=== PATIENT | male | born 1960 | race Caucasian/White ===

== ENCOUNTER 2018-08-05 11:11 | Inpatient (IN) ==
[2018-08-05] MEDS ORDERED: PATIENT'S HEIGHT AND/OR WEIGHT NEEDED SCH (12:30)
[2018-08-05] MEDS ORDERED: PATIENT'S ALLERGY INFO NEEDS ENTERED SCH (12:30)
[2018-08-05 12:46] LABS: INR 1.2 (0.9-1.1); Partial Thromboplastin Time 26.7 Seconds (21.0-31.0); Prothrombin Time 11.9 Seconds (9.0-12.0)
[2018-08-05 12:48] LABS: Basophils # (auto) 0.03 K/uL (0-0.2); Basophils % (auto) 0.6 %; Eosinophils # (auto) 0.31 K/uL (0-0.5); Eosinophils % (auto) 6.1 %; Hematocrit (blood only) 29.3 % (42-52); Hemoglobin 9.6 g/dL (14.0-18.0); Lymphocytes # (auto) 0.28 K/uL (1.2-3.4); Lymphocytes % (auto) 5.5 %; Mean Corpuscular Hgb Conc 32.8 g/dL (32-36); Mean Platelet Volume 10.5 fL (7.4-10.4); Monocytes # (auto) 0.56 K/uL (0.11-0.59); Monocytes % (auto) 10.9 %; Neutrophils # (auto) 3.94 K/uL (1.4-6.5); Neutrophils % (auto) 76.9 %; Platelet Count 205 K/uL (130-400); RDW Coefficient of Variation 16.8 % (11.5-14.5); RDW Standard Deviation 59.5 fL (36.4-46.3); Red Blood Count 2.96 M/uL (4.7-6.1); White Blood Count 5.12 K/uL (4.8-10.8)
[2018-08-05] MEDS ORDERED: ALBUTEROL HFA 8 GM INHALER INH PRN (13:03)
[2018-08-05 13:06] LABS: Alanine Aminotransferase 21 U/L (12-78); Albumin Level 3.3 gm/dl (3.4-5.0); Aspartate Aminotransferase 24 U/L (15-37); Blood Urea Nitrogen 24 mg/dl (7-18); Calcium 8.7 mg/dl (8.5-10.1); Carbon Dioxide 28 mmol/L (21-32); Chloride 95 mmol/L (98-107); Glucose 101 mg/dl (70-99); Magnesium 1.8 mg/dl (1.8-2.4); Potassium 3.6 mmol/L (3.5-5.1); Sodium 132 mmol/L (136-145)
[2018-08-05 13:07] LABS: BUN Creatinine Ratio 15.8 (10-20); Creatinine Clr Calc Pharmacy 67.2 ml/min; Est GFR (Non-African American) 50.9
--- NOTE | 2018-08-05 13:07 | History & Physical Report ---
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 Negative troponin. CXR: Cardiomegaly and radiographic evidence of congestive failure/fluid overload. 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 Hx INNA during hospital admission at [facility] in 06/2018 with Cr as high as 3.4 trended down to 2.3 on 07/01/18 INNA during admission in 07/2018 with Cr: 2.7 on 07/23/18 down to 1.5 on 07/27/18 -monitor renal functions -consider nephrology consult if worsening renal functions (6) Abdominal pain: Pt with reported abdominal pain since 05/2018, seems worse when has fluid overload. Reported nausea and some vomiting at night. Had CT ABD/PELVIS on 06/17/18 IMPRESSION 1. Marked distention of the IVC may be secondary to volume status 2. No evidence of bowel obstruction. 3. Cirrhosis. Perihepatic ascites and splenomegaly may be secondary to portal hypertension. No large volume ascites. 4. Bilateral pleural effusions with associated atelectasis. Infiltrate cannot be excluded. 5. Additional findings described above. -AST: 24, ALT: 21, Alk Phos: 281, total bili 1.2. -US abdomen r/o ascites -if worsening may need to consider further workup (7) Diabetes mellitus, type II: A1c: 5.9 on 06/12/18 Current diet controlled Glucose: 101 -monitor BSGs -novolog sliding scale per protocol (8) HTN (hypertension): Admission BP: 98/67 -continue metoprolol (9) Anemia: Hgb: 9.6. Hgb ranging in 8-9 since 07/2018, prior was 14 -monitor H&H (10) Anxiety: -continue ativan prn DVT Prophylaxis -Heparin SQ Full Code as per discussion with pt Follows with Dr Oakes in [place] for routine care Pt was seen with Dr Xiong. See addendum History of Present Illness Chief Complaint: Weight gain, fluid overload Primary Care Provider: Charles Oakes, DO Pt is 57 y/o M with PMH DM II, anxiety, HTN, CKD III-IV, CAD (AR 2004 s/p stent LAD), ischemic cardiomyopathy (EF 20-24%) s/p ICD in 2008 then removed in 2013 after tricuspid valve MSSA endocarditis, VT arrest s/p ICD 06/2018, and others below Sent today to [facility] from Dr Dumont cardiology office for weight gain. 05/2018: In hospital [place] cardiac arrest in setting of decompensated CHF at [facility]. [place] [facility], started on IV Lasix and milrinone and was weaned prior to discharge. Had ICD placed on 06/23/18. Pt with history hospitalization at [facility] on 07/21/18-07/23/18 for abdominal pain and 7 pound weight gain, attempted diuresis with Lasix 5mg/hr drip and then transferred to [facility] at family�s request on 08/02-07/27/18 for CHF and worsening renal functions. He was on Lasix drip and milrinone. He diuresed 24 pounds. Discharged on milrinone and torsemide and potassium doses were increased. Reported pt gained 26 pounds and increased abdominal distention and BLE edema since discharge on 07/27/18 with reported compliance with medications. Also c/o increased SOB with minimal exertion and orthopnea. Reports eating a lot a home and states prepares low sodium foods. (Pt has previous documentation of non -compliance with meds, diet and follow up). Denies CP or ICD firing. At cardiology office today pt had device interrogation revealed no ICD firings. Pt reports has had anterior CP since May since his cardiac arrest. He denies any increased CP. Reports having generalized abdominal pain since 05/2018. Feels increased pain increases when he has increased fluid retention and abdominal distension. Reports at night will have some nausea and intermittent vomiting. Denies diarrhea. States has known ventral abdominal hernia, doesn't think it has increased in size. Reports feels "wiped out" all the time. Chronic BLE discoloration, denies other rashes. Denies fever/chills, diaphoresis, GOMEZ, dizziness, syncope, vision changes, neck pain, palpitations, cough, sore throat , choking, otalgia, rhinorrhea, paresthesias, urinary symptoms. According to last admission notes from [facility] if pt compliant with milrinone drip he may be considered for possible LVAD 05/2018 Echo: Severely reduced LV systolic function, EF 20-24%. Severe, diffuse left ventricular hypokinesis with some regional variability, septal wall motion is abnormal consistent with right ventricular pressure/volume overload. Right ventricular cavity is moderately dilated with reduced systolic function. Mild to moderate mitral regurgitation, moderate tricuspid regurgitation. Right heart catheterization performed June 2018 shows pulmonary hypertension is present 42/23 with a mean of 31 mmHg, consistent with mild pulmonary hypertension attributable to elevated LVEDP. Wedge saturation is 52%, which is low. Cardiac output is 5.8 liters/minute and cardiac index is 2.8 liters/minute/ meter squared. Wedge pressures is 26-27 mmHg, moderately elevated. Right atrial pressure 12 mmHg. Pulmonary vascular resistance is 0.86 Wood units. Normal cutaneous oxygen saturation 92%. This was performed while on milrinone drip. Allergies Allergy/AdvReac Type Severity Reaction Status Date / Time No Known Allergies Allergy NONE Unverified 02/05/09 18:13 Home Medications Home Medications Medication Instructions Recorded Confirmed Type acetaminophen 500 mg PO QID PRN 08/05/18 08/05/18 History albuterol sulfate 2 puff INHALATION Q6H PRN 08/05/18 08/05/18 History amiodarone 200 mg PO DAILY 08/05/18 08/05/18 History aspirin 81 mg PO DAILY 08/05/18 08/05/18 History atorvastatin 80 mg PO PM 08/05/18 08/05/18 History lorazepam 1 mg PO DAILY PRN 08/05/18 08/05/18 History metoprolol succinate 25 mg PO DAILY 08/05/18 08/05/18 History milrinone in 5 % dextrose 0.375 mcg/kg/min IV 08/05/18 History omeprazole 40 mg PO DAILY 08/05/18 08/05/18 History potassium chloride 40 meq PO BID 08/05/18 08/05/18 History torsemide 4 tab PO TID 08/05/18 08/05/18 History tramadol 50 mg PO Q6H PRN 08/05/18 08/05/18 History Past Med/Surg History Medical History 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) 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 at [facility] ICD placed 06/23/18 at [facility] Thrombocytopenia (Chronic) Elevated liver function tests (Chronic) Cardiac arrest (Resolved) 05/2018 Ischemic cardiomyopathy (Chronic) 05/2018 EF: 20-24% Anemia (Chronic) History of tobacco use (Chronic) Anxiety (Chronic) Diabetes mellitus, type II (Chronic) CKD (chronic kidney disease), stage III (Chronic) GERD (gastroesophageal reflux disease) (Chronic) HTN (hypertension) (Chronic) Dyslipidemia (Chronic) CAD (coronary artery disease) (Chronic) s/p stent LAD in 2004 Family History Other CAD (coronary artery disease) Social History Current Living Situation: Spouse Current Living Situation Comment: home Other Information That Helps Us Care for You: No Feels Safe at Home: Yes Safety Concerns: Feels Safe At This Time Smoking Status: Former smoker Smoking End Date: 06/12/18 Hx Alcohol Use: Yes Alcohol type: beer Alcohol Intake Frequency: holidays/ special occasions only Hx Substance Use: No Beliefs That Will Affect Care: None Preferred Language: Bangladeshi Communication Ability: Effective Electrotyper Required: No Review of Systems All systems reviewed & are unremarkable except as noted in HPI & below Physical Exam 2 Vital Signs (Past 24 Hours): Last Vital Signs Temp 36.7 C 08/05/18 12:15 Pulse 88 08/05/18 12:15 Resp 18 08/05/18 12:15 BP 98/67 L 08/05/18 12:15 Pulse Ox 100 08/05/18 12:15 Physical Exam: General: no distress, WDWN Head: normocephalic, atraumatic Eyes: PERRL, EOM's intact, conjunctiva non-injected, anicteric ENT: normal inspection external ears, nose, mucous membranes moist Neck: supple, trachea midline, non-tender Lungs: clear, no respiratory distress, no wheezing/rhonchi/rales CV: RRR, no murmur, 2+ pretibial edema Abd: normal BS, distended, +hernia, non-tender Ext: +discoloration BLE, no calf tenderness Neuro: A&O x 3, no focal deficits noted, normal affect Skin: warm, dry Results & Data Laboratory Results Short CBC 08/05/18 08/05/18 08/05/18 Range/Units 12:28 12:28 12:28 WBC 5.12 (4.8-10.8) K/uL Hgb 9.6 L (14.0-18.0) g/dL Hct 29.3 L (42-52) % Plt Count 205 (130-400) K/uL NT-Pro-B Natriuret Pep 3851 H Cancelled (0-900) pg/ml BMP 08/05/18 12:28 Sodium 132 L Potassium 3.6 Chloride 95 L Carbon Dioxide 28 BUN 24 H Creatinine 1.51 H Glucose 101 H Calcium 8.7 Cardiac Enzymes 08/05/18 Range/Units 12:28 Troponin I < 0.015 (0-0.045) ng/ml Liver Function 08/05/18 Range/Units 12:28 Total Bilirubin 1.2 H (0.2-1) mg/dl AST 24 (15-37) U/L ALT 21 (12-78) U/L Alkaline Phosphatase 281 H (45-117) U/L Albumin 3.3 L (3.4-5.0) gm/dl Supervising Physician Co-Signing Physician Notes Patient is a 57-year-old male with history of ischemic cardiomyopathy with EF of 20-25%, CKD and other problems presents with history of worsening shortness of breath, weight gain, abdominal distention, orthopnea and some chronic generalized abdominal discomfort. 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 Chest x-ray suggestive of cardiomegaly with evidence of CHF, right pleural effusion associated with right lower lobe possible atelectasis/consolidation. Abdominal ultrasound suggestive of trace perihepatic ascites and splenomegaly. On exam patient is chronically ill appearing, no apparent distress, lungs-normal breath sounds, basal Rales, S1 -S2, + systolic murmur, abdomen is distended, firm,+ abdominal wall hernia, bilateral lower extremities-chronic venous stasis changes, bilateral lower extremity pedal edema. Patient is diagnosed to have acute on chronic systolic heart failure. Patient will be started on IV Lasix ggt, milirinone ggt as per cardiology recommendations. Monitor I's and O's, daily weight, renal function and electrolytes. Appreciate cardiology recommendations. Check pro-calcitonin and consider antibiotics if elevated. I personally reviewed the record. Patient is interviewed and examined at bedside. Patient's care is coordinated with Nida Cortez PA-C. Please refer to the documentation above for details of patient's presentation and for discussion of other issues.
[2018-08-05 13:17] LABS: Albumin Globulin Ratio 0.7 (0.9-2); Alkaline Phosphatase 281 U/L (45-117); Bilirubin,Total 1.2 mg/dl (0.2-1); Globulin 4.9 gm/dl (2.5-4.0); NT Pro B Type Natriuretic Pept 3851 pg/ml (0-900); Phosphorus 3.6 mg/dl (2.5-4.9); Total Protein 8.2 gm/dl (6.4-8.2); Troponin I < 0.015 ng/ml (0-0.045)
--- NOTE | 2018-08-05 13:30 | XRay Report ---
XR chest 1V portable CLINICAL HISTORY: Shortness of breath COMPARISON STUDY: January 2009 FINDINGS: The heart is enlarged. There is a left subclavian central venous catheter tip which project s over the superior vena cava. There is a right subclavian pacer/defibrillator. There is radiographic evidence of congestive failure/fluid overload. There is a moderate right pleural effusion with assoc iated right lower lobe atelectasis/consolidation.[ IMPRESSION: 1. Cardiomegaly and radiographic evidence of congestive failure/fluid overload 2. Right pleural effusion with associated right lower lobe atelectasis/consolidation Electronically signed by: Philip Quiros M.D. 08/05/2018 1:28 PM
[2018-08-05] MEDS ORDERED: FUROSEMIDE 100 MG in DEXTROSE 5% 90 ML IV SCH (14:00)
--- NOTE | 2018-08-05 14:13 | Cardiology Consultation ---
Date of Consultation August 05, 2018 Assessment & Plan (1) Acute on chronic systolic (congestive) heart failure: We will continue him on his milrinone infusion and start him on a Lasix drip. We will see how he does in the next 24 hours. (2) Ischemic cardiomyopathy: (3) ICD (implantable cardioverter-defibrillator) in place: (4) CKD (chronic kidney disease), stage III: (5) Diabetes mellitus, type II: (6) History of tobacco use: History of Present Illness Attending Physician: Neptali Xiong MD History of Present Illness This is a 57-year-old male patient with an extensive previous cardiac history as outlined below. He was recently discharged from [facility]. During that admission he was considered for an LVAD but due to a history of noncompliance with medical care and lifestyle it was decided that he would be started on a continuous milrinone infusion and after several months if he proves his compliance, then they will reconsider him for an LVAD. He was discharged approximately 10 days ago and was seen in the clinic by Dr. Dumont after gaining over 20 pounds of fluid weight. He did not want to return to [facility] and was referred for admission here. I spoke to Dr. Ifeanyi Flores at [facility] his heart failure specialist. Goals of treatment were reviewed. Our plan will be to start him on a Lasix infusion. He currently has a milrinone pump with limited supplies. I spoke with the pharmacist and will start him on a milrinone drip here and disconnect his pump until he is discharged. PAST SURGICAL HISTORY: 1. PCI to the LAD in 2004 in the setting of an acute myocardial infarction. 2. ICD implantation in 2008, with subsequent explantation in 2013 after MSSA endocarditis. 3. Recent PICC line placement. 4. Cardiac cath, June 2018. 5. Dental extractions. � MEDICAL ILLNESSES: 1. Severe ischemic cardiomyopathy, EF less than 20%, status post ICD placement. 2. History of VT, cardiac arrest in the setting of decompensated CHF, May 2018. 3. Severe and significant pulmonary hypertension. 4. Tobacco abuse, in remission. 5. Medical noncompliance. 6. Hypertension. 7. Stage 3-4 chronic kidney disease. 8. Coronary artery disease. 9. Cirrhotic range LFTs. 10. Thrombocytopenia. 11. Anxiety. 12. Congestive coagulopathy. 13. Chronic anemia. Allergies Allergy/AdvReac Type Severity Reaction Status Date / Time No Known Allergies Allergy NONE Unverified 02/05/09 18:13 Home Medications Home Medications Medication Instructions Recorded Confirmed Type acetaminophen 500 mg PO QID PRN 08/05/18 08/05/18 History albuterol sulfate 2 puff INHALATION Q6H PRN 08/05/18 08/05/18 History amiodarone 200 mg PO DAILY 08/05/18 08/05/18 History aspirin 81 mg PO DAILY 08/05/18 08/05/18 History atorvastatin 80 mg PO PM 08/05/18 08/05/18 History lorazepam 1 mg PO DAILY PRN 08/05/18 08/05/18 History metoprolol succinate 25 mg PO DAILY 08/05/18 08/05/18 History milrinone in 5 % dextrose 0.375 mcg/kg/min IV 08/05/18 History omeprazole 40 mg PO DAILY 08/05/18 08/05/18 History potassium chloride 40 meq PO BID 08/05/18 08/05/18 History torsemide 4 tab PO TID 08/05/18 08/05/18 History tramadol 50 mg PO Q6H PRN 08/05/18 08/05/18 History Patient History Medical History 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) 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 at [facility] ICD placed 06/23/18 at [facility] Thrombocytopenia (Chronic) Elevated liver function tests (Chronic) Cardiac arrest (Resolved) 05/2018 Ischemic cardiomyopathy (Chronic) 05/2018 EF: 20-24% Anemia (Chronic) History of tobacco use (Chronic) Anxiety (Chronic) Diabetes mellitus, type II (Chronic) CKD (chronic kidney disease), stage III (Chronic) GERD (gastroesophageal reflux disease) (Chronic) HTN (hypertension) (Chronic) Dyslipidemia (Chronic) CAD (coronary artery disease) (Chronic) s/p stent LAD in 2004 Family History Other CAD (coronary artery disease) Social History Current Living Situation: Spouse Current Living Situation Comment: home Other Information That Helps Us Care for You: No Feels Safe at Home: Yes Safety Concerns: Feels Safe At This Time Smoking Status: Former smoker Smoking End Date: 06/12/18 Hx Alcohol Use: Yes Alcohol type: beer Alcohol Intake Frequency: holidays/ special occasions only Hx Substance Use: No Beliefs That Will Affect Care: None Preferred Language: British Communication Ability: Effective Body Piercer Required: No Review of Systems Review of Systems: See HPI for pertinent positives. All other 10 point review of systems are negative. Physical Exam 2 Vital Signs (Past 24 Hours): Last Vital Signs Temp 36.7 C 08/05/18 12:15 Pulse 88 08/05/18 12:15 Resp 18 08/05/18 12:15 BP 98/67 L 08/05/18 12:15 Pulse Ox 100 08/05/18 12:15 Physical Exam: General: no acute distress and stated age Head: normocephalic, no masses, lesions, tenderness or abnormalities Eyes: conjunctiva are pink and non-injected, sclera clear Neck: Neck veins are distended Chest: normal shape and normal respiratory effort Lungs: clear to auscultation and percussion Cardiac Exam: - regular rate & rhythm, normal S1-S2. There is an S3-S4 summation gallop Pulses: 2(+) throughout Abdomen: Distended with ascites Musculoskeletal: no gait disturbance, no joint inflammation, no deforming arthritis Extremities: Discoloration of the lower extremities due to venous stasis and poor perfusion. Edema which is hard up to the thighs bilaterally. Neuro: grossly normal exam Results & Data Laboratory Results Laboratory Results - last 24 hr 08/05/18 08/05/18 08/05/18 12:28 12:28 12:28 WBC 5.12 RBC 2.96 L Hgb 9.6 L Hct 29.3 L MCV 99.0 MCH 32.4 MCHC 32.8 RDW Std Deviation 59.5 H RDW Coeff of Yung 16.8 H Plt Count 205 MPV 10.5 H Immature Gran % (Auto) 0.0 Neut % (Auto) 76.9 Lymph % (Auto) 5.5 [place] % (Auto) 10.9 Eos % (Auto) 6.1 Baso % (Auto) 0.6 Immature Gran # (Auto) 0.00 Neut # (Auto) 3.94 Lymph # (Auto) 0.28 L [place] # (Auto) 0.56 Eos # (Auto) 0.31 Baso # (Auto) 0.03 PT 11.9 INR 1.2 H APTT 26.7 PTT Ratio 1.0 Sodium 132 L Potassium 3.6 Chloride 95 L Carbon Dioxide 28 Anion Gap 9.0 BUN 24 H Creatinine 1.51 H Est Cr Clr Drug Dosing 67.2 Est GFR ( Amer) 59.0 Est GFR (Non-Af Amer) 50.9 BUN/Creatinine Ratio 15.8 Glucose 101 H Calcium 8.7 Phosphorus 3.6 Magnesium 1.8 Total Bilirubin 1.2 H AST 24 ALT 21 Alkaline Phosphatase 281 H Troponin I < 0.015 NT-Pro-B Natriuret Pep 3851 H Total Protein 8.2 Albumin 3.3 L Globulin 4.9 H Albumin/Globulin Ratio 0.7 L 08/05/18 12:28 WBC RBC Hgb Hct MCV MCH MCHC RDW Std Deviation RDW Coeff of Yung Plt Count MPV Immature Gran % (Auto) Neut % (Auto) Lymph % (Auto) [place] % (Auto) Eos % (Auto) Baso % (Auto) Immature Gran # (Auto) Neut # (Auto) Lymph # (Auto) [place] # (Auto) Eos # (Auto) Baso # (Auto) PT INR APTT PTT Ratio Sodium Potassium Chloride Carbon Dioxide Anion Gap BUN Creatinine Est Cr Clr Drug Dosing Est GFR ( Amer) Est GFR (Non-Af Amer) BUN/Creatinine Ratio Glucose Calcium Phosphorus Magnesium Total Bilirubin AST ALT Alkaline Phosphatase Troponin I NT-Pro-B Natriuret Pep Cancelled Total Protein Albumin Globulin Albumin/Globulin Ratio Medications Administered Current Inpatient Medications Acetaminophen (Tylenol) 650 mg PO Q4H PRN PRN Reason: Pain or Fever Stop: 09/04/18 12:12 Albuterol (Ventolin Hfa) 2 puffs INH Q6H PRN PRN Reason: Shortness Of Breath Or Wheezing Stop: 09/04/18 13:02 Amiodarone HCl (Cordarone) 200 mg PO DAILY ROLANDO Stop: 09/04/18 13:14 Aspirin (Ecotrin Ectab) 81 mg PO DAILY ROLANDO Stop: 09/05/18 08:59 Atorvastatin Calcium (Lipitor) 80 mg PO PM ROLANDO Stop: 09/04/18 20:59 Heparin Sodium (Porcine) (Heparin Sodium (Porcine)) 5,000 units SQ Q8 ROLANDO Stop: 09/04/18 13:59 Milrinone Lactate/Dextrose (Primacor/D5w) 20,000 mcg in 100 mls @ 9.9 mls/hr IV .Q10H7M ROLANDO Stop: 09/04/18 14:59 Furosemide 100 mg/ Syringe 10 mls @ 4 mls/min IV TODAY@1415 ONE Stop: 08/05/18 14:17 Furosemide 100 mg/ Dextrose 100 mls @ 20 mls/hr IV .Q5H ROLANDO Stop: 09/04/18 14:14 Lorazepam (Ativan) 1 mg PO DAILY PRN PRN Reason: Anxiety Stop: 09/04/18 13:02 Metoprolol Succinate (Toprol Xl) 25 mg PO DAILY ROLANDO Stop: 09/04/18 13:14 Pantoprazole Sodium (Protonix) 40 mg PO DAILY ROLANDO Stop: 09/05/18 08:59 Potassium Chloride (Klor-Con M20) 40 meq PO BID ROLANDO Stop: 09/04/18 20:59 Tramadol HCl (Ultram) 50 mg PO Q6H PRN PRN Reason: Pain Stop: 09/04/18 13:02
[2018-08-05] MEDS ORDERED: FUROSEMIDE 100 MG in SYRINGE 0 ML IV ONE (14:15)
--- NOTE | 2018-08-05 14:36 | Ultrasound Report ---
US abdomen limited CLINICAL HISTORY: R/O ascites. Abdominal distention. COMPARISON STUDY: None. FINDINGS: Trace fluid surrounding the liver. The spleen is enlarged measuring 15.6 cm in length. IMPRESSION: 1. Trace perihepatic ascites. 2. Splenomegaly. Electronically signed by: Bro Dunbar M.D. 08/05/2018 2:35 PM
[2018-08-05] MEDS: METOPROLOL SUCC 25MG EXT REL TAB PO SCH (15:07)
[2018-08-05] MEDS: AMIODARONE 200 MG TAB PO SCH (15:07)
[2018-08-05] MEDS: HEPARIN SOD 5,000 UNIT/0.5 ML VIAL SQ SCH ×2 (15:08→21:32)
[2018-08-05] MEDS: LORazepam 1 MG TAB PO PRN (15:08)
[2018-08-05] MEDS: MILRINONE LACTATE/D5W 20,000 MCG/100 ML BAG IV SCH ×2 (15:34→23:43)
[2018-08-05] MEDS: FUROSEMIDE 100 MG in DEXTROSE 5% 90 ML IV SCH ×3 (15:45→23:41)
[2018-08-05 18:26] LABS: BUN Creatinine Ratio 15.4 (10-20); Calcium 8.6 mg/dl (8.5-10.1); Creatinine Clr Calc Pharmacy 66.8 ml/min; Est GFR (African American) 58.5; Est GFR (Non-African American) 50.5; Magnesium 1.8 mg/dl (1.8-2.4); Potassium 3.5 mmol/L (3.5-5.1)
[2018-08-05] MEDS: POTASSIUM CHLORIDE 20 MEQ TABCR PO SCH (20:15)
[2018-08-05] MEDS: ATORVASTATIN 40 MG TAB PO SCH (20:15)
[2018-08-05] MEDS: ACETAMINOPHEN 325 MG TAB PO PRN (20:47)
[2018-08-06] MEDS: TRAMADOL HCL 50 MG TABLET PO PRN ×2 (02:28→21:42)
[2018-08-06] MEDS: FUROSEMIDE 100 MG in DEXTROSE 5% 90 ML IV SCH ×4 (04:14→19:31)
[2018-08-06] MEDS: HEPARIN SOD 5,000 UNIT/0.5 ML VIAL SQ SCH ×3 (05:26→21:43)
[2018-08-06 06:45] LABS: Hematocrit (blood only) 28.3 % (42-52); Hemoglobin 9.5 g/dL (14.0-18.0); Mean Corpuscular Hgb Conc 33.6 g/dL (32-36); Mean Corpuscular Volume 98.3 fL (80-100); Mean Platelet Volume 10.3 fL (7.4-10.4); Platelet Count 181 K/uL (130-400); RDW Coefficient of Variation 16.6 % (11.5-14.5); RDW Standard Deviation 59.5 fL (36.4-46.3); Red Blood Count 2.88 M/uL (4.7-6.1); White Blood Count 4.86 K/uL (4.8-10.8)
[2018-08-06 07:15] LABS: BUN Creatinine Ratio 14.3 (10-20); Calcium 8.4 mg/dl (8.5-10.1); Creatinine Clr Calc Pharmacy 71.9 ml/min; Est GFR (African American) 64.6; Est GFR (Non-African American) 55.8; Magnesium 1.7 mg/dl (1.8-2.4); Potassium 3.2 mmol/L (3.5-5.1)
[2018-08-06] MEDS: ASPIRIN 81 MG ECTAB PO SCH (09:04)
[2018-08-06] MEDS: PANTOprazole 40 MG TAB PO SCH (09:04)
[2018-08-06] MEDS: POTASSIUM CHLORIDE 20 MEQ TABCR PO SCH ×2 (09:04→20:25)
[2018-08-06] MEDS: AMIODARONE 200 MG TAB PO SCH (09:04)
[2018-08-06] MEDS: METOPROLOL SUCC 25MG EXT REL TAB PO SCH (09:04)
[2018-08-06] MEDS: MILRINONE LACTATE/D5W 20,000 MCG/100 ML BAG IV SCH ×2 (09:11→19:30)
--- NOTE | 2018-08-06 09:16 | Cardiology Progress Note ---
Date of Service August 06, 2018 Assessment & Plan (1) Acute on chronic HFrEF (heart failure with reduced ejection fraction): (2) Ischemic cardiomyopathy: (3) Hypokalemia: Patient clinically stable in terms of symptoms and vital signs. Has furosemide infusion at 20 mg /hr via peripheral IV. Milrinone infusing at dose of 0.375 mcg/kg/min via left subclavian port. Has AICD in right infraclavicular position. Fluid balance negative 2.3 L since admission, 08/05. Has oral potassium replacement scheduled. Will add magnesium oxide and aldactone. Continue metoprolol succinate. Not on ACEI, ARB, or Entresto, perhaps due to h/o relative low BP, will reassess candidacy as hospital stay develops. Pt notes he was "mixed up with his pills" at home. Continue SQ heparin for DVT prophylaxis. Continue close observation of electrolytes. Pt describes long standing h/o heart disease with first MT in 2008, and cardiac arrest event in 05/2018. Subjective Chief Complaint: follow up weight gain, volume overload Subjective: Patient comfortable in bedside recliner. Denies chest pain or orthopnea. Physical Exam 2 Vital Signs (Past 24 Hours): Last Vital Signs Temp 36.4 C L 08/06/18 06:39 Pulse 83 08/06/18 07:23 Resp 18 08/06/18 06:39 BP 102/67 08/06/18 06:39 Pulse Ox 94 08/06/18 06:39 Constitutional: + ill appearing and + thin Respiratory: no cough Auscultation: + diminished lung sounds (decreased breath sounds at the bases); no crackles and no rales Cardiovascular: Rate/Rhythm: regular rate Heart Sounds: no murmur Vessels: + JVD Extremities: + edema 2+ LE edema bilataterally, chronic venous stasis changes . + abdominal fluid retention Neurologic: moves all extremities; no focal motor deficits conversant. Results & Data Laboratory Results Cardiac Enzymes 08/05/18 Range/Units 12:28 AST 24 (15-37) U/L Troponin I < 0.015 (0-0.045) ng/ml Coagulation 08/05/18 Range/Units 12:28 PT 11.9 (9.0-12.0) Seconds APTT 26.7 (21.0-31.0) Seconds CBC 08/05/18 08/06/18 Range/Units 12:28 06:29 WBC 5.12 4.86 (4.8-10.8) K/uL RBC 2.96 L 2.88 L (4.7-6.1) M/uL Hgb 9.6 L 9.5 L (14.0-18.0) g/dL Hct 29.3 L 28.3 L (42-52) % Plt Count 205 181 (130-400) K/uL Neut # (Auto) 3.94 (1.4-6.5) K/uL Lymph # (Auto) 0.28 L (1.2-3.4) K/uL Mckinley # (Auto) 0.56 (0.11-0.59) K/uL Eos # (Auto) 0.31 (0-0.5) K/uL Baso # (Auto) 0.03 (0-0.2) K/uL Comprehensive Metabolic Panel 08/05/18 08/05/18 08/06/18 Range/Units 12:28 17:36 06:29 Sodium 132 L 132 L 133 L (136-145) mmol/L Potassium 3.6 3.5 3.2 L (3.5-5.1) mmol/L Chloride 95 L 96 L 96 L (98-107) mmol/L Carbon Dioxide 28 30 29 (21-32) mmol/L BUN 24 H 23 H 20 H (7-18) mg/dl Creatinine 1.51 H 1.52 H 1.40 (0.6-1.4) mg/dl Glucose 101 H 150 H 101 H (70-99) mg/dl Calcium 8.7 8.6 8.4 L (8.5-10.1) mg/dl AST 24 (15-37) U/L ALT 21 (12-78) U/L Alkaline Phosphatase 281 H (45-117) U/L Total Protein 8.2 (6.4-8.2) gm/dl Albumin 3.3 L (3.4-5.0) gm/dl Intake and Output 08/05/18 08/06/18 08/06/18 22:59 06:59 14:59 Intake Total 1150.333 / 1150.333 250.018 / 250.018 200 / 200 Output Total 2300 / 2300 875 / 875 675 / 675 Balance -1149.667 / -1149.667 -624.982 / -624.982 -475 / -475 Intake: IV 80.333 / 80.333 250.018 / 250.018 200 / 200 Lasix 100 mg In D5 90 ml @ 20 80.333 / 80.333 169.333 / 169.333 100 / 100 MG/HR 20 mls/hr IV .Q5H ROLANDO Rx# :[id number] PRIMACOR/D5W 20,000 mcg In 100 80.685 / 80.685 100 / 100 ml @ 0.375 MCG/KG/MIN 9.9 mls/ hr IV .Q10H7M ROLANDO Rx#:[id number] Oral 1070 / 1070 Output: Urine 2300 / 2300 875 / 875 675 / 675 Other: Other Intake Source ice chips Weight 99.2 kg Diagnostic Findings EKG this am reveals stable SR without significant repolarization changes.
[2018-08-06] MEDS: SPIRONOLACTONE 25 MG TAB PO SCH (10:19)
[2018-08-06] MEDS: MAGNESIUM OXIDE 400 MG TAB PO SCH ×2 (10:19→20:25)
[2018-08-06] MEDS: ACETAMINOPHEN 325 MG TAB PO PRN ×2 (14:02→20:23)
--- NOTE | 2018-08-06 14:25 | Hospitalist Progress Note ---
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 During that admission he was considered for an LVAD but due to a history of noncompliance with medical care and lifestyle it was decided that he would be started on a continuous milrinone infusion and after several months if he proves his compliance, then they will reconsider him for an LVAD. -was seen in the clinic by Dr. Dumont after gaining over 24 pounds of fluid weight. patient did not want to return to [facility] and was sent to [facility] for admission -admission BNP: 3851 with CXR: Cardiomegaly and radiographic evidence of congestive failure/fluid overload. Right pleural effusion with associated right lower lobe atelectasis/consolidation -Has furosemide infusion at 20 mg /hr via peripheral IV. Milrinone infusing at dose of 0.375 mcg/kg/min via left subclavian port. 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 Had CT ABD/PELVIS on 06/17/18 IMPRESSION 1. Marked distention of the IVC may be secondary to volume status 2. No evidence of bowel obstruction. 3. Cirrhosis. Perihepatic ascites and splenomegaly may be secondary to portal hypertension. No large volume ascites. 4. Bilateral pleural effusions with associated atelectasis. Infiltrate cannot be excluded. 5. Additional findings described above. Ultrasound abdomen 08/05/18 Trace fluid surrounding the liver. The spleen is enlarged measuring 15.6 cm in length. currently no abdominal pain presence of abdominal hernia and splenomegaly (7) Diabetes mellitus, type II: A1c: 5.9 on 06/12/18 Current diet controlled Glucose: 101 -monitor BSGs -novolog sliding scale per protocol (8) HTN (hypertension): no hypertension during this admission to date continue metoprolol (9) Anemia: Hgb ranging in 8-9 since 07/2018, prior was 14 currently Hgb is stable as 9.5 (10) Anxiety: -continue ativan prn DVT Prophylaxis -Heparin SQ Full Code Follows with Dr Oakes in [place] for routine care Patient's [phone] Subjective Patient on room air denies chest pain. denies abdominal pain. denies shortness of breath denies vomiting. patient understands that he is being treated for fluid overload from CHF Physical Exam 2 Vital Signs (Past 24 Hours): Last Vital Signs Temp 36.4 C L 08/06/18 11:38 Pulse 84 08/06/18 11:38 Resp 19 08/06/18 11:38 BP 102/70 08/06/18 11:38 Pulse Ox 98 08/06/18 11:38 Physical Exam: General: no distress, WDWN Head: normocephalic, atraumatic Eyes: PERRL, EOM's intact, conjunctiva non-injected, anicteric ENT: normal inspection external ears, nose, mucous membranes moist Neck: supple, trachea midline, non-tender Lungs: no wheezing/rhonchi/rales; on room air, diminished lung sounds at the bases CV: Rate/Rhythm: regular rate Heart Sounds: no murmur Vessels: + JVD Extremities: + edema 2+ LE edema bilataterally, chronic venous stasis changes . + abdominal fluid retention Abd: normal BS, distended, +hernia, non-tender Ext: no calf tenderness Neuro: A&O x 3, no focal deficits noted, normal affect
[2018-08-06 15:11] LABS: Calcium 8.3 mg/dl (8.5-10.1); Creatinine Clr Calc Pharmacy 73.4 ml/min; Est GFR (African American) 66.4; Est GFR (Non-African American) 57.2; Magnesium 1.6 mg/dl (1.8-2.4); Potassium 3.4 mmol/L (3.5-5.1)
[2018-08-06] MEDS ORDERED: MAGNESIUM SULFATE / D5W 1 GM/100 ML BAG IV ONE (16:51)
[2018-08-06] MEDS: ATORVASTATIN 40 MG TAB PO SCH (20:24)
[2018-08-06] MEDS ORDERED: MoRPHine SULFATE 2 MG/ML CARP IV PRN (21:45)
[2018-08-06] MEDS: LORazepam 1 MG TAB PO PRN (22:37)
[2018-08-06] MEDS ORDERED: PROCHLORPERAZINE 5 MG in SYRINGE 4 ML IV ONE (23:00)
[2018-08-07] MEDS: FUROSEMIDE 100 MG in DEXTROSE 5% 90 ML IV SCH ×5 (00:17→20:30)
[2018-08-07] MEDS: MILRINONE LACTATE/D5W 20,000 MCG/100 ML BAG IV SCH ×2 (05:06→14:23)
[2018-08-07] MEDS: HEPARIN SOD 5,000 UNIT/0.5 ML VIAL SQ SCH ×2 (05:08→13:17)
[2018-08-07 06:22] LABS: Basophils # (auto) 0.03 K/uL (0-0.2); Basophils % (auto) 0.7 %; Eosinophils # (auto) 0.32 K/uL (0-0.5); Eosinophils % (auto) 7.3 %; Hematocrit (blood only) 27.4 % (42-52); Hemoglobin 8.9 g/dL (14.0-18.0); Immature Granulocytes # (auto) 0.01 K/uL (0.00-0.02); Immature Granulocytes % (auto) 0.2 %; Lymphocytes # (auto) 0.52 K/uL (1.2-3.4); Lymphocytes % (auto) 11.8 %; Mean Corpuscular Hgb Conc 32.5 g/dL (32-36); Mean Corpuscular Volume 98.2 fL (80-100); Mean Platelet Volume 10.4 fL (7.4-10.4); Monocytes # (auto) 0.33 K/uL (0.11-0.59); Monocytes % (auto) 7.5 %; Neutrophils # (auto) 3.19 K/uL (1.4-6.5); Neutrophils % (auto) 72.5 %; Platelet Count 181 K/uL (130-400); RDW Coefficient of Variation 16.7 % (11.5-14.5); RDW Standard Deviation 59.2 fL (36.4-46.3); Red Blood Count 2.79 M/uL (4.7-6.1)
[2018-08-07 07:02] LABS: BUN Creatinine Ratio 16.7 (10-20); Calcium 8.4 mg/dl (8.5-10.1); Creatinine Clr Calc Pharmacy 72.8 ml/min; Est GFR (African American) 65.8; Est GFR (Non-African American) 56.7; Potassium 3.6 mmol/L (3.5-5.1)
[2018-08-07 07:05] LABS: Albumin Globulin Ratio 0.7 (0.9-2); Bilirubin,Total 1.2 mg/dl (0.2-1); Globulin 4.4 gm/dl (2.5-4.0); Total Protein 7.4 gm/dl (6.4-8.2)
[2018-08-07 07:06] LABS: RBC Morphology Unremarkable
[2018-08-07] MEDS: AMIODARONE 200 MG TAB PO SCH (08:24)
[2018-08-07] MEDS: METOPROLOL SUCC 25MG EXT REL TAB PO SCH (08:24)
[2018-08-07] MEDS: SPIRONOLACTONE 25 MG TAB PO SCH (08:24)
[2018-08-07] MEDS: PANTOprazole 40 MG TAB PO SCH (08:25)
[2018-08-07] MEDS: MAGNESIUM OXIDE 400 MG TAB PO SCH ×2 (08:25→20:32)
[2018-08-07] MEDS: ASPIRIN 81 MG ECTAB PO SCH (08:25)
[2018-08-07] MEDS: POTASSIUM CHLORIDE 20 MEQ TABCR PO SCH ×2 (08:25→20:32)
--- NOTE | 2018-08-07 12:25 | Cardiology Progress Note ---
Date of Service August 07, 2018 Assessment & Plan (1) Acute on chronic HFrEF (heart failure with reduced ejection fraction): History of profound ischemic cardiomyopathy, low cardiac output syndrome, and prior cardiac arrest in May,. The patient has been on outpatient supportive therapy with milrinone and remains on his previous outpatient dose of 0.375 mcg/kg/min. He is tolerating furosemide infusion at 20 mg/h. Electrolytes are stable as are his renal function. I ordered a repeat basic metabolic panel and magnesium level to be performed tomorrow morning 08/08/18. Patient had a sizable right pleural effusion on chest x-ray on admission. We will reassess with chest ultrasound tomorrow. Tolerating the initiation of spironolactone. Blood pressure borderline low, will consider the addition of ANGUS inhibitor, versus angiotensin receptor derick, or even Entresto tomorrow. Continue subcutaneous heparin for DVT prophylaxis. Subjective Chief complaint: Follow-up fluid retention, exertional shortness of breath, lower extremity edema Subjective: Patient comfortable. He is sitting in the bedside recliner and he states that he spent the day and most of the night there. He apparently had an upset stomach last evening after having a peanut butter and jelly sandwich. His blood pressures remained stable. He remains on furosemide infusion and milrinone infusion. Telemetry reveals sinus rhythm in the 80 bpm range. Physical Exam 2 Vital Signs (Past 24 Hours): Last Vital Signs Temp 36.3 C L 08/07/18 10:51 Pulse 85 08/07/18 10:51 Resp 19 08/07/18 10:51 BP 102/69 08/07/18 10:51 Pulse Ox 95 08/07/18 10:51 Constitutional: + ill appearing (Chronically ill in appearance no acute distress ) Respiratory: no cough and not tachypneic Auscultation: + diminished lung sounds; no crackles and no rales Positive decreased breath sounds bilaterally at the bases Cardiovascular: Rate/Rhythm: regular rate Heart Sounds: + murmur (2/6 systolic murmur heard best at the apex) Extremities: + edema Gastrointestinal (Abdomen): Percussion/Palpation: abdomen nontender and no guarding Abdomen distended consistent with fluid retention Skin: Lower legs with chronic venous stasis changes, 2+ lower extremity edema no focal skin breakdown Neurologic: Conversant, moves all 4 extremities on command, no focal neurologic deficits Genitourinary: Voiding spontaneously, utilizing bedside urinal
--- NOTE | 2018-08-07 13:39 | Hospitalist Progress Note ---
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 During that admission he was considered for an LVAD but due to a history of noncompliance with medical care and lifestyle it was decided that he would be started on a continuous milrinone infusion and after several months if he proves his compliance, then they will reconsider him for an LVAD. -was seen in the clinic by Dr. Dumont after gaining over 24 pounds of fluid weight. patient did not want to return to [facility] and was sent to [facility] for admission -admission BNP: 3851 with CXR: Cardiomegaly and radiographic evidence of congestive failure/fluid overload. Right pleural effusion with associated right lower lobe atelectasis/consolidation -Has furosemide infusion at 20 mg /hr via peripheral IV. Milrinone infusing at dose of 0.375 mcg/kg/min via left subclavian port. 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 Had CT ABD/PELVIS on 06/17/18 IMPRESSION 1. Marked distention of the IVC may be secondary to volume status 2. No evidence of bowel obstruction. 3. Cirrhosis. Perihepatic ascites and splenomegaly may be secondary to portal hypertension. No large volume ascites. 4. Bilateral pleural effusions with associated atelectasis. Infiltrate cannot be excluded. 5. Additional findings described above. Ultrasound abdomen 08/05/18 Trace fluid surrounding the liver. The spleen is enlarged measuring 15.6 cm in length. currently no abdominal pain presence of abdominal hernia and splenomegaly (7) Diabetes mellitus, type II: A1c: 5.9 on 06/12/18 Current diet controlled Glucose: 101 -monitor BSGs -novolog sliding scale per protocol (8) HTN (hypertension): no hypertension during this admission to date continue metoprolol (9) Anemia: Hgb ranging in 8-9 since 07/2018, prior was 14 currently Hgb 8.9 (10) Anxiety: -continue ativan prn DVT Prophylaxis hold heparin for possible thoracentesis on 08/08/18, will have SCDs ordered instead for now Full Code Follows with Dr Oakes in [place] for routine care Patient's [phone] Subjective Patient on room air denies chest pain. denies abdominal pain. denies shortness of breath reported episode of nausea yesterday but not today Physical Exam 2 Vital Signs (Past 24 Hours): Last Vital Signs Temp 36.3 C L 08/07/18 10:51 Pulse 85 08/07/18 10:51 Resp 19 08/07/18 10:51 BP 102/69 08/07/18 10:51 Pulse Ox 95 08/07/18 10:51 Physical Exam: General: no distress, WDWN Head: normocephalic, atraumatic Eyes: PERRL, EOM's intact, conjunctiva non-injected, anicteric ENT: normal inspection external ears, nose, mucous membranes moist Neck: supple, trachea midline, non-tender Lungs: no wheezing/rhonchi/rales; on room air, diminished lung sounds at the bases CV: Rate/Rhythm: regular rate Heart Sounds: no murmur Vessels: + JVD Extremities: + edema 2+ LE edema bilataterally, chronic venous stasis changes . + abdominal fluid retention Abd: normal BS, distended, +hernia, non-tender Ext: no calf tenderness Neuro: A&O x 3, no focal deficits noted, normal affect
[2018-08-07] MEDS: ACETAMINOPHEN 325 MG TAB PO PRN ×2 (15:35→20:37)
[2018-08-07] MEDS ORDERED: GLUCOSE 40% GEL 15 GM TUBE PO PRN (16:51)
[2018-08-07] MEDS ORDERED: CARBOHYDRATES FOR HYPOGLYCEMIA PO PRN (16:51)
[2018-08-07] MEDS ORDERED: GLUCOSE 10 TABS/TUBE PO PRN (16:51)
[2018-08-07] MEDS ORDERED: DEXTROSE 50% 50 ML SYRINGE IV PRN (16:51)
[2018-08-07] MEDS ORDERED: GLUCAGON FOR INJ 1 MG VIAL SQ PRN (16:51)
[2018-08-07] MEDS: INSULIN ASPART 100 UNITS/ML 3 ML PEN SC SCH (20:31)
[2018-08-07] MEDS: ATORVASTATIN 40 MG TAB PO SCH (20:32)
[2018-08-07] MEDS: LORazepam 1 MG TAB PO PRN (20:37)
[2018-08-08] MEDS: MILRINONE LACTATE/D5W 20,000 MCG/100 ML BAG IV SCH ×3 (00:20→23:46)
[2018-08-08] MEDS: FUROSEMIDE 100 MG in DEXTROSE 5% 90 ML IV SCH ×5 (00:30→22:43)
[2018-08-08] MEDS: INSULIN ASPART 100 UNITS/ML 3 ML PEN SC SCH ×4 (06:22→22:32)
[2018-08-08 07:21] LABS: BUN Creatinine Ratio 16.6 (10-20); Calcium 8.5 mg/dl (8.5-10.1); Creatinine Clr Calc Pharmacy 65.4 ml/min; Est GFR (African American) 57.6; Est GFR (Non-African American) 49.7; Magnesium 1.9 mg/dl (1.8-2.4); Potassium 3.7 mmol/L (3.5-5.1)
--- NOTE | 2018-08-08 08:05 | Ultrasound Report ---
US effusion-chest/mediastinum CLINICAL HISTORY: Right pleural effusion COMPARISON STUDY: Chest x-ray dated August 05, 2018 FINDINGS: There is a right pleural effusion with estimated volume of 2500 cc. This was marked for pos sible subsequent thoracentesis. No left pleural effusion was visualized. IMPRESSION: Right pleural effusion with an estimated volume of 2500 cc. Electronically signed by: Philip Quiros M.D. 08/08/2018 8:03 AM
[2018-08-08] MEDS: ACETAMINOPHEN 325 MG TAB PO PRN ×2 (08:06→22:38)
[2018-08-08 08:12] LABS: Estimated Average Glucose 134 mg/dl; Hemoglobin A1C 6.3 % (4.5-5.6)
[2018-08-08] MEDS: AMIODARONE 200 MG TAB PO SCH (09:52)
[2018-08-08] MEDS: ASPIRIN 81 MG ECTAB PO SCH (09:52)
[2018-08-08] MEDS: MAGNESIUM OXIDE 400 MG TAB PO SCH ×2 (09:52→22:30)
[2018-08-08] MEDS: POTASSIUM CHLORIDE 20 MEQ TABCR PO SCH ×2 (09:52→22:29)
[2018-08-08] MEDS: METOPROLOL SUCC 25MG EXT REL TAB PO SCH (09:52)
[2018-08-08] MEDS: SPIRONOLACTONE 25 MG TAB PO SCH (09:52)
[2018-08-08] MEDS: PANTOprazole 40 MG TAB PO SCH (09:52)
[2018-08-08] MEDS: SACUBITRIL-VALSARTAN 24-26 MG TAB PO SCH (10:42)
--- NOTE | 2018-08-08 11:03 | Cardiology Progress Note ---
Date of Service August 08, 2018 Assessment & Plan (1) Acute on chronic HFrEF (heart failure with reduced ejection fraction): (2) Ischemic cardiomyopathy: Mr Edward is a 57-year-old male with a long-standing history of ischemic heart disease and apparent first myocardial infarction in approximately 2008 he subsequently had an AICD placed for primary prevention of sudden cardiac , but this was later explanted in 2013 due to tricuspid valve endocarditis. There are considerations after that regarding reimplantation of the device, but the patient did not keep follow-up visits with cardiology or EP. He was admitted initially at [facility] in May, and was markedly volume overloaded. Transfer to [facility] have been arranged but while awaiting bed assignment, he suffered a ventricular fibrillation arrest which he survived. He was transferred to [facility] in May diuresed vigorously and underwent reimplantation of AICD. His most recent echocardiogram had been performed 06/12/18 at [facility] with findings as noted below: The qualitative LV ejection fraction is 20-24% (severely reduced). There is severe diffuse left ventricular hypokinesis with some regional vardiability. The septal motion is abnormal consistent with right ventricular pressure and volume overload. The right ventricular cavity is moderately dilated. The right ventricular systolic function is moderately reduced . Mild to moderate mitral regurgitation is present. Moderate tricuspid regurgitation is present. The patient underwent a hemodynamic right heart catheterization at [facility] on revealing elevated pulmonary capillary wedge pressure, elevated pulmonary pressures, and a cardiac index of 2.8 L/min/m� at that time. He was readmitted earlier this month to [facility] with volume overload and low output state and was placed on milrinone which was continued at discharge via effusion of the left subclavian port. The patient was only free from the hospital for 10 days prior to being readmitted this time to this institution he has remained on his prior to hospital dose of milrinone infusion and is on furosemide infusion of 20 mg/h, the same dose recently utilized at [facility]. He has been diuresing daily and his overall down ~3.9 Liters, however his weight remains the same. He has a significant right pleural effusion on chest x-ray and by chest ultrasound today , it is estimated there is 2.5 L of fluid in his right chest. A long discussion with him regarding right thoracentesis but he declines. Spironolactone has been added to his medication regimen and today I am going to add Entresto, just once per day dosing to see if it can be tolerated in light of his relatively low blood pressure. Per review of his recent notes at [facility] he does not have a recent cardiac catheterization with coronary angiography, is on the right heart catheterization for hemodynamics were performed last month. Coronary angiography had not been performed due to concerns of risks given his tenuous renal insufficiency. Based on his echocardiogram results, I have my suspicions that there is likely not much in the way of underlying viability and I agree with the impression that would not be optimistic that revascularization would help his situation. I had a sania discussion with the patient regarding how ill he is. I think he is still somewhat unaware of the severity of his illness. He has had issues with adherence in the past and notes difficulties with medication adherence since his recent hospital stay earlier this month, and I think his long-term outlook it is far as being a candidate for a mechanical assist device are low. Continue SQ heparin. Prognosis is poor. Subjective Chief complaint: Follow-up shortness of breath, volume overload, abdominal distention Subjective: Patient states he feels relatively unchanged. He is walking minimal distances in his room. Telemetry reveals sinus rhythm without significant arrhythmia. Physical Exam 2 Vital Signs (Past 24 Hours): Last Vital Signs Temp 36.7 C 08/08/18 10:28 Pulse 88 08/08/18 10:28 Resp 19 08/08/18 10:28 BP 109/74 08/08/18 10:28 Pulse Ox 94 08/08/18 10:28 Physical Exam: General: No acute distress, chronically ill in appearance Eyes: conjunctiva are pink and non-injected, sclera clear Neck: Elevated jugular venous pressure Chest: normal shape and normal respiratory effort Lungs: Decreased breath sounds at the right base Cardiac Exam: - regular heart sounds, II/6 systolic murmur heard best at the left apex Abdomen: Mildly distended, nontender Extremities: 1+ edema, chronic venous stasis changes Neuro:awake, coversant, follows commands, no focal motor deficits Psych: appropriate affect and insight. Results & Data Laboratory Results Comprehensive Metabolic Panel 08/08/18 Range/Units 06:14 Sodium 131 L (136-145) mmol/L Potassium 3.7 (3.5-5.1) mmol/L Chloride 95 L (98-107) mmol/L Carbon Dioxide 28 (21-32) mmol/L BUN 26 H (7-18) mg/dl Creatinine 1.54 H (0.6-1.4) mg/dl Glucose 112 H (70-99) mg/dl Calcium 8.5 (8.5-10.1) mg/dl Intake and Output 08/07/18 08/08/18 08/08/18 22:59 06:59 14:59 Intake Total 549 / 549 276.838 / 276.838 193.59 / 193.59 Output Total 675 / 675 925 / 925 Balance -126 / -126 -648.162 / -648.162 193.59 / 193.59 Intake: IV 99 / 99 276.838 / 276.838 193.59 / 193.59 Lasix 100 mg In D5 90 ml @ 20 99 / 99 178.333 / 178.333 100 / 100 MG/HR 20 mls/hr IV .Q5H ROLANDO Rx# :[id number] PRIMACOR/D5W 20,000 mcg In 100 98.505 / 98.505 93.59 / 93.59 ml @ 0.375 MCG/KG/MIN 9.9 mls/ hr IV .Q10H7M ROLANDO Rx#:[id number] Oral 450 / 450 0 / 0 Output: Urine 675 / 675 925 / 925 Other: Other Intake Source NPO # Unmeasured Voids 1 Weight 99.4 kg
[2018-08-08] MEDS: HEPARIN SOD 5,000 UNIT/0.5 ML VIAL SQ SCH ×2 (13:57→22:31)
--- NOTE | 2018-08-08 15:06 | Hospitalist Progress Note ---
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 patient underwent a hemodynamic right heart catheterization at [facility] on 06/27 revealing elevated pulmonary capillary wedge pressure, elevated pulmonary pressures, and a cardiac index of 2.8 L/min/m� at that time. -was recently discharged from [facility] on 07/27/18. During that admission he was considered for an LVAD but due to a history of noncompliance with medical care and lifestyle it was decided that he would be started on a continuous milrinone infusion and after several months if he proves his compliance, then they will reconsider him for an LVAD. -was seen in the clinic by Dr. Dumont after gaining over 24 pounds of fluid weight. patient did not want to return to [facility] and was sent to [facility] for admission -admission BNP: 3851 with CXR: Cardiomegaly and radiographic evidence of congestive failure/fluid overload. Right pleural effusion with associated right lower lobe atelectasis/consolidation -Has furosemide infusion at 20 mg /hr via peripheral IV. Milrinone infusing at dose of 0.375 mcg/kg/min via left subclavian port. continue Spironolactone Entresto daily -monitor I&O's, daily weights -fluid restriction 1500ml Right sided pleural effusion 08/05/18 Right pleural effusion with associated right lower lobe atelectasis/ consolidation Right pleural effusion with an estimated volume of 2500cc on ultrasound 08/08/18 ; patient declines thoracentesis Monitor for electrolytes such as hypokalemia or hypomagnesemia while on diuresis -current serum potassium and magnesium is stable, mild hyponatremia likley from diuretics, continue to trend electrolytes (3) CAD (coronary artery disease): Ischemic cardiomyopathy Hx [place] 2004 s/p stent LAD -no acute chest pain on this admission -continue metoprolol, statin, aspirin (4) ICD (implantable cardioverter-defibrillator) in place: Hx ischemic cardiomyopathy (EF 20-24% on echo 05/2018) H/O ICD in 2008 then 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 Had CT ABD/PELVIS on 06/17/18 IMPRESSION 1. Marked distention of the IVC may be secondary to volume status 2. No evidence of bowel obstruction. 3. Cirrhosis. Perihepatic ascites and splenomegaly may be secondary to portal hypertension. No large volume ascites. 4. Bilateral pleural effusions with associated atelectasis. Infiltrate cannot be excluded. 5. Additional findings described above. Ultrasound abdomen 08/05/18 Trace fluid surrounding the liver. The spleen is enlarged measuring 15.6 cm in length. currently no abdominal pain presence of abdominal hernia and splenomegaly (7) Diabetes mellitus, type II: hbA1c 6.3 -monitor BSGs -novolog sliding scale per protocol (8) Anemia: Hgb ranging in 8-9 since 07/2018, prior was 14 most recently Hgb 8.9 (9) Anxiety: -continue ativan prn DVT Prophylaxis: heparin subcut Full Code Follows with Dr Oakes in [place] for routine care Patient's [phone] Subjective Patient on room air denies chest pain. denies abdominal pain, denies shortness of breath Patient's at bedside. Hospitalist and patient's family discussed current medical treatment of advanced heart failure as documented by cardiology notes. We discussed current medical treatments. Patient's had questions about overall health prognosis and this was discussed as well Physical Exam 2 Vital Signs (Past 24 Hours): Last Vital Signs Temp 36.7 C 08/08/18 10:28 Pulse 88 02/25/19 10:28 Resp 19 08/08/18 10:28 BP 109/74 08/08/18 10:28 Pulse Ox 94 08/08/18 10:28 Physical Exam: General: no distress, WDWN Head: normocephalic, atraumatic Eyes: PERRL, EOM's intact, conjunctiva non-injected, anicteric ENT: normal inspection external ears, nose, mucous membranes moist Neck: supple, trachea midline, non-tender Lungs: no wheezing/rhonchi/rales; on room air, diminished lung sounds at the bases CV: Rate/Rhythm: regular rate Heart Sounds: no murmur Vessels: + JVD Extremities: + edema 2+ LE edema bilaterally, chronic venous stasis changes . + abdominal fluid retention abdomen: normal BS, distended, +hernia, non-tender Ext: no calf tenderness Neuro: A&O x 3, no focal deficits noted, normal affect
[2018-08-08] MEDS: ATORVASTATIN 40 MG TAB PO SCH (22:30)
[2018-08-09] MEDS: FUROSEMIDE 100 MG in DEXTROSE 5% 90 ML IV SCH ×6 (02:30→21:44)
[2018-08-09] MEDS: MILRINONE LACTATE/D5W 20,000 MCG/100 ML BAG IV SCH ×3 (03:30→23:10)
[2018-08-09] MEDS: HEPARIN SOD 5,000 UNIT/0.5 ML VIAL SQ SCH ×3 (05:12→21:12)
[2018-08-09] MEDS: INSULIN ASPART 100 UNITS/ML 3 ML PEN SC SCH ×4 (08:16→21:15)
[2018-08-09] MEDS: MAGNESIUM OXIDE 400 MG TAB PO SCH ×2 (08:17→21:11)
[2018-08-09] MEDS: ASPIRIN 81 MG ECTAB PO SCH (08:17)
[2018-08-09] MEDS: SACUBITRIL-VALSARTAN 24-26 MG TAB PO SCH (08:17)
[2018-08-09] MEDS: SPIRONOLACTONE 25 MG TAB PO SCH (08:17)
[2018-08-09] MEDS: POTASSIUM CHLORIDE 20 MEQ TABCR PO SCH ×2 (08:17→21:10)
[2018-08-09] MEDS: AMIODARONE 200 MG TAB PO SCH (08:17)
[2018-08-09] MEDS: METOPROLOL SUCC 25MG EXT REL TAB PO SCH (08:18)
[2018-08-09] MEDS: PANTOprazole 40 MG TAB PO SCH (08:18)
--- NOTE | 2018-08-09 08:59 | Cardiology Progress Note ---
Date of Service August 09, 2018 Assessment & Plan (1) Acute on chronic HFrEF (heart failure with reduced ejection fraction): History and recent events summarized in detail in my 08/08/18 progress note. Pt eager to be disharged. Net volume loss ~5.2 L, however wt of 99 kg unchanged. Stable SR on telemetry today. Labs pending. Tolerated low once day dosing of Entresto x 1 yesterday, due for second dose today. Will await labs, and will discuss case with advanced heart failure at [facility] prior to consideration of discharge to discuss DC dose of Torsemide and arrange post hospital follow up. Subjective CC: follow up shortness of breath, volume overload, CHF Subjective: Patient seen and examined. Notes he was able to sleep in bed for a few hours last night instead of recliner. Physical Exam 2 Vital Signs (Past 24 Hours): Last Vital Signs Temp 36.4 C L 08/09/18 07:43 Pulse 92 H 08/09/18 07:43 Resp 18 08/09/18 07:43 BP 110/75 08/09/18 07:43 Pulse Ox 97 08/09/18 07:43 Constitutional: + ill appearing Respiratory: Auscultation: + diminished lung sounds (decreased BS at right base); no crackles and no rales Cardiovascular: Rate/Rhythm: regular rate and regular rhythm Heart Sounds: + murmur (2/6 SM) Vessels: + JVD Extremities: + edema (1_2+ Le edema bilaterally, venous stasis changes, mildly improved. ) Gastrointestinal (Abdomen): Percussion/Palpation: abdomen nontender abd mildly distended.
[2018-08-09 09:04] LABS: BUN Creatinine Ratio 20.1 (10-20); Calcium 8.4 mg/dl (8.5-10.1); Creatinine Clr Calc Pharmacy 65.8 ml/min; Est GFR (African American) 58.1; Est GFR (Non-African American) 50.1; Potassium 3.4 mmol/L (3.5-5.1)
[2018-08-09] MEDS: ACETAMINOPHEN 325 MG TAB PO PRN (10:13)
[2018-08-09] MEDS ORDERED: POTASSIUM CHLORIDE 10 MEQ TABCR PO STA (13:15)
[2018-08-09] MEDS ORDERED: FUROSEMIDE 100 MG in SYRINGE 0 ML IV ONE (13:15)
--- NOTE | 2018-08-09 16:28 | Hospitalist Progress Note ---
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 patient underwent a hemodynamic right heart catheterization at [facility] on 06/27 revealing elevated pulmonary capillary wedge pressure, elevated pulmonary pressures, and a cardiac index of 2.8 L/min/m� at that time. -was recently discharged from [facility] on 07/27/18. During that admission he was considered for an LVAD but due to a history of noncompliance with medical care and lifestyle it was decided that he would be started on a continuous milrinone infusion and after several months if he proves his compliance, then they will reconsider him for an LVAD. -was seen in the clinic by Dr. Dumont after gaining over 24 pounds of fluid weight. patient did not want to return to [facility] and was sent to [facility] for admission -admission BNP: 3851 with CXR: Cardiomegaly and radiographic evidence of congestive failure/fluid overload. Right pleural effusion with associated right lower lobe atelectasis/consolidation -was on furosemide infusion at 20 mg /hr via peripheral IV, on 08/09/18 patient received boluse furosemide 100 mg IV x1 the infusion rate of the furosemide infusion to 40 mg/hr -continue Milrinone infusing at dose of 0.375 mcg/kg/min via left subclavian port. -continue Spironolactone, continue Entresto daily -monitor I&O's, daily weights -fluid restriction 1500ml -follow cardiology service recommendations closely Right sided pleural effusion 08/05/18 Right pleural effusion with associated right lower lobe atelectasis/ consolidation Right pleural effusion with an estimated volume of 2500cc on ultrasound 08/08/18 ; patient declines thoracentesis Monitor for electrolytes such as hypokalemia or hypomagnesemia while on diuresis -serum potassium 3.4 on 08/09/18, has scheduled potassium 40 mg BID and got additional 40 mg today, continue to monitor and replete as needed -current serum magnesium is stable and continue BID oral magnesium, mild hyponatremia likley from diuretics, continue to trend electrolytes (3) CAD (coronary artery disease): Ischemic cardiomyopathy Hx [place] 2004 s/p stent LAD -no acute chest pain on this admission -continue metoprolol, statin, aspirin (4) ICD (implantable cardioverter-defibrillator) in place: Hx ischemic cardiomyopathy (EF 20-24% on echo 05/2018) H/O ICD in 2008 then removed 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 Had CT ABD/PELVIS on 06/17/18 IMPRESSION 1. Marked distention of the IVC may be secondary to volume status 2. No evidence of bowel obstruction. 3. Cirrhosis. Perihepatic ascites and splenomegaly may be secondary to portal hypertension. No large volume ascites. 4. Bilateral pleural effusions with associated atelectasis. Infiltrate cannot be excluded. 5. Additional findings described above. Ultrasound abdomen 08/05/18 Trace fluid surrounding the liver. The spleen is enlarged measuring 15.6 cm in length. currently no abdominal pain presence of abdominal hernia and splenomegaly (7) Diabetes mellitus, type II: hbA1c 6.3 -monitor BSGs -novolog sliding scale per protocol (8) Anemia: Hgb ranging in 8-9 since 07/2018, prior was 14 most recently Hgb 8.9 (9) Anxiety: -continue ativan prn DVT Prophylaxis: heparin subcut Full Code Follows with Dr Oakes in [place] for routine care Patient's [phone] Subjective Patient on room air denies chest pain. denies abdominal pain, denies shortness of breath IV Lasix drip has been increased by cardiology service Patient's at bedside. Hospitalist and patient's family discussed current medical treatment of advanced heart failure as documented by cardiology notes. Physical Exam 2 Vital Signs (Past 24 Hours): Last Vital Signs Temp 36.8 C 08/09/18 16:02 Pulse 80 08/09/18 16:02 Resp 18 08/09/18 16:02 BP 108/73 08/09/18 16:02 Pulse Ox 98 08/09/18 16:02 Physical Exam: General: no distress, WDWN Head: normocephalic, atraumatic Eyes: PERRL, EOM's intact, conjunctiva non-injected, anicteric ENT: normal inspection external ears, nose, mucous membranes moist Neck: supple, trachea midline, non-tender Lungs: no wheezing/rhonchi/rales; on room air, diminished lung sounds at the bases CV: Rate/Rhythm: regular rate Heart Sounds: no murmur Vessels: + JVD Extremities:bilateral lower extremity edema, chronic venous stasis changes abdomen: normal BS, distended, +hernia, non-tender Ext: no calf tenderness Neuro: A&O x 3, no focal deficits noted, normal affect
[2018-08-09] MEDS: ATORVASTATIN 40 MG TAB PO SCH (21:11)
[2018-08-09] MEDS: LORazepam 1 MG TAB PO PRN (21:43)
[2018-08-10] MEDS: FUROSEMIDE 100 MG in DEXTROSE 5% 90 ML IV SCH ×10 (00:12→22:00)
[2018-08-10 05:26] LABS: Basophils # (auto) 0.03 K/uL (0-0.2); Basophils % (auto) 0.6 %; Eosinophils # (auto) 0.41 K/uL (0-0.5); Eosinophils % (auto) 7.6 %; Hematocrit (blood only) 28.2 % (42-52); Hemoglobin 9.3 g/dL (14.0-18.0); Immature Granulocytes # (auto) 0.01 K/uL (0.00-0.02); Immature Granulocytes % (auto) 0.2 %; Lymphocytes # (auto) 0.44 K/uL (1.2-3.4); Lymphocytes % (auto) 8.2 %; Mean Corpuscular Volume 96.9 fL (80-100); Mean Platelet Volume 9.9 fL (7.4-10.4); Monocytes # (auto) 0.64 K/uL (0.11-0.59); Monocytes % (auto) 11.9 %; Neutrophils # (auto) 3.84 K/uL (1.4-6.5); Neutrophils % (auto) 71.5 %; Platelet Count 180 K/uL (130-400); RDW Coefficient of Variation 16.5 % (11.5-14.5); RDW Standard Deviation 56.9 fL (36.4-46.3); Red Blood Count 2.91 M/uL (4.7-6.1); White Blood Count 5.37 K/uL (4.8-10.8)
[2018-08-10 05:33] LABS: BUN Creatinine Ratio 19.1 (10-20); Calcium 8.1 mg/dl (8.5-10.1); Creatinine Clr Calc Pharmacy 62.9 ml/min; Est GFR (Non-African American) 47.5; Potassium 3.9 mmol/L (3.5-5.1)
[2018-08-10] MEDS: HEPARIN SOD 5,000 UNIT/0.5 ML VIAL SQ SCH ×3 (06:08→20:55)
[2018-08-10] MEDS: INSULIN ASPART 100 UNITS/ML 3 ML PEN SC SCH ×4 (08:23→20:55)
[2018-08-10] MEDS: AMIODARONE 200 MG TAB PO SCH (08:28)
[2018-08-10] MEDS: ASPIRIN 81 MG ECTAB PO SCH (08:28)
[2018-08-10] MEDS: POTASSIUM CHLORIDE 20 MEQ TABCR PO SCH ×2 (08:28→19:30)
[2018-08-10] MEDS: METOPROLOL SUCC 25MG EXT REL TAB PO SCH (08:28)
[2018-08-10] MEDS: SACUBITRIL-VALSARTAN 24-26 MG TAB PO SCH (08:29)
[2018-08-10] MEDS: SPIRONOLACTONE 25 MG TAB PO SCH (08:29)
[2018-08-10] MEDS: MAGNESIUM OXIDE 400 MG TAB PO SCH ×2 (08:29→19:31)
[2018-08-10] MEDS: PANTOprazole 40 MG TAB PO SCH (08:29)
[2018-08-10] MEDS: MILRINONE LACTATE/D5W 20,000 MCG/100 ML BAG IV SCH (08:45)
--- NOTE | 2018-08-10 10:28 | Nephrology Consultation ---
Date of Consultation August 10, 2018 Assessment & Plan (1) Acute on chronic HFrEF (heart failure with reduced ejection fraction): -started on 20 mg hourly lasix on 08/05 through yesterday when it was changed to 40 mg hourly lasix after 100 mg lasix bolus >w/ increase in lasix gtt rate he is 3.5L negative past 24 hrs >>>goal will be 3L negative/ day w/ at least 2 kg wt loss/ day >> so will today add metolazone 10 mg bid to move toward this goal -after discussion w/ cardiology, will for now hold entresto, continue spironolactone -tightened FR to 1.2L daily -ordered repeat bmp for 1600 given recent lasix increase to ensure K dose adequate -mag 2.0 yesterday >> monitor q 48-72 hrs Present on Admission?: Yes (2) History of acute renal failure: had INNA in June w/ peak creatinine mid 3s; in Jul 2018 w/ peak creatinine mid 2's and recovery to mid 1's by 07/27 d/c; see below re presumptive baseline creatinine Present on Admission?: Yes (3) CKD (chronic kidney disease), stage III: -his actual baseline creatinine is likely higher than mid 1's given vol OL; would at this point give HF mgt clinical priority over renal function w/ close monitoring of vol status, electrolytes, renal function Present on Admission?: Yes (4) Hyponatremia: by definition this is hypervolemic hyponatremia; but to be sure this afternoon will check serum osms, urine studies; should improve w/ better volume status and in any case not a clinical priority currently but absolutely needs daily monitoring -maintain eukalemia Present on Admission?: Yes History of Present Illness Reason for Consultation: hyponatremia, volume overload Requesting Physician: Dr Vazquez Attending Physician: Matthew Bill MD History of Present Illness 57 y/o M whom I'm asked to see for volume mgt and hyponatremia. 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 He was admitted to [facility] 05/2018-06/2018 for acute on chronic systolic HF (after transfer from [facility] where arrest occurred); also had another admission in July to [facility]: during these the pt underwent aggressive diuresis, AICD reimplantation and d/c home most recently approx 07/27 w/ sCreat 1.5, sNa 134, K 2.9 w/ d/c wt of 89 kg. I am not able to access [email or web address] records directly d/t connectivity issues at this time; review of H&P for this admission does comment that creatinine went as high during June [facility] admission as 3.4, w/ downtrend to 2.3 by hospital d/c; then further INNA w/ peak creatinine 2.7 during 07/2018 [facility] admission, w/ down trend to 1.5 by hospital d/c. He was d/c on torsemide 80 mg bid, K 40 mEq bid. LVAD was considered during that admission but ultimately deferred d/t nonadherence and started on milrinone pump instead. Pt has historically not kept f/u appts w/ general cardiology or EP. He was admitted here 08/05 w/ more than 20 lb wt gain after declining to return to [facility]. He was started on lasix and milrinone here. Spironolactone and entresto also added recently to his regimen past 48 hrs. Left heart cath has been considered but deferred d/t renal insufficiency. After discussion w/ [facility] heart failure team, pt had 100 mg IV lasix bolus yesterday and was started on 40 mg/hr lasix infusion. His standing wt this am is 96.8, from 99.2 previous day. Allergies Allergy/AdvReac Type Severity Reaction Status Date / Time No Known Allergies Allergy NONE Unverified 02/05/09 18:13 Home Medications Home Medications Medication Instructions Recorded Confirmed Type acetaminophen 500 mg PO QID PRN 08/05/18 08/05/18 History albuterol sulfate 2 puff INHALATION Q6H PRN 08/05/18 08/05/18 History amiodarone 200 mg PO DAILY 08/05/18 08/05/18 History aspirin 81 mg PO DAILY 08/05/18 08/05/18 History atorvastatin 80 mg PO PM 08/05/18 08/05/18 History lorazepam 1 mg PO DAILY PRN 08/05/18 08/05/18 History metoprolol succinate 25 mg PO DAILY 08/05/18 08/05/18 History milrinone in 5 % dextrose 0.375 mcg/kg/min IV 08/05/18 History omeprazole 40 mg PO DAILY 08/05/18 08/05/18 History potassium chloride 40 meq PO BID 08/05/18 08/05/18 History torsemide 4 tab PO TID 08/05/18 08/05/18 History tramadol 50 mg PO Q6H PRN 08/05/18 08/05/18 History Patient History Medical History 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) 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 at [facility] ICD placed 06/23/18 at [facility] Thrombocytopenia (Chronic) Elevated liver function tests (Chronic) Cardiac arrest (Resolved) 05/2018 Ischemic cardiomyopathy (Chronic) 05/2018 EF: 20-24% Anemia (Chronic) History of tobacco use (Chronic) Anxiety (Chronic) Diabetes mellitus, type II (Chronic) CKD (chronic kidney disease), stage III (Chronic) GERD (gastroesophageal reflux disease) (Chronic) HTN (hypertension) (Chronic) Dyslipidemia (Chronic) CAD (coronary artery disease) (Chronic) s/p stent LAD in 2004 Family History Other CAD (coronary artery disease) Social History Communication Ability: Effective Beliefs That Will Affect Care: None Current Living Situation: Spouse Current Living Situation Comment: home Other Information That Helps Us Care for You: No Feels Safe at Home: Yes Safety Concerns: Feels Safe At This Time Smoking Status: Former smoker Hx Alcohol Use: Yes Hx Substance Use: No Review of Systems Constitutional: + fatigue and + weight loss (w/ recent diuresis) Eyes: no worsening vision Ear, Nose, Mouth, Throat: + dry mouth states not sure he can tolerate 1.2L FR Respiratory: + dyspnea and + dyspnea on exertion; no cough Cardiovascular: + dyspnea on exertion and + edema (states this is improved); no chest pain and no palpitations Gastrointestinal: no abdominal pain, no early satiety, no vomiting and no change in bowel habits Genitourinary (Male): + urinary frequency; no dysuria, no difficulty urinating and no urinary hesitancy Musculoskeletal: + joint pain (shahid R knee which he states is sign his diuresis is adequate); no back pain Integumentary: no non-healing lesions and no skin ulcer Neurologic: + generalized weakness; no gait abnormality and no confusion Psychiatric: no behavioral changes Endocrine: + fatigue Hematologic / Lymphatic: no easy bleeding Physical Exam Vital Signs (Past 24 Hours): Last Vital Signs Temp 36.3 C L 08/10/18 07:46 Pulse 81 08/10/18 07:46 Resp 18 08/10/18 07:46 BP 98/64 L 08/10/18 07:46 Pulse Ox 96 08/10/18 07:46 Constitutional: well developed and well nourished cooperative/ chronically ill appearing; sitting chair on ra Eyes: EOM intact bilaterally ENMT: Ears: no external ear abnormality Nose: no external nose abnormality Mouth: + dry oral mucous membranes Neck: no nuchal rigidity Respiratory: normal respiratory effort Auscultation: + diminished lung sounds (shahid on R ) Cardiovascular: Rate/Rhythm: regular rate and regular rhythm Extremities: + edema (1+ Bl ankle) Gastrointestinal (Abdomen): Inspection/Auscultation: normal bowel sounds Percussion/Palpation: abdomen soft; abdomen nontender Musculoskeletal: Extremities: strength 5/5 throughout Skin: no rashes, warm and dry Neurologic: fernandez, fluent speech, no tremor Psychiatric: Orientation: alert and oriented x 3 Affect: + anxious affect Genitourinary: no delong Results & Data Laboratory Results Abnormal lab results 08/09/18 08/09/18 08/09/18 Range/Units 08:09 11:00 16:19 RBC (4.7-6.1) M/uL Hgb (14.0-18.0) g/dL Hct (42-52) % RDW Std Deviation (36.4-46.3) fL RDW Coeff of Yung (11.5-14.5) % Lymph # (Auto) (1.2-3.4) K/uL Nance # (Auto) (0.11-0.59) K/uL Sodium 130 L (136-145) mmol/L Potassium 3.4 L (3.5-5.1) mmol/L Chloride 95 L (98-107) mmol/L BUN 31 H (7-18) mg/dl Creatinine 1.53 H (0.6-1.4) mg/dl BUN/Creatinine Ratio 20.1 H (10-20) Glucose 132 H (70-99) mg/dl POC Glucose 116 H 167 H (70-99) Calcium 8.4 L (8.5-10.1) mg/dl 08/09/18 08/10/18 08/10/18 Range/Units 20:43 04:11 04:11 RBC 2.91 L (4.7-6.1) M/uL Hgb 9.3 L (14.0-18.0) g/dL Hct 28.2 L (42-52) % RDW Std Deviation 56.9 H (36.4-46.3) fL RDW Coeff of Yung 16.5 H (11.5-14.5) % Lymph # (Auto) 0.44 L (1.2-3.4) K/uL Nance # (Auto) 0.64 H (0.11-0.59) K/uL Sodium 129 L (136-145) mmol/L Potassium (3.5-5.1) mmol/L Chloride 94 L (98-107) mmol/L BUN 31 H (7-18) mg/dl Creatinine 1.60 H (0.6-1.4) mg/dl BUN/Creatinine Ratio (10-20) Glucose 120 H (70-99) mg/dl POC Glucose 117 H (70-99) Calcium 8.1 L (8.5-10.1) mg/dl 08/10/18 Range/Units 07:14 RBC (4.7-6.1) M/uL Hgb (14.0-18.0) g/dL Hct (42-52) % RDW Std Deviation (36.4-46.3) fL RDW Coeff of Yung (11.5-14.5) % Lymph # (Auto) (1.2-3.4) K/uL Nance # (Auto) (0.11-0.59) K/uL Sodium (136-145) mmol/L Potassium (3.5-5.1) mmol/L Chloride (98-107) mmol/L BUN (7-18) mg/dl Creatinine (0.6-1.4) mg/dl BUN/Creatinine Ratio (10-20) Glucose (70-99) mg/dl POC Glucose 115 H (70-99) Calcium (8.5-10.1) mg/dl
[2018-08-10] MEDS: ACETAMINOPHEN 325 MG TAB PO PRN ×2 (12:16→20:15)
[2018-08-10] MEDS: metOLazone 5 MG TABLET PO SCH ×2 (12:18→19:31)
--- NOTE | 2018-08-10 12:53 | Cardiology Progress Note ---
Date of Service August 10, 2018 Assessment & Plan (1) Acute on chronic HFrEF (heart failure with reduced ejection fraction): (2) Ischemic cardiomyopathy: (3) Hyponatremia: (4) CKD (chronic kidney disease), stage III: He remains on milrinone infusion at 0.375 mcg/kg/min. There had not been a significant change in his weight despite several days of diuresis utilizing furosemide infusion at 20 mg/h. Yesterday after discussing his case with Dr Flores at [facility] who is been following the patient from an advanced heart failure standpoint, he was recommended to increase his diuretic, he received a repeat furosemide bolus of 100 mg, and the infusion was increased to 40 mg/h on 08/09/18. Significant diuresis to place with urine output of 5.7 L overnight, and his net balance was -3.2 L yesterday. His weight is slightly improved from 99 kg to 96.8 kg. He has been discharged in mid July from [facility] with a weight of 89 kg and that is our goal. Due to the complexity of his case, including renal insufficiency and risk for electrolyte abnormalities, I counseled the Dr. Quezada of nephrology's input is noted and appreciated. Patient's sodium is mildly down to 129 today having been 130 yesterday. Potassium stable. Creatinine is relatively stable with reading of 1.53 yesterday 1.6 today. Continue current dose of furosemide. Metolazone 10 mg p.o. twice daily was also added. Plan for repeat chemistry panel at 1600 today. Continue subcutaneous heparin for DVT prophylaxis. Subjective Chief complaint: Follow-up shortness of breath, abdominal fullness Subjective: Patient notes vigorous urine output since the change in his diuretic dosing yesterday with having received a bolus of furosemide of 100 mg IV, and then his furosemide infusion rate was increased from 20 mg/h to 40 mg/h. Blood pressure remains low, but stable and unchanged in the range of a systolic blood pressure of the 90s to low 100s, which is been his chronic readings since this hospital stay. Physical Exam Vital Signs (Past 24 Hours): Last Vital Signs Temp 36.2 C L 08/10/18 11:18 Pulse 72 08/10/18 12:00 Resp 18 08/10/18 11:18 BP 100/69 08/10/18 12:00 Pulse Ox 99 08/10/18 11:18 Physical Exam: General: no acute distress and stated age Eyes: conjunctiva are pink and non-injected, sclera clear Chest: normal shape and normal respiratory effort Lungs: Decreased breath sounds noted at the right base, no rales rhonchi rhonchi or wheezing Cardiac Exam: - regular heart sounds, II/ systolic murmur heard best at the left apex Abdomen: Abdominal bloating consistent with fluid retention Musculoskeletal: no gait disturbance, no weakness Extremities: 2+ bilateral ankle edema, chronic venous stasis changes Neuro:awake, coversant, follows commands, no focal motor deficits Results & Data Laboratory Results CBC 08/10/18 Range/Units 04:11 WBC 5.37 (4.8-10.8) K/uL RBC 2.91 L (4.7-6.1) M/uL Hgb 9.3 L (14.0-18.0) g/dL Hct 28.2 L (42-52) % Plt Count 180 (130-400) K/uL Neut # (Auto) 3.84 (1.4-6.5) K/uL Lymph # (Auto) 0.44 L (1.2-3.4) K/uL Bleckley # (Auto) 0.64 H (0.11-0.59) K/uL Eos # (Auto) 0.41 (0-0.5) K/uL Baso # (Auto) 0.03 (0-0.2) K/uL Comprehensive Metabolic Panel 08/10/18 Range/Units 04:11 Sodium 129 L (136-145) mmol/L Potassium 3.9 (3.5-5.1) mmol/L Chloride 94 L (98-107) mmol/L Carbon Dioxide 29 (21-32) mmol/L BUN 31 H (7-18) mg/dl Creatinine 1.60 H (0.6-1.4) mg/dl Glucose 120 H (70-99) mg/dl Calcium 8.1 L (8.5-10.1) mg/dl Intake and Output 08/09/18 08/10/18 08/10/18 22:59 06:59 14:59 Intake Total 593.573 / 2249.440 1017.867 / 2249.440 292.71 / 292.71 Output Total 1225 / 5725 3400 / 5725 Balance -631.427 / -3475.560 -2382.133 / -3475.560 292.71 / 292.71 Intake: IV 353.573 / 989.440 337.867 / 989.440 292.71 / 292.71 Lasix 100 mg In D5 90 ml @ 40 300 / 796.667 298.667 / 796.667 198 / 198 MG/HR 40 mls/hr IV .Q2H30M [facility] Rx#:[id number] PRIMACOR/D5W 20,000 mcg In 100 53.573 / 192.773 39.200 / 192.773 94.71 / 94.71 ml @ 0.375 MCG/KG/MIN 9.9 mls/ hr IV .Q10H7M [facility] Rx#:[id number] Oral 680 / 1020 Tube Irrigant 240 / 240 Output: Urine 1225 / 5725 3400 / 5725 Other: Weight 96.8 kg 96.8 kg Patient Weight 08/11/18 06:59 Weight 96.8 kg Medications Administered Current Inpatient Medications Acetaminophen (Tylenol) 650 mg PO Q4H PRN PRN Reason: Pain or Fever Stop: 09/04/18 12:12 Last Admin: 08/10/18 12:16 Dose: 650 mg Documented by: Albuterol (Ventolin Hfa) 2 puffs INH Q6H PRN PRN Reason: Shortness Of Breath Or Wheezing Stop: 09/04/18 13:02 Amiodarone HCl (Cordarone) 200 mg PO DAILY [facility] Stop: 09/04/18 13:14 Last Admin: 08/10/18 08:28 Dose: 200 mg Documented by: Aspirin (Ecotrin Ectab) 81 mg PO DAILY [facility] Stop: 09/05/18 08:59 Last Admin: 08/10/18 08:28 Dose: 81 mg Documented by: Atorvastatin Calcium (Lipitor) 80 mg PO PM [facility] Stop: 09/04/18 20:59 Last Admin: 08/09/18 21:11 Dose: 80 mg Documented by: Dextrose (Dextrose 50%) 25 - 50 ml IV UD PRN; Protocol PRN Reason: Hypoglycemia Protocol Stop: 09/06/18 16:50 Glucagon (Glucagen) 1 mg SQ UD PRN; Protocol PRN Reason: Hypoglycemia Protocol Stop: 09/06/18 16:50 Glucose (Dex4 Glucose) 4 - 8 tabs PO UD PRN; Protocol PRN Reason: Hypoglycemia Protocol Stop: 09/06/18 16:50 Glucose (Glucose 40%) 15 - 30 gm PO UD PRN; Protocol PRN Reason: Hypoglycemia Protocol Stop: 09/06/18 16:50 Heparin Sodium (Porcine) (Heparin Sodium (Porcine)) 5,000 units SQ Q8 [facility]O Stop: 09/04/18 13:59 Last Admin: 08/10/18 06:08 Dose: 5,000 units Documented by: Milrinone Lactate/Dextrose (Primacor/D5w) 20,000 mcg in 100 mls @ 9.9 mls/hr IV .Q10H7M [facility] Stop: 09/04/18 14:59 Last Admin: 08/10/18 08:45 Dose: 0.37 mcg/kg/min, 9.9 mls/hr Documented by: Furosemide 100 mg/ Dextrose 100 mls @ 40 mls/hr IV .Q2H30M [facility] Stop: 09/04/18 14:14 Last Admin: 08/10/18 11:11 Dose: 40 mg/hr, 40 mls/hr Documented by: Insulin Aspart (Novolog Flexpen) 0 units SC ACHS [facility] Stop: 09/06/18 20:59 Last Admin: 08/10/18 08:23 Dose: Not Given Documented by: Lorazepam (Ativan) 1 mg PO DAILY PRN PRN Reason: Anxiety Stop: 09/04/18 13:02 Last Admin: 08/09/18 21:43 Dose: 1 mg Documented by: Magnesium Oxide (Mag-Ox) 400 mg PO BID [facility] Stop: 09/05/18 08:59 Last Admin: 08/10/18 08:29 Dose: 400 mg Documented by: Metolazone (Zaroxolyn) 10 mg PO BID [facility] Stop: 09/09/18 09:14 Last Admin: 08/10/18 12:18 Dose: 10 mg Documented by: Metoprolol Succinate (Toprol Xl) 25 mg PO DAILY [facility] Stop: 09/04/18 13:14 Last Admin: 08/10/18 08:28 Dose: 25 mg Documented by: Miscellaneous (Carbohydrates For Hypoglycemia) 15 - 30 gm PO UD PRN PRN Reason: Hypoglycemia Treatment Stop: 09/06/18 16:50 Morphine Sulfate (Morphine Sulfate) 2 mg IV Q4H PRN PRN Reason: Pain Stop: 08/20/18 21:44 Pantoprazole Sodium (Protonix) 40 mg PO DAILY [facility] Stop: 09/05/18 08:59 Last Admin: 08/10/18 08:29 Dose: 40 mg Documented by: Potassium Chloride (Klor-Con M20) 40 meq PO BID [facility] Stop: 09/04/18 20:59 Last Admin: 08/10/18 08:28 Dose: 40 meq Documented by: Spironolactone (Aldactone) 25 mg PO QAM [facility] Stop: 09/05/18 08:59 Last Admin: 08/10/18 08:29 Dose: 25 mg Documented by: Tramadol HCl (Ultram) 50 mg PO Q6H PRN PRN Reason: Pain Stop: 09/04/18 13:02 Last Admin: 08/06/18 21:42 Dose: 50 mg Documented by:
--- NOTE | 2018-08-10 14:09 | Hospitalist Progress Note ---
Date of Service August 10, 2018 Assessment & Plan (1) Acute on chronic systolic (congestive) heart failure: (2) Ischemic cardiomyopathy: Acute on chronic heart failure with reduced ejection fraction (acute systolic congestive heart failure) Present on admission with increase weight gained and SOB ECHO on 05/31 showed EF 20-24% on echo 05/2018) CXR on admission showed cardiomegaly and radiographic evidence of congestive failure/fluid overload BNP elevated on admission On IV lasix drip and milrinone drip Cardiology on board and recommended to continue Lasix and Milrinone drip Continue spirinolactone Entresto discontinued for now Continue fluid restriction Monitor electrolytes closely (3) CAD (coronary artery disease): Ischemic cardiomyopathy Hx [place] 2004 s/p stent LAD Currently denies any chest pain Continue metoprolol, statin, aspirin (4) Hyponatremia: Na 129 today Continue Lasix drip Monitor BMP Nephrology on board (5) Pleural effusion on right: Ultrasound chest showed right pleural effusion with an estimated volume of 2500cc Patient declined thoracentesis saturates well on RA Stable (6) ICD (implantable cardioverter-defibrillator) in place: Hx ischemic cardiomyopathy (EF 20-24% on echo 05/2018) 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 Resolved (9) Diabetes mellitus, type II: hbA1c 6.3 monitor BSGs novolog sliding scale per protocol Monitor BS (10) Anemia: Hgb ranging in 8-9 since 07/2018, prior was 14 Hgb 9.3 today Stable (11) Anxiety: Continue ativan prn DVT Prophylaxis: heparin subcut CODE STATUS Full Code Disposition Follow with Dr Oakes in [place] for routine care Patient's [phone] Subjective Pt was seen and examined Sitting in chair with no distress Pt said that he feels much better today He said that he feels like is back to his baseline He said that he is ready to be discharge tomorrow I advised him that let eval him tomorrow and he will need few more days before we can discharge him Denies any chest pain, palpitation, dizziness and SOB Physical Exam Vital Signs (Past 24 Hours): Last Vital Signs Temp 36.2 C L 08/10/18 11:18 Pulse 72 08/10/18 12:00 Resp 18 08/10/18 11:18 BP 100/69 08/10/18 12:00 Pulse Ox 99 08/10/18 11:18 Physical Exam: General- No acute distress Head- atraumatic Eyes- PERRL, EOMI, ENT- oropharynx clear Neck- supple, no JVD Lungs- clear to auscultation Heart- +systolic murmur Abdomen- normal bowel sounds, soft, nontender Extremities- 2+edema Neuro- alert, oriented x 3; PERRL, EOMI; no facial palsy; no dysarthria Skin- warm & dry, B/L LE discoloration
[2018-08-10 16:55] LABS: BUN Creatinine Ratio 17.9 (10-20); Calcium 8.4 mg/dl (8.5-10.1); Creatinine Clr Calc Pharmacy 56.2 ml/min; Est GFR (African American) 48.7; Potassium 4.2 mmol/L (3.5-5.1)
[2018-08-10] MEDS: ATORVASTATIN 40 MG TAB PO SCH (19:31)
[2018-08-11] MEDS: FUROSEMIDE 100 MG in DEXTROSE 5% 90 ML IV SCH ×10 (00:25→23:45)
[2018-08-11] MEDS: LORazepam 1 MG TAB PO PRN (00:28)
[2018-08-11] MEDS: MILRINONE LACTATE/D5W 20,000 MCG/100 ML BAG IV SCH ×3 (04:00→22:13)
[2018-08-11] MEDS: HEPARIN SOD 5,000 UNIT/0.5 ML VIAL SQ SCH ×3 (05:35→20:54)
[2018-08-11 06:36] LABS: Hematocrit (blood only) 28.8 % (42-52); Hemoglobin 9.7 g/dL (14.0-18.0); Mean Corpuscular Hgb Conc 33.7 g/dL (32-36); Mean Corpuscular Volume 95.7 fL (80-100); Mean Platelet Volume 10.6 fL (7.4-10.4); Platelet Count 219 K/uL (130-400); RDW Coefficient of Variation 16.1 % (11.5-14.5); Red Blood Count 3.01 M/uL (4.7-6.1); White Blood Count 5.15 K/uL (4.8-10.8)
[2018-08-11 07:13] LABS: BUN Creatinine Ratio 20.1 (10-20); Calcium 8.3 mg/dl (8.5-10.1); Creatinine Clr Calc Pharmacy 53.8 ml/min; Est GFR (African American) 46.8; Est GFR (Non-African American) 40.3; Potassium 4.1 mmol/L (3.5-5.1)
[2018-08-11] MEDS: POTASSIUM CHLORIDE 20 MEQ TABCR PO SCH ×2 (08:42→20:51)
[2018-08-11] MEDS: METOPROLOL SUCC 25MG EXT REL TAB PO SCH (08:42)
[2018-08-11] MEDS: PANTOprazole 40 MG TAB PO SCH (08:42)
[2018-08-11] MEDS: ASPIRIN 81 MG ECTAB PO SCH (08:42)
[2018-08-11] MEDS: AMIODARONE 200 MG TAB PO SCH (08:42)
[2018-08-11] MEDS: SPIRONOLACTONE 25 MG TAB PO SCH (08:43)
[2018-08-11] MEDS: INSULIN ASPART 100 UNITS/ML 3 ML PEN SC SCH ×4 (08:43→20:55)
[2018-08-11] MEDS: MAGNESIUM OXIDE 400 MG TAB PO SCH ×2 (08:43→20:53)
--- NOTE | 2018-08-11 09:03 | Nephrology Progress Note ---
Date of Service August 11, 2018 Assessment & Plan (1) Acute on chronic HFrEF (heart failure with reduced ejection fraction): -started on 20 mg hourly lasix on 08/05 through yesterday when it was changed to 40 mg hourly lasix after 100 mg lasix bolus >w/ increase in lasix gtt rate he is 3.5L negative as of 08/10; now down 2.2L kg negative past 24 hrs >>>goal will be 3L negative/ day w/ at least 2 kg wt loss/ day >> continue lasix gtt at 40 mg hourly and metolazone 10 mg bid po -continue for now hold entresto but continue spironolactone -cont to recommend tightened FR to 1.2L daily -mag 2.0 yesterday >> monitor q 48-72 hrs > ordered recheck for am >>>>defer to primary team for knee pain analgesia; will add uric acid level to labs this am (has elbow tophi) (2) History of acute renal failure: had INNA in June w/ peak creatinine mid 3s; in Jul 2018 w/ peak creatinine mid 2's and recovery to mid 1's by 07/27 d/c; see below re presumptive baseline creatinine (3) CKD (chronic kidney disease), stage III: -his actual baseline creatinine is likely higher than mid 1's given vol OL; would at this point give HF mgt clinical priority over renal function w/ close monitoring of vol status, electrolytes, renal function; creatinine worsening a bit as expected (4) Hyponatremia: by definition this is hypervolemic hyponatremia; should improve w/ better volume status and in any case not a clinical priority currently but absolutely needs daily monitoring -maintain eukalemia >sodium a bit worse yesterday/today >> but do note serum osms are near normal; would continue to monitor but not intervene beyond diuresis Subjective as yesterday anxious for d/c; worried that his knee pain will be intolerable if he diureses too much more; but also acknowledges he's ambulating w/o issue; + exertional dypsnea; + urinary frequency but no other voiding c/o; no chest pain/palpitations; edema improving; Physical Exam Vital Signs (Past 24 Hours): Last Vital Signs Temp 36.6 C 08/11/18 07:25 Pulse 75 08/11/18 07:25 Resp 20 08/11/18 07:25 BP 76/44 L 08/11/18 07:25 Pulse Ox 96 08/11/18 07:25 Constitutional: well developed and well nourished A&0 x 3 on RA up in chair Eyes: EOM intact bilaterally ENMT: Ears: no external ear abnormality Nose: no external nose abnormality Mouth: + dry oral mucous membranes Neck: no nuchal rigidity Respiratory: normal respiratory effort Auscultation: + diminished lung sounds (shahid on R ) Cardiovascular: Rate/Rhythm: regular rate and regular rhythm Extremities: + edema (1+ Bl ankle) Gastrointestinal (Abdomen): Inspection/Auscultation: normal bowel sounds Percussion/Palpation: abdomen soft; abdomen nontender distended abdomen w/ hernia reducible Musculoskeletal: Extremities: strength 5/5 throughout Skin: no rashes, warm and dry Neurologic: fernandez / fluent speech Psychiatric: Orientation: alert and oriented x 3 Affect: + anxious affect Results & Data Laboratory Results Abnormal lab results 08/10/18 08/10/18 08/10/18 Range/Units 07:14 11:10 16:01 RBC (4.7-6.1) M/uL Hgb (14.0-18.0) g/dL Hct (42-52) % RDW Std Deviation (36.4-46.3) fL RDW Coeff of Yung (11.5-14.5) % MPV (7.4-10.4) fL Sodium 127 L (136-145) mmol/L Chloride 91 L (98-107) mmol/L BUN 32 H (7-18) mg/dl Creatinine 1.77 H (0.6-1.4) mg/dl BUN/Creatinine Ratio (10-20) Glucose 123 H (70-99) mg/dl POC Glucose 115 H 121 H (70-99) Osmolality (280-300) mOsm/kg Calcium 8.4 L (8.5-10.1) mg/dl Urine Osmolality (500-800) mOsm/kg 08/10/18 08/10/18 08/10/18 Range/Units 16:01 16:15 17:00 RBC (4.7-6.1) M/uL Hgb (14.0-18.0) g/dL Hct (42-52) % RDW Std Deviation (36.4-46.3) fL RDW Coeff of Yung (11.5-14.5) % MPV (7.4-10.4) fL Sodium (136-145) mmol/L Chloride (98-107) mmol/L BUN (7-18) mg/dl Creatinine (0.6-1.4) mg/dl BUN/Creatinine Ratio (10-20) Glucose (70-99) mg/dl POC Glucose 147 H (70-99) Osmolality 279 L (280-300) mOsm/kg Calcium (8.5-10.1) mg/dl Urine Osmolality 284 L (500-800) mOsm/kg 08/10/18 08/10/18 08/11/18 Range/Units 19:58 20:52 05:59 RBC 3.01 L (4.7-6.1) M/uL Hgb 9.7 L (14.0-18.0) g/dL Hct 28.8 L (42-52) % RDW Std Deviation 56.0 H (36.4-46.3) fL RDW Coeff of Yung 16.1 H (11.5-14.5) % MPV 10.6 H (7.4-10.4) fL Sodium (136-145) mmol/L Chloride (98-107) mmol/L BUN (7-18) mg/dl Creatinine (0.6-1.4) mg/dl BUN/Creatinine Ratio (10-20) Glucose (70-99) mg/dl POC Glucose 179 H 159 H (70-99) Osmolality (280-300) mOsm/kg Calcium (8.5-10.1) mg/dl Urine Osmolality (500-800) mOsm/kg 08/11/18 08/11/18 Range/Units 05:59 07:20 RBC (4.7-6.1) M/uL Hgb (14.0-18.0) g/dL Hct (42-52) % RDW Std Deviation (36.4-46.3) fL RDW Coeff of Yung (11.5-14.5) % MPV (7.4-10.4) fL Sodium 127 L (136-145) mmol/L Chloride 91 L (98-107) mmol/L BUN 37 H (7-18) mg/dl Creatinine 1.83 H (0.6-1.4) mg/dl BUN/Creatinine Ratio 20.1 H (10-20) Glucose 108 H (70-99) mg/dl POC Glucose 131 H (70-99) Osmolality (280-300) mOsm/kg Calcium 8.3 L (8.5-10.1) mg/dl Urine Osmolality (500-800) mOsm/kg
--- NOTE | 2018-08-11 11:28 | Cardiology Progress Note ---
Date of Service August 11, 2018 Assessment & Plan (1) Acute on chronic HFrEF (heart failure with reduced ejection fraction): (2) Ischemic cardiomyopathy: Since increasing furosemide infusion to 40 mg/h 2 days ago urine output has increased significantly, fluid balance -3.4 L yesterday, and 3.5 L thus far today. Admission weight was 101.1 kg, and been steady at 99 kg for several days, has trended toward improvement at 94.6 kg today. Goal is to try to get the patient had 89 kg which was his discharge weight from [facility] 2 weeks ago. The patient with transient episode of hypotension with systolic blood pressure in the 70s early this morning, he was a symptom medic from this and on repeat, he was noted to have a systolic blood pressure that was back into his normal range of 90-100. Noted hyponatremic, will continue to follow. Urology input noted and appreciated. Continue subcutaneous heparin for DVT prophylaxis. Disposition: Ultimately plan for discharge with ongoing home milrinone infusion. I have placed a telephone encounter in his outpatient chart to arrange follow- up at [facility] within a week of discharge, and with the advanced heart failure team at [facility] within 2 weeks. Subjective Chief complaint: Follow-up volume overload Subjective: Patient states that he has been urinating frequently. He notes ongoing abdominal bloating. He is eager for discharge, but he is well aware that he is not down to his optimal weight. Physical Exam Vital Signs (Past 24 Hours): Last Vital Signs Temp 36.3 C L 08/11/18 10:32 Pulse 78 08/11/18 10:32 Resp 19 08/11/18 10:32 BP 99/67 L 08/11/18 10:32 Pulse Ox 98 08/11/18 10:32 Physical Exam: General: no acute distress , chronically ill in appearance Eyes: conjunctiva are pink and non-injected, sclera clear Lungs: Decreased breath sounds at the right base Cardiac Exam: - regular heart sounds, II/ systolic murmur Abdomen: Ongoing abdominal bloating, nontender Musculoskeletal: no gait disturbance, no weakness Extremities: 2+ lower extremity edema, chronic venous stasis changes Neuro:awake, coversant, follows commands, no focal motor deficits Psych: appropriate affect and insight. Results & Data Laboratory Results CBC 08/11/18 Range/Units 05:59 WBC 5.15 (4.8-10.8) K/uL RBC 3.01 L (4.7-6.1) M/uL Hgb 9.7 L (14.0-18.0) g/dL Hct 28.8 L (42-52) % Plt Count 219 (130-400) K/uL Comprehensive Metabolic Panel 08/10/18 08/11/18 Range/Units 16:01 05:59 Sodium 127 L 127 L (136-145) mmol/L Potassium 4.2 4.1 (3.5-5.1) mmol/L Chloride 91 L 91 L (98-107) mmol/L Carbon Dioxide 27 29 (21-32) mmol/L BUN 32 H 37 H (7-18) mg/dl Creatinine 1.77 H 1.83 H (0.6-1.4) mg/dl Glucose 123 H 108 H (70-99) mg/dl Calcium 8.4 L 8.3 L (8.5-10.1) mg/dl Intake and Output 08/10/18 08/11/18 08/11/18 22:59 06:59 14:59 Intake Total 1040 / 2445.377 532.667 / 2445.377 100 / 100 Output Total 1600 / 5975 1875 / 5975 Balance -560 / -3529.623 -1342.333 / -3529.623 100 / 100 Intake: IV 500 / 1189.377 296.667 / 1189.377 100 / 100 Lasix 100 mg In D5 90 ml @ 40 400 / 994.667 296.667 / 994.667 100 / 100 MG/HR 40 mls/hr IV .Q2H30M [facility] Rx#:[id number] PRIMACOR/D5W 20,000 mcg In 100 100 / 194.71 ml @ 0.375 MCG/KG/MIN 9.9 mls/ hr IV .Q10H7M [facility] Rx#:[id number] Oral 540 / 1256 236 / 1256 Output: Urine 1600 / 5975 1875 / 5975 Other: Weight 94.6 kg Medications Administered Current Inpatient Medications Acetaminophen (Tylenol) 650 mg PO Q4H PRN PRN Reason: Pain or Fever Stop: 09/04/18 12:12 Last Admin: 08/10/18 20:15 Dose: 650 mg Documented by: Albuterol (Ventolin Hfa) 2 puffs INH Q6H PRN PRN Reason: Shortness Of Breath Or Wheezing Stop: 09/04/18 13:02 Amiodarone HCl (Cordarone) 200 mg PO DAILY [facility] Stop: 09/04/18 13:14 Last Admin: 08/11/18 08:42 Dose: 200 mg Documented by: Aspirin (Ecotrin Ectab) 81 mg PO DAILY [facility] Stop: 09/05/18 08:59 Last Admin: 08/11/18 08:42 Dose: 81 mg Documented by: Atorvastatin Calcium (Lipitor) 80 mg PO PM [facility] Stop: 09/04/18 20:59 Last Admin: 08/10/18 19:31 Dose: 80 mg Documented by: Dextrose (Dextrose 50%) 25 - 50 ml IV UD PRN; Protocol PRN Reason: Hypoglycemia Protocol Stop: 09/06/18 16:50 Glucagon (Glucagen) 1 mg SQ UD PRN; Protocol PRN Reason: Hypoglycemia Protocol Stop: 09/06/18 16:50 Glucose (Dex4 Glucose) 4 - 8 tabs PO UD PRN; Protocol PRN Reason: Hypoglycemia Protocol Stop: 09/06/18 16:50 Glucose (Glucose 40%) 15 - 30 gm PO UD PRN; Protocol PRN Reason: Hypoglycemia Protocol Stop: 09/06/18 16:50 Heparin Sodium (Porcine) (Heparin Sodium (Porcine)) 5,000 units SQ Q8 ROLANDO Stop: 09/04/18 13:59 Last Admin: 08/11/18 05:35 Dose: 5,000 units Documented by: Milrinone Lactate/Dextrose (Primacor/D5w) 20,000 mcg in 100 mls @ 9.9 mls/hr IV .Q10H7M [facility] Stop: 09/04/18 14:59 Last Admin: 08/11/18 04:00 Dose: 0.38 mcg/kg/min, 10 mls/hr Documented by: Furosemide 100 mg/ Dextrose 100 mls @ 40 mls/hr IV .Q2H30M [facility] Stop: 09/04/18 14:14 Last Admin: 08/11/18 08:29 Dose: 40 mg/hr, 40 mls/hr Documented by: Insulin Aspart (Novolog Flexpen) 0 units SC ACHS [facility] Stop: 09/06/18 20:59 Last Admin: 08/11/18 08:43 Dose: Not Given Documented by: Lorazepam (Ativan) 1 mg PO DAILY PRN PRN Reason: Anxiety Stop: 09/04/18 13:02 Last Admin: 08/11/18 00:28 Dose: 1 mg Documented by: Magnesium Oxide (Mag-Ox) 400 mg PO BID [facility] Stop: 09/05/18 08:59 Last Admin: 08/11/18 08:43 Dose: 400 mg Documented by: Metolazone (Zaroxolyn) 10 mg PO BID [facility] Stop: 09/09/18 09:14 Last Admin: 08/10/18 19:31 Dose: 10 mg Documented by: Metoprolol Succinate (Toprol Xl) 25 mg PO DAILY [facility] Stop: 09/04/18 13:14 Last Admin: 08/11/18 08:42 Dose: 25 mg Documented by: Miscellaneous (Carbohydrates For Hypoglycemia) 15 - 30 gm PO UD PRN PRN Reason: Hypoglycemia Treatment Stop: 09/06/18 16:50 Morphine Sulfate (Morphine Sulfate) 2 mg IV Q4H PRN PRN Reason: Pain Stop: 08/20/18 21:44 Pantoprazole Sodium (Protonix) 40 mg PO DAILY [facility] Stop: 09/05/18 08:59 Last Admin: 08/11/18 08:42 Dose: 40 mg Documented by: Potassium Chloride (Klor-Con M20) 40 meq PO BID [facility] Stop: 09/04/18 20:59 Last Admin: 08/11/18 08:42 Dose: 40 meq Documented by: Spironolactone (Aldactone) 25 mg PO QAM [facility] Stop: 09/05/18 08:59 Last Admin: 08/11/18 08:43 Dose: 25 mg Documented by: Tramadol HCl (Ultram) 50 mg PO Q6H PRN PRN Reason: Pain Stop: 09/04/18 13:02 Last Admin: 08/06/18 21:42 Dose: 50 mg Documented by:
[2018-08-11] MEDS: ACETAMINOPHEN 325 MG TAB PO PRN ×2 (14:19→20:57)
--- NOTE | 2018-08-11 18:50 | Hospitalist Progress Note ---
Date of Service August 11, 2018 Assessment & Plan (1) Acute on chronic systolic (congestive) heart failure: (2) Ischemic cardiomyopathy: Acute on chronic heart failure with reduced ejection fraction (acute systolic congestive heart failure) Present on admission with increase weight gained and SOB ECHO on 05/31 showed EF 20-24% on echo 05/2018) CXR on admission showed cardiomegaly and radiographic evidence of congestive failure/fluid overload BNP elevated on admission On IV lasix drip and milrinone drip Cardiology on board and recommended to continue Lasix and Milrinone drip Continue spirinolactone Entresto discontinued for now Continue fluid restriction Monitor electrolytes closely Creatinine 1.8 today Output 3.4 L yesterday, 3.5 L today Has been diuresis well during this admission about 14L so far Weight dropped from 101 kg to 94 kg (3) CAD (coronary artery disease): Ischemic cardiomyopathy Hx [place] 2004 s/p stent LAD Currently denies any chest pain Continue metoprolol, statin, aspirin (4) Hyponatremia: Na 127 today Continue Lasix drip Monitor BMP Nephrology on board (5) Pleural effusion on right: Ultrasound chest showed right pleural effusion with an estimated volume of 2500cc Patient declined thoracentesis saturates well on RA Stable (6) ICD (implantable cardioverter-defibrillator) in place: Hx ischemic cardiomyopathy (EF 20-24% on echo 05/2018) H/O ICD in 2008 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 Resolved (9) Diabetes mellitus, type II: hbA1c 6.3 monitor BSGs novolog sliding scale per protocol Monitor BS (10) Anemia: Hgb ranging in 8-9 since 07/2018, prior was 14 Hgb 9.7 today Stable (11) Anxiety: Continue ativan prn DVT Prophylaxis: heparin subcut CODE STATUS Full Code Disposition Follow with Dr Oakes in [place] for routine care Patient's [phone] Subjective Pt was seen and examined Sitting in chair comfortable eating dinner Pt said that he feels much better Denies any chest pain, palpitation, dizziness and SOB Physical Exam Vital Signs (Past 24 Hours): Last Vital Signs Temp 36.3 C L 08/11/18 15:20 Pulse 80 08/11/18 15:20 Resp 18 08/11/18 15:20 BP 95/62 L 08/11/18 15:20 Pulse Ox 96 08/11/18 15:20 Physical Exam: General- No acute distress Head- atraumatic Eyes- PERRL, EOMI, ENT- oropharynx clear Neck- supple, no JVD Lungs- clear to auscultation Heart- +systolic murmur Abdomen- normal bowel sounds, soft, nontender Extremities- 2+edema Neuro- alert, oriented x 3; PERRL, EOMI; no facial palsy; no dysarthria Skin- warm & dry, B/L LE discoloration
[2018-08-11] MEDS: ATORVASTATIN 40 MG TAB PO SCH (20:52)
[2018-08-12] MEDS: FUROSEMIDE 100 MG in DEXTROSE 5% 90 ML IV SCH ×5 (02:25→10:26)
[2018-08-12] MEDS: HEPARIN SOD 5,000 UNIT/0.5 ML VIAL SQ SCH ×2 (05:02→13:47)
[2018-08-12 07:02] LABS: BUN Creatinine Ratio 22.2 (10-20); Calcium 8.9 mg/dl (8.5-10.1); Creatinine Clr Calc Pharmacy 46.2 ml/min; Est GFR (Non-African American) 37.1; Magnesium 2.1 mg/dl (1.8-2.4); Potassium 3.9 mmol/L (3.5-5.1)
[2018-08-12] MEDS: MILRINONE LACTATE/D5W 20,000 MCG/100 ML BAG IV SCH (07:31)
[2018-08-12] MEDS: INSULIN ASPART 100 UNITS/ML 3 ML PEN SC SCH ×2 (07:34→12:03)
[2018-08-12] MEDS: SPIRONOLACTONE 25 MG TAB PO SCH (07:40)
[2018-08-12] MEDS: ASPIRIN 81 MG ECTAB PO SCH (07:40)
[2018-08-12] MEDS: MAGNESIUM OXIDE 400 MG TAB PO SCH (07:40)
[2018-08-12] MEDS: PANTOprazole 40 MG TAB PO SCH (07:41)
[2018-08-12] MEDS: POTASSIUM CHLORIDE 20 MEQ TABCR PO SCH (07:41)
[2018-08-12] MEDS: AMIODARONE 200 MG TAB PO SCH (07:42)
[2018-08-12] MEDS: METOPROLOL SUCC 25MG EXT REL TAB PO SCH (07:43)
[2018-08-12] MEDS: ACETAMINOPHEN 325 MG TAB PO PRN (09:54)
--- NOTE | 2018-08-12 10:43 | Cardiology Progress Note ---
Date of Service August 12, 2018 Assessment & Plan (1) Acute on chronic HFrEF (heart failure with reduced ejection fraction): (2) Ischemic cardiomyopathy: Advanced heart failure due to ischemic cardiomyopathy with severe dysfunction. Since increasing the furosemide drip several days ago the patient has had a significant decline in weight, with admission weight on 08/05/18 of 101.1 kg, and he is 91.8 kg at present. He has not had balance was -4.4 L yesterday, -3.5 L a day before, and -3.4 L the day before that. Sodium has trended down from 133 to 124. Creatinine was 1.52 on admission, now 1.96 mg /dL. Patient eager for discharge. Case discussed with Dr. Quezada of nephrology and we collaborated on home diuretic regimen. Will discontinue IV furosemide. Discontinue PO spironolactone. The patient had been on torsemide 80 mg by mouth 3 times daily prior to admission. Discharge diuretic regimen: Torsemide 100 mg by mouth 3 times per day. Metolazone 5 mg by mouth 2 times per day. Potassium chloride 80 mEq by mouth 2 times per day. Milrinone 0.375 mcg/kg/min through home pump/port access. Follow-up: Patient has cardiology follow-up on 08/17/18, Marybel Castro, patient arrival time 10:45 AM, with Abby Kraft PA-C I have already requested a follow-up visit with the advanced heart failure team at [facility] in about 2 weeks, they were in the process of working on scheduling this. Nephrology to contact the patient to arrange post hospital follow-up. Subjective Chief complaint: Volume overload Subjective: Patient notes that he has been diuresing vigorously. He had a transient episode of nausea after his morning meal today. He is beginning to get concerned that "too much water is being removed ". He stated that he rested poorly last night, but did not describe why. He does not appear to be due to orthopnea. Telemetry reveals stable sinus rhythm. Physical Exam Vital Signs (Past 24 Hours): Last Vital Signs Temp 36.6 C 08/12/18 07:24 Pulse 85 08/12/18 07:24 Resp 18 08/12/18 07:24 BP 95/63 L 08/12/18 07:24 Pulse Ox 93 08/12/18 07:24 Constitutional: + ill appearing (Chronically ill in appearance) and + thin Respiratory: Auscultation: + diminished lung sounds (Diminished breath sounds at the right base consistent with pleural effusion on chest x-ray and ultrasound); no crackles, no rales and no wheezes Cardiovascular: Rate/Rhythm: regular rate and regular rhythm Heart Sounds: + murmur (2/6 systolic murmur heard best at the left apex) Vessels: + JVD Extremities: + edema (Bilateral pedal and lower extremity edema, left slightly more prominent than right lower extremity, with chronic venous stasis changes, markedly improved over the last 2 days.) Gastrointestinal (Abdomen): Patient's abdomen is nonpainful, mildly distended per Neurologic: Follows commands, conversant, no focal deficits Results & Data Laboratory Results Comprehensive Metabolic Panel 08/12/18 Range/Units 06:13 Sodium 124 L (136-145) mmol/L Potassium 3.9 (3.5-5.1) mmol/L Chloride 86 L (98-107) mmol/L Carbon Dioxide 31 (21-32) mmol/L BUN 44 H (7-18) mg/dl Creatinine 1.96 H (0.6-1.4) mg/dl Glucose 108 H (70-99) mg/dl Calcium 8.9 (8.5-10.1) mg/dl Intake and Output 08/11/18 08/12/18 08/12/18 22:59 06:59 14:59 Intake Total 930 / 2097.166 297.333 / 2097.166 293 / 293 Output Total 1250 / 6575 2475 / 6575 Balance -320 / -4477.834 -2177.667 / -4477.834 293 / 293 Intake: IV 370 / 1057.166 297.333 / 1057.166 293 / 293 Lasix 100 mg In D5 90 ml @ 40 270 / 867.333 297.333 / 867.333 200 / 200 MG/HR 40 mls/hr IV .Q2H30M [facility] Rx#:[id number] PRIMACOR/D5W 20,000 mcg In 100 100 / 189.833 93 / 93 ml @ 0.375 MCG/KG/MIN 9.9 mls/ hr IV .Q10H7M [facility] Rx#:[id number] Oral 560 / 1040 Output: Urine 1250 / 6575 4655 / 6575 Other: Weight 91.8 kg Medications Administered Current Inpatient Medications Acetaminophen (Tylenol) 650 mg PO Q4H PRN PRN Reason: Pain or Fever Stop: 09/04/18 12:12 Last Admin: 08/12/18 09:54 Dose: 650 mg Documented by: Albuterol (Ventolin Hfa) 2 puffs INH Q6H PRN PRN Reason: Shortness Of Breath Or Wheezing Stop: 09/04/18 13:02 Amiodarone HCl (Cordarone) 200 mg PO DAILY [facility] Stop: 09/04/18 13:14 Last Admin: 08/12/18 07:42 Dose: 200 mg Documented by: Aspirin (Ecotrin Ectab) 81 mg PO DAILY [facility] Stop: 09/05/18 08:59 Last Admin: 08/12/18 07:40 Dose: 81 mg Documented by: Atorvastatin Calcium (Lipitor) 80 mg PO PM [facility] Stop: 09/04/18 20:59 Last Admin: 08/11/18 20:52 Dose: 80 mg Documented by: Dextrose (Dextrose 50%) 25 - 50 ml IV UD PRN; Protocol PRN Reason: Hypoglycemia Protocol Stop: 09/06/18 16:50 Glucagon (Glucagen) 1 mg SQ UD PRN; Protocol PRN Reason: Hypoglycemia Protocol Stop: 09/06/18 16:50 Glucose (Dex4 Glucose) 4 - 8 tabs PO UD PRN; Protocol PRN Reason: Hypoglycemia Protocol Stop: 09/06/18 16:50 Glucose (Glucose 40%) 15 - 30 gm PO UD PRN; Protocol PRN Reason: Hypoglycemia Protocol Stop: 09/06/18 16:50 Heparin Sodium (Porcine) (Heparin Sodium (Porcine)) 5,000 units SQ Q8 [facility] Stop: 09/04/18 13:59 Last Admin: 08/12/18 05:02 Dose: 5,000 units Documented by: Milrinone Lactate/Dextrose (Primacor/D5w) 20,000 mcg in 100 mls @ 9.9 mls/hr IV .Q10H7M [facility] Stop: 09/04/18 14:59 Last Admin: 08/12/18 07:31 Dose: 0.38 mcg/kg/min, 10 mls/hr Documented by: Furosemide 100 mg/ Dextrose 100 mls @ 40 mls/hr IV .Q2H30M [facility] Stop: 09/04/18 14:14 Last Admin: 08/12/18 10:26 Dose: 40 mg/hr, 40 mls/hr Documented by: Insulin Aspart (Novolog Flexpen) 0 units SC ACHS [facility] Stop: 09/06/18 20:59 Last Admin: 08/12/18 07:34 Dose: Not Given Documented by: Lorazepam (Ativan) 1 mg PO DAILY PRN PRN Reason: Anxiety Stop: 09/04/18 13:02 Last Admin: 08/11/18 00:28 Dose: 1 mg Documented by: Magnesium Oxide (Mag-Ox) 400 mg PO BID [facility] Stop: 09/05/18 08:59 Last Admin: 08/12/18 07:40 Dose: 400 mg Documented by: Metolazone (Zaroxolyn) 10 mg PO BID [facility] Stop: 09/09/18 09:14 Last Admin: 08/10/18 19:31 Dose: 10 mg Documented by: Metoprolol Succinate (Toprol Xl) 25 mg PO DAILY [facility] Stop: 09/04/18 13:14 Last Admin: 08/12/18 07:43 Dose: Not Given Documented by: Miscellaneous (Carbohydrates For Hypoglycemia) 15 - 30 gm PO UD PRN PRN Reason: Hypoglycemia Treatment Stop: 09/06/18 16:50 Morphine Sulfate (Morphine Sulfate) 2 mg IV Q4H PRN PRN Reason: Pain Stop: 08/20/18 21:44 Pantoprazole Sodium (Protonix) 40 mg PO DAILY [facility] Stop: 09/05/18 08:59 Last Admin: 08/12/18 07:41 Dose: 40 mg Documented by: Potassium Chloride (Klor-Con M20) 40 meq PO BID [facility] Stop: 09/04/18 20:59 Last Admin: 08/12/18 07:41 Dose: 40 meq Documented by: Spironolactone (Aldactone) 25 mg PO QAM [facility] Stop: 09/05/18 08:59 Last Admin: 08/12/18 07:40 Dose: 25 mg Documented by: Tramadol HCl (Ultram) 50 mg PO Q6H PRN PRN Reason: Pain Stop: 09/04/18 13:02 Last Admin: 08/06/18 21:42 Dose: 50 mg Documented by:
--- NOTE | 2018-08-12 13:10 | Hospitalist Progress Note ---
Date of Service August 12, 2018 Assessment & Plan (1) Acute on chronic systolic (congestive) heart failure: (2) Ischemic cardiomyopathy: Acute on chronic heart failure with reduced ejection fraction (acute systolic congestive heart failure) Present on admission with increase weight gained and SOB ECHO on 05/31 showed EF 20-24% on echo 05/2018) CXR on admission showed cardiomegaly and radiographic evidence of congestive failure/fluid overload BNP elevated on admission On IV lasix drip and milrinone drip Cardiology on board and recommended to continue Lasix and Milrinone drip Continue spirinolactone Entresto discontinued for now Continue fluid restriction Monitor electrolytes closely Creatinine 1.8 today Output 3.4 L yesterday, 3.5 L today Has been diuresis well during this admission about 14L so far Weight dropped from 101 kg to 94 kg 08/12 Clinically improved Very anxious to go home today IV lasix drip was discontinued Weight dropped from 101 kg to 90.8 kg Urine output 3.5 L yesterday and 4.5L today Total output about 16.5L during the hospital course case discussed with cardiology and ok to discharge him today since pt is very anxious to go home and already called his to come get him Cardiology recommended to discharge on diuretic with the regimen: Torsemide 100 mg by mouth 3 times per day. Metolazone 5 mg by mouth 2 times per day. Potassium chloride 80 mEq by mouth 2 times per day. Milrinone 0.375 mcg/kg/min through home pump/port access. Will discontinue spironolactone Continue holding Entresto for now until instructing to resume by cardiology Follow-up with cardiology on 08/17/18, Marybel Castro, patient arrival time 10:45 AM, with Abby Kraft PA-C Follow-up visit with the advanced heart failure team at [facility] in about 2 weeks (Office will call for the follow up appointment) Advised pt to follow with his PCP next week (3) CAD (coronary artery disease): Ischemic cardiomyopathy Hx [place] 2004 s/p stent LAD Currently denies any chest pain Continue metoprolol, statin, aspirin (4) Hyponatremia: Na 124 today Monitor BMP Nephrology on board Follow up with nephrology outpatient (5) Pleural effusion on right: Ultrasound chest showed right pleural effusion with an estimated volume of 2500cc Patient declined thoracentesis saturates well on RA Stable (6) ICD (implantable cardioverter-defibrillator) in place: Hx ischemic cardiomyopathy (EF 20-24% on echo 05/2018) H/O ICD in 2008 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 Resolved (9) Diabetes mellitus, type II: HbA1c 6.3 monitor BSGs novolog sliding scale per protocol Monitor BS (10) Anemia: Hgb ranging in 8-9 since 07/2018, prior was 14 Hgb 9.7 today Stable (11) Anxiety: Continue ativan prn DVT Prophylaxis: heparin subcut CODE STATUS Full Code Disposition Follow with Dr Oakes in [place] for routine care (Please call to schedule for the appointment for next week) Continue holding Entresto for now until instructing to resume by cardiology Follow-up with cardiology on 08/17/18, Marybel Castro, patient arrival time 10:45 AM, with Abby Kraft PA-C Follow-up visit with the advanced heart failure team at [facility] in about 2 weeks (Office will call for the follow up appointment) Subjective Pt was seen and examined Sitting in the chair right by the door ready to be discharge present in the room I explained to patient that he is not ready to be discharged yet I told and patient that electrolytes are abnormal with low sodium and worsening kidney function Pt said that he feels much better He said that he has been walking in the hallway with no discomfort He said that he he starts to feel SOB and fluid accumulation that he will return back to the hospital tried to tell him to stay in the hospital, unfortunately he did not listen Denies any chest pain, palpitation, dizziness and SOB Physical Exam Vital Signs (Past 24 Hours): Last Vital Signs Temp 36.4 C L 08/12/18 11:17 Pulse 75 08/12/18 11:17 Resp 16 08/12/18 11:17 BP 90/58 L 08/12/18 11:17 Pulse Ox 97 08/12/18 11:17 Physical Exam: General- No acute distress Head- atraumatic Eyes- PERRL, EOMI, ENT- oropharynx clear Neck- supple, no JVD Lungs- clear to auscultation Heart- +systolic murmur Abdomen- normal bowel sounds, soft, nontender Extremities- 2+edema Neuro- alert, oriented x 3; PERRL, EOMI; no facial palsy; no dysarthria Skin- warm & dry, B/L LE discoloration
[2018-08-12] MEDS ORDERED: TORSEMIDE 20 MG TAB PO SCH (14:00)
[2018-08-12] MEDS ORDERED: metOLazone 5 MG TABLET PO SCH (21:00)
[2018-08-12] MEDS ORDERED: POTASSIUM CHLORIDE 20 MEQ TABCR PO SCH (21:00)
--- NOTE | 2018-08-13 08:37 | Discharge Summary ---
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 05/2018: In hospital [place] cardiac arrest in setting of decompensated CHF at [facility]. Was [place] [facility], started on IV Lasix and milrinone and was weaned prior to discharge. Had ICD placed on 06/23/18. Pt with history hospitalization at [facility] on 07/21/18-07/23/18 for abdominal pain and 7 pound weight gain, attempted diuresis with Lasix 5mg/hr drip and then transferred to [facility] at family�s request on 08/02-07/27/18 for CHF and worsening renal functions. He was on Lasix drip and milrinone. He diuresed 24 pounds. Discharged on milrinone and torsemide and potassium doses were increased. Reported pt gained 26 pounds and increased abdominal distention and BLE edema since discharge on 07/27/18 with reported compliance with medications. Also c/o increased SOB with minimal exertion and orthopnea. Reports eating a lot a home and states prepares low sodium foods. (Pt has previous documentation of non-compliance with meds, diet and follow up). Denies CP or ICD firing. At cardiology office today pt had device interrogation revealed no ICD firings. Pt reports has had anterior CP since May since his cardiac arrest. He denies any increased CP. Reports having generalized abdominal pain since 05/2018. Feels increased pain increases when he has increased fluid retention and abdominal distension. Reports at night will have some nausea and intermittent vomiting. Denies diarrhea. States has known ventral abdominal hernia, doesn't think it has increased in size. Reports feels "wiped out" all the time. Chronic BLE discoloration, denies other rashes. Denies fever/chills, diaphoresis, GOMEZ, dizziness, syncope, vision changes, neck pain, palpitations, cough, sore throat, choking, otalgia, rhinorrhea, paresthesias, urinary symptoms. According to last admission notes from [facility] if pt compliant with milrinone drip he may be considered for possible LVAD 05/2018 Echo: Severely reduced LV systolic function, EF 20-24%. Severe, diffuse left ventricular hypokinesis with some regional variability, septal wall motion is abnormal consistent with right ventricular pressure/volume overload. Right ventricular cavity is moderately dilated with reduced systolic function. Mild to moderate mitral regurgitation, moderate tricuspid regurgitation. Right heart catheterization performed June 2018 shows pulmonary hypertension is present 42/23 with a mean of 31 mmHg, consistent with mild pulmonary hypertension attributable to elevated LVEDP. Wedge saturation is 52%, which is low. Cardiac output is 5.8 liters/minute and cardiac index is 2.8 liters/minute/meter squared. Wedge pressures is 26-27 mmHg, moderately elevated. Right atrial pressure 12 mmHg. Pulmonary vascular resistance is 0.86 Wood units. Normal cutaneous oxygen saturation 92%. This was performed while on milrinone drip. Admission Exam Per Admitting Provider General: no distress, WDWN Head: normocephalic, atraumatic Eyes: PERRL, EOM's intact, conjunctiva non-injected, anicteric ENT: normal inspection external ears, nose, mucous membranes moist Neck: supple, trachea midline, non-tender Lungs: clear, no respiratory distress, no wheezing/rhonchi/rales CV: RRR, no murmur, 2+ pretibial edema Abd: normal BS, distended, +hernia, non-tender Ext: +discoloration BLE, no calf tenderness Neuro: A&O x 3, no focal deficits noted, normal affect Skin: warm, dry Principal Diagnosis CHF Acute on chronic systolic (congestive) heart failure Ischemic cardiomyopathy Acute on chronic renal failure Discharge Exam General- No acute distress Head- atraumatic Eyes- PERRL, EOMI, ENT- oropharynx clear Neck- supple, no JVD Lungs- clear to auscultation Heart- +systolic murmur Abdomen- normal bowel sounds, soft, nontender Extremities- 2+edema Neuro- alert, oriented x 3; PERRL, EOMI; no facial palsy; no dysarthria Skin- warm & dry, B/L LE discolorati Discharge Data Allergies Allergy/AdvReac Type Severity Reaction Status Date / Time No Known Allergies Allergy NONE Unverified 02/05/09 18:13 Consultations 08/05/18 12:13 Consult Cardiology Routine 08/05/18 12:17 Consult Case Management - Discharge Planning Routine 08/05/18 14:15 Consult Patient Rep / Service Excellence [Consult Patient Services] Stat 08/10/18 08:02 Consult Nephrology Routine Ordered Studies 08/05/18 12:55 US abdomen limited Routine 08/08/18 08:00 US effusion-chest/mediastinum Routine US effusion-chest/mediastinum CLINICAL HISTORY: Right pleural effusion COMPARISON STUDY: Chest x-ray dated August 05, 2018 FINDINGS: There is a right pleural effusion with estimated volume of 2500 cc. This was marked for possible subsequent thoracentesis. No left pleural effusion was visualized. IMPRESSION: Right pleural effusion with an estimated volume of 2500 cc. Electronically signed by: Philip Quiros M.D. 08/08/2018 8:03 AM Dictated: 08/08/18 0803 Transcribed: 08/08/18 0803 US abdomen limited CLINICAL HISTORY: R/O ascites. Abdominal distention. COMPARISON STUDY: None. FINDINGS: Trace fluid surrounding the liver. The spleen is enlarged measuring 15.6 cm in length. IMPRESSION: 1. Trace perihepatic ascites. 2. Splenomegaly. Electronically signed by: Bro Dunbar M.D. 08/05/2018 2:35 PM Dictated: 08/05/18 1433 Transcribed: 08/05/18 1433 XR chest 1V portable CLINICAL HISTORY: Shortness of breath COMPARISON STUDY: January 2009 FINDINGS: The heart is enlarged. There is a left subclavian central venous catheter tip which projects over the superior vena cava. There is a right subclavian pacer/defibrillator. There is radiographic evidence of congestive failure/fluid overload. There is a moderate right pleural effusion with associated right lower lobe atelectasis/consolidation.[ IMPRESSION: 1. Cardiomegaly and radiographic evidence of congestive failure/fluid overload 2. Right pleural effusion with associated right lower lobe atelectasis/consolidation Electronically signed by: Philip Quiros M.D. 08/05/2018 1:28 PM Dictated: 08/05/18 1327 Transcribed: 08/05/18 1327 Hospital Course (1) Acute on chronic systolic (congestive) heart failure: (2) Ischemic cardiomyopathy: Acute on chronic heart failure with reduced ejection fraction (acute systolic congestive heart failure) Present on admission with increase weight gained and SOB ECHO on 05/31 showed EF 20-24% on echo 05/2018) CXR on admission showed cardiomegaly and radiographic evidence of congestive failure/fluid overload BNP elevated on admission On IV lasix drip and milrinone drip Cardiology on board and recommended to continue Lasix and Milrinone drip Continue spirinolactone Entresto discontinued for now Continue fluid restriction Monitor electrolytes closely Creatinine 1.8 today Output 3.4 L yesterday, 3.5 L today Has been diuresis well during this admission about 14L so far Weight dropped from 101 kg to 94 kg 08/12 Clinically improved Very anxious to go home today IV lasix drip was discontinued Weight dropped from 101 kg to 90.8 kg Urine output 3.5 L yesterday and 4.5L today Total output about 16.5L during the hospital course case discussed with cardiology and ok to discharge him today since pt is very anxious to go home and already called his to come get him Cardiology recommended to discharge on diuretic with the regimen: Torsemide 100 mg by mouth 3 times per day. Metolazone 5 mg by mouth 2 times per day. Potassium chloride 80 mEq by mouth 2 times per day. Milrinone 0.375 mcg/kg/min through home pump/port access. Will discontinue spironolactone Continue holding Entresto for now until instructing to resume by cardiology Follow-up with cardiology on 08/17/18, Marybel Castro, patient arrival time 10:45 AM, with Abby Kraft PA-C Follow-up visit with the advanced heart failure team at [facility] in about 2 weeks (Office will call for the follow up appointment) Advised pt to follow with his PCP next week (3) CAD (coronary artery disease): Ischemic cardiomyopathy Hx PA 2004 s/p stent LAD Currently denies any chest pain Continue metoprolol, statin, aspirin (4) Hyponatremia: Na 124 today Monitor BMP Nephrology on board Follow up with nephrology outpatient (5) Pleural effusion on right: Ultrasound chest showed right pleural effusion with an estimated volume of 2500cc Patient declined thoracentesis saturates well on RA Stable (6) ICD (implantable cardioverter-defibrillator) in place: Hx ischemic cardiomyopathy (EF 20-24% on echo 05/2018) H/O ICD in 2008 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 Resolved (9) Diabetes mellitus, type II: HbA1c 6.3 monitor BSGs novolog sliding scale per protocol Monitor BS (10) Anemia: Hgb ranging in 8-9 since 07/2018, prior was 14 Hgb 9.7 today Stable (11) Anxiety: Continue ativan prn DVT Prophylaxis: heparin subcut CODE STATUS Full Code Disposition Follow with Dr Oakes in [place] for routine care (Please call to schedule for the appointment for next week) Continue holding Entresto for now until instructing to resume by cardiology Follow-up with cardiology on 08/17/18, Marybel Castro, patient arrival time 10:45 AM, with Abby Kraft PA-C Follow-up visit with the advanced heart failure team at [facility] in about 2 weeks (Office will call for the follow up appointment) Total Time Total Time Spent Total Time Spent (In Minutes): 40 minutes Total Time Includes: Examination of the Patient, Discharge Planning, Medication Reconciliation, Communication With Other Providers and Other Discharge Plan Discharge Items Patient Disposition: Home - Home Health Services Reason For Visit: CHRONIC CHF Discharge Diagnosis: CHF Acute on chronic systolic (congestive) heart failure: Ischemic cardiomyopathy Acute on chronic renal failure Discharge Goals: Decrease discomfort, Improve disease control, Improve function and Increase independence Activity: Resume your previous activity Activity Comment: as tolerated Non-emergency contact: Primary Care Provider, Photonics Engineering Technologist and Group President Call non-emergency contact if: you have any medication questions Follow-up/Referrals: Charles Oakes DO [Primary Care Provider] - Diet: Heart Healthy Addtl Provider Instructions: Follow with your primary care provider Dr Oakes in [place] (Please call to schedule for the appointment for next week) Follow-up with cardiology on 08/17/18, Marybel Castro, patient arrival time 10:45 AM, with Abby Kraft PA-C Follow-up visit with the advanced heart failure team at [facility] in about 2 weeks (Office will call for the follow up appointment) Follow up with nephrology Dr. Quezada on (office will call you for the appointment ) Continue holding Entresto/ARB?ACEI for now due to worsening creatinine (renal failure) until instructing to start by cardiology Check BMP next week to monitor renal function and sodium Avoid medication that can damage your kidney such as NSAIDS (Aleve, naproxen, ibuprofen, motrin advil,..) Torsemide increased to 100mg three times a day Potassium increased to 80mg twice a day Metolazone 5 mg twice a day Prescriptions: New metolazone 5 mg Tablet 5 mg PO BID 30 Days Qty: 60 RF: 0 torsemide 100 mg tablet 100 mg PO TID Qty: 90 RF: 0 potassium chloride 20 mEq Tablet Extended Release 80 meq PO BID 30 Days Qty: 120 RF: 0 Continued atorvastatin 80 mg Tablet 80 mg PO PM RF: 0 amiodarone 200 mg Tablet 200 mg PO DAILY RF: 0 omeprazole 40 mg Capsule,Delayed Release(Dr/Ec) 40 mg PO DAILY RF: 0 tramadol 50 mg Tablet 50 mg PO Q6H PRN (Reason: Pain) RF: 0 acetaminophen 500 mg Tablet 500 mg PO QID PRN (Reason: Pain) RF: 0 aspirin 81 mg Tablet,Chewable 81 mg PO DAILY RF: 0 lorazepam 1 mg Tablet 1 mg PO DAILY PRN (Reason: Anxiety) RF: 0 albuterol sulfate 90 mcg/actuation Hfa Aerosol Inhaler 2 puff INHALATION Q6H PRN (Reason: Shortness Of Breath Or Wheezing) RF: 0 milrinone in 5 % dextrose 40 mg/200 mL (200 mcg/mL) Piggyback 0.375 mcg/kg/min IV RF: 0 Discontinued torsemide 20 mg Tablet 4 tab PO TID RF: 0 metoprolol succinate 25 mg Tablet Extended Release 24 Hr 25 mg PO DAILY RF: 0 Stand-Alone Forms: [facility] Discharge Orders: Discharge Order (Routine); Ordered 08/12/18 Ordered By: Matthew Bill Admission Data Admit Date/Time: 08/05/18 11:44 Attending Provider: Matthew Bill Admit Provider: Neptali Xiong Primary Care Provider: Charles Oakes Other Providers: Deondre Medina ; Joseph Augustin ; Xenia Quezada Service: Telemetry Other Interventions: Discharge Summary Assessment (RN) Last Done: 08/12/18 14:25 DC Date/Time DO NOT enter until pt leaves facility: 08/12/18 14:58
== END 2018-08-12 14:58 | disposition home health service (06) | DRG 291 ==
LOC: 2S 11:44 → SUATTDRO 11:44

== ENCOUNTER 2019-04-06 20:21 | Inpatient (IN) ==
[2019-04-06] MEDS ORDERED: SODIUM CHLORIDE 0.9% 1000ML 250 ML IV ONE (20:33)
[2019-04-06 20:58] LABS: Basophils # (auto) 0.02 K/uL (0-0.2); Basophils % (auto) 0.2 %; Eosinophils % (auto) 3.6 %; Hematocrit (blood only) 33.8 % (42-52); Hemoglobin 11.5 g/dL (14.0-18.0); Immature Granulocytes # (auto) 0.01 K/uL (0.00-0.02); Immature Granulocytes % (auto) 0.1 %; Lymphocytes # (auto) 0.33 K/uL (1.2-3.4); Mean Corpuscular Hemoglobin 29.7 pg (25-34); Mean Corpuscular Volume 87.3 fL (80-100); Mean Platelet Volume 9.8 fL (7.4-10.4); Monocytes # (auto) 0.78 K/uL (0.11-0.59); Monocytes % (auto) 9.4 %; Neutrophils % (auto) 82.7 %; Platelet Count 184 K/uL (130-400); RDW Coefficient of Variation 16.3 % (11.5-14.5); RDW Standard Deviation 51.9 fL (36.4-46.3); Red Blood Count 3.87 M/uL (4.7-6.1); White Blood Count 8.34 K/uL (4.8-10.8)
--- NOTE | 2019-04-06 21:06 | XRay Report ---
XR chest 1V portable CLINICAL HISTORY: jc fluid overload COMPARISON STUDY: Chest radiograph February 02, 2019. FINDINGS: Right subclavian pacer/AICD is in place. There is a left sided [id number]. There is no p neumothorax. Small right and trace left pleural effusions are noted. Interstitial thickening and bila teral opacities have developed. There is no pneumothorax. Moderate to marked enlargement of the cardi ac silhouette is unchanged. IMPRESSION: 1. Interstitial thickening and bilateral opacities suggestive of pulmonary edema. 2. Small right and trace left pleural effusions. 3. Cardiomegaly. Electronically signed by: Justus Perez M.D. 04/06/2019 9:05 PM
[2019-04-06 21:54] LABS: Blood Urea Nitrogen 14 mg/dl (7-18); Calcium 7.4 mg/dl (8.5-10.1); Carbon Dioxide 25 mmol/L (21-32); Chloride 92 mmol/L (98-107); Est GFR (African American) 98.8; Est GFR (Non-African American) 85.2; Glucose 128 mg/dl (70-99); Lipase 30 U/L (73-393); Magnesium 1.1 mg/dl (1.8-2.4); Potassium 3.1 mmol/L (3.5-5.1); Sodium 125 mmol/L (136-145)
[2019-04-06] MEDS ORDERED: MAGNESIUM SULFATE / D5W 1 GM/100 ML BAG IV ONE (21:55)
[2019-04-06] MEDS ORDERED: POTASSIUM CHLORIDE 10 MEQ TABCR PO STA (21:55)
[2019-04-06] MEDS ORDERED: ONDANSETRON INJ 2 MG/ML 2 ML VIAL IV STA (21:56)
[2019-04-06] MEDS ORDERED: NALOXONE HCL 0.4 MG/1 ML VIAL/CARP IV STA (21:56)
[2019-04-06 21:58] LABS: INR 1.1 (0.9-1.1); Partial Thromboplastin Ratio 1.1; Partial Thromboplastin Time 29.9 Seconds (21.0-31.0); Prothrombin Time 11.4 Seconds (9.0-12.0)
[2019-04-06 22:10] LABS: NT Pro B Type Natriuretic Pept 6370 pg/ml (0-900); Troponin I < 0.015 ng/ml (0-0.045)
[2019-04-06] MEDS ORDERED: FUROSEMIDE 40 MG/4 ML VIAL IV STA (22:19)
[2019-04-06] MEDS ORDERED: ALBUMIN 25% 50 ML IV ONE (22:33)
[2019-04-06 23:06] LABS: Alanine Aminotransferase 7 U/L (12-78); Albumin Level 1.5 gm/dl (3.4-5.0); Alkaline Phosphatase 184 U/L (45-117); Aspartate Aminotransferase 19 U/L (15-37); Bilirubin Direct 0.6 mg/dl (0-0.2); Bilirubin,Total 1.4 mg/dl (0.2-1); Total Protein 5.4 gm/dl (6.4-8.2)
--- NOTE | 2019-04-06 23:22 | History & Physical Report ---
Date of Service April 06, 2019 Assessment & Plan (1) Decompensated heart failure: hx chronic systolic heart failure secondary to ischemic cardiomyopathy sp ICD (EF 20-24%, TTE 2018) on Milrinone infusion Likely secondary to medication noncompliance/dietary indiscretion CAD status post stent pulmonary hypertension as per records hypertension, patient's baseline BP usually 90-1 100s hx NAFLD cirrhosis Acute on chronic hyponatremia secondary to CHF/NAFLD cirrhosis Hypokalemia secondary to diuretic Rx DM 2 diet-controlled Recent outpatient hemoglobin A1c of 7.3 last December 2018. Patient claims to be unaware of diagnosis. anxiety/mood disorder, at baseline ongoing tobacco abuse PCU Lasix albumin given low blood pressure Strict I/Os, daily weights, CHF education Continue inotropic support with Milrinone at 0.375 mcg/kg/min adjusted for current weight. (Patient home infusion was set at old patient weight of 88 kg.) Cardiology consult RE decompensated heart failure (ER provider already in touch with Dr. Medina.) Follow serum sodium, fluid restriction, hold SSRI until sodium in the 130s, may need Nephrology evaluation Replace electrolytes ISS BG goal 140- 180, update hemoglobin A1c, DM education Nicotine patch PT OT eval DVT prophylaxis. Lovenox subcu Full code History of Present Illness Chief Complaint: Shortness of breath, follow fluid; told by flag decorator to come Primary Care Provider: Charles Oakes DO History obtained from patient and records. Medical history significant for chronic systolic heart failure secondary to ischemic cardiomyopathy sp ICD (EF 20-24%, TTE 2018) on home milrinone infusion, hx VT, CAD status post stent, hx MSSA endocarditis, pulmonary hypertension as per records, hypertension, hyperlipidemia, NAFLD cirrhosis, DM 2 diet-controlled (patient unaware of diagnosis), chronic hyponatremia, chronic anemia (baseline hemoglobin 9-10), anxiety/mood disorder, ongoing tobacco abuse. Recent confinement August 2018 for decompensated heart failure. Patient seen at [facility] flag decorator office today for follow-up appointment after made several phone calls to the office reporting patient noncompliance with medications/dietary restrictions. Patient noted to be more fluid overloaded as per . About 30 pound weight gain on review of last documented weight at flag decorator's office from 2 months ago. Patient denied 's allegations about medication noncompliance/dietary indiscretion. Denies chest pain. Admits to shortness of breath on exertion. Not ready for idea of hospice brought up by flag decorator. Patient directed to the ER by flag decorator. At the ER, patient received Lasix for CHF. NSS given prior to diuretic Rx due to low blood pressure. Medical History as above Surgical History : Dental surgery , ICD Family History : Heart disease Personal/Social history : Few cigarettes a day, occasional EtOH intake, lives with Allergies Allergy/AdvReac Type Severity Reaction Status Date / Time atorvastatin Allergy Severe itching Verified 04/06/19 22:14 nafcillin Allergy Intermediate Rash Verified 04/06/19 21:51 piperacillin [From Zosyn] Allergy Intermediate Rash Verified 04/06/19 21:51 tazobactam [From Zosyn] Allergy Intermediate Rash Verified 04/06/19 21:51 bee venom protein (honey bee) Allergy Unknown Verified 04/06/19 21:51 hydromorphone [From Dilaudid] Allergy Unknown Verified 04/06/19 21:51 levofloxacin [From Levaquin] Allergy Hives Verified 04/06/19 21:51 Home Medications Home Medications Medication Instructions Recorded Confirmed Type Milrinone Lactate In Dextrose 88 kg IV UD 04/06/19 04/06/19 History acetaminophen [Tylenol Extra 500 mg PO Q6H PRN 04/06/19 04/06/19 History Strength] albuterol sulfate 2 puff INHALATION Q6 PRN 04/06/19 04/06/19 History albuterol sulfate 2.5 mg INHALATION Q4 PRN 04/06/19 04/06/19 History amiodarone [Pacerone] 200 mg PO DAILY 04/06/19 04/06/19 History aspirin [Aspir-81] 81 mg PO DAILY 04/06/19 04/06/19 History docusate sodium 100 mg PO BID PRN 04/06/19 04/06/19 History epinephrine [EpiPen] 0.3 mg IM UD PRN 04/06/19 04/06/19 History lorazepam [Ativan] 1 mg PO HS PRN 04/06/19 04/06/19 History magnesium oxide [MagOx] 400 mg PO BID 04/06/19 04/06/19 History metolazone 5 mg PO BID 04/06/19 04/06/19 History metoprolol succinate [Toprol XL] 25 mg PO DAILY 04/06/19 04/06/19 History omeprazole 40 mg PO DAILY 04/06/19 04/06/19 History potassium chloride [Klor-Con M20] 40 meq PO TID 04/06/19 04/06/19 History sertraline [Zoloft] 50 mg PO DAILY 04/06/19 04/06/19 History spironolactone [Aldactone] 25 mg PO DAILY 04/06/19 04/06/19 History torsemide 100 mg PO TID 04/06/19 04/06/19 History ursodiol [Actigall] 300 mg PO BID 04/06/19 04/06/19 History Past Med/Surg History Medical History Pleural effusion on right Hyponatremia History of acute renal failure Hypokalemia Acute on chronic HFrEF (heart failure with reduced ejection fraction) Abdominal pain Acute on chronic systolic (congestive) heart failure 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) 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 at [facility] ICD placed 06/23/18 at [facility] Thrombocytopenia (Chronic) Elevated liver function tests (Chronic) Cardiac arrest (Resolved) 05/2018 Ischemic cardiomyopathy (Chronic) 05/2018 EF: 20-24% Anemia (Chronic) History of tobacco use (Chronic) Anxiety (Chronic) Diabetes mellitus, type II (Chronic) CKD (chronic kidney disease), stage III (Chronic) GERD (gastroesophageal reflux disease) (Chronic) HTN (hypertension) (Chronic) Dyslipidemia (Chronic) CAD (coronary artery disease) (Chronic) s/p stent LAD in 2004 Cirrhosis Family History Other Coronary heart disease Social History Preferred Language: Kosovan Communication Ability: Effective Vest Maker Required: No Beliefs That Will Affect Care: None Current Living Situation: Spouse Current Living Situation Comment: home Other Information That Helps Us Care for You: No Feels Safe at Home: Yes Safety Concerns: Feels Safe At This Time Smoking Status: Current some day smoker Tobacco Type: cigarettes ; Cigarettes Per Day: 1 ; Hx Alcohol Use: Yes Alcohol type: beer Hx Substance Use: No Review of Systems Review of Systems: As per HPI, all 10 systems reviewed, all other ROS negative Physical Exam Physical Exam: GENERAL: Comfortable, chronically ill, no respiratory distress SKIN: Pallor , warm HEENT: Alopecia, pale palpebral conjunctivae, no ptosis, dry buccal mucosa NECK : Supple, no tenderness CHEST : Decreased breath sounds, bibasilar crackles, no tenderness HEART : RRR, diminished S1-S2, systolic murmur ABDOMEN: distention, nontender EXTREMITIES : Bilateral LE swelling, no LE tenderness, no other conspicuous deformities noted NEUROLOGIC : Coherent, no facial asymmetry, no other gross focality Results & Data Vital Signs (Past 12 Hours) Vital Signs Temp Pulse Resp BP Pulse Ox 04/06/19 22:30 88 20 94/55 L 95 04/06/19 22:00 90 25 H 86/61 L 97 04/06/19 21:30 89 18 89/59 L 95 04/06/19 21:00 90 25 H 89/61 L 92 04/06/19 20:53 90 17 92/65 L 93 04/06/19 20:24 36.5 C 95 H 24 84/57 L 94 Laboratory Results Laboratory Results WBC 8.34 K/uL (4.8-10.8) 04/06/19 20:47 RBC 3.87 M/uL (4.7-6.1) L 04/06/19 20:47 Hgb 11.5 g/dL (14.0-18.0) L 04/06/19 20:47 Hct 33.8 % (42-52) L 04/06/19 20:47 MCV 87.3 fL (80-100) 04/06/19 20:47 MCH 29.7 pg (25-34) 04/06/19 20:47 MCHC 34.0 g/dL (32-36) 04/06/19 20:47 RDW Std Deviation 51.9 fL (36.4-46.3) H 04/06/19 20:47 RDW Coeff of Yung 16.3 % (11.5-14.5) H 04/06/19 20:47 Plt Count 184 K/uL (130-400) 04/06/19 20:47 MPV 9.8 fL (7.4-10.4) 04/06/19 20:47 Immature Gran % (Auto) 0.1 % 04/06/19 20:47 Neut % (Auto) 82.7 % 04/06/19 20:47 Lymph % (Auto) 4.0 % 04/06/19 20:47 [place] % (Auto) 9.4 % 04/06/19 20:47 Eos % (Auto) 3.6 % 04/06/19 20:47 Baso % (Auto) 0.2 % 04/06/19 20:47 Immature Gran # (Auto) 0.01 K/uL (0.00-0.02) 04/06/19 20:47 Neut # (Auto) 6.90 K/uL (1.4-6.5) H 04/06/19 20:47 Lymph # (Auto) 0.33 K/uL (1.2-3.4) L 04/06/19 20:47 [place] # (Auto) 0.78 K/uL (0.11-0.59) H 04/06/19 20:47 Eos # (Auto) 0.30 K/uL (0-0.5) 04/06/19 20:47 Baso # (Auto) 0.02 K/uL (0-0.2) 04/06/19 20:47 PT 11.4 Seconds (9.0-12.0) 04/06/19 21:27 INR 1.1 (0.9-1.1) 04/06/19 21:27 APTT 29.9 Seconds (21.0-31.0) 04/06/19 21:27 PTT Ratio 1.1 04/06/19 21:27 Sodium 125 mmol/L (136-145) L 04/06/19 21:27 Potassium 3.1 mmol/L (3.5-5.1) L 04/06/19 21:27 Chloride 92 mmol/L (98-107) L 04/06/19 21:27 Carbon Dioxide 25 mmol/L (21-32) 04/06/19 21:27 Anion Gap 9.0 (3-11) 04/06/19 21:27 BUN 14 mg/dl (7-18) 04/06/19 21:27 Creatinine 0.98 mg/dl (0.6-1.4) 04/06/19 21:27 Est Cr Clr Drug Dosing Not Reportable 04/06/19 21:27 Est GFR ( Amer) 98.8 04/06/19 21: Est GFR (Non-Af Amer) 85.2 04/06/19 21:27 BUN/Creatinine Ratio 14.0 (10-20) 04/06/19 21: Glucose 128 mg/dl (70-99) H 04/06/19 21:27 Osmolality 261 mOsm/kg (280-300) L 04/06/19 20:49 Lactate 1.7 mmol/L (0.4-2.0) 04/06/19 20:47 Calcium 7.4 mg/dl (8.5-10.1) L 04/06/19 21: Magnesium 1.1 mg/dl (1.8-2.4) L 04/06/19 21: Total Bilirubin 1.4 mg/dl (0.2-1) H 04/06/19 21: Direct Bilirubin 0.6 mg/dl (0-0.2) H 04/06/19: AST 19 U/L (15-37) 04/06/19: ALT 7 U/L (12-78) L 04/06/19: Alkaline Phosphatase 184 U/L (45-117) H 04/06/19: Troponin I < 0.015 ng/ml (0-0.045) 04/06/19: NT-Pro-B Natriuret Pep 6370 pg/ml (0-900) H 04/06/19 21: Total Protein 5.4 gm/dl (6.4-8.2) L 04/06/19: Albumin 1.5 gm/dl (3.4-5.0) L 04/06/19: Lipase 30 U/L (73-393) L 04/06/19 21: TSH 6.900 uIu/ml (0.300-4.500) H 04/06/19: Diagnostic Findings Chest x-ray : 1. Interstitial thickening and bilateral opacities suggestive of pulmonary edema. 2. Small right and trace left pleural effusions. 3. Cardiomegaly. EKG as per my interpretation : Rate 90, NSR, LAD, LAFB, 1 AVB, T wave flattening inferior leads, low voltage
[2019-04-06] MEDS ORDERED: [UNRECOGNIZED DRUG - OTHER] IV SCH (23:30)
[2019-04-06] MEDS ORDERED: DEXTROSE IV SCH (23:30)
--- NOTE | 2019-04-06 23:30 | Emergency Department Note ---
Entered by Anna Yadav acting as a scribe for History of Present Illness General Chief complaint: Referred by Doctor Stated complaint: FULL OF FLUID Time Seen by Provider: 04/06/19 20:29 Source: patient History of Present Illness Onset (ago): unknown Location: chest Quality: + other (referred by her doctor, "full of fluid") Associated symptoms: + shortness of breath; no chest pain The patient is a 58 year old male who presents to the ED after being referred to the ED. He states he was referred by Dr. Dumont, Cardiology as he is "full of fluid." It is unknown how long he has had the fluid. He currently has a 50 mg drip milrinone infusion in his chest. He notes he has some SOB but denies any chest pain. The patient reports he smokes occasionally. Home Medications Home Medications Medication Instructions Recorded Confirmed Type Milrinone Lactate In Dextrose 88 kg IV UD 04/06/19 04/06/19 History acetaminophen [Tylenol Extra 500 mg PO Q6H PRN 04/06/19 04/06/19 History Strength] albuterol sulfate 2 puff INHALATION Q6 PRN 04/06/19 04/06/19 History albuterol sulfate 2.5 mg INHALATION Q4 PRN 04/06/19 04/06/19 History amiodarone [Pacerone] 200 mg PO DAILY 04/06/19 04/06/19 History aspirin [Aspir-81] 81 mg PO DAILY 04/06/19 04/06/19 History docusate sodium 100 mg PO BID PRN 04/06/19 04/06/19 History epinephrine [EpiPen] 0.3 mg IM UD PRN 04/06/19 04/06/19 History lorazepam [Ativan] 1 mg PO HS PRN 04/06/19 04/06/19 History magnesium oxide [MagOx] 400 mg PO BID 04/06/19 04/06/19 History metolazone 5 mg PO BID 04/06/19 04/06/19 History metoprolol succinate [Toprol XL] 25 mg PO DAILY 04/06/19 04/06/19 History omeprazole 40 mg PO DAILY 04/06/19 04/06/19 History potassium chloride [Klor-Con M20] 40 meq PO TID 04/06/19 04/06/19 History sertraline [Zoloft] 50 mg PO DAILY 04/06/19 04/06/19 History spironolactone [Aldactone] 25 mg PO DAILY 04/06/19 04/06/19 History torsemide 100 mg PO TID 04/06/19 04/06/19 History ursodiol [Actigall] 300 mg PO BID 04/06/19 04/06/19 History Allergies Allergy/AdvReac Type Severity Reaction Status Date / Time atorvastatin Allergy Severe itching Verified 04/06/19 22:14 nafcillin Allergy Intermediate Rash Verified 04/06/19 21:51 piperacillin [From Zosyn] Allergy Intermediate Rash Verified 04/06/19 21:51 tazobactam [From Zosyn] Allergy Intermediate Rash Verified 04/06/19 21:51 bee venom protein (honey bee) Allergy Unknown Verified 04/06/19 21:51 hydromorphone [From Dilaudid] Allergy Unknown Verified 04/06/19 21:51 levofloxacin [From Levaquin] Allergy Hives Verified 04/06/19 21:51 Past Med/Surg History Medical History Pleural effusion on right Hyponatremia History of acute renal failure Hypokalemia Acute on chronic HFrEF (heart failure with reduced ejection fraction) Abdominal pain Acute on chronic systolic (congestive) heart failure 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) 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 [facility] [place] [facility] [place]rombocytopenia (Chronic) Elevated liver function tests (Chronic) Cardiac arrest (Resolved) 05/2018 Ischemic cardiomyopathy (Chronic) 05/2018 EF: 20-24% Anemia (Chronic) History of tobacco use (Chronic) Anxiety (Chronic) Diabetes mellitus, type II (Chronic) CKD (chronic kidney disease), stage III (Chronic) GERD (gastroesophageal reflux disease) (Chronic) HTN (hypertension) (Chronic) Dyslipidemia (Chronic) CAD (coronary artery disease) (Chronic) s/p stent LAD in 2004 Cirrhosis Family History Other Coronary heart disease Social History Preferred Language: Com[place] Communication Ability: Effective 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 and A total of 10 systems reviewed and were otherwise negative Physical Exam Vital Signs Vital Signs - 24 hr 04/06/19 20:24 04/06/19 20:53 04/06/19 21:00 Temperature 36.5 C Temperature Source Oral Sepsis Recent Fever Within 48 Hours No Sepsis New/Unexplained Change in Mental Status No Sepsis Action Taken by Nursing No Action Required Pulse Rate 95 H 90 90 Pulse Rate from SpO2 Sensor 91 H 88 Respiratory Rate 24 17 25 H Respiratory Effort / Characteristics Non-Labored Spontaneous Respiratory Depth Shallow Blood Pressure 84/57 L 92/65 L 89/61 L Blood Pressure Mean 66 74 70 Blood Pressure Position Sitting Pulse Oximetry 94 93 92 Oxygen Delivery Method Room Air Room Air 04/06/19 21:30 04/06/19 22:00 04/06/19 22:30 Temperature Temperature Source Sepsis Recent Fever Within 48 Hours Sepsis New/Unexplained Change in Mental Status Sepsis Action Taken by Nursing Pulse Rate 89 90 88 Pulse Rate from SpO2 Sensor 89 87 88 Respiratory Rate 18 25 H 20 Respiratory Effort / Characteristics Respiratory Depth Blood Pressure 89/59 L 86/61 L 94/55 L Blood Pressure Mean 69 69 68 Blood Pressure Position Pulse Oximetry 95 97 95 Oxygen Delivery Method GENERAL: He is oriented to person, place, and time. HENT: Exam performed. - Head: Normocephalic and atraumatic. - Right Ear: External ear normal. No mastoid tenderness. - Left Ear: External ear normal. No mastoid tenderness. - Mouth/Throat: The oropharynx is clear and moist. No trismus in the jaw. No dental abscesses or uvula swelling. No oropharyngeal exudate or tonsillar abscesses. EYES: Conjunctivae and EOM are normal. Pupils are equal, round, and reactive to light. Right eye exhibits no discharge. Left eye exhibits no discharge. No scleral icterus. NECK: Normal range of motion. Neck supple. No JVD present. No spinous process tenderness present. No carotid bruit present. No rigidity. No tracheal deviation and normal range of motion present. No Brudzinski's sign and no Kernig's sign noted. CV: Normal rate, regular rhythm, normal heart sounds and intact distal pulses. 3+ pitting edema of BLE. Palpable radial pulses bue. PULM/CHEST: Diminished breath sounds bilaterally. No respiratory distress. No stridor. He has no wheezes. Rales at bases bilaterally. - Chest Wall: He exhibits no tenderness. Port in his left anterior chest wall which has a 50 mg milrinone infusion going in it. ABD: The abdomen is soft. Bowel sounds are normal. He has no distension. No mass is present. There is no tenderness. There is no rebound, no guarding, no Miller's sign and no tenderness at McBurney's point. Rovsig negative. MUSC/SKEL: Normal range of motion. There is no tenderness or deformity. 3+ pitting edema of BLE LYMPH: No cervical adenopathy. NEURO: He is alert and oriented to person, place, and time. He has normal strength. No cranial nerve deficit or sensory deficit. Coordination and gait normal. GCS eye subscore is 4. GCS verbal subscore is 5. GCS motor subscore is 6. Cerebellar tests wnl. SKIN: Skin is warm and dry. He is not diaphoretic. PSYCH: He has a normal mood and affect. Behavior is normal. Judgment and thought content normal. Course 1999: Past medical records reviewed. The patient was evaluated in room A10. A complete history and physical exam was performed. On initial evaluation the pat ient's blood pressure was 8457. Patient states his blood pressure always runs low. EMR is reviewed and his blood pressure usually runs in the systolic 90s. Patient will be given a 250 cc bolus and then reassessed. 2223: Blood pressure improved to his baseline with systolic in the 90s and diastolic in 50s. Labs show sodium of 125, potassium 3.1, magnesium 1.1. Troponin negative. proBNP 6270. Chest x-ray shows pulmonary edema. Discussed the patient's case with Dr. Medina, Cardiology. He states that the patient has a long history of noncompliance. He states that the patient was supposed to come to the emergency department yesterday after discussing with Dr. Corley however he never showed up. He recommends keeping the milrinone drip the same. He recommends giving Lasix 40 mg. Recommends further evaluation in hospital. 2225: Discussed the patient's case with Dr. Oconer, [facility]ist. The patient will be evaluated for further management. Administered Medications Discontinued Medications Furosemide (Lasix) 40 mg IV NOW STA Stop: 04/06/19 22:20 Last Admin: 04/06/19 22:53 Dose: 40 mg Documented by: [id number] Sodium Chloride (Nss 1000ml) 250 mls @ 999 mls/hr IV .Q16M ONE Stop: 04/06/19 20:48 Last Infusion: 04/06/19 21:08 Dose: 0 mls/hr Documented by: [id number] Admin: 04/06/19 20:51 Dose: 999 mls/hr Documented by: [id number] Magnesium Sulfate/Dextrose (Magnesium Sulfate / D5w) 1 gm in 100 mls @ 100 mls/hr IV ONE ONE Stop: 04/06/19 22:54 Last Infusion: 04/06/19 22:54 Dose: 0 mls/hr Documented by: [id number] Admin: 04/06/19 22:03 Dose: 100 mls/hr Documented by: [id number] Naloxone HCl (Narcan) 0.4 mg IV NOW STA Stop: 04/06/19 21:57 Last Admin: 04/06/19 22:04 Dose: Not Given Documented by: [id number] Ondansetron HCl (Zofran) 4 mg IV NOW STA Stop: 04/06/19 21:57 Last Admin: 04/06/19 22:04 Dose: Not Given Documented by: [id number] Potassium Chloride (Klor-Con M10) 40 meq PO NOW STA Stop: 04/06/19 21:56 Last Admin: 04/06/19 22:53 Dose: 40 meq Documented by: [id number] Medical Decision Making Medical Records Attestation: I reviewed the patient's medical records. Home Medications Current Medication List: was personally reviewed by me Laboratory Data Attestation: I reviewed the patient's lab results. Result diagrams: 04/06/19 20:47 04/06/19 21:27 Lab Results 04/06/19 04/06/19 04/06/19 Range/Units 20:47 20:47 20:47 WBC 8.34 (4.8-10.8) K/uL RBC 3.87 L (4.7-6.1) M/uL Hgb 11.5 L (14.0-18.0) g/dL Hct 33.8 L (42-52) % MCV 87.3 (80-100) fL MCH 29.7 (25-34) pg MCHC 34.0 (32-36) g/dL RDW Std Deviation 51.9 H (36.4-46.3) fL RDW Coeff of Yung 16.3 H (11.5-14.5) % Plt Count 184 (130-400) K/uL MPV 9.8 (7.4-10.4) fL Immature Gran % (Auto) 0.1 % Neut % (Auto) 82.7 % Lymph % (Auto) 4.0 % [place] % (Auto) 9.4 % Eos % (Auto) 3.6 % Baso % (Auto) 0.2 % Immature Gran # (Auto) 0.01 (0.00-0.02) K/uL Neut # (Auto) 6.90 H (1.4-6.5) K/uL Lymph # (Auto) 0.33 L (1.2-3.4) K/uL [place] # (Auto) 0.78 H (0.11-0.59) K/uL Eos # (Auto) 0.30 (0-0.5) K/uL Baso # (Auto) 0.02 (0-0.2) K/uL PT Cancelled INR Cancelled APTT Cancelled PTT Ratio Cancelled Sodium Cancelled Potassium Cancelled Chloride Cancelled Carbon Dioxide Cancelled Anion Gap Cancelled BUN Cancelled Creatinine Cancelled Est Cr Clr Drug Dosing Cancelled Est GFR ( Amer) Cancelled Est GFR (Non-Af Amer) Cancelled BUN/Creatinine Ratio Cancelled Glucose Cancelled Osmolality (280-300) mOsm/kg Lactate (0.4-2.0) mmol/L Calcium Cancelled Magnesium Cancelled Total Bilirubin Cancelled Direct Bilirubin Cancelled AST Cancelled ALT Cancelled Alkaline Phosphatase Cancelled Troponin I Cancelled NT-Pro-B Natriuret Pep Cancelled Total Protein Cancelled Albumin Cancelled Lipase Cancelled TSH (0.300-4.500) uIu/ml 04/06/19 04/06/19 04/06/19 Range/Units 20:47 20:49 21:27 WBC (4.8-10.8) K/uL RBC (4.7-6.1) M/uL Hgb (14.0-18.0) g/dL Hct (42-52) % MCV (80-100) fL MCH (25-34) pg MCHC (32-36) g/dL RDW Std Deviation (36.4-46.3) fL RDW Coeff of Yung (11.5-14.5) % Plt Count (130-400) K/uL MPV (7.4-10.4) fL Immature Gran % (Auto) % Neut % (Auto) % Lymph % (Auto) % [place] % (Auto) % Eos % (Auto) % Baso % (Auto) % Immature Gran # (Auto) (0.00-0.02) K/uL Neut # (Auto) (1.4-6.5) K/uL Lymph # (Auto) (1.2-3.4) K/uL [place] # (Auto) (0.11-0.59) K/uL Eos # (Auto) (0-0.5) K/uL Baso # (Auto) (0-0.2) K/uL PT 11.4 INR 1.1 APTT 29.9 PTT Ratio 1.1 Sodium Potassium Chloride Carbon Dioxide Anion Gap BUN Creatinine Est Cr Clr Drug Dosing Est GFR ( Amer) Est GFR (Non-Af Amer) BUN/Creatinine Ratio Glucose Osmolality 261 L (280-300) mOsm/kg Lactate 1.7 (0.4-2.0) mmol/L Calcium Magnesium Total Bilirubin Direct Bilirubin AST ALT Alkaline Phosphatase Troponin I NT-Pro-B Natriuret Pep Total Protein Albumin Lipase TSH (0.300-4.500) uIu/ml 04/06/19 Range/Units 21:27 WBC (4.8-10.8) K/uL RBC (4.7-6.1) M/uL Hgb (14.0-18.0) g/dL Hct (42-52) % MCV (80-100) fL MCH (25-34) pg MCHC (32-36) g/dL RDW Std Deviation (36.4-46.3) fL RDW Coeff of Yung (11.5-14.5) % Plt Count (130-400) K/uL MPV (7.4-10.4) fL Immature Gran % (Auto) % Neut % (Auto) % Lymph % (Auto) % [place] % (Auto) % Eos % (Auto) % Baso % (Auto) % Immature Gran # (Auto) (0.00-0.02) K/uL Neut # (Auto) (1.4-6.5) K/uL Lymph # (Auto) (1.2-3.4) K/uL [place] # (Auto) (0.11-0.59) K/uL Eos # (Auto) (0-0.5) K/uL Baso # (Auto) (0-0.2) K/uL PT INR APTT PTT Ratio Sodium 125 L Potassium 3.1 L Chloride 92 L Carbon Dioxide 25 Anion Gap 9.0 BUN 14 Creatinine 0.98 Est Cr Clr Drug Dosing Not Reportable Est GFR ( Amer) 98.8 Est GFR (Non-Af Amer) 85.2 BUN/Creatinine Ratio 14.0 Glucose 128 H Osmolality (280-300) mOsm/kg Lactate (0.4-2.0) mmol/L Calcium 7.4 L Magnesium 1.1 L Total Bilirubin 1.4 H Direct Bilirubin 0.6 H AST 19 ALT 7 L Alkaline Phosphatase 184 H Troponin I < 0.015 NT-Pro-B Natriuret Pep 6370 H Total Protein 5.4 L Albumin 1.5 L Lipase 30 L TSH 6.900 H (0.300-4.500) uIu/ml Imaging Data Radiologist's Impression: Radiology results as stated below per my review and the radiologist's interpretation: XR chest 1V portable CLINICAL HISTORY: jc fluid overload COMPARISON STUDY: Chest radiograph February 02, 2019. FINDINGS: Right subclavian pacer/AICD is in place. There is a left sided [id number]. There is no pneumothorax. Small right and trace left pleural effusions are noted. Interstitial thickening and bilateral opacities have developed. There is no pneumothorax. Moderate to marked enlargement of the cardiac silhouette is unchanged. IMPRESSION: 1. Interstitial thickening and bilateral opacities suggestive of pulmonary edema. 2. Small right and trace left pleural effusions. 3. Cardiomegaly. Electronically signed by: Justus Perez M.D. 04/06/2019 9:05 PM Blood Pressure Blood Pressure Findings: Low blood pressure Blood Pressure Disposition: further management by hospitalist CARLOS Peter 2000: Past medical records reviewed. The patient was evaluated in room A10. A complete history and physical exam was performed. On initial evaluation the patient's blood pressure was 8457. Patient states his blood pressure always runs low. EMR is reviewed and his blood pressure usually runs in the systolic 90s. Patient will be given a 250 cc bolus and then reassessed. 2223: Blood pressure improved to his baseline with systolic in the 90s and diastolic in 50s. Labs show sodium of 125, potassium 3.1, magnesium 1.1. Troponin negative. proBNP 6270. Chest x-ray shows pulmonary edema. Discussed the patient's case with Dr. Medina, Cardiology. He states that the patient has a long history of noncompliance. He states that the patient was supposed to come to the emergency department yesterday after discussing with Dr. Corley however he never showed up. He recommends keeping the milrinone drip the same. He recommends giving Lasix 40 mg. Recommends further evaluation in hospital. 2225: Discussed the patient's case with Dr. [facility] Hospitalist. The patient will be evaluated for further management. Impression & Plan CHF exacerbation, Hypokalemia, Hyponatremia, Hypomagnesemia Discharge Plan Visit Data Chief Complaint: Referred by Doctor Stated Complaint: FULL OF FLUID ED Provider: Emiliano Castanon Discharge Problem: CHF exacerbation, Hypokalemia, Hyponatremia, Hypomagnesemia Patient Disposition: Being Evaluated by Hospitalist Forms Stand Alone Forms: [facility] [employer] Prescriptions Prescriptions: No Action metolazone 5 mg tablet 5 mg PO BID RF: 0 omeprazole 40 mg capsule,delayed release(DR/EC) 40 mg PO DAILY RF: 0 epinephrine [EpiPen] 0.3 mg/0.3 mL Auto-Injector 0.3 mg IM UD PRN (Reason: severe allerggic reaction) RF: 0 albuterol sulfate 90 mcg/actuation Hfa Aerosol Inhaler 2 puff INHALATION Q6 PRN (Reason: sob/wheeze) RF: 0 sertraline [Zoloft] 50 mg tablet 50 mg PO DAILY RF: 0 potassium chloride [Klor-Con M20] 20 mEq tablet,ER particles/crystals 40 meq PO TID RF: 0 albuterol sulfate 2.5 mg /3 mL (0.083 %) Solution For Nebulization 2.5 mg INHALATION Q4 PRN (Reason: Shortness Of Breath Or Wheezing) RF: 0 amiodarone [Pacerone] 200 mg tablet 200 mg PO DAILY RF: 0 aspirin [Aspir-81] 81 mg Tablet,Delayed Release (Dr/Ec) 81 mg PO DAILY RF: 0 acetaminophen [Tylenol Extra Strength] 500 mg Tablet 500 mg PO Q6H PRN (Reason: Pain) RF: 0 magnesium oxide [MagOx] 400 mg (241.3 mg magnesium) tablet 400 mg PO BID RF: 0 torsemide 100 mg tablet 100 mg PO TID RF: 0 ursodiol [Actigall] 300 mg capsule 300 mg PO BID RF: 0 docusate sodium 100 mg Capsule 100 mg PO BID PRN (Reason: Constipation) RF: 0 metoprolol succinate [Toprol XL] 25 mg tablet extended release 24 hr 25 mg PO DAILY RF: 0 lorazepam [Ativan] 1 mg tablet 1 mg PO HS PRN (Reason: Anxiety) RF: 0 spironolactone [Aldactone] 25 mg tablet 25 mg PO DAILY RF: 0 Milrinone Lactate In Dextrose 88 kg IV UD RF: 0 Referrals Referrals: Charles Oakes DO [Primary Care Provider] - Discharge Problem: CHF exacerbation Qualifiers: Heart failure type: unspecified Qualified Code(s): I50.9 - Heart failure, unspecified The scribe's documentation has been prepared under my direction and personally reviewed by me in its entirety. I confirm that the note above accurately reflects all work, treatment, procedures, and medical decision making performed by me.
[2019-04-06] MEDS ORDERED: POTASSIUM CHLORIDE 20 MEQ TABCR PO STA (23:41)
[2019-04-06 23:51] LABS: Appearance Urine Cloudy (Clear); Bacteria Urine Automated Negative (Negative); Bilirubin Urine Negative (Negative); Blood Urine Negative (Negative); Cast Urine Automated 0 /lpf (0-5); Color Urine Yellow; Epithelial Cell Urine Auto 0-5 /lpf (0-5); Glucose Urine UA Negative (Negative); Ketones Urine Negative (Negative); Leukocyte Esterase Urine Negative (Negative); Nitrite Urine Negative (Negative); Protein Urine Negative (Negative); RBC Urine Automated 0-4 /hpf (0-4); Specific Gravity Urine 1.007 (1.000-1.030); Urobilinogen Urine Negative (Negative); WBC Urine Automated 0 /hpf (0-5); pH Urine 7.5 (4.5-7.5)
[2019-04-07] MEDS ORDERED: LEVALBUTEROL 1.25MG/0.5ML NEB INH PRN (00:36)
[2019-04-07] MEDS ORDERED: GLUCAGON FOR INJ 1 MG VIAL SQ PRN (00:36)
[2019-04-07] MEDS ORDERED: ACETAMINOPHEN 325 MG TAB PO PRN (00:36)
[2019-04-07] MEDS ORDERED: GLUCOSE 10 TABS/TUBE PO PRN (00:36)
[2019-04-07] MEDS ORDERED: DEXTROSE 50% 50 ML SYRINGE IV PRN (00:36)
[2019-04-07] MEDS ORDERED: XOPENEX/ATROVENT 1.25mg/0.5MG NEB COMBO NEB PRN (00:36)
[2019-04-07] MEDS ORDERED: CARBOHYDRATES FOR HYPOGLYCEMIA PO PRN (00:36)
[2019-04-07] MEDS ORDERED: LORazepam 1 MG TAB PO PRN (00:36)
[2019-04-07] MEDS ORDERED: DOCUSATE SODIUM 100 MG CAP PO PRN (00:36)
[2019-04-07] MEDS ORDERED: NITROGLYCERIN SL 0.4 MG/TAB TAB SL PRN (00:36)
[2019-04-07] MEDS ORDERED: IPRATROPIUM BROMIDE NEB SOLN 0.02% 2.5 ML VIAL INH PRN (00:36)
[2019-04-07] MEDS ORDERED: GLUCOSE 40% GEL 15 GM TUBE PO PRN (00:36)
[2019-04-07] MEDS ORDERED: PROMETHAZINE HCL 12.5 MG in SODIUM CHLORIDE 0.9% 50 ML IV PRN (00:36)
[2019-04-07] MEDS: MAGNESIUM SULFATE / D5W 1 GM/100 ML BAG IV SCH ×3 (01:52→04:23)
[2019-04-07] MEDS: MILRINONE LACTATE/D5W 20,000 MCG/100 ML BAG IV SCH ×3 (01:52→17:43)
[2019-04-07] MEDS: INSULIN ASPART 100 UNITS/ML 3 ML PEN SC SCH ×6 (01:53→20:57)
[2019-04-07 05:53] LABS: Basophils # (auto) 0.02 K/uL (0-0.2); Basophils % (auto) 0.3 %; Eosinophils # (auto) 0.56 K/uL (0-0.5); Eosinophils % (auto) 8.4 %; Hemoglobin 9.8 g/dL (14.0-18.0); Immature Granulocytes # (auto) 0.01 K/uL (0.00-0.02); Immature Granulocytes % (auto) 0.1 %; Lymphocytes # (auto) 0.31 K/uL (1.2-3.4); Lymphocytes % (auto) 4.6 %; Mean Corpuscular Hemoglobin 29.6 pg (25-34); Mean Corpuscular Hgb Conc 33.8 g/dL (32-36); Mean Corpuscular Volume 87.6 fL (80-100); Mean Platelet Volume 9.6 fL (7.4-10.4); Monocytes # (auto) 0.85 K/uL (0.11-0.59); Monocytes % (auto) 12.7 %; Neutrophils # (auto) 4.92 K/uL (1.4-6.5); Neutrophils % (auto) 73.9 %; Platelet Count 161 K/uL (130-400); RDW Coefficient of Variation 16.3 % (11.5-14.5); RDW Standard Deviation 52.8 fL (36.4-46.3); Red Blood Count 3.31 M/uL (4.7-6.1); White Blood Count 6.67 K/uL (4.8-10.8)
[2019-04-07 06:19] LABS: BUN Creatinine Ratio 12.2 (10-20); Blood Urea Nitrogen 14 mg/dl (7-18); Calcium 7.4 mg/dl (8.5-10.1); Carbon Dioxide 26 mmol/L (21-32); Chloride 91 mmol/L (98-107); Creatinine Clr Calc Pharmacy 90.6 ml/min; Est GFR (African American) 84.1; Est GFR (Non-African American) 72.5; Glucose 135 mg/dl (70-99); Potassium 3.4 mmol/L (3.5-5.1); Sodium 126 mmol/L (136-145)
[2019-04-07 06:23] LABS: Troponin I < 0.015 ng/ml (0-0.045)
--- NOTE | 2019-04-07 07:05 | Ultrasound Report ---
US abdomen ltd ascites CLINICAL HISTORY: Abdominal distention. COMPARISON STUDY: Abdominal ultrasound 08/05/2018. FINDINGS: Transabdominal scanning of the abdomen was performed. There is trace scattered ascites. IMPRESSION: Trace scattered ascites. Electronically signed by: Bro Dunbar M.D. 04/07/2019 7:04 AM
[2019-04-07 08:12] LABS: Estimated Average Glucose 137 mg/dl; Hemoglobin A1C 6.4 % (4.5-5.6)
[2019-04-07] MEDS: SPIRONOLACTONE 25 MG TAB PO SCH (08:41)
[2019-04-07] MEDS: AMIODARONE 200 MG TAB PO SCH (08:41)
[2019-04-07] MEDS: METOPROLOL SUCC 25MG EXT REL TAB PO SCH (08:41)
[2019-04-07] MEDS: ASPIRIN 81 MG ECTAB PO SCH (08:41)
[2019-04-07] MEDS: PANTOprazole 40 MG TAB PO SCH (08:41)
[2019-04-07] MEDS: POTASSIUM CHLORIDE 20 MEQ TABCR PO SCH ×2 (08:41→20:56)
[2019-04-07] MEDS: ENOXAPARIN INJ 30 MG/0.3 ML SYR SQ SCH (08:42)
[2019-04-07] MEDS: ursodioL 300 MG CAP PO SCH ×2 (08:42→20:57)
[2019-04-07] MEDS: MAGNESIUM OXIDE 400 MG TAB PO SCH ×2 (08:42→20:57)
--- NOTE | 2019-04-07 08:43 | Cardiology Consultation ---
Date of Consultation April 07, 2019 Assessment & Plan (1) Acute on chronic HFrEF (heart failure with reduced ejection fraction): (2) Hyponatremia: (3) Decompensated heart failure: (4) ICD (implantable cardioverter-defibrillator) in place: (5) Ischemic cardiomyopathy: During his last hospital admission at [facility] he was deemed not to be an LVAD candidate because of cirrhosis. He has end-stage heart disease. As outlined the patient may have been noncompliant or mixed his medications up and was not taking his torsemide. In any case I think the simplest thing would be to restart his torsemide at 100 mg 3 times daily which he should have been taking at home and if he does well then that would be for the best. Consideration should be given for palliative care as well. All his other medications can remain the same. History of Present Illness Attending Physician: Matthew Bill MD History of Present Illness This is a 58-year-old male patient who is intellectually impaired. He has a severe ischemic cardiomyopathy and is well-known to our service. He has problems with compliance with not only medications but also follow-up ap pointments. He is followed by us as well as the heart failure service at [facility]. He is on a chronic milrinone infusion. His last hospital admission was at [facility] where he was admitted with upper abdominal pain felt to be due to cholelithiasis. Due to his severe cardiac condition it was decided he was not a surgical candidate and they started him on medical management. That admission was in January of this year and he has not had a reoccurrence of his abdominal discomfort. More recently the patient has noted increased weight and fluid retention. He was seen by Dr. Dumont yesterday at our clinic who recommended a hospital admission. The patient's was with him and she does not drive. He decided to drive her home to [place] and then come back to the hospital and he arrived in the emergency department late yesterday evening. He states that after he arrived home he was going through his medications and realized that over the past several days he has not been taking his diuretics. He states that somebody had mixed up his potassium pills with his water pills. In any case he was given IV Lasix last night with a reasonable diuresis and he feels better today. Past medical history: 1.Severe ischemic cardiomyopathy, EF less than 20%, status post ICD (implantable cardioverter-defibrillator) placement on chronic Milrinone infusion. 2.History of VT arrest in the setting of decompensated CHF, May 2018, status post ICD placement. 3.Severe pulmonary hypertension. 4.Tobacco abuse in remission. 5.Medical noncompliance in remission. 6.Hypertension. 7.Stage 3 or 4 chronic kidney disease. 8.Coronary artery disease. 9.Cirrhotic range LFTs. 10.Thrombocytopenia. 11.Anxiety. 12.Congestive coagulopathy. 13.Chronic anemia.. 14. Cholelithiasis Allergies Allergy/AdvReac Type Severity Reaction Status Date / Time atorvastatin Allergy Severe itching Verified 04/06/19 22:14 nafcillin Allergy Intermediate Rash Verified 04/06/19 21:51 piperacillin [From Zosyn] Allergy Intermediate Rash Verified 04/06/19 21:51 tazobactam [From Zosyn] Allergy Intermediate Rash Verified 04/06/19 21:51 bee venom protein (honey bee) Allergy Unknown Verified 04/06/19 21:51 hydromorphone [From Dilaudid] Allergy Unknown Verified 04/06/19 21:51 levofloxacin [From Levaquin] Allergy Hives Verified 04/06/19 21:51 Home Medications Home Medications Medication Instructions Recorded Confirmed Type Milrinone Lactate In Dextrose 88 kg IV UD 04/06/19 04/06/19 History acetaminophen [Tylenol Extra 500 mg PO Q6H PRN 04/06/19 04/06/19 History Strength] albuterol sulfate 2 puff INHALATION Q6 PRN 04/06/19 04/06/19 History albuterol sulfate 2.5 mg INHALATION Q4 PRN 04/06/19 04/06/19 History amiodarone [Pacerone] 200 mg PO DAILY 04/06/19 04/06/19 History aspirin [Aspir-81] 81 mg PO DAILY 04/06/19 04/06/19 History docusate sodium 100 mg PO BID PRN 04/06/19 04/06/19 History epinephrine [EpiPen] 0.3 mg IM UD PRN 04/06/19 04/06/19 History lorazepam [Ativan] 1 mg PO HS PRN 04/06/19 04/06/19 History magnesium oxide [MagOx] 400 mg PO BID 04/06/19 04/06/19 History metolazone 5 mg PO BID 04/06/19 04/06/19 History metoprolol succinate [Toprol XL] 25 mg PO DAILY 04/06/19 04/06/19 History omeprazole 40 mg PO DAILY 04/06/19 04/06/19 History potassium chloride [Klor-Con M20] 40 meq PO TID 04/06/19 04/06/19 History sertraline [Zoloft] 50 mg PO DAILY 04/06/19 04/06/19 History spironolactone [Aldactone] 25 mg PO DAILY 04/06/19 04/06/19 History torsemide 100 mg PO TID 04/06/19 04/06/19 History ursodiol [Actigall] 300 mg PO BID 04/06/19 04/06/19 History Patient History Medical History Pleural effusion on right Hyponatremia History of acute renal failure Hypokalemia Acute on chronic HFrEF (heart failure with reduced ejection fraction) Abdominal pain Acute on chronic systolic (congestive) heart failure 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) 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 [facility]23[place] [facility] Thrombocytopenia (Chronic) Elevated liver function tests (Chronic) Cardiac arrest (Resolved) 05/2018 Ischemic cardiomyopathy (Chronic) 05/2018 EF: 20-24% Anemia (Chronic) History of tobacco use (Chronic) Anxiety (Chronic) Diabetes mellitus, type II (Chronic) CKD (chronic kidney disease), stage III (Chronic) GERD (gastroesophageal reflux disease) (Chronic) HTN (hypertension) (Chronic) Dyslipidemia (Chronic) CAD (coronary artery disease) (Chronic) s/p stent LAD in 2004 Cirrhosis Family History Other Coronary heart disease Social History Preferred Language: Sammarinese Communication Ability: Effective Dental Specialist Required: No Beliefs That Will Affect Care: None Current Living Situation: Spouse Current Living Situation Comment: home Other Information That Helps Us Care for You: No Feels Safe at Home: Yes Safety Concerns: Feels Safe At This Time Smoking Status: Current some day smoker Tobacco Type: cigarettes ; Cigarettes Per Day: 1 ; Hx Alcohol Use: Yes Alcohol type: beer Hx Substance Use: No Review of Systems Review of Systems: All systems reviewed & are unremarkable except as noted in HPI & below Nothing additional. Physical Exam Physical Exam: General: no acute distress and stated age Head: normocephalic, no masses, lesions, tenderness or abnormalities Eyes: conjunctiva are pink and non-injected, sclera clear Neck: supple, no adenopathy, no bruits, normal jugular venous pulse, no hepatojugular reflux Chest: normal shape and normal respiratory effort Lungs: clear to auscultation and percussion Cardiac Exam: - irregular rate & rhythm, grade 1/6 systolic murmur- normal S1, normal S2 Pulses: 2(+) throughout Abdomen: Abdomen is distended with fluid wave. Bowel sounds are present. Musculoskeletal: no gait disturbance, no joint inflammation, no deforming arthritis Extremities: Discoloration of the lower extremities due to venous stasis Neuro: grossly normal exam Results & Data Vital Signs (Past 12 Hours) Vital Signs Temp Pulse Pulse Resp BP BP BP 04/07/19 07:02 36.7 C 84 20 82/51 L 04/07/19 03:23 36.5 C 91 H 16 90/60 L 04/07/19 00:10 36.5 C 91 H 20 70/54 L 04/07/19 00:00 89 20 81/57 L 04/06/19 23:30 91 H 20 86/63 L 04/06/19 23:00 90 17 84/56 L 04/06/19 22:30 88 20 94/55 L 04/06/19 22:00 90 25 H 86/61 L 04/06/19 21:30 89 18 89/59 L 04/06/19 21:00 90 25 H 89/61 L 04/06/19 20:53 90 17 92/65 L Pulse Ox 04/07/19 07:02 91 04/07/19 03:23 94 04/07/19 00:10 93 04/07/19 00:00 93 04/06/19 23:30 95 04/06/19 23:00 90 04/06/19 22:30 95 04/06/19 22:00 97 04/06/19 21:30 95 04/06/19 21:00 92 04/06/19 20:53 93 Laboratory Results Laboratory Results - last 24 hr 04/06/19 04/06/19 04/06/19 20:47 20:47 20:47 WBC 8.34 RBC 3.87 L Hgb 11.5 L Hct 33.8 L MCV 87.3 MCH 29.7 MCHC 34.0 RDW Std Deviation 51.9 H RDW Coeff of Yung 16.3 H Plt Count 184 MPV 9.8 Immature Gran % (Auto) 0.1 Neut % (Auto) 82.7 Lymph % (Auto) 4.0 [place] % (Auto) 9.4 Eos % (Auto) 3.6 Baso % (Auto) 0.2 Immature Gran # (Auto) 0.01 Neut # (Auto) 6.90 H Lymph # (Auto) 0.33 L [place] # (Auto) 0.78 H Eos # (Auto) 0.30 Baso # (Auto) 0.02 PT Cancelled INR Cancelled APTT Cancelled PTT Ratio Cancelled Sodium Cancelled Potassium Cancelled Chloride Cancelled Carbon Dioxide Cancelled Anion Gap Cancelled BUN Cancelled Creatinine Cancelled Est Cr Clr Drug Dosing Cancelled Est GFR ( Amer) Cancelled Est GFR (Non-Af Amer) Cancelled BUN/Creatinine Ratio Cancelled Glucose Cancelled POC Glucose Estimat Average Glucose Hemoglobin A1c Osmolality Lactate Calcium Cancelled Magnesium Cancelled Total Bilirubin Cancelled Direct Bilirubin Cancelled AST Cancelled ALT Cancelled Alkaline Phosphatase Cancelled Troponin I Cancelled NT-Pro-B Natriuret Pep Cancelled Total Protein Cancelled Albumin Cancelled Lipase Cancelled TSH Urine Color Urine Appearance Urine pH Ur Specific [place] Urine Protein Urine Glucose (UA) Urine Ketones Urine Blood Urine Nitrite Urine Bilirubin Urine Urobilinogen Ur Leukocyte Esterase Urine WBC (Auto) Urine RBC (Auto) U Hyaline Cast (Auto) U Epithel Cells (Auto) Urine Bacteria (Auto) Urine Osmolality Ur Random Sodium Hepatitis C Ab Screen 04/06/19 04/06/19 04/06/19 20:47 20:49 21:27 WBC RBC Hgb Hct MCV MCH MCHC RDW Std Deviation RDW Coeff of Yung Plt Count MPV Immature Gran % (Auto) Neut % (Auto) Lymph % (Auto) [place] % (Auto) Eos % (Auto) Baso % (Auto) Immature Gran # (Auto) Neut # (Auto) Lymph # (Auto) [place] # (Auto) Eos # (Auto) Baso # (Auto) PT 11.4 INR 1.1 APTT 29.9 PTT Ratio 1.1 Sodium Potassium Chloride Carbon Dioxide Anion Gap BUN Creatinine Est Cr Clr Drug Dosing Est GFR ( Amer) Est GFR (Non-Af Amer) BUN/Creatinine Ratio Glucose POC Glucose Estimat Average Glucose Hemoglobin A1c Osmolality 261 L Lactate 1.7 Calcium Magnesium Total Bilirubin Direct Bilirubin AST ALT Alkaline Phosphatase Troponin I NT-Pro-B Natriuret Pep Total Protein Albumin Lipase TSH Urine Color Urine Appearance Urine pH Ur Specific [place] Urine Protein Urine Glucose (UA) Urine Ketones Urine Blood Urine Nitrite Urine Bilirubin Urine Urobilinogen Ur Leukocyte Esterase Urine WBC (Auto) Urine RBC (Auto) U Hyaline Cast (Auto) U Epithel Cells (Auto) Urine Bacteria (Auto) Urine Osmolality Ur Random Sodium Hepatitis C Ab Screen 04/06/19 04/06/19 04/06/19 21:27 23:43 23:43 WBC RBC Hgb Hct MCV MCH MCHC RDW Std Deviation RDW Coeff of Yung Plt Count MPV Immature Gran % (Auto) Neut % (Auto) Lymph % (Auto) [place] % (Auto) Eos % (Auto) Baso % (Auto) Immature Gran # (Auto) Neut # (Auto) Lymph # (Auto) [place] # (Auto) Eos # (Auto) Baso # (Auto) PT INR APTT PTT Ratio Sodium 125 L Potassium 3.1 L Chloride 92 L Carbon Dioxide 25 Anion Gap 9.0 BUN 14 Creatinine 0.98 Est Cr Clr Drug Dosing Not Reportable Est GFR ( Amer) 98.8 Est GFR (Non-Af Amer) 85.2 BUN/Creatinine Ratio 14.0 Glucose 128 H POC Glucose Estimat Average Glucose Hemoglobin A1c Osmolality Lactate Calcium 7.4 L Magnesium 1.1 L Total Bilirubin 1.4 H Direct Bilirubin 0.6 H AST 19 ALT 7 L Alkaline Phosphatase 184 H Troponin I < 0.015 NT-Pro-B Natriuret Pep 6370 H Total Protein 5.4 L Albumin 1.5 L Lipase 30 L TSH 6.900 H Urine Color Urine Appearance Urine pH Ur Specific [place] Urine Protein Urine Glucose (UA) Urine Ketones Urine Blood Urine Nitrite Urine Bilirubin Urine Urobilinogen Ur Leukocyte Esterase Urine WBC (Auto) Urine RBC (Auto) U Hyaline Cast (Auto) U Epithel Cells (Auto) Urine Bacteria (Auto) Urine Osmolality 254 L Ur Random Sodium 95 Hepatitis C Ab Screen 04/06/19 04/07/19 04/07/19 23:43 00:53 00:53 WBC RBC Hgb Hct MCV MCH MCHC RDW Std Deviation RDW Coeff of Yung Plt Count MPV Immature Gran % (Auto) Neut % (Auto) Lymph % (Auto) [place] % (Auto) Eos % (Auto) Baso % (Auto) Immature Gran # (Auto) Neut # (Auto) Lymph # (Auto) [place] # (Auto) Eos # (Auto) Baso # (Auto) PT INR APTT PTT Ratio Sodium 126 L Potassium Chloride Carbon Dioxide Anion Gap BUN Creatinine Est Cr Clr Drug Dosing Est GFR ( Amer) Est GFR (Non-Af Amer) BUN/Creatinine Ratio Glucose POC Glucose Estimat Average Glucose Hemoglobin A1c Osmolality Lactate 1.4 Calcium Magnesium Total Bilirubin Direct Bilirubin AST ALT Alkaline Phosphatase Troponin I NT-Pro-B Natriuret Pep Total Protein Albumin Lipase TSH Urine Color Yellow Urine Appearance Cloudy A Urine pH 7.5 Ur Specific [place] 1.007 Urine Protein Negative Urine Glucose (UA) Negative Urine Ketones Negative Urine Blood Negative Urine Nitrite Negative Urine Bilirubin Negative Urine Urobilinogen Negative Ur Leukocyte Esterase Negative Urine WBC (Auto) 0 Urine RBC (Auto) 0-4 U Hyaline Cast (Auto) 0 U Epithel Cells (Auto) 0-5 Urine Bacteria (Auto) Negative Urine Osmolality Ur Random Sodium Hepatitis C Ab Screen 04/07/19 04/07/19 04/07/19 00:53 01:16 05:31 WBC 6.67 RBC 3.31 L Hgb 9.8 L Hct 29.0 L MCV 87.6 MCH 29.6 MCHC 33.8 RDW Std Deviation 52.8 H RDW Coeff of Yung 16.3 H Plt Count 161 MPV 9.6 Immature Gran % (Auto) 0.1 Neut % (Auto) 73.9 Lymph % (Auto) 4.6 [place] % (Auto) 12.7 Eos % (Auto) 8.4 Baso % (Auto) 0.3 Immature Gran # (Auto) 0.01 Neut # (Auto) 4.92 Lymph # (Auto) 0.31 L [place] # (Auto) 0.85 H Eos # (Auto) 0.56 H Baso # (Auto) 0.02 PT INR APTT PTT Ratio Sodium Potassium Chloride Carbon Dioxide Anion Gap BUN Creatinine Est Cr Clr Drug Dosing Est GFR ( Amer) Est GFR (Non-Af Amer) BUN/Creatinine Ratio Glucose POC Glucose 122 H Estimat Average Glucose Hemoglobin A1c Osmolality Lactate Calcium Magnesium Total Bilirubin Direct Bilirubin AST ALT Alkaline Phosphatase Troponin I NT-Pro-B Natriuret Pep Total Protein Albumin Lipase TSH Urine Color Urine Appearance Urine pH Ur Specific [place] Urine Protein Urine Glucose (UA) Urine Ketones Urine Blood Urine Nitrite Urine Bilirubin Urine Urobilinogen Ur Leukocyte Esterase Urine WBC (Auto) Urine RBC (Auto) U Hyaline Cast (Auto) U Epithel Cells (Auto) Urine Bacteria (Auto) Urine Osmolality Ur Random Sodium Hepatitis C Ab Screen Neg 04/07/19 04/07/19 04/07/19 05:31 05:31 07:29 WBC RBC Hgb Hct MCV MCH MCHC RDW Std Deviation RDW Coeff of Yung Plt Count MPV Immature Gran % (Auto) Neut % (Auto) Lymph % (Auto) [place] % (Auto) Eos % (Auto) Baso % (Auto) Immature Gran # (Auto) Neut # (Auto) Lymph # (Auto) [place] # (Auto) Eos # (Auto) Baso # (Auto) PT INR APTT PTT Ratio Sodium 126 L Potassium 3.4 L Chloride 91 L Carbon Dioxide 26 Anion Gap 9.0 BUN 14 Creatinine 1.12 Est Cr Clr Drug Dosing 90.6 Est GFR ( Amer) 84.1 Est GFR (Non-Af Amer) 72.5 BUN/Creatinine Ratio 12.2 Glucose 135 H POC Glucose 132 H Estimat Average Glucose 137 Hemoglobin A1c 6.4 H Osmolality Lactate Calcium 7.4 L Magnesium 2.0 Total Bilirubin Direct Bilirubin AST ALT Alkaline Phosphatase Troponin I < 0.015 NT-Pro-B Natriuret Pep Total Protein Albumin Lipase TSH Urine Color Urine Appearance Urine pH Ur Specific [place] Urine Protein Urine Glucose (UA) Urine Ketones Urine Blood Urine Nitrite Urine Bilirubin Urine Urobilinogen Ur Leukocyte Esterase Urine WBC (Auto) Urine RBC (Auto) U Hyaline Cast (Auto) U Epithel Cells (Auto) Urine Bacteria (Auto) Urine Osmolality Ur Random Sodium Hepatitis C Ab Screen Medications Administered Current Inpatient Medications Acetaminophen (Tylenol) 325 mg PO Q6H PRN PRN Reason: Pain or Fever Stop: 05/07/19 00:35 Amiodarone HCl (Cordarone) 200 mg PO DAILY [facility] Stop: 05/07/19 08:59 Last Admin: 10/25/19 08:41 Dose: 200 mg Documented by: Aspirin (Ecotrin Ectab) 81 mg PO DAILY [facility] Stop: 05/07/19 08:59 Last Admin: 04/07/19 08:41 Dose: 81 mg Documented by: Dextrose (Dextrose 50%) 25 - 50 ml IV UD PRN; Protocol PRN Reason: Hypoglycemia Protocol Stop: 05/07/19 00:35 Docusate Sodium (Colace) 100 mg PO BID PRN PRN Reason: Constipation Stop: 05/07/19 00:35 Enoxaparin Sodium (Lovenox) 30 mg SQ QAM ROLANDO Stop: 05/07/19 08:59 Last Admin: 04/07/19 08:42 Dose: 30 mg Documented by: Glucagon (Glucagen) 1 mg SQ UD PRN; Protocol PRN Reason: Hypoglycemia Protocol Stop: 05/07/19 00:35 Glucose (Glucose 40%) 15 - 30 gm PO UD PRN; Protocol PRN Reason: Hypoglycemia Protocol Stop: 05/07/19 00:35 Glucose (Dex4 Glucose) 4 - 8 tabs PO UD PRN; Protocol PRN Reason: Hypoglycemia Protocol Stop: 05/07/19 00:35 Promethazine HCl 12.5 mg/ (Sodium Chloride) 50.5 mls @ 202 mls/hr IV Q6H PRN PRN Reason: Nausea And Vomiting Stop: 05/07/19 00:35 Milrinone Lactate/Dextrose (Primacor/D5w) 20,000 mcg in 100 mls @ 11.711 mls/hr IV .[id number] [facility]; Protocol Stop: 05/07/19 00:59 Last Admin: 04/07/19 08:49 Dose: 0.37 mcg/kg/min, 11.7 mls/hr Documented by: Insulin Aspart (Novolog Flexpen) 0 units SC ACHS [facility] Stop: 05/07/19 01:14 Last Admin: 04/07/19 08:42 Dose: 6 units Documented by: Ipratropium [place] (Atrovent 0.02% 0.5mg/2.5ml) 0.5 mg INH Q4H PRN PRN Reason: SOB/WHEEZING Stop: 05/07/19 00:35 Levalbuterol HCl (Xopenex 1.25mg/0.5ml Neb) 1.25 mg INH Q4H PRN PRN Reason: SOB/WHEEZING Stop: 05/07/19 00:35 Lorazepam (Ativan) 1 mg PO HS PRN PRN Reason: Anxiety Stop: 05/07/19 00:35 Magnesium Oxide (Mag-Ox) 400 mg PO BID ROLANDO Stop: 05/07/19 08:59 Last Admin: 04/07/19 08:42 Dose: 400 mg Documented by: Metoprolol Succinate (Toprol Xl) 25 mg PO DAILY ROLANDO Stop: 05/07/19 08:59 Last Admin: 04/07/19 08:41 Dose: 25 mg Documented by: Miscellaneous (Carbohydrates For Hypoglycemia) 15 - 30 gm PO UD PRN PRN Reason: Hypoglycemia Treatment Stop: 05/07/19 00:35 Nitroglycerin (Nitrostat) 0.4 mg SL UD PRN PRN Reason: Chest Pain Stop: 05/07/19 00:35 Pantoprazole Sodium (Protonix) 40 mg PO DAILY ROLANDO Stop: 05/07/19 08:59 Last Admin: 04/07/19 08:41 Dose: 40 mg Documented by: Potassium Chloride (Klor-Con M20) 40 meq PO BID ROLANDO Stop: 05/07/19 08:59 Last Admin: 04/07/19 08:41 Dose: 40 meq Documented by: Spironolactone (Aldactone) 25 mg PO DAILY ROLANDO Stop: 05/07/19 08:59 Last Admin: 04/07/19 08:41 Dose: 25 mg Documented by: Torsemide (Demadex) 100 mg PO TID ROLANDO Stop: 05/07/19 08:59 Ursodiol (Actigall) 300 mg PO BID ROLANDO Stop: 05/07/19 08:59 Last Admin: 04/07/19 08:42 Dose: 300 mg Documented by:
[2019-04-07] MEDS ORDERED: ALBUMIN 25% 50 ML with FUROSEMIDE 40 MG IV SCH (09:00)
[2019-04-07] MEDS: TORSEMIDE 100 MG TAB PO SCH ×3 (09:58→20:56)
--- NOTE | 2019-04-07 15:15 | Palliative Care Consultation ---
Date of Consultation April 07, 2019 Assessment & Plan (1) Goals of care, counseling/discussion: -58 year old male patient with PMH chronic heart failure with EF 20-25%, CKD stage III, GERD, ischemic cardiomyopathy, NAFLD with cirrhosis and others, presented to the hospital in acute decompensated heart failure yesterday. Patient apparently got his pills mixed up and was taking potassium instead of his torsemide. Patient has long standing history of heart failure and is on a chronic milrinone infusion at home since July 2018. Patient sees cardiology in [facility] who deemed him not a candidate for LVAD due to his NAFLD and liver cirrhosis. Patient has end-stage heart disease and limited treatment options. He is feeling better since hospital admission with diuresis. His home dose of torsemide is restarted. Palliative care consulted to discuss goals of care. -Met with patient in room 229-1. He is AA&Ox4. Good insight into what's going on. -Patient is fully independent at home, in fact was still driving prior to this. 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 -Patient states he still has a good quality of life at home, even with the continuous primacor infusion. He is able to do things around the house, works in his new garage. Patient does understand that his prognosis is poor long-term given his end-stage heart disease as well as liver cirrhosis. Patient states he is accepting of this, but wants to continue to live as long as possible. -Discussed code status, patient wants to remain full code. He did state that he would not want his life to be prolonged if he has no quality. He does not have a living will and will think about completing one. I encouraged him to have this done. -Patient's daughter is estranged, has not spoken to him in 3 years. THis causes him much emotional pain, he wishes they could rekindle their relationship. -patient's would be his healthcare surrogate if he is unable to make decisions. -Continue with full treatment for now. Plan is for patient to return home after hospitalization. Home health would be helpful for him. I'm assuming he had some services due to the Primacor infusion. -Palliative will follow peripherally and as needed. (2) Decompensated heart failure: (3) Nonalcoholic fatty liver disease: History of Present Illness Attending Physician: Matthew Bill MD History of Present Illness This 58 year old male patient with PMH chronic heart failure with EF 20-25%, CKD stage III, GERD, ischemic cardiomyopathy, NAFLD with cirrhosis and others, presented to the hospital in acute decompensated heart failure yesterday. Patient apparently got his pills mixed up and was taking potassium instead of his torsemide. Patient has long standing history of heart failure and is on a chronic milrinone infusion at home since July 2018. Patient sees cardiology in [facility] who deemed him not a candidate for LVAD due to his NAFLD and liver cirrhosis. Patient has end-stage heart disease and limited treatment options. He is feeling better since hospital admission with diuresis. His home dose of torsemide is restarted. Palliative care consulted to discuss goals of care. Thank you kindly for this consult. Palliative care team will follow as needed. Allergies Allergy/AdvReac Type Severity Reaction Status Date / Time atorvastatin Allergy Severe itching Verified 04/06/19 22:14 nafcillin Allergy Intermediate Rash Verified 04/06/19 21:51 piperacillin [From Zosyn] Allergy Intermediate Rash Verified 04/06/19 21:51 tazobactam [From Zosyn] Allergy Intermediate Rash Verified 04/06/19 21:51 bee venom protein (honey bee) Allergy Unknown Verified 04/06/19 21:51 hydromorphone [From Dilaudid] Allergy Unknown Verified 04/06/19 21:51 levofloxacin [From Levaquin] Allergy Hives Verified 04/06/19 21:51 Home Medications Home Medications Medication Instructions Recorded Confirmed Type Milrinone Lactate In Dextrose 88 kg IV UD 04/06/19 04/06/19 History acetaminophen [Tylenol Extra 500 mg PO Q6H PRN 04/06/19 04/06/19 History Strength] albuterol sulfate 2 puff INHALATION Q6 PRN 04/06/19 04/06/19 History albuterol sulfate 2.5 mg INHALATION Q4 PRN 04/06/19 04/06/19 History amiodarone [Pacerone] 200 mg PO DAILY 04/06/19 04/06/19 History aspirin [Aspir-81] 81 mg PO DAILY 04/06/19 04/06/19 History docusate sodium 100 mg PO BID PRN 04/06/19 04/06/19 History epinephrine [EpiPen] 0.3 mg IM UD PRN 04/06/19 04/06/19 History lorazepam [Ativan] 1 mg PO HS PRN 04/06/19 04/06/19 History magnesium oxide [MagOx] 400 mg PO BID 04/06/19 04/06/19 History metolazone 5 mg PO BID 04/06/19 04/06/19 History metoprolol succinate [Toprol XL] 25 mg PO DAILY 04/06/19 04/06/19 History omeprazole 40 mg PO DAILY 04/06/19 04/06/19 History potassium chloride [Klor-Con M20] 40 meq PO TID 04/06/19 04/06/19 History sertraline [Zoloft] 50 mg PO DAILY 04/06/19 04/06/19 History spironolactone [Aldactone] 25 mg PO DAILY 04/06/19 04/06/19 History torsemide 100 mg PO TID 04/06/19 04/06/19 History ursodiol [Actigall] 300 mg PO BID 04/06/19 04/06/19 History Patient History Medical History Pleural effusion on right Hyponatremia History of acute renal failure Hypokalemia Acute on chronic HFrEF (heart failure with reduced ejection fraction) Abdominal pain Acute on chronic systolic (congestive) heart failure 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) 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 at [facility] ICD placed 06/23/18 at [facility] Thrombocytopenia (Chronic) Elevated liver function tests (Chronic) Cardiac arrest (Resolved) 05/2018 Ischemic cardiomyopathy (Chronic) 05/2018 EF: 20-24% Anemia (Chronic) History of tobacco use (Chronic) Anxiety (Chronic) Diabetes mellitus, type II (Chronic) CKD (chronic kidney disease), stage III (Chronic) GERD (gastroesophageal reflux disease) (Chronic) HTN (hypertension) (Chronic) Dyslipidemia (Chronic) CAD (coronary artery disease) (Chronic) s/p stent LAD in 2004 Cirrhosis Family History Other Coronary heart disease Social History Preferred Language: Citizen Of [place] Communication Ability: Effective 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 Beliefs That Will Affect Care: None Current Living Situation: Spouse Current Living Situation Comment: home Other Information That Helps Us Care for You: No Feels Safe at Home: Yes Safety Concerns: Feels Safe At This Time Smoking Status: Current some day smoker Tobacco Type: cigarettes ; Cigarettes Per Day: 1 ; Hx Alcohol Use: Yes Alcohol type: beer Hx Substance Use: No Review of Systems Review of Systems: Const: No weakness ENMT: No dysphagia Resp: + SOB with exertion, no cough Cardio: No chest pain, + BLE edema GI: No abdominal pain, no N/V MS: No musculoskeletal pain Neuro: No confusion Psych: No anxiety, no depression Physical Exam Constitutional: no acute distress ENMT: external ear and nose normal, oropharynx normal Respiratory: normal respiratory effort, lungs clear to auscultation Cardiovascular: Rate/Rhythm: regular rate and regular rhythm Extremities: + edema (trace pitting edema to BL lower legs, increases to +1 to thighs/hips) Gastrointestinal (Abdomen): Inspection/Auscultation: normal bowel sounds Percussion/Palpation: abdomen soft; abdomen nontender Neurologic: moves all extremities and awake Psychiatric: A+Ox3, euthymic affect Results & Data Vital Signs (Past 12 Hours) Vital Signs Temp Pulse Resp BP BP Pulse Ox 04/07/19 11:43 36.4 C L 88 16 80/46 L 96 04/07/19 07:02 36.7 C 84 20 82/51 L 91 04/07/19 03:23 36.5 C 91 H 16 90/60 L 94 04/07/19 00:10 36.5 C 91 H 20 70/54 L 93 PG Care Time/CCT Total # of Minutes Spent Total Time Spent with Patient: Total time spent is greater than 50% in coordination of care (as documented) at patient's floor/unit and/or counseling patient: Time Spent Midlevel 70 minutes with >50% of the time spent at bedside with patient discussing condition and GOC.
--- NOTE | 2019-04-07 17:36 | Hospitalist Progress Note ---
Date of Service April 07, 2019 Assessment & Plan (1) Decompensated heart failure: Severe ischemic cardiomyopathy, EF less than 20%, status post ICD (implantable cardioverter-defibrillator) placement on chronic Milrinone infusion. Present on admission with worsening SOB and weight gained due to noncompliance with diuretic CXR showed interstitial thickening and bilateral opacities suggestive of pulmonary edema and small right and trace left pleural effusions. Received IV lasix in the ER Cardiology on board recommended to restart Torsemide 100mg TID ( OK to give even if BP in the 80's- 90's as per cardiology) Continue spironolactone 25mg daily Continue Milrinone infusion Continue Fluid restriction Monitor I/O Monitor BMP closely Palliative care on board for goals of care, but pt not ready yet to transition to palliative Continue monitor in Tele CAD status post stent Continue aspirin and metoprolol Denies any chest pain Hypertension BP in the low side OK by cardiology to continue diuretic and beta derick with the low BP Will monitor BP closely Stable Chronic Hyponatremia Mostly due to cirrhosis/CHF Na 126 today Continue diuresis Monitor BP Hx NAFLD cirrhosis Abdominal u/s showed Trace scattered ascites. Continue Lasix/spironolactone Advised on alcohol cessation intake DM 2 diet-controlled HBA1c 6.4 today Continue monitor BS Tobacco abuse Counseling on smoking cessation DVT px on Lovenox subq CODE STATUS FULL CODE Disposition Continue monitor in tele Will need a script for Milrinone on discharge Subjective Pt was seen and examined Lying in bed with no distress Pt said that he feels much better He said that his breathing improves significantly He said that he has been urinating alot after received the IV lasix Pt said that his potassium pills mixed with his water pills and he did not know that Denies any chest pain, palpitation, dizziness and SOB currnetly Physical Exam Physical Exam: General- No acute distress Head- atraumatic Eyes- PERRL, EOMI, ENT- oropharynx clear Neck- supple, no JVD Lungs- No wheezing Heart- +systolic murmur Abdomen- normal bowel sounds, soft, nontender Extremities- no calf tenderness, _edema Neuro- alert, oriented x 3; PERRL, EOMI; no facial palsy; no dysarthria Skin- warm & dry Results & Data Vital Signs (Past 12 Hours) Vital Signs Temp Pulse Resp BP BP Pulse Ox 04/07/19 15:07 36.8 C 90 20 88/57 L 93 10/25/19 11:43 36.4 C L 88 16 80/46 L 96 04/07/19 07:02 36.7 C 84 20 82/51 L 91
[2019-04-08] MEDS: MILRINONE LACTATE/D5W 20,000 MCG/100 ML BAG IV SCH ×2 (02:02→11:05)
[2019-04-08 07:28] LABS: BUN Creatinine Ratio 13.6 (10-20); Calcium 7.7 mg/dl (8.5-10.1); Creatinine Clr Calc Pharmacy 77.2 ml/min; Est GFR (African American) 70.2; Est GFR (Non-African American) 60.6; Potassium 3.2 mmol/L (3.5-5.1)
[2019-04-08] MEDS: ASPIRIN 81 MG ECTAB PO SCH (08:36)
[2019-04-08] MEDS: ursodioL 300 MG CAP PO SCH (08:36)
[2019-04-08] MEDS: TORSEMIDE 100 MG TAB PO SCH (08:36)
[2019-04-08] MEDS: PANTOprazole 40 MG TAB PO SCH (08:36)
[2019-04-08] MEDS: POTASSIUM CHLORIDE 20 MEQ TABCR PO SCH (08:36)
[2019-04-08] MEDS: ENOXAPARIN INJ 30 MG/0.3 ML SYR SQ SCH (08:36)
[2019-04-08] MEDS: METOPROLOL SUCC 25MG EXT REL TAB PO SCH (08:36)
[2019-04-08] MEDS: MAGNESIUM OXIDE 400 MG TAB PO SCH (08:36)
[2019-04-08] MEDS: AMIODARONE 200 MG TAB PO SCH (08:36)
[2019-04-08] MEDS: SPIRONOLACTONE 25 MG TAB PO SCH (08:36)
[2019-04-08] MEDS: INSULIN ASPART 100 UNITS/ML 3 ML PEN SC SCH (08:47)
[2019-04-08] MEDS ORDERED: POTASSIUM CHLORIDE 20 MEQ TABCR PO STA (09:12)
--- NOTE | 2019-04-08 12:06 | Cardiology Progress Note ---
Date of Service April 08, 2019 Assessment & Plan (1) Acute on chronic HFrEF (heart failure with reduced ejection fraction): (2) Hyponatremia: (3) Decompensated heart failure: (4) ICD (implantable cardioverter-defibrillator) in place: (5) Ischemic cardiomyopathy: The patient has lost approximately 10 pounds of fluid weight despite placing him back on his home diuretic regimen. I believe he may be discharged home. He assures me that he will take his medications appropriately. I will arrange for follow-up. Subjective The patient is anxious to go home. He had an uneventful night. Review of Systems Review of Systems: All systems reviewed & are unremarkable except as noted in HPI & below Nothing additional. Physical Exam Physical Exam: General: no acute distress and stated age Head: normocephalic, no masses, lesions, tenderness or abnormalities Eyes: conjunctiva are pink and non-injected, sclera clear Neck: supple, no adenopathy, no bruits, normal jugular venous pulse, no hepatojugular reflux Chest: normal shape and normal respiratory effort Lungs: clear to auscultation and percussion Cardiac Exam: - regular rate & rhythm, no murmurs gallops or rubs - normal S1, normal S2 Pulses: 2(+) throughout Abdomen: abdomen soft, non-tender, no abnormal masses and no hepatosplenomegaly Musculoskeletal: no gait disturbance, no joint inflammation, no deforming arthritis Extremities: no edema and no cyanosis Neuro: grossly normal exam Results & Data Vital Signs (Past 12 Hours) Vital Signs Temp Pulse Resp BP Pulse Ox 04/08/19 11:30 36.9 C 98 H 24 94/64 L 96 04/08/19 08:03 36.3 C L 95 H 22 89/55 L 95 04/08/19 03:34 36.3 C L 95 H 19 101/62 92 Laboratory Results Laboratory Results - last 24 hr 04/07/19 04/07/19 04/07/19 11:09 16:36 20:16 Sodium Potassium Chloride Carbon Dioxide Anion Gap BUN Creatinine Est Cr Clr Drug Dosing Est GFR ( Amer) Est GFR (Non-Af Amer) BUN/Creatinine Ratio Glucose POC Glucose 163 H 131 H 119 H Calcium 04/08/19 04/08/19 04/08/19 06:12 07:45 11:27 Sodium 127 L Potassium 3.2 L Chloride 91 L Carbon Dioxide 28 Anion Gap 8.0 BUN 18 Creatinine 1.30 Est Cr Clr Drug Dosing 77.2 Est GFR ( Amer) 70.2 Est GFR (Non-Af Amer) 60.6 BUN/Creatinine Ratio 13.6 Glucose 113 H POC Glucose 127 H 210 H Calcium 7.7 L Medications Administered Current Inpatient Medications Acetaminophen (Tylenol) 325 mg PO Q6H PRN PRN Reason: Pain or Fever Stop: 05/07/19 00:35 Amiodarone HCl (Cordarone) 200 mg PO DAILY [facility] Stop: 05/07/19 08:59 Last Admin: 04/08/19 08:36 Dose: 200 mg Documented by: Aspirin (Ecotrin Ectab) 81 mg PO DAILY [facility] Stop: 05/07/19 08:59 Last Admin: 04/08/19 08:36 Dose: 81 mg Documented by: Dextrose (Dextrose 50%) 25 - 50 ml IV UD PRN; Protocol PRN Reason: Hypoglycemia Protocol Stop: 05/07/19 00:35 Docusate Sodium (Colace) 100 mg PO BID PRN PRN Reason: Constipation Stop: 05/07/19 00:35 Enoxaparin Sodium (Lovenox) 30 mg SQ QAM [facility] Stop: 05/07/19 08:59 Last Admin: 04/08/19 08:36 Dose: 30 mg Documented by: Glucagon (Glucagen) 1 mg SQ UD PRN; Protocol PRN Reason: Hypoglycemia Protocol Stop: 05/07/19 00:35 Glucose (Glucose 40%) 15 - 30 gm PO UD PRN; Protocol PRN Reason: Hypoglycemia Protocol Stop: 05/07/19 00:35 Glucose (Dex4 Glucose) 4 - 8 tabs PO UD PRN; Protocol PRN Reason: Hypoglycemia Protocol Stop: 05/07/19 00:35 Promethazine HCl 12.5 mg/ (Sodium Chloride) 50.5 mls @ 202 mls/hr IV Q6H PRN PRN Reason: Nausea And Vomiting Stop: 05/07/19 00:35 Milrinone Lactate/Dextrose (Primacor/D5w) 20,000 mcg in 100 mls @ 11.711 mls/hr IV .Q8H33M [facility]O; Protocol Stop: 05/07/19 00:59 Last Admin: 04/08/19 11:05 Dose: 0.37 mcg/kg/min, 11.7 mls/hr Documented by: Insulin Aspart (Novolog Flexpen) 0 units SC ACHS [facility] Stop: 05/07/19 01:14 Last Admin: 04/08/19 08:47 Dose: 2 units Documented by: Ipratropium Tolstoy (Atrovent 0.02% 0.5mg/2.5ml) 0.5 mg INH Q4H PRN PRN Reason: SOB/WHEEZING Stop: 05/07/19 00:35 Levalbuterol HCl (Xopenex 1.25mg/0.5ml Neb) 1.25 mg INH Q4H PRN PRN Reason: SOB/WHEEZING Stop: 05/07/19 00:35 Lorazepam (Ativan) 1 mg PO HS PRN PRN Reason: Anxiety Stop: 05/07/19 00:35 Magnesium Oxide (Mag-Ox) 400 mg PO BID [facility] Stop: 05/07/19 08:59 Last Admin: 04/08/19 08:36 Dose: 400 mg Documented by: Metoprolol Succinate (Toprol Xl) 25 mg PO DAILY [facility] Stop: 05/07/19 08:59 Last Admin: 04/08/19 08:36 Dose: 25 mg Documented by: Miscellaneous (Carbohydrates For Hypoglycemia) 15 - 30 gm PO UD PRN PRN Reason: Hypoglycemia Treatment Stop: 05/07/19 00:35 Nitroglycerin (Nitrostat) 0.4 mg SL UD PRN PRN Reason: Chest Pain Stop: 05/07/19 00:35 Pantoprazole Sodium (Protonix) 40 mg PO DAILY [facility] Stop: 05/07/19 08:59 Last Admin: 04/08/19 08:36 Dose: 40 mg Documented by: Potassium Chloride (Klor-Con M20) 40 meq PO BID [facility] Stop: 05/07/19 08:59 Last Admin: 04/08/19 08:36 Dose: 40 meq Documented by: Spironolactone (Aldactone) 25 mg PO DAILY [facility] Stop: 05/07/19 08:59 Last Admin: 04/08/19 08:36 Dose: 25 mg Documented by: Torsemide (Demadex) 100 mg PO TID [facility] Stop: 05/07/19 08:59 Last Admin: 04/08/19 08:36 Dose: 100 mg Documented by: Ursodiol (Actigall) 300 mg PO BID [facility] Stop: 05/07/19 08:59 Last Admin: 04/08/19 08:36 Dose: 300 mg Documented by:
--- NOTE | 2019-04-08 12:58 | Hospitalist Progress Note ---
Date of Service April 08, 2019 Assessment & Plan (1) Decompensated heart failure: Severe ischemic cardiomyopathy, EF less than 20%, status post ICD (implantable cardioverter-defibrillator) placement on chronic Milrinone infusion. Present on admission with worsening SOB and weight gained due to noncompliance with diuretic CXR showed interstitial thickening and bilateral opacities suggestive of pulmonary edema and small right and trace left pleural effusions. Received IV lasix in the ER Cardiology on board recommended to restart Torsemide 100mg TID ( OK to give even if BP in the 80's- 90's as per cardiology) Continue spironolactone 25mg daily Continue Milrinone infusion Continue Fluid restriction Monitor I/O Palliative care on board for goals of care, but pt not ready yet to transition to palliative OK from cardiology standpoint to discharge home CAD status post stent Continue aspirin and metoprolol Denies any chest pain Hypertension BP in the low side OK by cardiology to continue diuretic and beta derick with the low BP Continue monitor BP Stable Chronic Hyponatremia Mostly due to cirrhosis/CHF Na 127 today Continue diuresis Monitor BP Hx NAFLD cirrhosis Abdominal u/s showed Trace scattered ascites. Continue Lasix/spironolactone Advised on alcohol cessation intake DM 2 diet-controlled HBA1c 6.4 today Continue monitor BS Tobacco abuse Counseling on smoking cessation DVT px on Lovenox subq CODE STATUS FULL CODE Disposition Discharge home today with home health services Will give a script for Milrinone on discharge to farm operations manager Follow up with your primary care provider Dr. Oakes in 1 week (Please call for the follow up appointment) Subjective Pt was seen and examined. Sitting in bed with no distress. Pt is very anxious to go home He said that he has to go to the burial tomorrow for the person that raised him He said that he feels much better Denies any chest pain, palpitation, dizziness Physical Exam Physical Exam: General- No acute distress Head- atraumatic Eyes- PERRL, EOMI, ENT- oropharynx clear Neck- supple, no JVD Lungs- No wheezing Heart- +systolic murmur Abdomen- normal bowel sounds, soft, nontender Extremities- no calf tenderness, _edema Neuro- alert, oriented x 3; PERRL, EOMI; no facial palsy; no dysarthria Skin- warm & dry Results & Data Vital Signs (Past 12 Hours) Vital Signs Temp Pulse Resp BP Pulse Ox 04/08/19 11:30 36.9 C 98 H 24 94/64 L 96 04/08/19 08:03 36.3 C L 95 H 22 89/55 L 95 04/08/19 03:34 36.3 C L 95 H 19 101/62 92
--- NOTE | 2019-04-09 00:18 | Discharge Summary ---
Date of Service April 08, 2019 Admission HPI Per Admitting Provider History obtained from patient and records. Medical history significant for chronic systolic heart failure secondary to ischemic cardiomyopathy sp ICD (EF 20-24%, TTE 2018) on home milrinone infusion, hx VT, CAD status post stent, hx MSSA endocarditis, pulmonary hypertension as per records, hypertension, hyperlipidemia, NAFLD cirrhosis, DM 2 diet-controlled (patient unaware of diagnosis), chronic hyponatremia, chronic anemia (baseline hemoglobin 9-10), anxiety/mood disorder, ongoing tobacco abuse. Recent confinement August 2018 for decompensated heart failure. Patient seen at [facility] today for follow-up appointment after made several phone calls to the office reporting patient noncompliance with medications/dietary restrictions. Patient noted to be more fluid overloaded as per . About 30 pound weight gain on review of last documented weight at builder operator's office from 2 months ago. Patient denied 's allegations about medication noncompliance/dietary indiscretion. Denies chest pain. Admits to shortness of breath on exertion. Not ready for idea of hospice brought up by builder operator. Patient directed to the ER by builder operator. At the ER, patient received Lasix for CHF. NSS given prior to diuretic Rx due to low blood pressure. Medical History as above Surgical History : Dental surgery , ICD Family History : Heart disease Personal/Social history : Few cigarettes a day, occasional EtOH intake, lives with Admission Exam Per Admitting Provider GENERAL: Comfortable, chronically ill, no respiratory distress SKIN: Pallor , warm HEENT: Alopecia, pale palpebral conjunctivae, no ptosis, dry buccal mucosa NECK : Supple, no tenderness CHEST : Decreased breath sounds, bibasilar crackles, no tenderness HEART : RRR, diminished S1-S2, systolic murmur ABDOMEN: distention, nontender EXTREMITIES : Bilateral LE swelling, no LE tenderness, no other conspicuous deformities noted NEUROLOGIC : Coherent, no facial asymmetry, no other gross focality Principal Diagnosis Decompensated heart failure Hypertension Tobacco abuse Hx NAFLD cirrhosis Chronic Hyponatremia Discharge Exam General- No acute distress Head- atraumatic Eyes- PERRL, EOMI, ENT- oropharynx clear Neck- supple, no JVD Lungs- No wheezing Heart- +systolic murmur Abdomen- normal bowel sounds, soft, nontender Extremities- no calf tenderness, _edema Neuro- alert, oriented x 3; PERRL, EOMI; no facial palsy; no dysarthria Skin- warm & dry Discharge Data Allergies Allergy/AdvReac Type Severity Reaction Status Date / Time atorvastatin Allergy Severe itching Verified 04/06/19 22:14 nafcillin Allergy Intermediate Rash Verified 04/06/19 21:51 piperacillin [From Zosyn] Allergy Intermediate Rash Verified 04/06/19 21:51 tazobactam [From Zosyn] Allergy Intermediate Rash Verified 04/06/19 21:51 bee venom protein (honey bee) Allergy Unknown Verified 04/06/19 21:51 hydromorphone [From Dilaudid] Allergy Unknown Verified 04/06/19 21:51 levofloxacin [From Levaquin] Allergy Hives Verified 04/06/19 21:51 Consultations 04/06/19 22:20 ED Decision to Admit Stat 04/07/19 00:36 Consult Cardiology Routine 04/07/19 07:00 Consult Case Management - Discharge Planning Routine 04/07/19 09:34 Consult Palliative Care Routine Ordered Studies 04/07/19 00:36 US abdomen ltd ascites Routine US abdomen ltd ascites CLINICAL HISTORY: Abdominal distention. COMPARISON STUDY: Abdominal ultrasound 08/05/2018. FINDINGS: Transabdominal scanning of the abdomen was performed. There is trace scattered ascites. IMPRESSION: Trace scattered ascites. Electronically signed by: Bro Dunbar M.D. 04/07/2019 7:04 AM Dictated: 04/07/19703 Transcribed: 04/07/19703 XR chest 1V portable CLINICAL HISTORY: jc fluid overload COMPARISON STUDY: Chest radiograph February 02, 2019. FINDINGS: Right subclavian pacer/AICD is in place. There is a left sided [id number]. There is no pneumothorax. Small right and trace left pleural effusions are noted. Interstitial thickening and bilateral opacities have developed. There is no pneumothorax. Moderate to marked enlargement of the cardiac silhouette is unchanged. IMPRESSION: 1. Interstitial thickening and bilateral opacities suggestive of pulmonary edema. 2. Small right and trace left pleural effusions. 3. Cardiomegaly. Electronically signed by: Justus Perez M.D. 04/06/2019 9:05 PM Dictated: 04/06/192102 Transcribed: 04/06/192102 Hospital Course (1) Decompensated heart failure: Severe ischemic cardiomyopathy, EF less than 20%, status post ICD (implantable cardioverter-defibrillator) placement on chronic Milrinone infusion. Present on admission with worsening SOB and weight gained due to noncompliance with diuretic CXR showed interstitial thickening and bilateral opacities suggestive of pulmonary edema and small right and trace left pleural effusions. Received IV lasix in the ER Cardiology on board recommended to restart Torsemide 100mg TID ( OK to give even if BP in the 80's- 90's as per cardiology) Continue spironolactone 25mg daily Continue Milrinone infusion Continue Fluid restriction Monitor I/O Palliative care on board for goals of care, but pt not ready yet to transition to palliative OK from cardiology standpoint to discharge home CAD status post stent Continue aspirin and metoprolol Denies any chest pain Hypertension BP in the low side OK by cardiology to continue diuretic and beta derick with the low BP Continue monitor BP Stable Chronic Hyponatremia Mostly due to cirrhosis/CHF Na 127 today Continue diuresis Monitor BP Hx NAFLD cirrhosis Abdominal u/s showed Trace scattered ascites. Continue Lasix/spironolactone Advised on alcohol cessation intake DM 2 diet-controlled HBA1c 6.4 today Continue monitor BS Tobacco abuse Counseling on smoking cessation DVT px on Lovenox subq CODE STATUS FULL CODE Disposition Discharge home today with home health services Will give a script for Milrinone on discharge to [facility] manager Follow up with your primary care provider Dr. Oakes in 1 week (Please call for the follow up appointment) Total Time Total Time Spent Total Time Spent (In Minutes): 35 minutes Total Time Includes: Examination of the Patient, Discharge Planning, Medication Reconciliation, Communication With Other Providers and Other Discharge Plan Discharge Items Patient Disposition: Home - Home Health Services Reason For Visit: CHF Discharge Diagnosis: Decompensated heart failure Hypertension Tobacco abuse Hx NAFLD cirrhosis Chronic Hyponatremia Activity: Resume your previous activity Activity Comment: As tolerated Non-emergency contact: Primary Care Provider and Box Sealing Machine Catcher Call non-emergency contact if: you have any medication questions and your symptoms worsen Follow-up/Referrals: Charles Oakes DO [Primary Care Provider] - Diet: Heart Healthy Addtl Attending Provider Instructions: Follow up with your primary care provider Dr. Oakes in 1 week (Please call for the follow up appointment) Follow up with Cardiology Dr. Dumont on 04/20@ 1:45 PM Counseling on smoking cessation Fluid restriction to 1.5L daily Check BMP in 2 weeks to monitor potassium level and kidney function Fall precaution Pending Studies at Discharge: No Stand-Alone Forms: My [facility], Smoking Cessation Medications and DC Order Prescriptions: Continued omeprazole 40 mg capsule,delayed release(DR/EC) 40 mg PO DAILY RF: 0 epinephrine [EpiPen] 0.3 mg/0.3 mL Auto-Injector 0.3 mg IM UD PRN (Reason: severe allerggic reaction) RF: 0 albuterol sulfate 90 mcg/actuation Hfa Aerosol Inhaler 2 puff INHALATION Q6 PRN (Reason: sob/wheeze) RF: 0 sertraline [Zoloft] 50 mg tablet 50 mg PO DAILY RF: 0 albuterol sulfate 2.5 mg /3 mL (0.083 %) Solution For Nebulization 2.5 mg INHALATION Q4 PRN (Reason: Shortness Of Breath Or Wheezing) RF: 0 amiodarone [Pacerone] 200 mg tablet 200 mg PO DAILY RF: 0 aspirin [Aspir-81] 81 mg Tablet,Delayed Release (Dr/Ec) 81 mg PO DAILY RF: 0 acetaminophen [Tylenol Extra Strength] 500 mg Tablet 500 mg PO Q6H PRN (Reason: Pain) RF: 0 magnesium oxide [MagOx] 400 mg (241.3 mg magnesium) tablet 400 mg PO BID RF: 0 ursodiol [Actigall] 300 mg capsule 300 mg PO BID RF: 0 docusate sodium 100 mg Capsule 100 mg PO BID PRN (Reason: Constipation) RF: 0 metoprolol succinate [Toprol XL] 25 mg tablet extended release 24 hr 25 mg PO DAILY RF: 0 lorazepam [Ativan] 1 mg tablet 1 mg PO HS PRN (Reason: Anxiety) RF: 0 Milrinone Lactate In Dextrose 88 kg IV UD RF: 0 metolazone 5 mg tablet 5 mg PO BID 30 Days Qty: 60 RF: 0 spironolactone [Aldactone] 25 mg tablet 25 mg PO DAILY 30 Days Qty: 30 RF: 0 potassium chloride [Klor-Con M20] 20 mEq tablet,ER particles/crystals 40 meq PO TID 30 Days Qty: 90 RF: 0 torsemide 100 mg tablet 100 mg PO TID 30 Days Qty: 90 RF: 0 Discharge Orders: Discharge Order (Routine); Ordered 04/08/19 Ordered By: Matthew Partida/Other Patient Handouts: A1C, Diabetes Ad Operations Associate Complications, Diabetes Healthy Meals, Diabetes Carbs, Diabetes Exercise Benefits, Diabetes Exercise Get Started, Diabetes Activity Tips Admission Data Admit Date/Time: 04/06/19 23:29 Attending Provider: Matthew Bill Admit Provider: Loco Arechiga Primary Care Provider: Charles Oakes Other Providers: Loco Arechiga ; Deondre Medina ; Meghna Lowery Other Interventions: Discharge Summary Assessment (RN) Last Done: 04/08/19 14:06 DC Date/Time DO NOT enter until pt leaves facility: 04/08/19 15:15
== END 2019-04-08 15:15 | disposition home health service (06) | DRG 291 ==
LOC: ED 20:21 → 2S 23:29

== ENCOUNTER 2019-05-22 12:34 | Inpatient (IN) ==
[2019-05-22 14:23] LABS: Basophils # (auto) 0.01 K/uL (0-0.2); Basophils % (auto) 0.2 %; Eosinophils # (auto) 0.75 K/uL (0-0.5); Eosinophils % (auto) 12.5 %; Hematocrit (blood only) 26.2 % (42-52); Hemoglobin 9.1 g/dL (14.0-18.0); Immature Granulocytes # (auto) 0.01 K/uL (0.00-0.02); Immature Granulocytes % (auto) 0.2 %; Lymphocytes # (auto) 0.26 K/uL (1.2-3.4); Lymphocytes % (auto) 4.3 %; Mean Corpuscular Hgb Conc 34.7 g/dL (32-36); Mean Corpuscular Volume 89.1 fL (80-100); Mean Platelet Volume 9.9 fL (7.4-10.4); Monocytes # (auto) 0.33 K/uL (0.11-0.59); Monocytes % (auto) 5.5 %; Neutrophils # (auto) 4.63 K/uL (1.4-6.5); Neutrophils % (auto) 77.3 %; Platelet Count 146 K/uL (130-400); RDW Coefficient of Variation 17.8 % (11.5-14.5); RDW Standard Deviation 58.4 fL (36.4-46.3); Red Blood Count 2.94 M/uL (4.7-6.1); White Blood Count 5.99 K/uL (4.8-10.8)
[2019-05-22 15:10] LABS: Alanine Aminotransferase 7 U/L (12-78); Albumin Level 1.1 gm/dl (3.4-5.0); Aspartate Aminotransferase 18 U/L (15-37); BUN Creatinine Ratio 13.2 (10-20); Blood Urea Nitrogen 21 mg/dl (7-18); Calcium 7.6 mg/dl (8.5-10.1); Carbon Dioxide 27 mmol/L (21-32); Chloride 88 mmol/L (98-107); Creatinine Clr Calc Pharmacy 67.6 ml/min; Est GFR (African American) 56.8; Glucose 80 mg/dl (70-99); Magnesium 1.8 mg/dl (1.8-2.4); Potassium 2.8 mmol/L (3.5-5.1); Sodium 124 mmol/L (136-145)
[2019-05-22 15:21] LABS: Albumin Globulin Ratio 0.3 (0.9-2); Alkaline Phosphatase 155 U/L (45-117); Bilirubin,Total 1.1 mg/dl (0.2-1); Total Protein 5.1 gm/dl (6.4-8.2); Troponin I < 0.015 ng/ml (0-0.045)
[2019-05-22] MEDS ORDERED: FUROSEMIDE 40 MG/4 ML VIAL IV STA (15:22)
--- NOTE | 2019-05-22 15:24 | XRay Report ---
XR chest 1V portable CLINICAL HISTORY: weakness dyspnea COMPARISON STUDY: 04/06/2019 FINDINGS: Cardiac size is increased. Prominent pulmonary vasculature. Small right pleural effusion. F indings of pulmonary edema. Central catheter is in the superior vena cava. Unipolar cardiac pacemaker in good position IMPRESSION: Pulmonary edema. The above report was generated using voice recognition software. It may contain grammatical, syntax or spelling errors. Electronically signed by: Blake Do M.D. 05/22/2019 3:23 PM
[2019-05-22 15:33] LABS: T4 Free Thyroxine 1.49 ng/dl (0.8-1.6)
--- NOTE | 2019-05-22 15:49 | Emergency Department Note ---
Entered by Emily Kerr acting as a scribe for Jasmyn Martinez MD History of Present Illness General Chief complaint: Respiratory Distress Stated complaint: Resp distress Source: patient History of Present Illness Onset (ago): hour(s) (prior to arrival) Location: abdomen Pain Consistency: + other (episode) Quality: + other (fluid overload) Associated symptoms: no shortness of breath The patient is a 58 year old male, with past medical history of liver disease, CHF, CKD, GERD, CAD, and diabetes, who presents to the Emergency Room with complaints of episode of fluid overload to the patients abdomen that was noted prior to the arrival by the patients home nurse, according to the patient. The patient states the home nurse came and once she noticed the fluid build-up, she told him to go to the ED. The patient states he has been on diuretics. He also notes he was seen at [place] about a week and a half ago. 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 The patient denies feeling short of breath. The patient also denies seeing anyone locally for his liver issues. Home Medications Home Medications Medication Instructions Recorded Confirmed Type Milrinone Lactate In Dextrose 88 kg IV UD 04/06/19 05/22/19 History acetaminophen [Tylenol Extra 500 mg PO Q6H PRN 04/06/19 05/22/19 History Strength] albuterol sulfate 2 puff INHALATION Q6 PRN 04/06/19 05/22/19 History albuterol sulfate 2.5 mg INHALATION Q4 PRN 04/06/19 05/22/19 History amiodarone [Pacerone] 200 mg PO DAILY 04/06/19 05/22/19 History aspirin [Aspir-81] 81 mg PO DAILY 04/06/19 05/22/19 History docusate sodium 100 mg PO BID PRN 04/06/19 05/22/19 History epinephrine [EpiPen] 0.3 mg IM UD PRN 04/06/19 05/22/19 History lorazepam [Ativan] 1 mg PO HS PRN 04/06/19 05/22/19 History magnesium oxide [MagOx] 400 mg PO BID 04/06/19 05/22/19 History metoprolol succinate [Toprol XL] 25 mg PO DAILY 04/06/19 05/22/19 History omeprazole 40 mg PO DAILY 04/06/19 05/22/19 History sertraline [Zoloft] 50 mg PO DAILY 04/06/19 05/22/19 History ursodiol [Actigall] 300 mg PO BID 04/06/19 05/22/19 History metolazone 5 mg PO BID 30 Days #60 tab 04/08/19 05/22/19 Rx potassium chloride [Klor-Con M20] 40 meq PO TID 30 Days #90 tab 04/08/19 05/22/19 Rx spironolactone [Aldactone] 25 mg PO DAILY 05/22/19 05/22/19 History torsemide 100 mg PO TID 05/22/19 05/22/19 History Allergies Allergy/AdvReac Type Severity Reaction Status Date / Time atorvastatin Allergy Severe itching Verified 04/06/19 22:14 nafcillin Allergy Intermediate Rash Verified 04/06/19 21:51 piperacillin [From Zosyn] Allergy Intermediate Rash Verified 04/06/19 21:51 tazobactam [From Zosyn] Allergy Intermediate Rash Verified 04/06/19 21:51 bee venom protein (honey bee) Allergy Unknown Verified 04/06/19 21:51 hydromorphone [From Dilaudid] Allergy Unknown Verified 04/06/19 21:51 levofloxacin [From Levaquin] Allergy Hives Verified 04/06/19 21:51 Past Med/Surg History Medical History Abdominal pain Acute on chronic HFrEF (heart failure with reduced ejection fraction) Acute on chronic systolic (congestive) heart failure Anemia (Chronic) Anxiety (Chronic) CAD (coronary artery disease) (Chronic) s/p stent LAD in 2004 Cardiac arrest (Resolved) 05/2018 Cirrhosis CKD (chronic kidney disease), stage III (Chronic) Diabetes mellitus, type II (Chronic) Dyslipidemia (Chronic) Elevated liver function tests (Chronic) 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 GERD (gastroesophageal reflux disease) (Chronic) History of acute renal failure History of tobacco use (Chronic) HTN (hypertension) (Chronic) Hypokalemia Hyponatremia Ischemic cardiomyopathy (Chronic) 05/2018 EF: 20-24% Pleural effusion on right Thrombocytopenia (Chronic) Surgical History History of heart artery stent ICD (implantable cardioverter-defibrillator) in place (Chronic) 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 at [facility] ICD placed 06/23/18 at [facility] Family History Other Coronary heart disease Social History Preferred Language: Mauritian Communication Ability: Effective [place] Required: No Beliefs That Will Affect Care: None Current Living Situation: Spouse Current Living Situation Comment: home Other Information That Helps Us Care for You: No Feels Safe at Home: Yes Safety Concerns: Feels Safe At This Time Smoking Status: Current some day smoker Tobacco Type: cigarettes ; Cigarettes Per Day: 1 ; Do You Dip or Chew Tobacco: No ; Second Hand Exposure: No ; Tobacco Cessation Education Requested by Patient: No Hx Alcohol Use: No Hx Substance Use: No Review of Systems See HPI for pertinent positives & negatives. and A total of 10 systems reviewed and were otherwise negative Physical Exam Vital Signs Vital Signs - 24 hr 05/22/19 12:50 05/22/19 14:34 05/22/19 15:10 Temperature 36.6 C Temperature Source Oral Pulse Rate 97 H Respiratory Rate 22 Respiratory Depth Normal Blood Pressure 88/60 L Blood Pressure Mean 69 Pulse Oximetry 98 87 L 99 Oxygen Delivery Method Room Air Room Air Oxymask Room Air Oxymask Oxygen Flow Rate 0 6 Sepsis Recent Fever Within 48 Hours No Sepsis Action Taken by Nursing No Action Required Oxygen Flow Rate - Titration 6 0 Pulse Oximetry Post Tiitration 95 95 05/22/19 15:11 Temperature Temperature Source Pulse Rate Respiratory Rate 20 Respiratory Depth Normal Blood Pressure Blood Pressure Mean Pulse Oximetry 95 Oxygen Delivery Method Room Air Oxygen Flow Rate Sepsis Recent Fever Within 48 Hours Sepsis Action Taken by Nursing Oxygen Flow Rate - Titration Pulse Oximetry Post Tiitration Vital signs reviewed. General: Chronically ill-appearing, in no significant distress. HEENT: Positive scleral icterus, PERRLA, neck supple. Atraumatic. Cardiovascular: Regular rate and rhythm, no extra sounds. Pulmonary: Diminished breath sounds bilaterally with crackles at the bases, normal work of breathing. Abdomen: Soft, tense to palpation, distended, positive bowel sounds. Musculoskeletal: Atraumatic. Left greater than right lower extremity edema, along with bronzing skin changes. Neurologic: Patient awake alert and oriented x 3. Skin: Warm, dry, no rash. Jaundiced Course Course 1324: Past medical records reviewed. The patient was evaluated in room B6. A complete history and physical exam was performed. 1529: I reviewed the patient's case with Kinsey No. Dr. Pamela No will evaluate the patient for further management. Consultations Consultation #1: I reviewed the patient's case with Kinsey No. Dr. Pamela No will evaluate the patient for further management. Time: 15:29 Administered Medications Albuterol (Ventolin 0.083% 2.5mg/3ml) 2.5 mg INH Q4 PRN PRN Reason: Shortness Of Breath Or Wheezing Stop: 06/21/19 17:46 Last Admin: 05/22/19 23:27 Dose: 2.5 mg Documented by: [id number] Amiodarone HCl (Cordarone) 200 mg PO DAILY [facility] Stop: 06/22/19 08:59 Last Admin: 05/24/19 07:44 Dose: 200 mg Documented by: [id number] Admin: 05/23/19 07:56 Dose: 200 mg Documented by: [id number] Aspirin (Ecotrin Ectab) 81 mg PO DAILY [facility] Stop: 06/22/19 08:59 Last Admin: 05/24/19 07:44 Dose: 81 mg Documented by: [id number] Admin: 05/23/19 07:56 Dose: 81 mg Documented by: [id number] Heparin Sodium (Porcine) (Heparin Sodium (Porcine)) 5,000 units SQ Q8 [facility] Stop: 06/21/19 21:59 Last Admin: 05/24/19 06:31 Dose: Not Given Documented by: [id number] Admin: 05/23/19 22:08 Dose: Not Given Documented by: [id number] Admin: 05/23/19 13:24 Dose: Not Given Documented by: [id number] Admin: 05/23/19 04:58 Dose: Not Given Documented by: [id number] Admin: 05/22/19 21:14 Dose: Not Given Documented by: [id number] Milrinone Lactate/Dextrose (Primacor/D5w) 20,000 mcg in 100 mls @ 6.6 mls/hr IV .[id number] [facility]; Protocol Stop: 06/21/19 16:14 Last Infusion: 05/24/19 10:10 Dose: 0.25 mcg/kg/min, 6.6 mls/hr Documented by: [id number] Admin: 05/24/19 09:16 Dose: 0.38 mcg/kg/min, 9.9 mls/hr Documented by: [id number] Cosigned by: [id number] Infusion: 05/24/19 08:46 Dose: 0.38 mcg/kg/min, 9.9 mls/hr Documented by: [id number] Cosigned by: [id number] Infusion: 05/24/19 07:14 Dose: 0.38 mcg/kg/min, 9.9 mls/hr Documented by: [id number] Cosigned by: [id number] Admin: 05/23/19 22:39 Dose: 0.38 mcg/kg/min, 9.9 mls/hr Documented by: [id number] Cosigned by: [id number] Infusion: 05/23/19 21:08 Dose: 0.38 mcg/kg/min, 9.9 mls/hr Documented by: [id number] Cosigned by: [id number] Infusion: 05/23/19 19:19 Dose: 0.38 mcg/kg/min, 9.9 mls/hr Documented by: [id number] Cosigned by: [id number] Infusion: 05/23/19 15:14 Dose: 0.38 mcg/kg/min, 9.9 mls/hr Documented by: [id number] Cosigned by: [id number] Admin: 05/23/19 11:01 Dose: 0.38 mcg/kg/min, 9.9 mls/hr Documented by: [id number] Cosigned by: [id number] Infusion: 05/23/19 11:01 Dose: 0.38 mcg/kg/min, 9.9 mls/hr Documented by: [id number] Cosigned by: [id number] Infusion: 05/23/19 07:17 Dose: 0.38 mcg/kg/min, 9.9 mls/hr Documented by: [id number] Cosigned by: [id number] Admin: 05/23/19 00:55 Dose: 0.38 mcg/kg/min, 9.9 mls/hr Documented by: [id number] Cosigned by: [id number] Infusion: 05/23/19 00:55 Dose: 0.38 mcg/kg/min, 9.9 mls/hr Documented by: [id number] Cosigned by: [id number] Infusion: 05/22/19 23:24 Dose: 0.38 mcg/kg/min, 9.9 mls/hr Documented by: [id number] Cosigned by: [id number] Admin: 05/22/19 17:41 Dose: 0.375 mcg/kg/min, 9.9 mls/hr Documented by: [id number] Cosigned by: [id number] Furosemide 100 mg/ Dextrose 100 mls @ 15 mls/hr IV .[id number] [facility] Stop: 06/22/19 16:29 Last Infusion: 05/24/19 13:13 Dose: 0 mg/hr, 0 mls/hr Documented by: [id number] Infusion: 05/23/19 20:33 Dose: 0 mg/hr, 0 mls/hr Documented by: [id number] Infusion: 05/23/19 19:20 Dose: 10 mg/hr, 10 mls/hr Documented by: [id number] Admin: 05/23/19 17:51 Dose: 10 mg/hr, 10 mls/hr Documented by: [id number] Magnesium Oxide (Mag-Ox) 400 mg PO BID [facility] Stop: 06/21/19 20:59 Last Admin: 05/24/19 07:43 Dose: 400 mg Documented by: [id number] Admin: 05/23/19 22:05 Dose: 400 mg Documented by: [id number] Admin: 05/23/19 07:55 Dose: 400 mg Documented by: [id number] Admin: 05/22/19 22:28 Dose: Not Given Documented by: [id number] Metolazone (Zaroxolyn) 5 mg PO BID@30,2029 [facility] Stop: 06/21/19 17:59 Last Admin: 05/24/19 07:43 Dose: 5 mg Documented by: [id number] Admin: 05/23/19 22:05 Dose: 5 mg Documented by: [id number] Admin: 05/23/19 07:55 Dose: 5 mg Documented by: [id number] Admin: 05/22/19 20:08 Dose: Not Given Documented by: [id number] Admin: 05/22/19 18:58 Dose: 5 mg Documented by: [id number] Metoprolol Succinate (Toprol Xl) 25 mg PO DAILY [facility] Stop: 06/22/19 08:59 Last Admin: 05/23/19 09:39 Dose: 25 mg Documented by: [id number] Ondansetron HCl (Zofran) 4 mg IV Q6H PRN PRN Reason: Nausea Stop: 06/21/19 17:46 Last Admin: 05/22/19 21:10 Dose: 4 mg Documented by: [id number] Pantoprazole Sodium (Protonix) 40 mg PO DAILY [facility] Stop: 06/22/19 08:59 Last Admin: 05/24/19 07:44 Dose: 40 mg Documented by: [id number] Admin: 05/23/19 07:56 Dose: 40 mg Documented by: [id number] Potassium Chloride (Klor-Con M20) 40 meq PO TID [facility] Stop: 06/22/19 08:59 Last Admin: 05/24/19 07:43 Dose: 40 meq Documented by: [id number] Admin: 05/23/19 22:04 Dose: 40 meq Documented by: [id number] Admin: 05/23/19 13:24 Dose: 40 meq Documented by: [id number] Admin: 05/23/19 07:55 Dose: 40 meq Documented by: [id number] Sertraline HCl (Zoloft) 50 mg PO DAILY [facility] Stop: 06/22/19 08:59 Last Admin: 05/24/19 07:44 Dose: 50 mg Documented by: [id number] Admin: 05/23/19 07:55 Dose: 50 mg Documented by: [id number] Spironolactone (Aldactone) 25 mg PO DAILY [facility] Stop: 06/22/19 08:59 Last Admin: 05/24/19 07:44 Dose: 25 mg Documented by: [id number] Admin: 05/23/19 07:55 Dose: 25 mg Documented by: [id number] Ursodiol (Actigall) 300 mg PO BID [facility] Stop: 06/21/19 20:59 Last Admin: 05/24/19 07:44 Dose: 300 mg Documented by: [id number] Admin: 05/23/19 22:04 Dose: 300 mg Documented by: [id number] Admin: 05/23/19 07:55 Dose: 300 mg Documented by: [id number] Admin: 05/22/19 22:28 Dose: Not Given Documented by: [id number] Discontinued Medications Furosemide (Lasix) 40 mg IV NOW STA Stop: 05/22/19 15:23 Last Admin: 05/22/19 15:39 Dose: 40 mg Documented by: [id number] Potassium Chloride (K Phuc / Wtr) 10 meq in 100 mls @ 100 mls/hr IV Q1H [facility] Stop: 05/22/19 17:29 Last Infusion: 05/22/19 18:18 Dose: 0 mls/hr Documented by: [id number] Admin: 05/22/19 17:18 Dose: 100 mls/hr Documented by: [id number] Infusion: 05/22/19 17:18 Dose: 0 mls/hr Documented by: [id number] Admin: 05/22/19 16:00 Dose: 100 mls/hr Documented by: [id number] Furosemide 80 mg/ Syringe 8 mls @ 4 mls/min IV TID [facility] Stop: 06/21/19 18:29 Last Admin: 05/23/19 13:24 Dose: 4 mls/min Documented by: [id number] Admin: 05/23/19 08:56 Dose: 4 mls/min Documented by: [id number] Admin: 05/22/19 20:08 Dose: Not Given Documented by: [id number] Admin: 05/22/19 20:00 Dose: 4 mls/min Documented by: [id number] Magnesium Sulfate/Dextrose (Magnesium Sulfate / D5w) 1 gm in 100 mls @ 100 mls/hr IV ONE ONE Stop: 05/24/19 11:44 Last Admin: 05/24/19 11:49 Dose: 100 mls/hr Documented by: [id number] Potassium Chloride (Klor-Con M20) 40 meq PO NOW STA Stop: 05/22/19 16:02 Last Admin: 05/22/19 16:53 Dose: 40 meq Documented by: [id number] Potassium Chloride (Klor-Con M20) 40 meq PO TID [facility] Stop: 06/21/19 20:59 Last Admin: 05/22/19 21:15 Dose: Not Given Documented by: [id number] Potassium Chloride (Klor-Con M20) 80 meq PO NOW STA Stop: 05/22/19 17:52 Last Admin: 05/22/19 19:52 Dose: 80 meq Documented by: [id number] Medical Decision Making Differential Diagnosis Differential diagnosis: Etiologies such as infections, reactive airway disease, pneumonia, pneumothorax, COPD, CHF, cardiac ischemia, pulmonary embolism, musculoskeletal, gastrointestinal, [employer], fluid overload, renal failure, electrolyte imbalance, as well as others were entertained. Medical Records Attestation: I reviewed the patient's medical records. Home Medications Current Medication List: was personally reviewed by me Laboratory Data Attestation: I reviewed the patient's lab results. Result diagrams: 05/23/19 05:30 05/24/19 08:32 Lab Results 05/22/19 05/22/19 05/22/19 Range/Units 12:54 14:41 14:41 WBC 5.99 (4.8-10.8) K/uL RBC 2.94 L (4.7-6.1) M/uL Hgb 9.1 L (14.0-18.0) g/dL Hct 26.2 L (42-52) % MCV 89.1 (80-100) fL MCH 31.0 (25-34) pg MCHC 34.7 (32-36) g/dL RDW Std Deviation 58.4 H (36.4-46.3) fL RDW Coeff of Yung 17.8 H (11.5-14.5) % Plt Count 146 (130-400) K/uL MPV 9.9 (7.4-10.4) fL Immature Gran % (Auto) 0.2 % Neut % (Auto) 77.3 % Lymph % (Auto) 4.3 % [place] % (Auto) 5.5 % Eos % (Auto) 12.5 % Baso % (Auto) 0.2 % Immature Gran # (Auto) 0.01 (0.00-0.02) K/uL Neut # (Auto) 4.63 (1.4-6.5) K/uL Lymph # (Auto) 0.26 L (1.2-3.4) K/uL [place] # (Auto) 0.33 (0.11-0.59) K/uL Eos # (Auto) 0.75 H (0-0.5) K/uL Baso # (Auto) 0.01 (0-0.2) K/uL Sodium 124 L (136-145) mmol/L Potassium 2.8 L (3.5-5.1) mmol/L Chloride 88 L (98-107) mmol/L Carbon Dioxide 27 (21-32) mmol/L Anion Gap 9.0 (3-11) BUN 21 H (7-18) mg/dl Creatinine 1.55 H (0.6-1.4) mg/dl Est Cr Clr Drug Dosing 67.6 ml/min Est GFR ( Amer) 56.8 Est GFR (Non-Af Amer) 49.0 BUN/Creatinine Ratio 13.2 (10-20) Glucose 80 (70-99) mg/dl Lactate 1.3 (0.4-2.0) mmol/L Calcium 7.6 L (8.5-10.1) mg/dl Magnesium 1.8 (1.8-2.4) mg/dl Total Bilirubin 1.1 H (0.2-1) mg/dl AST 18 (15-37) U/L ALT 7 L (12-78) U/L Alkaline Phosphatase 155 H (45-117) U/L Ammonia (11-32) umol/L Troponin I < 0.015 (0-0.045) ng/ml Total Protein 5.1 L (6.4-8.2) gm/dl Albumin 1.1 L (3.4-5.0) gm/dl Globulin 4.0 (2.5-4.0) gm/dl Albumin/Globulin Ratio 0.3 L (0.9-2) TSH 9.020 H (0.300-4.500) uIu/ml Free T4 1.49 (0.8-1.6) ng/dl 05/22/19 Range/Units 14:41 WBC (4.8-10.8) K/uL RBC (4.7-6.1) M/uL Hgb (14.0-18.0) g/dL Hct (42-52) % MCV (80-100) fL MCH (25-34) pg MCHC (32-36) g/dL RDW Std Deviation (36.4-46.3) fL RDW Coeff of Yugn (11.5-14.5) % Plt Count (130-400) K/uL MPV (7.4-10.4) fL Immature Gran % (Auto) % Neut % (Auto) % Lymph % (Auto) % [place] % (Auto) % Eos % (Auto) % Baso % (Auto) % Immature Gran # (Auto) (0.00-0.02) K/uL Neut # (Auto) (1.4-6.5) K/uL Lymph # (Auto) (1.2-3.4) K/uL [place] # (Auto) (0.11-0.59) K/uL Eos # (Auto) (0-0.5) K/uL Baso # (Auto) (0-0.2) K/uL Sodium (136-145) mmol/L Potassium (3.5-5.1) mmol/L Chloride (98-107) mmol/L Carbon Dioxide (21-32) mmol/L Anion Gap (3-11) BUN (7-18) mg/dl Creatinine (0.6-1.4) mg/dl Est Cr Clr Drug Dosing ml/min Est GFR ( Amer) Est GFR (Non-Af Amer) BUN/Creatinine Ratio (10-20) Glucose (70-99) mg/dl Lactate (0.4-2.0) mmol/L Calcium (8.5-10.1) mg/dl Magnesium (1.8-2.4) mg/dl Total Bilirubin (0.2-1) mg/dl AST (15-37) U/L ALT (12-78) U/L Alkaline Phosphatase (45-117) U/L Ammonia 34.0 H (11-32) umol/L Troponin I (0-0.045) ng/ml Total Protein (6.4-8.2) gm/dl Albumin (3.4-5.0) gm/dl Globulin (2.5-4.0) gm/dl Albumin/Globulin Ratio (0.9-2) TSH (0.300-4.500) uIu/ml Free T4 (0.8-1.6) ng/dl Imaging Data Radiologist's Impression: Radiology results as stated below per my review and the radiologist's interpretation: XR chest 1V portable CLINICAL HISTORY: weakness dyspnea COMPARISON STUDY: 04/06/2019 FINDINGS: Cardiac size is increased. Prominent pulmonary vasculature. Small right pleural effusion. Findings of pulmonary edema. Central catheter is in the superior vena cava. Unipolar cardiac pacemaker in good position IMPRESSION: Pulmonary edema. The above report was generated using voice recognition software. It may contain grammatical, syntax or spelling errors. Electronically signed by: Blake Do M.D. 05/22/2019 3:23 PM ECG Data Attestation: I personally reviewed and interpreted this ECG as follows: Rate (beats per minute): 97 Rhythm: + sinus rhythm ECG Intervals/blocks: + First degree AV block and + Normal QT-c ECG Molt: + Left axis deviation ECG ST segments: no ST depression and no ST elevation ECG Findings: + PVCs and + Other (low voltage; previous anterior lateral infarct ) Blood Pressure Blood Pressure Findings: Low blood pressure Blood Pressure Disposition: further management by hospitalist MDM Narrative This patient was evaluated and appeared to be in no significant distress. Patient is noted to be slightly hypoxic on room air. He is hypotensive but states he is always hypotensive as he is maintained on a milrinone drip at home. Pt is symptomatic with increased SOB. He is noted to be hypokalemic and hyponatremic. He is also noted to be anemic with Hbg 8.8. Pt was given lasix 40mg IV and IV potassium was administered. Pt is chronically very ill and will require inpatient management for diuresis and potentially paracentesis. Impression & Plan Fluid overload, End stage liver disease, Acute hyponatremia, Acute hypokalemia Discharge Plan Visit Data *Final* Discharge Date/Time: 05/22/19 16:41 Chief Complaint: Respiratory Distress Stated Complaint: Resp distress ED Provider: Jasmyn Martinez Discharge Problem: Fluid overload, End stage liver disease, Acute hyponatremia, Acute hypokalemia Patient Disposition: Admitted As Inpatient Discharge Instructions Interventions: ED Discharge Assessment Last Done: 05/22/19 16:41 Discharge Problem: Fluid overload Qualifiers: Hypervolemia type: unspecified Qualified Code(s): E87.70 - Fluid overload, unspecified The scribe's documentation has been prepared under my direction and personally reviewed by me in its entirety. I confirm that the note above accurately reflects all work, treatment, procedures, and medical decision making performed by me.
[2019-05-22] MEDS: POTASSIUM CHLORIDE / WTR 10 MEQ/100 ML PLCT IV SCH ×2 (16:00→17:18)
[2019-05-22] MEDS ORDERED: POTASSIUM CHLORIDE 20 MEQ TABCR PO STA ×2 (16:01→17:51)
--- NOTE | 2019-05-22 17:02 | Cardiology Consultation ---
Date of Consultation May 22, 2019 Assessment & Plan (1) Acute on chronic combined systolic and diastolic CHF, NYHA class 4: (2) Ischemic cardiomyopathy: (3) Acute hypokalemia: (4) Acute hyponatremia: (5) End stage liver disease: (6) Hypotension: Replace potassium as needed. Recommend 5 mg oral metolazone after patient receives potassium supplementation followed by 80 mg intravenous Lasix. If patient responds to bolus Lasix therapy, continue Lasix 80 mg IV every 8 hours with metolazone 5 mg twice daily. If urine output does not increase, begin Lasix infusion 10 mg/hr. repeat BMP in 4 hours and replace electrolytes as needed. Continue milrinone infusion at 0.375 mcg/kg/min. Continue Toprol-XL, amiodarone, aspirin, and Aldactone as previously ordered. Monitor fluid balance, and daily weight. Importance of compliance with cardiovascular/heart failure medications discussed with patient. He voiced understanding. If clinical condition does not improve, recommend reconsidering palliative care/hospice. Poor prognosis. History of Present Illness Reason for Consultation: Acute decompensated systolic heart failure. Requesting Physician: Kinsey Pierce PA-C Attending Physician: Dr. Xiong History of Present Illness 58-year-old patient presented to the emergency department with lethargy, abdominal distention, progressive dyspnea on exertion, lower extremity edema, and shortness of breath. Carries history of severe ischemic cardia myopathy wi th ejection fraction of less than 20%. Recently hospitalized at [facility] for acute decompensated heart failure requiring high-dose diuretic therapy, Lasix infusion at 40 mg/h to improve volume status. Patient left hospital to attend a family function despite medical recommendations. Noted to be more than 10 pounds overweight at the time of discharge. Chronically treated with IV milrinone infusion. Previously on hospice however recently transition back to standard care. Currently, patient is resting comfortably. Denies chest pain or shortness of breath at rest. Borderline hypoxia with oxygen saturation of 92% on room air. Chest x-ray reveals pulmonary edema. Notes abdominal distention and poor appetite. States he has been compliant with medications including diuretic therapy. Denies lightheadedness, dizziness, syncope, or near syncope. Chronic cardiovascular and medical issues: Patient has the following chronic issues: Ischemic CM, EF <20% ( milrinone) CAD s/p AWMI 2004 s/p LAD stent VT arrest s/p ICD 2008 (amiodarone) Pulmonary HTN CKD III Anemia Diabetes II Cirrhosis Cholelithiasis Active smoker History of TV MSSA bacteremia History of non compliance Allergies Allergy/AdvReac Type Severity Reaction Status Date / Time atorvastatin Allergy Severe itching Verified 04/06/19 22:14 nafcillin Allergy Intermediate Rash Verified 04/06/19 21:51 piperacillin [From Zosyn] Allergy Intermediate Rash Verified 04/06/19 21:51 tazobactam [From Zosyn] Allergy Intermediate Rash Verified 04/06/19 21:51 bee venom protein (honey bee) Allergy Unknown Verified 04/06/19 21:51 hydromorphone [From Dilaudid] Allergy Unknown Verified 04/06/19 21:51 levofloxacin [From Levaquin] Allergy Hives Verified 04/06/19 21:51 Home Medications Home Medications Medication Instructions Recorded Confirmed Type Milrinone Lactate In Dextrose 88 kg IV UD 04/06/19 05/22/19 History acetaminophen [Tylenol Extra 500 mg PO Q6H PRN 04/06/19 05/22/19 History Strength] albuterol sulfate 2 puff INHALATION Q6 PRN 04/06/19 05/22/19 History albuterol sulfate 2.5 mg INHALATION Q4 PRN 04/06/19 05/22/19 History amiodarone [Pacerone] 200 mg PO DAILY 04/06/19 05/22/19 History aspirin [Aspir-81] 81 mg PO DAILY 04/06/19 05/22/19 History docusate sodium 100 mg PO BID PRN 04/06/19 05/22/19 History epinephrine [EpiPen] 0.3 mg IM UD PRN 04/06/19 05/22/19 History lorazepam [Ativan] 1 mg PO HS PRN 04/06/19 05/22/19 History magnesium oxide [MagOx] 400 mg PO BID 04/06/19 05/22/19 History metoprolol succinate [Toprol XL] 25 mg PO DAILY 04/06/19 05/22/19 History omeprazole 40 mg PO DAILY 04/06/19 05/22/19 History sertraline [Zoloft] 50 mg PO DAILY 04/06/19 05/22/19 History ursodiol [Actigall] 300 mg PO BID 04/06/19 05/22/19 History metolazone 5 mg PO BID 30 Days #60 tab 04/08/19 05/22/19 Rx potassium chloride [Klor-Con M20] 40 meq PO TID 30 Days #90 tab 04/08/19 05/22/19 Rx spironolactone [Aldactone] 25 mg PO DAILY 05/22/19 05/22/19 History torsemide 100 mg PO TID 05/22/19 05/22/19 History Patient History Medical History Abdominal pain Acute on chronic HFrEF (heart failure with reduced ejection fraction) Acute on chronic systolic (congestive) heart failure Anemia (Chronic) Anxiety (Chronic) CAD (coronary artery disease) (Chronic) s/p stent LAD in 2004 Cardiac arrest (Resolved) 05/2018 Cirrhosis CKD (chronic kidney disease), stage III (Chronic) Diabetes mellitus, type II (Chronic) Dyslipidemia (Chronic) Elevated liver function tests (Chronic) 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 GERD (gastroesophageal reflux disease) (Chronic) History of acute renal failure History of tobacco use (Chronic) HTN (hypertension) (Chronic) Hypokalemia Hyponatremia Ischemic cardiomyopathy (Chronic) 05/2018 EF: 20-24% Pleural effusion on right Thrombocytopenia (Chronic) Surgical History History of heart artery stent ICD (implantable cardioverter-defibrillator) in place (Chronic) 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 at [facility] [place] ICD placed 06/23/18 at [facility] [place] Family History Other Coronary heart disease Social History Preferred Language: [place] Communication Ability: Effective 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 Beliefs That Will Affect Care: None Current Living Situation: Spouse Current Living Situation Comment: home Other Information That Helps Us Care for You: No Feels Safe at Home: Yes Safety Concerns: Feels Safe At This Time Smoking Status: Current some day smoker Tobacco Type: cigarettes ; Cigarettes Per Day: 1 ; Do You Dip or Chew Tobacco: No ; Second Hand Exposure: No ; Tobacco Cessation Education Requested by Patient: No Hx Alcohol Use: No Hx Substance Use: No Review of Systems Review of Systems: All systems reviewed & are unremarkable except as noted in HPI & below Physical Exam Constitutional: well developed and + ill appearing Eyes: PERRL, conjunctivae normal, anicteric sclerae Respiratory: Auscultation: + diminished lung sounds (At the bases bilaterally) and + rales Cardiovascular: Rate/Rhythm: regular rate and regular rhythm Heart Sounds: normal S1 and normal S2; no murmur Vessels: + JVD; no carotid bruit Extremities: + edema (1+ bilateral ankle edema with stasis changes) Gastrointestinal (Abdomen): Inspection/Auscultation: + abdomen distended and normal bowel sounds Percussion/Palpation: abdomen soft; abdomen nontender, no guarding and abdomen not rigid Neurologic: PERRL, EOMI, accommodation nl, no face palsy, no dysarthria Results & Data Vital Signs (Past 12 Hours) Vital Signs Temp Pulse Resp BP Pulse Ox 05/22/19 15:11 20 95 05/22/19 15:10 99 05/22/19 14:34 87 L 05/22/19 12:50 36.6 C 97 H 22 88/60 L 98
[2019-05-22 17:23] LABS: Appearance Urine Clear (Clear); Bilirubin Urine Negative (Negative); Blood Urine Negative (Negative); Color Urine Dark Yellow; Glucose Urine UA Negative (Negative); Ketones Urine Negative (Negative); Leukocyte Esterase Urine Negative (Negative); Nitrite Urine Negative (Negative); Protein Urine Negative (Negative); Specific Gravity Urine 1.016 (1.000-1.030); Urobilinogen Urine Negative (Negative)
--- NOTE | 2019-05-22 17:26 | History & Physical Report ---
Date of Service May 22, 2019 Assessment & Plan (1) Acute on chronic combined systolic and diastolic CHF, NYHA class 4: (2) Ischemic cardiomyopathy: (3) Hypotension: This is a 58-year-old male who has significant past medical history of ischemic cardiomyopathy EF 20% AICD in place on continuous milrinone infusion, chronic systolic CHF, HTN, pulmonary HTN, CAD, hx of MSSA endocarditis, cirrhosis, CKD stage III, diet-controlled T2DM, history of tobacco abuse, history of VT arrest s/p ICD in 06/2018 who presents to [facility] secondary to weight gain and lethargy. In ED chest x-ray revealed pulmonary edema. Sodium 124, K2.8, chloride 98, BUN 21, creatinine 1.55. Initial troponin WNL, TSH elevated 9.02, but free T4 WNL. T bili elevated at 1.1, AST 18, ALT 7, alk phos 135, ammonia 34.0. EKG revealed sinus rhythm with first-degree AV block. He did receive IV potassium supplementation as well as 40 mg IV Lasix while in ED. admit to PCU Continue continuous milrinone infusion .375mcg/kg/min dosed at 88kg Discussed case with cardiology who recommends IV furosemide 80 mg 3 times daily Continue metolazone 5 mg twice daily Continue metoprolol, Aldactone and KCl supplementation (4) Acute hyponatremia: Acute on chronic hyponatremia Serum sodium 124 Continue IV Lasix, fluid restriction Repeat BMP 8 PM (5) Acute hypokalemia: K2.8 Received 10 M EQ K rider x2 in ED along with 40 M EQ p.o. Give additional 80meq KCL po x 1 now Repeat BMP at 10 PM Continue daily supplementation (6) CKD (chronic kidney disease), stage III: baseline Cr 1.5 BUN/creatinine 21 and 1.55 Monitor BMP in setting of aggressive diuresis (7) CAD (coronary artery disease): no chest pain/sob continue ASA, metoprolol (8) Cirrhosis: no signs of sx of hepatic encephalopathy ?if component of decompensated cirrhosis obtain US of abdomen for ascites (9) Diabetes mellitus, type II: 04/07/19 A1C 6.4 monitor (10) Anemia: H&H stable 9.1 and 26.2 Normocytic normochromic no signs or symptoms of bleeding, likely secondary to chronic disease Obtain anemia panel in a.m. with iron studies, vitamin B12 and folate (11) GERD (gastroesophageal reflux disease): continue PPI (12) DVT prophylaxis: Heparin SQ tid, SCD/teds Disposition: Admit to PCU Follow-up: PCP Dr. Oakes upon discharge Pt was seen and examined in collaboration with Dr. Hughes, please see addendum History of Present Illness Chief Complaint: Increased weight gain and lethargy. Primary Care Provider: Charles Oakes, DO This is a 58-year-old male who has significant past medical history of ischemic cardiomyopathy EF 20% AICD in place on continuous milrinone infusion, chronic systolic CHF, HTN, pulmonary HTN, CAD, cirrhosis, CKD stage III, diet-controlled T2DM, history of tobacco abuse, history of V. tach who presents to [facility] secondary to weight gain and lethargy. Of significance patient recently hospitalized at [facility] 05/09 to 05/12 secondary to acute on chronic systolic CHF and rhinovirus. He required Lasix drip for appropriate diuresis. On day of discharge he was 105 kg. He was recommended to continue admission but opted to be discharged to attend event. Today patient's weight is 111 kg. "I am full of fluid again." He admits to being noncompliant with medications. He denies any fever, chills, sweats, lightheadedness, dizziness, chest pain, shor tness breath or palpitations, nausea, vomiting, abdominal pain, dysuria, increased urgency or frequency with urination, melena, hematochezia, diarrhea. His last bowel movement was prior to arrival. He admits to not following fluid restriction. He has significant protuberant abdomen which he feels is unchanged. He is unable to sleep lying down and does sleep in recliner. Denies any significant orthopnea. Feels appetite is decreased. In ED chest x-ray revealed pulmonary edema. Sodium 124, K2.8, chloride 98, BUN 21, creatinine 1.55. Initial troponin WNL, TSH elevated 9.02, but free T4 WNL. T bili elevated at 1.1, AST 18, ALT 7, alk phos 135, ammonia 34.0. EKG revealed sinus rhythm with first-degree AV block. He did receive IV potassium supplementation as well as 40 mg IV Lasix while in ED. Past medical records reviewed, discussed case with ED provider Dr. Juan and Cardiology Dr. Deng Allergies Allergy/AdvReac Type Severity Reaction Status Date / Time atorvastatin Allergy Severe itching Verified 04/06/19 22:14 nafcillin Allergy Intermediate Rash Verified 04/06/19 21:51 piperacillin [From Zosyn] Allergy Intermediate Rash Verified 04/06/19 21:51 tazobactam [From Zosyn] Allergy Intermediate Rash Verified 04/06/19 21:51 bee venom protein (honey bee) Allergy Unknown Verified 04/06/19 21:51 hydromorphone [From Dilaudid] Allergy Unknown Verified 04/06/19 21:51 levofloxacin [From Levaquin] Allergy Hives Verified 04/06/19 21:51 Home Medications Home Medications Medication Instructions Recorded Confirmed Type Milrinone Lactate In Dextrose 88 kg IV UD 04/06/19 05/22/19 History acetaminophen [Tylenol Extra 500 mg PO Q6H PRN 04/06/19 05/22/19 History Strength] albuterol sulfate 2 puff INHALATION Q6 PRN 04/06/19 05/22/19 History albuterol sulfate 2.5 mg INHALATION Q4 PRN 04/06/19 05/22/19 History amiodarone [Pacerone] 200 mg PO DAILY 04/06/19 05/22/19 History aspirin [Aspir-81] 81 mg PO DAILY 04/06/19 05/22/19 History docusate sodium 100 mg PO BID PRN 04/06/19 05/22/19 History epinephrine [EpiPen] 0.3 mg IM UD PRN 04/06/19 05/22/19 History lorazepam [Ativan] 1 mg PO HS PRN 04/06/19 05/22/19 History magnesium oxide [MagOx] 400 mg PO BID 04/06/19 05/22/19 History metoprolol succinate [Toprol XL] 25 mg PO DAILY 04/06/19 05/22/19 History omeprazole 40 mg PO DAILY 04/06/19 05/22/19 History sertraline [Zoloft] 50 mg PO DAILY 04/06/19 05/22/19 History ursodiol [Actigall] 300 mg PO BID 04/06/19 05/22/19 History metolazone 5 mg PO BID 30 Days #60 tab 04/08/19 05/22/19 Rx potassium chloride [Klor-Con M20] 40 meq PO TID 30 Days #90 tab 04/08/19 05/22/19 Rx spironolactone [Aldactone] 25 mg PO DAILY 05/22/19 05/22/19 History torsemide 100 mg PO TID 05/22/19 05/22/19 History Past Med/Surg History Medical History Abdominal pain Acute on chronic HFrEF (heart failure with reduced ejection fraction) Acute on chronic systolic (congestive) heart failure Anemia (Chronic) Anxiety (Chronic) CAD (coronary artery disease) (Chronic) s/p stent LAD in 2004 Cardiac arrest (Resolved) 05/2018 Cirrhosis CKD (chronic kidney disease), stage III (Chronic) Diabetes mellitus, type II (Chronic) Dyslipidemia (Chronic) Elevated liver function tests (Chronic) 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 GERD (gastroesophageal reflux disease) (Chronic) History of acute renal failure History of tobacco use (Chronic) HTN (hypertension) (Chronic) Hypokalemia Hyponatremia Ischemic cardiomyopathy (Chronic) 05/2018 EF: 20-24% Pleural effusion on right Thrombocytopenia (Chronic) Surgical History History of heart artery stent ICD (implantable cardioverter-defibrillator) in place (Chronic) 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 at [facility] [place] ICD placed 06/23/18 at [facility] [place] Family History Other Coronary heart disease Social History Preferred Language: Iranian Communication Ability: Effective 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 Beliefs That Will Affect Care: None Current Living Situation: Spouse Current Living Situation Comment: home Other Information That Helps Us Care for You: No Feels Safe at Home: Yes Safety Concerns: Feels Safe At This Time Smoking Status: Current some day smoker Tobacco Type: cigarettes ; Cigarettes Per Day: 1 ; Do You Dip or Chew Tobacco: No ; Second Hand Exposure: No ; Tobacco Cessation Education Requested by Patient: No Hx Alcohol Use: No Hx Substance Use: No Review of Systems Review of Systems: All systems reviewed & are unremarkable except as noted in HPI & below Physical Exam Physical Exam: Constitutional: WD/WN, Chronically ill appearing M, vitals as above, NAD, sitting up in bed, pleasant, conversing easily Head: Normocephalic, Atraumatic Eyes: PERRL, conjunctivae normal, anicteric sclerae ENMT: external ear and nose normal, oropharynx normal Neck: trachea midline, no thyromegaly normal visual inspection Respiratory: normal respiratory effort, lungs clear to auscultation, no wheeze, rales, rhonchi. Normal insp/exp effort, no accessory muscle use Cardiovascular: Tachycardic rate, normal S1-S2, positive S4, bilateral +1 pretibial edema, bilateral venous insufficiency changes, but no overt cellulitis Vessels: no JVD or carotid bruit Chest: normal inspection of chest Abdomen: protuberant abdomen, +umbilical hernia, reducible, non tender, significant hernia supra umbilical non tender, normal bowel sounds, soft, nontender Musculoskeletal: no cyanosis or clubbing, extremities motor strength 5/5 Skin: no rashes, warm and dry normal turgor Neurologic: PERRL, EOMI, accommodation nl, no face palsy, no dysarthria CN's II-XI intact bilaterally and moves all extremities Psychiatric: A+Ox3, euthymic affect Lymphatic: no cervical or axillary lymphadenopathy : deferred Results & Data Vital Signs (Past 12 Hours) Vital Signs Temp Pulse Resp BP Pulse Ox 05/22/19 15:11 20 95 05/22/19 15:10 99 05/22/19 14:34 87 L 05/22/19 12:50 36.6 C 97 H 22 88/60 L 98 Laboratory Results Short CBC 05/22/19 Range/Units 12:54 WBC 5.99 (4.8-10.8) K/uL Hgb 9.1 L (14.0-18.0) g/dL Hct 26.2 L (42-52) % Plt Count 146 (130-400) K/uL BMP 05/22/19 14:41 Sodium 124 L Potassium 2.8 L Chloride 88 L Carbon Dioxide 27 BUN 21 H Creatinine 1.55 H Glucose 80 Calcium 7.6 L Cardiac Enzymes 05/22/19 Range/Units 14:41 Troponin I < 0.015 (0-0.045) ng/ml Liver Function 05/22/19 Range/Units 14:41 Total Bilirubin 1.1 H (0.2-1) mg/dl AST 18 (15-37) U/L ALT 7 L (12-78) U/L Alkaline Phosphatase 155 H (45-117) U/L Albumin 1.1 L (3.4-5.0) gm/dl Diagnostic Findings CXR: IMPRESSION: Pulmonary edema. Medications Administered Potassium Chloride (K Phuc / Wtr) 10 meq in 100 mls @ 100 mls/hr IV Q1H ROLANDO Stop: 05/22/19 17:29 Last Admin: 05/22/19 16:00 Dose: 100 mls/hr Documented by: [id number] Discontinued Medications Furosemide (Lasix) 40 mg IV NOW STA Stop: 05/22/19 15:23 Last Admin: 05/22/19 15:39 Dose: 40 mg Documented by: [id number] Potassium Chloride (Klor-Con M20) 40 meq PO NOW STA Stop: 05/22/19 16:02 Last Admin: 05/22/19 16:53 Dose: 40 meq Documented by: [id number] ECG Rate (beats per minute): 98 Rhythm: normal sinus Findings: + 1st degree AV block Code Status & VTE Plan Code Status Full Code VTE Prophylaxis Plan VTE Prophylaxis will be ordered: Yes Supervising Physician Co-Signing Physician Notes I have seen and examined the patient and have discussed the case with the provider above. I agree with the assessment and plan as stated with the following exceptions. 58 yo M with end stage systolic heart failure s/p ICD who presents to the ER with reports of swelling. He was recently hospitalized at [facility] and was on chronic milrinone infusions (came into the hospital on this) and requiring a Lasix drip at 40mg/hr. He left the hospital against medical advice to stay and continue with treatment. In the ER he was given Lasix 40mg IV but refused placement of a delong catheter. Output was around 600cc. He then received metolazone followed by Lasix 80 IV on the floor and 1-2 hours later, he has urinated another 200cc. His potassium has been replaced with IV and PO, however, he is now nauseous secondary to this per his report. A repeat BMP is pending around 2200. He is very hypotensive with a systolic pressure in the low 70s, and other than the nausea, is not symptomatic. On exam he appears disheveled and swollen but in no acute distress. He has no conversational dyspnea at rest. He has +JVD and coarse crackles throughout shila gs, worse at the bases. His heart sounds are distant and muffled, but S1/2 can be heard. He has a regular rate and rhythm. Abdomen is protuberant with a reducible umbilical hernia, nontender and soft. Lower extremities have 2+ pitting edema up to the lateral upper thighs-reports scrotal swelling but declines exam. Lower legs are a dusky red color and L knee has some healing cuts on it. He has edema on his upper arms, also. He is going to try some ice cream to help with his nausea, as he says this is what helps at home. Any further potassium replacement should be through his IV at this point until his nausea has improved. Continue with cardiology recommendations to keep going with Lasix 80 IV q8hr with metolazone 5 BID as there has been a urinary response. BMP pending this evening and will need to continue with electrolyte replacement as needed. Has a h/o cirrhosis and is pending an abdominal US to screen for ascites. At this time, he is too unstable to leave the floor so will cancel this. Patient denies any abdominal pain. Saul,
[2019-05-22] MEDS: MILRINONE LACTATE/D5W 20,000 MCG/100 ML BAG IV SCH (17:41)
[2019-05-22] MEDS ORDERED: GLUCAGON FOR INJ 1 MG VIAL SQ PRN (17:47)
[2019-05-22] MEDS ORDERED: ACETAMINOPHEN 325 MG TAB PO PRN (17:47)
[2019-05-22] MEDS ORDERED: ALBUTEROL 0.083% NEBU SOLN 3 ML VIAL INH PRN (17:47)
[2019-05-22] MEDS ORDERED: GLUCOSE 40% GEL 15 GM TUBE PO PRN (17:47)
[2019-05-22] MEDS ORDERED: POLYETHYLENE (MIRALAX) 17 GM PACK PO PRN (17:47)
[2019-05-22] MEDS ORDERED: ONDANSETRON INJ 2 MG/ML 2 ML VIAL IV PRN (17:47)
[2019-05-22] MEDS ORDERED: DOCUSATE SODIUM 100 MG CAP PO PRN (17:47)
[2019-05-22] MEDS ORDERED: CARBOHYDRATES FOR HYPOGLYCEMIA PO PRN (17:47)
[2019-05-22] MEDS ORDERED: GLUCOSE 10 TABS/TUBE PO PRN (17:47)
[2019-05-22] MEDS ORDERED: DEXTROSE 50% 50 ML SYRINGE IV PRN (17:47)
--- NOTE | 2019-05-22 18:16 | XRay Report ---
XR chest 1V portable CLINICAL HISTORY: Shortness of breath. COMPARISON STUDY: 05/22/2019 FINDINGS: The heart remains enlarged with a globular cardiac silhouette. There is a left-sided centra l venous catheter. There is a right-sided pacer/defibrillator. There is continued radiographic eviden ce of congestive failure with pulmonary edema. There is a right pleural effusion with associated righ t basilar airspace opacities, statistically representing focal edema or compressive atelectasis. A hollingsworth perimposed inflammatory process could obviously not be excluded.[ IMPRESSION: Cardiomegaly, and congestive failure with interstitial pulmonary edema. Persistent right pleural effusion with associated right basilar airspace opacities. Electronically signed by: Philip Quiros M.D. 05/22/2019 6:15 PM
[2019-05-22] MEDS ORDERED: LORazepam 1 MG TAB PO PRN (18:29)
[2019-05-22] MEDS: metOLazone 5 MG TABLET PO SCH ×2 (18:58→20:08)
[2019-05-22] MEDS: FUROSEMIDE 80 MG in SYRINGE 0 ML IV SCH ×2 (20:00→20:08)
[2019-05-22] MEDS ORDERED: metOLazone 5 MG TABLET PO SCH (21:00)
[2019-05-22] MEDS ORDERED: POTASSIUM CHLORIDE 20 MEQ TABCR PO ONE (21:00)
[2019-05-22] MEDS ORDERED: FUROSEMIDE 40 MG/4 ML VIAL IV SCH (21:00)
[2019-05-22] MEDS ORDERED: POTASSIUM CHLORIDE 20 MEQ TABCR PO SCH (21:00)
[2019-05-22] MEDS: HEPARIN SOD 5,000 UNIT/0.5 ML VIAL SQ SCH (21:14)
[2019-05-22] MEDS: MAGNESIUM OXIDE 400 MG TAB PO SCH (22:28)
[2019-05-22] MEDS: ursodioL 300 MG CAP PO SCH (22:28)
[2019-05-22 22:44] LABS: BUN Creatinine Ratio 13.6 (10-20); Calcium 7.3 mg/dl (8.5-10.1); Est GFR (African American) 58.1; Est GFR (Non-African American) 50.1; Potassium 3.3 mmol/L (3.5-5.1)
[2019-05-22] MEDS ORDERED: FAMOTIDINE 20 MG in SYRINGE 3 ML IV PRN (23:09)
[2019-05-23] MEDS: MILRINONE LACTATE/D5W 20,000 MCG/100 ML BAG IV SCH ×3 (00:55→22:39)
[2019-05-23] MEDS: HEPARIN SOD 5,000 UNIT/0.5 ML VIAL SQ SCH ×4 (04:58→22:08)
[2019-05-23 05:46] LABS: Basophils # (auto) 0.03 K/uL (0-0.2); Basophils % (auto) 0.5 %; Eosinophils # (auto) 0.76 K/uL (0-0.5); Eosinophils % (auto) 11.6 %; Hematocrit (blood only) 26.1 % (42-52); Hemoglobin 8.8 g/dL (14.0-18.0); Immature Granulocytes # (auto) 0.01 K/uL (0.00-0.02); Immature Granulocytes % (auto) 0.2 %; Lymphocytes # (auto) 0.23 K/uL (1.2-3.4); Lymphocytes % (auto) 3.5 %; Mean Corpuscular Hemoglobin 30.3 pg (25-34); Mean Corpuscular Hgb Conc 33.7 g/dL (32-36); Mean Platelet Volume 8.8 fL (7.4-10.4); Monocytes # (auto) 0.47 K/uL (0.11-0.59); Monocytes % (auto) 7.2 %; Neutrophils # (auto) 5.03 K/uL (1.4-6.5); Platelet Count 117 K/uL (130-400); RDW Coefficient of Variation 17.8 % (11.5-14.5); RDW Standard Deviation 58.6 fL (36.4-46.3); White Blood Count 6.53 K/uL (4.8-10.8)
[2019-05-23 06:18] LABS: Albumin Level 1.1 gm/dl (3.4-5.0); BUN Creatinine Ratio 12.4 (10-20); Calcium 7.2 mg/dl (8.5-10.1); Creatinine Clr Calc Pharmacy 67.2 ml/min; Est GFR (African American) 56.3; Est GFR (Non-African American) 48.6; Magnesium 1.7 mg/dl (1.8-2.4); Potassium 3.6 mmol/L (3.5-5.1)
[2019-05-23 06:21] LABS: Albumin Globulin Ratio 0.3 (0.9-2); Bilirubin,Total 1.3 mg/dl (0.2-1); Ferritin 473.1 ng/ml (8-388); Globulin 4.2 gm/dl (2.5-4.0); Total Protein 5.3 gm/dl (6.4-8.2)
[2019-05-23 06:37] LABS: Estimated Average Glucose 120 mg/dl; Hemoglobin A1C 5.8 % (4.5-5.6)
[2019-05-23 07:41] LABS: Folate (Folic Acid) 5.98 ng/ml (>5.38)
[2019-05-23] MEDS: ursodioL 300 MG CAP PO SCH ×2 (07:55→22:04)
[2019-05-23] MEDS: SPIRONOLACTONE 25 MG TAB PO SCH (07:55)
[2019-05-23] MEDS: POTASSIUM CHLORIDE 20 MEQ TABCR PO SCH ×3 (07:55→22:04)
[2019-05-23] MEDS: SERTRALINE HCL 50 MG TABLET PO SCH (07:55)
[2019-05-23] MEDS: MAGNESIUM OXIDE 400 MG TAB PO SCH ×2 (07:55→22:05)
[2019-05-23] MEDS: metOLazone 5 MG TABLET PO SCH ×2 (07:55→22:05)
[2019-05-23] MEDS: AMIODARONE 200 MG TAB PO SCH (07:56)
[2019-05-23] MEDS: PANTOprazole 40 MG TAB PO SCH (07:56)
[2019-05-23] MEDS: ASPIRIN 81 MG ECTAB PO SCH (07:56)
[2019-05-23] MEDS: METOPROLOL SUCC 25MG EXT REL TAB PO SCH ×2 (08:56→09:39)
[2019-05-23] MEDS: FUROSEMIDE 80 MG in SYRINGE 0 ML IV SCH ×2 (08:56→13:24)
--- NOTE | 2019-05-23 10:35 | Cardiology Progress Note ---
Date of Service May 23, 2019 Assessment & Plan (1) Acute on chronic combined systolic and diastolic CHF, NYHA class 4: (2) Ischemic cardiomyopathy: (3) Acute hypokalemia: (4) Acute hyponatremia: (5) End stage liver disease: (6) Hypotension: Continue IV Lasix 80 mg 3 times daily in addition to oral metolazone 5 mg twice daily. Follow fluid balance, daily weight, electrolytes, and GFR. Replace potassium as needed. Nursing staff instructed to give a.m. dose of metoprolol and amiodarone now. Subjective Patient seen and examined at the bedside. Feeling better overnight. Fluid balance negative approximately 1400 cc. Weight is 106 kg per bedside scale. Patient resting comfortably. Normal oxygen saturated noted on room air. Denies orthopnea or PND. No chest pain. Telemetry demonstrates sinus rhythm and sinus tachycardia with a heart rate of approximately 100 bpm. A.m. metoprolol held due to hypotension. Review of Systems Review of Systems: All systems reviewed & are unremarkable except as noted in HPI & below Physical Exam Constitutional: well developed and + ill appearing Eyes: PERRL, conjunctivae normal, anicteric sclerae Respiratory: Auscultation: + diminished lung sounds (At the bases bilaterally) and + rales Cardiovascular: Rate/Rhythm: regular rate and regular rhythm Heart Sounds: normal S1 and normal S2; no murmur Vessels: + JVD; no carotid bruit Extremities: + edema (1+ bilateral ankle edema with stasis changes) Gastrointestinal (Abdomen): Inspection/Auscultation: + abdomen distended and normal bowel sounds Percussion/Palpation: abdomen soft; abdomen nontender, no guarding and abdomen not rigid Neurologic: PERRL, EOMI, accommodation nl, no face palsy, no dysarthria Results & Data Vital Signs (Past 12 Hours) Vital Signs Temp Pulse Pulse Resp BP BP Pulse Ox 05/23/19 07:53 92/60 L 05/23/19 07:44 36.4 C L 100 H 18 80/51 L 91 05/23/19 03:57 36.4 C L 103 H 20 88/64 L 91 05/23/19 00:43 100 H 05/22/19 23:28 50 L 18 95 05/22/19 23:00 36.3 C L 111 H 22 90/68 L 90 05/22/19 22:51 82/46 L
[2019-05-23] MEDS: FUROSEMIDE 100 MG in DEXTROSE 5% 90 ML IV SCH (17:51)
--- NOTE | 2019-05-23 18:59 | Hospitalist Progress Note ---
Date of Service May 23, 2019 Assessment & Plan (1) Fluid overload: (1) Acute on chronic combined systolic and diastolic CHF, NYHA class 4: (2) Ischemic cardiomyopathy: (3) Hypotension: Per admitting service notes This is a 58-year-old male who has significant past medical history of ischemic cardiomyopathy EF 20% AICD in place on continuous milrinone infusion, chronic systolic CHF, HTN, pulmonary HTN, CAD, hx of MSSA endocarditis, cirrhosis, CKD stage III, diet-controlled T2DM, history of tobacco abuse, history of [place] arrest s/p ICD in 06/2018 who presents to [facility] secondary to weight gain and lethargy. In ED chest x-ray revealed pulmonary edema. Sodium 124, K2.8, chloride 98, BUN 21, creatinine 1.55. Initial troponin WNL, TSH elevated 9.02, but free T4 WNL. T bili elevated at 1.1, AST 18, ALT 7, alk phos 135, ammonia 34.0. EKG revealed sinus rhythm with first-degree AV block. He did receive IV potassium supplementation as well as 40 mg IV Lasix while in ED. 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 Lasix drip started Continue continuous milrinone infusion .375mcg/kg/min dosed at 88kg Continue metolazone and Aldactone Continue metoprolol and KCl supplementation (4) Acute hyponatremia: Acute on chronic hyponatremia Serum sodium 124, now 126 Continue IV Lasix, fluid restriction monitor (5) Acute hypokalemia: replaced, monitor (6) CKD (chronic kidney disease), stage III: baseline Cr 1.5 Monitor BMP in setting of aggressive diuresis (7) CAD (coronary artery disease): no chest pain/sob continue ASA, metoprolol (8) Cirrhosis: no signs of sx of hepatic encephalopathy (9) Diabetes mellitus, type II: 04/07/19 A1C 6.4 monitor (10) Anemia: H&H stable 9.1 and 26.2 Normocytic normochromic no signs or symptoms of bleeding, likely secondary to chronic disease iron 78, folate normal, vit b 12 normal (11) GERD (gastroesophageal reflux disease): continue PPI (12) DVT prophylaxis: Heparin SQ tid, SCD/teds Disposition: Admit to PCU Follow-up: PCP Dr. Oakes upon discharge Subjective Follow-up for volume overload, CHF exacerbation Resting in bedside chair, not in distress, comfortable States breathing is improved compared to yesterday Denies chest pain, dizziness, nausea No other symptoms Review of Systems Review of Systems: All systems reviewed & are unremarkable except as noted in HPI & below Physical Exam Physical Exam: General- oriented x 3, not in distress, speaks in sentences with no effort or accessory muscle use Head- atraumatic Eyes- PERRL, EOMI, anicteric ENT- oropharynx clear Neck- supple, no JVD, no adenopathy, no thyromegaly; carotids +2/2, no bruits appreciated Lungs-positive crackles at the bases, no wheezing Heart- normal rate, regular rhythm; no murmur, no gallop, no rub appreciated Abdomen- normal bowel sounds, nondistended, soft, nontender, no masses or hepatosplenomegaly Extremities-grade 2 lower leg edema, no calf tenderness; peripheral pulses intact Neuro- alert, oriented x 3; CN 2-12 grossly intact; motor 5/5 bilaterally;sensation 100% on all extremities; no other gross focal neurologic deficits Skin- warm & dry Results & Data Vital Signs (Past 12 Hours) Vital Signs Temp Pulse Resp BP Pulse Ox 05/23/19 15:24 36.6 C 92 H 23 104/69 95 05/23/19 11:41 36.5 C 100 H 18 92/63 L 96 05/23/19 07:53 92/60 L 05/23/19 07:44 36.4 C L 100 H 18 80/51 L 91 Laboratory Results Laboratory Results - last 24 hr 05/22/19 05/22/19 05/23/19 20:31 22:15 05:30 WBC 6.53 RBC 2.90 L Hgb 8.8 L Hct 26.1 L MCV 90.0 MCH 30.3 MCHC 33.7 RDW Std Deviation 58.6 H RDW Coeff of Yung 17.8 H Plt Count 117 L MPV 8.8 Immature Gran % (Auto) 0.2 Neut % (Auto) 77.0 Lymph % (Auto) 3.5 [place] % (Auto) 7.2 Eos % (Auto) 11.6 Baso % (Auto) 0.5 Immature Gran # (Auto) 0.01 Neut # (Auto) 5.03 Lymph # (Auto) 0.23 L [place] # (Auto) 0.47 Eos # (Auto) 0.76 H Baso # (Auto) 0.03 Sodium 125 L Potassium 3.3 L D Chloride 90 L Carbon Dioxide 27 Anion Gap 9.0 BUN 21 H Creatinine 1.52 H Est Cr Clr Drug Dosing 69.0 Est GFR ( Amer) 58.1 Est GFR (Non-Af Amer) 50.1 BUN/Creatinine Ratio 13.6 Glucose 86 POC Glucose 95 Estimat Average Glucose Hemoglobin A1c Calcium 7.3 L Magnesium Iron Transferrin Transferrin % Sat Ferritin Total Bilirubin AST ALT Alkaline Phosphatase Ammonia Total Protein Albumin Globulin Albumin/Globulin Ratio Vitamin B12 Folate 05/23/19 05/23/19 05/23/19 05:30 05:30 05:30 WBC RBC Hgb Hct MCV MCH MCHC RDW Std Deviation RDW Coeff of Yung Plt Count MPV Immature Gran % (Auto) Neut % (Auto) Lymph % (Auto) [place] % (Auto) Eos % (Auto) Baso % (Auto) Immature Gran # (Auto) Neut # (Auto) Lymph # (Auto) [place] # (Auto) Eos # (Auto) Baso # (Auto) Sodium 125 L Potassium 3.6 Chloride 90 L Carbon Dioxide 28 Anion Gap 7.0 BUN 19 H Creatinine 1.56 H Est Cr Clr Drug Dosing 67.2 Est GFR ( Amer) 56.3 Est GFR (Non-Af Amer) 48.6 BUN/Creatinine Ratio 12.4 Glucose 78 POC Glucose Estimat Average Glucose 120 Hemoglobin A1c 5.8 H Calcium 7.2 L Magnesium 1.7 L Iron 78 Transferrin 97 L Transferrin % Sat 57 H Ferritin 473.1 H Total Bilirubin 1.3 H AST 18 ALT 10 L Alkaline Phosphatase 156 H Ammonia Total Protein 5.3 L Albumin 1.1 L Globulin 4.2 H Albumin/Globulin Ratio 0.3 L Vitamin B12 1741 H Folate 5.98 05/23/19 05/23/19 05/23/19 05:33 07:19 11:15 WBC RBC Hgb Hct MCV MCH MCHC RDW Std Deviation RDW Coeff of Yung Plt Count MPV Immature Gran % (Auto) Neut % (Auto) Lymph % (Auto) [place] % (Auto) Eos % (Auto) Baso % (Auto) Immature Gran # (Auto) Neut # (Auto) Lymph # (Auto) [place] # (Auto) Eos # (Auto) Baso # (Auto) Sodium Potassium Chloride Carbon Dioxide Anion Gap BUN Creatinine Est Cr Clr Drug Dosing Est GFR ( Amer) Est GFR (Non-Af Amer) BUN/Creatinine Ratio Glucose POC Glucose 103 H 110 H Estimat Average Glucose Hemoglobin A1c Calcium Magnesium Iron Transferrin Transferrin % Sat Ferritin Total Bilirubin AST ALT Alkaline Phosphatase Ammonia 46.0 H Total Protein Albumin Globulin Albumin/Globulin Ratio Vitamin B12 Folate 05/23/19 05/23/19 13:23 16:29 WBC RBC Hgb Hct MCV MCH MCHC RDW Std Deviation RDW Coeff of Yung Plt Count MPV Immature Gran % (Auto) Neut % (Auto) Lymph % (Auto) [place] % (Auto) Eos % (Auto) Baso % (Auto) Immature Gran # (Auto) Neut # (Auto) Lymph # (Auto) [place] # (Auto) Eos # (Auto) Baso # (Auto) Sodium 126 L Potassium Chloride Carbon Dioxide Anion Gap BUN Creatinine Est Cr Clr Drug Dosing Est GFR ( Amer) Est GFR (Non-Af Amer) BUN/Creatinine Ratio Glucose POC Glucose 101 H Estimat Average Glucose Hemoglobin A1c Calcium Magnesium Iron Transferrin Transferrin % Sat Ferritin Total Bilirubin AST ALT Alkaline Phosphatase Ammonia Total Protein Albumin Globulin Albumin/Globulin Ratio Vitamin B12 Folate (1) Fluid overload Hypervolemia type: unspecified Qualified Code(s): E87.70 - Fluid overload, unspecified
[2019-05-23 20:47] LABS: BUN Creatinine Ratio 11.7 (10-20); Calcium 7.6 mg/dl (8.5-10.1); Creatinine Clr Calc Pharmacy 59.9 ml/min; Est GFR (Non-African American) 43.2
[2019-05-24] MEDS: HEPARIN SOD 5,000 UNIT/0.5 ML VIAL SQ SCH ×4 (06:31→20:59)
[2019-05-24] MEDS: metOLazone 5 MG TABLET PO SCH (07:43)
[2019-05-24] MEDS: POTASSIUM CHLORIDE 20 MEQ TABCR PO SCH ×3 (07:43→20:53)
[2019-05-24] MEDS: MAGNESIUM OXIDE 400 MG TAB PO SCH ×2 (07:43→20:53)
[2019-05-24] MEDS: ursodioL 300 MG CAP PO SCH ×2 (07:44→20:53)
[2019-05-24] MEDS: SPIRONOLACTONE 25 MG TAB PO SCH (07:44)
[2019-05-24] MEDS: AMIODARONE 200 MG TAB PO SCH (07:44)
[2019-05-24] MEDS: SERTRALINE HCL 50 MG TABLET PO SCH (07:44)
[2019-05-24] MEDS: PANTOprazole 40 MG TAB PO SCH (07:44)
[2019-05-24] MEDS: ASPIRIN 81 MG ECTAB PO SCH (07:44)
[2019-05-24 08:58] LABS: BUN Creatinine Ratio 10.7 (10-20); Calcium 7.8 mg/dl (8.5-10.1); Creatinine Clr Calc Pharmacy 53.7 ml/min; Est GFR (African American) 44.1; Magnesium 1.7 mg/dl (1.8-2.4); Potassium 4.1 mmol/L (3.5-5.1)
[2019-05-24] MEDS: MILRINONE LACTATE/D5W 20,000 MCG/100 ML BAG IV SCH ×2 (09:16→23:46)
--- NOTE | 2019-05-24 10:36 | Cardiology Progress Note ---
Date of Service May 24, 2019 Assessment & Plan (1) Acute on chronic combined systolic and diastolic CHF, NYHA class 4: (2) Cardiorenal syndrome: (3) Acute on chronic renal failure: (4) Ischemic cardiomyopathy: (5) Acute hyponatremia: (6) End stage liver disease: (7) Hypotension: Patient with decreasing urine output, increasing creatinine and hypotension overnight. IV Lasix infusion placed on hold due to hypotension. Due to progressive renal dysfunction, recommend reducing dose of milrinone infusion to 0.25 mcg/kg/min. Restart Lasix infusion if blood pressure improves. If hemodynamics and renal function do not improve, consider addition of IV dopamine infusion. I had a long discussion with the patient regarding his complex cardiovascular disease and poor prognosis. Discussed potential referral to palliative care/hospice. Patient agreeable to palliative care consult at this time. Subjective Patient seen and examined at the bedside. Intravenous Lasix infusion discontinued overnight due to hypotension. Fluid balance minimally negative per chart review, weight is down approximately 1 kg. Patient notes fatigue. Denies shortness of breath or chest pain at rest. No lightheadedness or dizziness. He has poor insight into his clinical condition. Review of Systems Constitutional: + fatigue and + weakness Respiratory: + dyspnea on exertion Cardiovascular: + dyspnea and + orthopnea Gastrointestinal: + bloating and + early satiety Physical Exam Constitutional: well developed and + ill appearing Eyes: PERRL, conjunctivae normal, anicteric sclerae Respiratory: Auscultation: + diminished lung sounds (At the bases bilaterally) and + rales Cardiovascular: Rate/Rhythm: regular rate and regular rhythm Heart Sounds: normal S1 and normal S2; no murmur Vessels: + JVD; no carotid bruit Extremities: + edema (1+ bilateral ankle edema with stasis changes) Gastrointestinal (Abdomen): Inspection/Auscultation: + abdomen distended and normal bowel sounds Percussion/Palpation: abdomen soft; abdomen nontender, no guarding and abdomen not rigid Neurologic: PERRL, EOMI, accommodation nl, no face palsy, no dysarthria Results & Data Vital Signs (Past 12 Hours) Vital Signs Temp Pulse Resp BP BP Pulse Ox 05/24/19 09:26 76/54 L 05/24/19 07:45 82/54 L 05/24/19 06:57 36.6 C 84 24 77/45 L 97 05/24/19 05:12 36.7 C 97 H 18 85/42 L 94 05/23/19 23:29 36.3 C L 103 H 18 86/55 L 96 (1) Cardiorenal syndrome Heart failure presence: with heart failure Hypertensive chronic kidney disease stage: stage 1-4 or unspecified chronic kidney disease Qualified Code(s): I13.0 - Hypertensive heart and chronic kidney disease with heart failure and stage 1 through stage 4 chronic kidney disease, or unspecified chronic kidney disease (2) Acute on chronic renal failure Acute renal failure type: unspecified Chronic kidney disease stage: stage 3 (moderate) Qualified Code(s): N17.9 - Acute kidney failure, unspecified; N18.3 - Chronic kidney disease, stage 3 (moderate) (3) Hypotension Hypotension type: unspecified hypotension type Qualified Code(s): I95.9 - Hypotension, unspecified
[2019-05-24] MEDS ORDERED: MAGNESIUM SULFATE / D5W 1 GM/100 ML BAG IV ONE (10:45)
--- NOTE | 2019-05-24 13:01 | Palliative Care Consultation ---
Date of Consultation May 24, 2019 Assessment & Plan (1) Goals of care, counseling/discussion: -58 year old male patient with PMH chronic heart failure with EF 20-25%, CKD stage III, GERD, ischemic cardiomyopathy, NAFLD with cirrhosis and others, presented to the hospital in acute decompensated heart failure with volume overload. He is being diuresed and continues on his home Primacor infusion. Patient has been on home Primacor infusion since beginning of the year. He continues to decompensate and has worsening renal function. He was in [facility] in march for decompensated heart failure, and was also in [facility] since then. He reportedly left [facility] before medically cleared to attend a family function-- apparently he was 10lbs positive at that time. He now returns with worsening condition and volume overload. As stated, his kidneys are worsening, creatinine is now 1.9 (1.55 on admission). Patient's overall functional status is also declining. Palliative care was consulted on last admission-- patient did not want to change his code status or shift goals of car. Apparently he was on hospice previously for a very short amount of time, and immediately revoked. Palliative care is reconsulted now to continue discussing goals of care. -Patient known to palliative care service from previous admission. -Met with patient today in room 229-2. He is quite drowsy, but oriented. Fell asleep several times during our conversation. Patient states he had to leave [facility] to attend a family function, and continued to have increased edema and SOB. He states he feels much better now and feels like his swelling is much improved from a fluid standpoint, but overall declining as far as strength and quality of life. -Patient stated to me, "I guess I'm just going to keep getting weaker until I ." and he stated he feels like the doctors "are giving up." We talked at length about his medical conditions and what is happening with his body. Explained that with worsening cardiorenal syndrome and patient having already been on a long-term home milrinone infusion, there is little else to offer. He continues on diuretics and does seem to be putting some fluid out, but again his renal function is worsening. -Patient stated, "I want to prolong my life as long as possible." He wants to go home, but also states he would call 911 and come back to the hospital as soon as he worsened. He wants to remain a full code, but also said he knows he could be at the end of life. Patient is obviously struggling on multiple levels. I offered to call his and talk to her about the situation and give her input. She is unable to drive, so does not visit the hospital. Patient states he thinks it will upset her, but I could give her a call. -For now, patient to remain FULL CODE and full treatment. Cardiology following and managing diuretics. He is on the Primacor infusion. -We will follow closely. (2) Acute on chronic combined systolic and diastolic CHF, NYHA class 4: (3) Acute on chronic renal failure: Acute renal failure type: unspecified Chronic kidney disease stage: stage 3 (moderate) Qualified Code(s): N17.9 - Acute kidney failure, unspecified; N18.3 - Chronic kidney disease, stage 3 (moderate) (4) Ischemic cardiomyopathy: History of Present Illness Reason for Consultation: Goals of care Requesting Physician: Dr. Savage Attending Physician: Natalie Savage MD History of Present Illness This 58 year old male patient with PMH chronic heart failure with EF 20-25%, CKD stage III, GERD, ischemic cardiomyopathy, NAFLD with cirrhosis and others, presented to the hospital in acute decompensated heart failure with volume overload. He is being diuresed and continues on his home Primacor infusion. Patient has been on home Primacor infusion since beginning of the year. He continues to decompensate and has worsening renal function. He was in [facility] in march for decompensated heart failure, and was also in [facility] since then. He reportedly left [facility] before medically cleared to attend a family function-- apparently he was 10lbs positive at that time. He now returns with worsening condition and volume overload. As stated, his kidneys are worsening, creatinine is now 1.9 (1.55 on admission). Patient's overall functional status is also declining. Palliative care was consulted on last admission-- patient did not want to change his code status or shift goals of car. Apparently he was on hospice previously for a very short amount of time, and immediately revoked. Palliative care is reconsulted now to continue discussing goals of care. Thank you kindly for this consult. Palliative care team will follow as needed. Allergies Allergy/AdvReac Type Severity Reaction Status Date / Time atorvastatin Allergy Severe itching Verified 04/06/19 22:14 nafcillin Allergy Intermediate Rash Verified 04/06/19 21:51 piperacillin [From Zosyn] Allergy Intermediate Rash Verified 04/06/19 21:51 tazobactam [From Zosyn] Allergy Intermediate Rash Verified 04/06/19 21:51 bee venom protein (honey bee) Allergy Unknown Verified 04/06/19 21:51 hydromorphone [From Dilaudid] Allergy Unknown Verified 04/06/19 21:51 levofloxacin [From Levaquin] Allergy Hives Verified 04/06/19 21:51 Home Medications Home Medications Medication Instructions Recorded Confirmed Type Milrinone Lactate In Dextrose 88 kg IV UD 04/06/19 05/22/19 History acetaminophen [Tylenol Extra 500 mg PO Q6H PRN 04/06/19 05/22/19 History Strength] albuterol sulfate 2 puff INHALATION Q6 PRN 04/06/19 05/22/19 History albuterol sulfate 2.5 mg INHALATION Q4 PRN 04/06/19 05/22/19 History amiodarone [Pacerone] 200 mg PO DAILY 04/06/19 05/22/19 History aspirin [Aspir-81] 81 mg PO DAILY 04/06/19 05/22/19 History docusate sodium 100 mg PO BID PRN 04/06/19 05/22/19 History epinephrine [EpiPen] 0.3 mg IM UD PRN 04/06/19 05/22/19 History lorazepam [Ativan] 1 mg PO HS PRN 04/06/19 05/22/19 History magnesium oxide [MagOx] 400 mg PO BID 04/06/19 05/22/19 History metoprolol succinate [Toprol XL] 25 mg PO DAILY 04/06/19 05/22/19 History omeprazole 40 mg PO DAILY 04/06/19 05/22/19 History sertraline [Zoloft] 50 mg PO DAILY 04/06/19 05/22/19 History ursodiol [Actigall] 300 mg PO BID 04/06/19 05/22/19 History metolazone 5 mg PO BID 30 Days #60 tab 04/08/19 05/22/19 Rx potassium chloride [Klor-Con M20] 40 meq PO TID 30 Days #90 tab 04/08/19 05/22/19 Rx spironolactone [Aldactone] 25 mg PO DAILY 05/22/19 05/22/19 History torsemide 100 mg PO TID 05/22/19 05/22/19 History Patient History Medical History Abdominal pain Acute on chronic HFrEF (heart failure with reduced ejection fraction) Acute on chronic systolic (congestive) heart failure Anemia (Chronic) Anxiety (Chronic) CAD (coronary artery disease) (Chronic) s/p stent LAD in 2004 Cardiac arrest (Resolved) 05/2018 Cirrhosis CKD (chronic kidney disease), stage III (Chronic) Diabetes mellitus, type II (Chronic) Dyslipidemia (Chronic) Elevated liver function tests (Chronic) 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 GERD (gastroesophageal reflux disease) (Chronic) History of acute renal failure History of tobacco use (Chronic) HTN (hypertension) (Chronic) Hypokalemia Hyponatremia Ischemic cardiomyopathy (Chronic) 05/2018 EF: 20-24% Pleural effusion on right Thrombocytopenia (Chronic) Surgical History History of heart artery stent ICD (implantable cardioverter-defibrillator) in place (Chronic) 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 at [facility] ICD placed 06/23/18 at [facility] Family History Other Coronary heart disease Social History Preferred Language: Kazakh Communication Ability: Effective Customer Acquisition Manager Required: No Beliefs That Will Affect Care: None Current Living Situation: Spouse Current Living Situation Comment: home Other Information That Helps Us Care for You: No Feels Safe at Home: Yes Safety Concerns: Feels Safe At This Time Smoking Status: Current some day smoker Tobacco Type: cigarettes ; Cigarettes Per Day: 1 ; Do You Dip or Chew Tobacco: No ; Second Hand Exposure: No ; Tobacco Cessation Education Requested by Patient: No Hx Alcohol Use: No Hx Substance Use: No Review of Systems Review of Systems: Const: + weakness Resp: + SOB with exertion Cardio: No chest pain, + upper and lower extremity edema GI: No abdominal pain, no N/V MS: No musculoskeletal pain Neuro: No confusion Psych: No anxiety Physical Exam Constitutional: + ill appearing (chronically) appears older than stated age ENMT: external ear and nose normal, oropharynx normal Respiratory: normal respiratory effort; no labored breathing Cardiovascular: Rate/Rhythm: + tachycardic Extremities: + edema (right arm +4 pitting edema, left arm +2 pitting edema) Gastrointestinal (Abdomen): Inspection/Auscultation: + abdomen distended (but soft) and normal bowel sounds Percussion/Palpation: abdomen nontender Skin: + jaundice Neurologic: moves all extremities and awake (but drowsy); not confused Psychiatric: Orientation: alert and oriented x 3 Insight: + limited insight Judgement: + limited judgement Results & Data Vital Signs (Past 12 Hours) Vital Signs Temp Pulse Resp BP BP Pulse Ox 05/24/19 12:00 36.4 C L 99 H 20 91/60 L 95 05/24/19 11:49 80/50 L 05/24/19 09:26 76/54 L 05/24/19 07:45 82/54 L 05/24/19 06:57 36.6 C 84 24 77/45 L 97 05/24/19 05:12 36.7 C 97 H 18 85/42 L 94 Time Spent Midlevel 50 minutes with >50% of the time spent at bedside with patient discussing condition and GOC.
[2019-05-24] MEDS: METOPROLOL SUCC 25MG EXT REL TAB PO SCH (13:28)
[2019-05-24] MEDS: FUROSEMIDE 100 MG in DEXTROSE 5% 90 ML IV SCH ×2 (13:29→13:31)
--- NOTE | 2019-05-24 15:02 | Hospitalist Progress Note ---
Date of Service May 24, 2019 Assessment & Plan (1) Fluid overload: (1) Acute on chronic combined systolic and diastolic CHF, NYHA class 4: (2) Ischemic cardiomyopathy: (3) Hypotension: Per admitting service notes This is a 58-year-old male who has significant past medical history of ischemic cardiomyopathy EF 20% AICD in place on continuous at home milrinone infusion , chronic systolic CHF, HTN, pulmonary HTN, CAD, hx of MSSA endocarditis, cirrhosis, CKD stage III, diet-controlled T2DM, history of tobacco abuse, history of VT arrest s/p ICD in 06/2018 who presents to [facility] secondary to weight gain and lethargy. In ED chest x-ray revealed pulmonary edema. Sodium 124, K2.8, chloride 98, BUN 21, creatinine 1.55. Initial troponin WNL, TSH elevated 9.02, but free T4 WNL. T bili elevated at 1.1, AST 18, ALT 7, alk phos 135, ammonia 34.0. EKG revealed sinus rhythm with first-degree AV block. He did receive IV potassium supplementation as well as 40 mg IV Lasix while in ED. 05/23/19 Site Safety Coordinator consulted Lasix drip started Continue continuous milrinone infusion .375mcg/kg/min dosed at 88kg Continue metolazone and Aldactone Continue metoprolol and KCl supplementation 05/24/19 Lasix drip has to be discontinued as patient remained persistently hypotensive Milrinone infusion rate decreased Beta-derick with holding parameters, patient did not receive any dose this morning as systolic blood pressure remains in 80s Multiple discussion by cardiology regarding poor prognosis, Patient is likely to continue to decline over the next weeks/months(has been getting admitted in the hospital every 4-6 weeks for volume overload) Very limited treatment options available On maximum medical management, may have to be titrated secondary to persistent hypotension, renal failure Patient was seen by palliative care team in last admission, declined for hospice care Palliative care consulted again regarding prognosis, and goal of care-patient refused to explore the options He believes: "He feels fine now, and still has lot of unfinished business to do" very reluctant to accept or discussed regarding the gravity of his illness Patient is awake and alert, able to make his own decisions We will continue supportive care Patient remains full code as per his decision (4) Acute hyponatremia: Acute on chronic hyponatremia IV Lasix kept on hold secondary to hypotension Continue to follow lab (5) Acute hypokalemia: replaced, monitor (6) CKD (chronic kidney disease), stage III: Acute renal failure in his CKD stage III baseline Cr 1.5 6 on hold secondary to hypotension (7) CAD (coronary artery disease): no chest pain/sob continue ASA, metoprolol (8) Cirrhosis: Normal alcoholic steatohepatitis no signs of sx of hepatic encephalopathy (9) Diabetes mellitus, type II: 04/07/19 A1C 6.4 monitor (10) Anemia: H&H stable 9.1 and 26.2 Normocytic normochromic no signs or symptoms of bleeding, likely secondary to chronic disease iron 78, folate normal, vit b 12 normal (11) GERD (gastroesophageal reflux disease): continue PPI (12) DVT prophylaxis: Heparin SQ CODE STATUS: Full code Discussed with patient getting poor outcome of chest compression mechanical ventilation, dialysis in his setting of cardiopulmonary arrest, renal failure Patient wants to proceed with full CODE STATUS -wants everything possible to be done if his condition declines Disposition: Very poor prognosis, Continue to monitor in PCU Subjective Patient remains in recliner, has been sleeping on recliner for past several months for significant orthopnea Per nursing, patient noted to be significantly shortness of breath, dyspnea on exertion with minimum activity Patient denies of any symptoms at present, denies of feeling tired or shortness of breath(although he was complaining of being very tired and fatigue to the nursing and electronic tester earlier) Patient remains very defensive about his symptoms/comments that he feels well, and getting better Discussed briefly regarding poor prognosis-due to end-stage cardiomyopathy, which was updated by cardiology earlier as well Patient has very poor outlook regarding his disease, illness/ Thinks that he is doing well, Does not want consider palliative care, or hospice Wants to know when he can be discharged home Physical Exam Constitutional: well developed and + ill appearing (chronically) Eyes: PERRL, conjunctivae normal, anicteric sclerae ENMT: external ear and nose normal, oropharynx normal Respiratory: normal respiratory effort; no labored breathing Auscultation: + diminished lung sounds (At the bases bilaterally) and + rales Cardiovascular: Rate/Rhythm: regular rate, regular rhythm and + tachycardic Heart Sounds: normal S1 and normal S2; no murmur Vessels: + JVD; no carotid bruit Extremities: + edema (right arm +4 pitting edema, left arm +2 pitting edema) Gastrointestinal (Abdomen): Inspection/Auscultation: + abdomen distended (but soft) and normal bowel sounds Percussion/Palpation: abdomen soft; abdomen nontender, no guarding and abdomen not rigid Skin: + jaundice Neurologic: PERRL, EOMI, accommodation nl, no face palsy, no dysarthria moves all extremities and awake (but drowsy); not confused Psychiatric: Orientation: alert and oriented x 3 Insight: + limited insight Judgement: + limited judgement Results & Data Vital Signs (Past 12 Hours) Vital Signs Temp Pulse Resp BP BP Pulse Ox 05/24/19 13:00 88/56 L 05/24/19 12:00 36.4 C L 99 H 20 91/60 L 95 05/24/19 11:49 80/50 L 05/24/19 09:26 76/54 L 05/24/19 07:45 82/54 L 05/24/19 06:57 36.6 C 84 24 77/45 L 97 05/24/19 05:12 36.7 C 97 H 18 85/42 L 94 (1) Fluid overload Hypervolemia type: unspecified Qualified Code(s): E87.70 - Fluid overload, unspecified
[2019-05-25 01:09] LABS: BUN Creatinine Ratio 9.7 (10-20); Blood Urea Nitrogen 20 mg/dl (7-18); Calcium 7.8 mg/dl (8.5-10.1); Carbon Dioxide 29 mmol/L (21-32); Chloride 93 mmol/L (98-107); Creatinine Clr Calc Pharmacy 48.8 ml/min; Est GFR (African American) 39.3; Est GFR (Non-African American) 33.9; Glucose 96 mg/dl (70-99); Magnesium 1.9 mg/dl (1.8-2.4); Sodium 127 mmol/L (136-145); Troponin I < 0.015 ng/ml (0-0.045)
[2019-05-25] MEDS: HEPARIN SOD 5,000 UNIT/0.5 ML VIAL SQ SCH ×3 (06:22→21:27)
[2019-05-25 06:23] LABS: Hematocrit (blood only) 26.6 % (42-52); Mean Corpuscular Hemoglobin 30.7 pg (25-34); Mean Corpuscular Hgb Conc 33.8 g/dL (32-36); Mean Corpuscular Volume 90.8 fL (80-100); RDW Coefficient of Variation 18.1 % (11.5-14.5); RDW Standard Deviation 60.2 fL (36.4-46.3); Red Blood Count 2.93 M/uL (4.7-6.1)
[2019-05-25 06:46] LABS: Platelet Count 88 K/uL (130-400)
[2019-05-25 06:49] LABS: Platelet Estimate Decreased (Normal)
[2019-05-25 06:54] LABS: BUN Creatinine Ratio 9.1 (10-20); Calcium 7.9 mg/dl (8.5-10.1); Creatinine Clr Calc Pharmacy 47.2 ml/min; Est GFR (African American) 37.8; Est GFR (Non-African American) 32.6; Magnesium 1.8 mg/dl (1.8-2.4); Potassium 5.2 mmol/L (3.5-5.1)
[2019-05-25] MEDS: AMIODARONE 200 MG TAB PO SCH (08:51)
[2019-05-25] MEDS: MAGNESIUM OXIDE 400 MG TAB PO SCH (08:52)
[2019-05-25] MEDS: PANTOprazole 40 MG TAB PO SCH (08:52)
[2019-05-25] MEDS: SERTRALINE HCL 50 MG TABLET PO SCH (08:52)
[2019-05-25] MEDS: POTASSIUM CHLORIDE 20 MEQ TABCR PO SCH (08:52)
[2019-05-25] MEDS: ASPIRIN 81 MG ECTAB PO SCH (08:52)
[2019-05-25] MEDS: METOPROLOL SUCC 25MG EXT REL TAB PO SCH (08:53)
[2019-05-25] MEDS: ursodioL 300 MG CAP PO SCH (08:53)
--- NOTE | 2019-05-25 09:03 | Critical Care Consultation ---
Date of Consultation May 25, 2019 Assessment & Plan (1) Admitted to intensive care unit: Reason Critically Ill: 58-year-old male here for dopamine infusion 2/2 to ARF in the setting of ckd and endstage chf . Past medical history significant for ischemic cardiomyopathy EF 20% AICD in place on continuous milrinone infusion, chronic systolic CHF, HTN, pulmonary HTN, CAD, cirrhosis, CKD stage III, diet-controlled T2DM, history of tobacco abuse, history of V. tach Neuro: -[facility] ICU: NEGATIVE -Intermittently somnolent likely related to his end-stage CHF and poor perfusion of his brain Cardiac: Acute on chronic combined systolic and diastolic CHF NYHA a class IV Patient has a history of chronic congestive heart failure. Was placed on a milrinone infusion approximately 1 year ago. Over the past year his condition has progressively declined to his current situation where he is requiring hospitalization every 4 to 6 weeks. As an outpatient he is not been compliant with fluid restrictions and recommended diet or medications. Patient became hypotensive leading to ARF on milrinone now requiring dopamine support to maintain pressures. -Dopamine 2.0 mcg/kg/min -Continue milrinone Respiratory: Pulmonary edema secondary to CHF On discharge from most recent admission patient weighed 105 kg on admission to our hospital weight 112. He was aggressively diuresed on the general medical floors with 80 mg of IV Lasix 3 times daily in addition oral metolazone 5 mg twice daily. Ultimately he ended up becoming hypotensive and progressing to ARF. Since that time Lasix has been held. Currently saturating well on 3 L nasal cannula. -Prn o2 as needed, wean as tolerated -monitor for si/sx of worsening respiratory function GI: - Heart Healthy DM II diet Cirrhosis: Liver ultrasound obtained during this admission demonstrated cirrhosis. On admission the ICU patient had an elevated ammonia level. He is not currently on lactulose. Start lactulose 20 g p.o. 3 times daily Ascites secondary to cirrhosis Patient's physical exam demonstrated ascites, attempted paracentesis removed 2 L of fluid but had to stop secondary to hypotension and pain. -Follow up labs on peritoneal fluid -Monitor for signs and symptoms of recurrence of ascites RENAL/LYTES: Acute renal failure in the setting of chronic kidney disease stage III Patient was transfer the ICU secondary to worsening renal function. On admission creatinine was 1.55 increased to 1.91. Patient was transferred to the ICU for dopamine infusion in hopes that would increase renal perfusion and increased urine output. -CR 2.1, trend BMP -UOP decreasing -Replace lytes as needed. : - No concerns at this time. ENDO: HEME: - Stable H&H. ID: [id number] concern for started on cefepime -continue abx -Monitor fever curve. INTEGUMENTARY: -no concerns LINES/IV ACCESS: -PIVs intact. DVT PROPHYLAXIS: -contra in setting of cirrohosis Dispo:ICU Thank you for allowing us to be part of this patient's care. Please refer to Dr. Chávez's documentation for any further recommendations. (2) Cardiorenal syndrome: (3) Hypotension: (4) Ischemic cardiomyopathy: (5) Acute on chronic combined systolic and diastolic CHF, NYHA class 4: (6) Decompensated heart failure: (7) Diabetes mellitus, type II: (8) CKD (chronic kidney disease), stage III: (9) HTN (hypertension): (10) CAD (coronary artery disease): Supervising Physician Co-Signing Physician Notes Dr. Flores was the resident-physician during care of patient. I separately evaluated patient for mclain portions of the history and the exam. I was present during the critical portion of medical decision making, and I discussed the case with the resident. I generally agree with the findings and plan except for any additions/exceptions noted. This is an unfortunate 58-year-old male with a past medical history of systolic heart failure secondary to coronary artery disease and alcohol abuse, cirrhosis, CKD and depression originally presented to the hospital due to pulmonary edema. He has been diuresed for a period of time he is chronically on milrinone. He has been going to worsening renal failure. I was called by cardiology to assist in his care given that they wish to start him on dopamine for his renal failure. He also has hyperammonemia related to his cirrhosis. He is not on lactulose at this time and I have taken liberty to start the lactulo se. I am also checking a BMP, proBNP, lactate, pro calcitonin level as well. He is hypotensive but likely this is close to his baseline given his severe systolic heart failure. He does have a central line in place that has been used at home and we will use this to administer pressors as needed. After lengthy discussion with him, his and palliative care, the patient has decided to be DNR/DNI. He was apparently on hospice for a brief period of time and there appears to be a misunderstanding what hospice actually means for him. I did perform a paracentesis today and removed 2 L of fluid. Procedure was aborted due to pain and hypotension. We have sent the fluid for culture, cell counts and serum albumin ascitic albumin gradient. His prognosis overall is extremely poor and it appears that his baseline is also quite poor. I have personally spent 60 minutes of critical care time in the direct management of this patient. This is a life/limb threatening event. This includes time spent evaluating patient, direct bedside care, chart review, placing orders, interpretation of diagnostic studies, discussion with consultants, patient, and/or family members regarding treatment decisions, as well as other required patient management activities. This time is exclusive of all separately billable procedures, and teaching time and separate from and in addition to any other critical care service time. History of Present Illness Attending Physician: Natalie Savage MD History of Present Illness 58-year-old male who has significant past medical history of ischemic cardiomyopathy EF 20% AICD in place on continuous milrinone infusion, chronic systolic CHF, HTN, pulmonary HTN, CAD, cirrhosis, CKD stage III, diet-controlled T2DM, history of tobacco abuse, history of V. tach who presented to [facility] secondary to weight gain and lethargy on 05/22. He was recently hospitalized at [facility] secondary to acute on chronic CHF and rhinovirus. On the day of discharge he was 105 kg, on admission the patient's weight was 111 kg. In the ED a chest x-ray revealed pulmonary edema, hyponatremia, hypokalemia, TSH of 9.02 with a normal free T4. He was admitted to the hospital for further evaluation and management and cardiology was consulted given the history of the milrinone drip. While hospitalized cardiology recommended IV Lasix 80 mg 3 3 times daily in addition oral metolazone 5 mg twice daily. Patient had decreased urine output, increasing creatinine, episodes of hypotension. Lasix was held milrinone was reduced secondary to worsening renal function. On 05/24 palliative care was consulted and after an extensive discussion with the patient he remained full code. His renal function continued to worsen, and cardiology recommended transfer to the ICU for dopamine infusion in hopes that he could improve his renal function. ICU team was consulted for further evaluation and management of this complicated patient. Allergies Allergy/AdvReac Type Severity Reaction Status Date / Time atorvastatin Allergy Severe itching Verified 04/06/19 22:14 nafcillin Allergy Intermediate Rash Verified 04/06/19 21:51 piperacillin [From Zosyn] Allergy Intermediate Rash Verified 04/06/19 21:51 tazobactam [From Zosyn] Allergy Intermediate Rash Verified 04/06/19 21:51 bee venom protein (honey bee) Allergy Unknown Verified 04/06/19 21:51 hydromorphone [From Dilaudid] Allergy Unknown Verified 04/06/19 21:51 levofloxacin [From Levaquin] Allergy Hives Verified 04/06/19 21:51 Home Medications Home Medications Medication Instructions Recorded Confirmed Type Milrinone Lactate In Dextrose 88 kg IV UD 04/06/19 05/22/19 History acetaminophen [Tylenol Extra 500 mg PO Q6H PRN 04/06/19 05/22/19 History Strength] albuterol sulfate 2 puff INHALATION Q6 PRN 04/06/19 05/22/19 History albuterol sulfate 2.5 mg INHALATION Q4 PRN 04/06/19 05/22/19 History amiodarone [Pacerone] 200 mg PO DAILY 04/06/19 05/22/19 History aspirin [Aspir-81] 81 mg PO DAILY 04/06/19 05/22/19 History docusate sodium 100 mg PO BID PRN 04/06/19 05/22/19 History epinephrine [EpiPen] 0.3 mg IM UD PRN 04/06/19 05/22/19 History lorazepam [Ativan] 1 mg PO HS PRN 04/06/19 05/22/19 History magnesium oxide [MagOx] 400 mg PO BID 04/06/19 05/22/19 History metoprolol succinate [Toprol XL] 25 mg PO DAILY 04/06/19 05/22/19 History omeprazole 40 mg PO DAILY 04/06/19 05/22/19 History sertraline [Zoloft] 50 mg PO DAILY 04/06/19 05/22/19 History ursodiol [Actigall] 300 mg PO BID 04/06/19 05/22/19 History metolazone 5 mg PO BID 30 Days #60 tab 04/08/19 05/22/19 Rx potassium chloride [Klor-Con M20] 40 meq PO TID 30 Days #90 tab 04/08/19 05/22/19 Rx spironolactone [Aldactone] 25 mg PO DAILY 05/22/19 05/22/19 History torsemide 100 mg PO TID 05/22/19 05/22/19 History Patient History Medical History Abdominal pain Acute on chronic HFrEF (heart failure with reduced ejection fraction) Acute on chronic systolic (congestive) heart failure Anemia (Chronic) Anxiety (Chronic) CAD (coronary artery disease) (Chronic) s/p stent LAD in 2004 Cardiac arrest (Resolved) 05/2018 Cirrhosis CKD (chronic kidney disease), stage III (Chronic) Diabetes mellitus, type II (Chronic) Dyslipidemia (Chronic) Elevated liver function tests (Chronic) 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 GERD (gastroesophageal reflux disease) (Chronic) History of acute renal failure History of tobacco use (Chronic) HTN (hypertension) (Chronic) Hypokalemia Hyponatremia Ischemic cardiomyopathy (Chronic) 05/2018 EF: 20-24% Pleural effusion on right Thrombocytopenia (Chronic) Surgical History History of heart artery stent ICD (implantable cardioverter-defibrillator) in place (Chronic) 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 [facility] [place] [facility] [place] History Other Coronary heart disease Social History Preferred Language: Sinhala Communication Ability: Effective Drawing Operator Required: No Beliefs That Will Affect Care: None Current Living Situation: Spouse Current Living Situation Comment: home Other Information That Helps Us Care for You: No Feels Safe at Home: Yes Safety Concerns: Feels Safe At This Time Smoking Status: Current some day smoker Tobacco Type: cigarettes ; Cigarettes Per Day: 1 ; Do You Dip or Chew Tobacco: No ; Second Hand Exposure: No ; Tobacco Cessation Education Requested by Patient: No Hx Alcohol Use: No Hx Substance Use: No Physical Exam Physical Exam: General: Ill-appearing gentleman in no acute distress, intermittently somnolent HEENT: Normocephalic atraumatic Neck: JVD present, otherwise normal to visual inspection Cardiac: Regular rate and rhythm, I did not appreciate any significant murmurs rubs or gallops, 2+ pedal edema bilaterally Respiratory: Diminished lung sounds bilaterally positive rales GI: Distended abdomen, nontender to palpation MSK: Unable to assess secondary to weakness Skin: Bruises and ecchymosis Neuro: Intermittently alert and oriented, somnolent time, will fall asleep in the middle of conversation Results & Data Vital Signs (Past 12 Hours) Vital Signs Temp Pulse Pulse Resp BP BP Pulse Ox 05/25/19 08:57 36.3 C L 86 18 94 05/25/19 07:44 68/40 L 70/40 L 05/25/19 03:40 36.5 C 82 20 73/51 L 94 05/25/19 00:02 75/48 L 05/24/19 23:49 36.4 C L 19 64/30 L 94 05/24/19 23:30 91 H Laboratory Results 05/26/19 05/26/19 05/26/19 Range/Units 04:13 04:13 04:13 WBC 4.58 L (4.8-10.8) K/uL RBC 2.59 L (4.7-6.1) M/uL Hgb 8.1 L (14.0-18.0) g/dL Hct 23.7 L (42-52) % MCV 91.5 (80-100) fL MCH 31.3 (25-34) pg MCHC 34.2 (32-36) g/dL RDW Std Deviation 60.6 H (36.4-46.3) fL RDW Coeff of Yung 17.9 H (11.5-14.5) % Plt Count 108 L (130-400) K/uL MPV 9.9 (7.4-10.4) fL Immature Gran % (Auto) 0.4 % Neut % (Auto) 66.6 % Lymph % (Auto) 4.8 % [place] % (Auto) 14.2 % Eos % (Auto) 13.3 % Baso % (Auto) 0.7 % Immature Gran # (Auto) 0.02 (0.00-0.02) K/uL Neut # (Auto) 3.05 (1.4-6.5) K/uL Lymph # (Auto) 0.22 L (1.2-3.4) K/uL [place] # (Auto) 0.65 H (0.11-0.59) K/uL Eos # (Auto) 0.61 H (0-0.5) K/uL Baso # (Auto) 0.03 (0-0.2) K/uL Toxic Vacuolation 1+ PT 14.1 H (9.0-12.0) Seconds INR 1.4 H (0.9-1.1) Sodium (136-145) mmol/L Potassium (3.5-5.1) mmol/L Chloride (98-107) mmol/L Carbon Dioxide (21-32) mmol/L Anion Gap (3-11) BUN (7-18) mg/dl Creatinine (0.6-1.4) mg/dl Est Cr Clr Drug Dosing ml/min Est GFR ( Amer) Est GFR (Non-Af Amer) BUN/Creatinine Ratio (10-20) Glucose (70-99) mg/dl POC Glucose (70-99) Lactate (0.4-2.0) mmol/L Calcium (8.5-10.1) mg/dl Phosphorus (2.5-4.9) mg/dl Magnesium (1.8-2.4) mg/dl Total Bilirubin (0.2-1) mg/dl Direct Bilirubin (0-0.2) mg/dl AST (15-37) U/L ALT (12-78) U/L Alkaline Phosphatase (45-117) U/L NT-Pro-B Natriuret Pep (0-900) pg/ml Total Protein (6.4-8.2) gm/dl Albumin (3.4-5.0) gm/dl Globulin (2.5-4.0) gm/dl Albumin/Globulin Ratio (0.9-2) Procalcitonin 5.45 H (0-0.5) ng/ml Urine Color Urine Appearance (Clear) Urine pH (4.5-7.5) Ur Specific [place] (1.000-1.030) Urine Protein (Negative) Urine Glucose (UA) (Negative) Urine Ketones (Negative) Urine Blood (Negative) Urine Nitrite (Negative) Urine Bilirubin (Negative) Urine Urobilinogen (Negative) Ur Leukocyte Esterase (Negative) Urine WBC (Auto) (0-5) /hpf Urine RBC (Auto) (0-4) /hpf U Hyaline Cast (Auto) (0-5) /lpf U Epithel Cells (Auto) (0-5) /lpf Urine Bacteria (Auto) (Negative) Fluid Neutrophils % % Fluid Lymphocytes % % Fluid Eosinophils % % Fluid Basophils % % Fluid Meso/Macro/[place] % % Peritoneal Color Peritoneal Appearance Peritoneal WBC (0-300) /ul Peritoneal RBC /uL Peritoneal Tot Protein g/dl Peritoneal Albumin g/dl Nasal Screen MRSA (PCR) (Negative) Random Vancomycin mcg/ml 05/26/19 05/26/19 05/25/19 Range/Units 04:13 04:13 Unknown WBC (4.8-10.8) K/uL RBC (4.7-6.1) M/uL Hgb (14.0-18.0) g/dL Hct (42-52) % MCV (80-100) fL MCH (25-34) pg MCHC (32-36) g/dL RDW Std Deviation (36.4-46.3) fL RDW Coeff of Yung (11.5-14.5) % Plt Count (130-400) K/uL MPV (7.4-10.4) fL Immature Gran % (Auto) % Neut % (Auto) % Lymph % (Auto) % [place] % (Auto) % Eos % (Auto) % Baso % (Auto) % Immature Gran # (Auto) (0.00-0.02) K/uL Neut # (Auto) (1.4-6.5) K/uL Lymph # (Auto) (1.2-3.4) K/uL [place] # (Auto) (0.11-0.59) K/uL Eos # (Auto) (0-0.5) K/uL Baso # (Auto) (0-0.2) K/uL Toxic Vacuolation PT (9.0-12.0) Seconds INR (0.9-1.1) Sodium 127 L (136-145) mmol/L Potassium 5.3 H (3.5-5.1) mmol/L Chloride 96 L (98-107) mmol/L Carbon Dioxide 24 (21-32) mmol/L Anion Gap 7.0 (3-11) BUN 20 H (7-18) mg/dl Creatinine 2.33 H (0.6-1.4) mg/dl Est Cr Clr Drug Dosing 45.0 ml/min Est GFR ( Amer) 34.7 Est GFR (Non-Af Amer) 29.9 BUN/Creatinine Ratio 8.8 L (10-20) Glucose 89 (70-99) mg/dl POC Glucose (70-99) Lactate (0.4-2.0) mmol/L Calcium 7.6 L (8.5-10.1) mg/dl Phosphorus 2.8 (2.5-4.9) mg/dl Magnesium 2.0 (1.8-2.4) mg/dl Total Bilirubin 1.6 H (0.2-1) mg/dl Direct Bilirubin 0.9 H (0-0.2) mg/dl AST 19 (15-37) U/L ALT 10 L (12-78) U/L Alkaline Phosphatase 137 H (45-117) U/L NT-Pro-B Natriuret Pep (0-900) pg/ml Total Protein 5.5 L (6.4-8.2) gm/dl Albumin 1.3 L (3.4-5.0) gm/dl Globulin (2.5-4.0) gm/dl Albumin/Globulin Ratio (0.9-2) Procalcitonin (0-0.5) ng/ml Urine Color Urine Appearance (Clear) Urine pH (4.5-7.5) Ur Specific [place] (1.000-1.030) Urine Protein (Negative) Urine Glucose (UA) (Negative) Urine Ketones (Negative) Urine Blood (Negative) Urine Nitrite (Negative) Urine Bilirubin (Negative) Urine Urobilinogen (Negative) Ur Leukocyte Esterase (Negative) Urine WBC (Auto) (0-5) /hpf Urine RBC (Auto) (0-4) /hpf U Hyaline Cast (Auto) (0-5) /lpf U Epithel Cells (Auto) (0-5) /lpf Urine Bacteria (Auto) (Negative) Fluid Neutrophils % % Fluid Lymphocytes % % Fluid Eosinophils % % Fluid Basophils % % Fluid Meso/Macro/[place] % % Peritoneal Color Peritoneal Appearance Peritoneal WBC (0-300) /ul Peritoneal RBC /uL Peritoneal Tot Protein g/dl Peritoneal Albumin g/dl Nasal Screen MRSA (PCR) Negative (Negative) Random Vancomycin 20.3 mcg/ml 05/25/19 05/25/19 05/25/19 Range/Units 21:24 17:42 17:42 WBC (4.8-10.8) K/uL RBC (4.7-6.1) M/uL Hgb (14.0-18.0) g/dL Hct (42-52) % MCV (80-100) fL MCH (25-34) pg MCHC (32-36) g/dL RDW Std Deviation (36.4-46.3) fL RDW Coeff of Yung (11.5-14.5) % Plt Count (130-400) K/uL MPV (7.4-10.4) fL Immature Gran % (Auto) % Neut % (Auto) % Lymph % (Auto) % [place] % (Auto) % Eos % (Auto) % Baso % (Auto) % Immature Gran # (Auto) (0.00-0.02) K/uL Neut # (Auto) (1.4-6.5) K/uL Lymph # (Auto) (1.2-3.4) K/uL [place] # (Auto) (0.11-0.59) K/uL Eos # (Auto) (0-0.5) K/uL Baso # (Auto) (0-0.2) K/uL Toxic Vacuolation PT (9.0-12.0) Seconds INR (0.9-1.1) Sodium 127 L (136-145) mmol/L Potassium 5.5 H (3.5-5.1) mmol/L Chloride 95 L (98-107) mmol/L Carbon Dioxide 25 (21-32) mmol/L Anion Gap 7.0 (3-11) BUN 20 H (7-18) mg/dl Creatinine 2.27 H (0.6-1.4) mg/dl Est Cr Clr Drug Dosing 46.2 ml/min Est GFR ( Amer) 35.8 Est GFR (Non-Af Amer) 30.9 BUN/Creatinine Ratio 9.0 L (10-20) Glucose 97 (70-99) mg/dl POC Glucose 103 H (70-99) Lactate 1.8 (0.4-2.0) mmol/L Calcium 7.5 L (8.5-10.1) mg/dl Phosphorus (2.5-4.9) mg/dl Magnesium (1.8-2.4) mg/dl Total Bilirubin (0.2-1) mg/dl Direct Bilirubin (0-0.2) mg/dl AST (15-37) U/L ALT (12-78) U/L Alkaline Phosphatase (45-117) U/L NT-Pro-B Natriuret Pep (0-900) pg/ml Total Protein (6.4-8.2) gm/dl Albumin (3.4-5.0) gm/dl Globulin (2.5-4.0) gm/dl Albumin/Globulin Ratio (0.9-2) Procalcitonin (0-0.5) ng/ml Urine Color Urine Appearance (Clear) Urine pH (4.5-7.5) Ur Specific [place] (1.000-1.030) Urine Protein (Negative) Urine Glucose (UA) (Negative) Urine Ketones (Negative) Urine Blood (Negative) Urine Nitrite (Negative) Urine Bilirubin (Negative) Urine Urobilinogen (Negative) Ur Leukocyte Esterase (Negative) Urine WBC (Auto) (0-5) /hpf Urine RBC (Auto) (0-4) /hpf U Hyaline Cast (Auto) (0-5) /lpf U Epithel Cells (Auto) (0-5) /lpf Urine Bacteria (Auto) (Negative) Fluid Neutrophils % % Fluid Lymphocytes % % Fluid Eosinophils % % Fluid Basophils % % Fluid Meso/Macro/[place] % % Peritoneal Color Peritoneal Appearance Peritoneal WBC (0-300) /ul Peritoneal RBC /uL Peritoneal Tot Protein g/dl Peritoneal Albumin g/dl Nasal Screen MRSA (PCR) (Negative) Random Vancomycin mcg/ml 05/25/19 05/25/19 05/25/19 Range/Units 16:33 15:00 15:00 WBC (4.8-10.8) K/uL RBC (4.7-6.1) M/uL Hgb (14.0-18.0) g/dL Hct (42-52) % MCV (80-100) fL MCH (25-34) pg MCHC (32-36) g/dL RDW Std Deviation (36.4-46.3) fL RDW Coeff of Yung (11.5-14.5) % Plt Count (130-400) K/uL MPV (7.4-10.4) fL Immature Gran % (Auto) % Neut % (Auto) % Lymph % (Auto) % [place] % (Auto) % Eos % (Auto) % Baso % (Auto) % Immature Gran # (Auto) (0.00-0.02) K/uL Neut # (Auto) (1.4-6.5) K/uL Lymph # (Auto) (1.2-3.4) K/uL [place] # (Auto) (0.11-0.59) K/uL Eos # (Auto) (0-0.5) K/uL Baso # (Auto) (0-0.2) K/uL Toxic Vacuolation PT (9.0-12.0) Seconds INR (0.9-1.1) Sodium (136-145) mmol/L Potassium (3.5-5.1) mmol/L Chloride (98-107) mmol/L Carbon Dioxide (21-32) mmol/L Anion Gap (3-11) BUN (7-18) mg/dl Creatinine (0.6-1.4) mg/dl Est Cr Clr Drug Dosing ml/min Est GFR ( Amer) Est GFR (Non-Af Amer) BUN/Creatinine Ratio (10-20) Glucose (70-99) mg/dl POC Glucose 120 H (70-99) Lactate (0.4-2.0) mmol/L Calcium (8.5-10.1) mg/dl Phosphorus (2.5-4.9) mg/dl Magnesium (1.8-2.4) mg/dl Total Bilirubin (0.2-1) mg/dl Direct Bilirubin (0-0.2) mg/dl AST (15-37) U/L ALT (12-78) U/L Alkaline Phosphatase (45-117) U/L NT-Pro-B Natriuret Pep (0-900) pg/ml Total Protein (6.4-8.2) gm/dl Albumin (3.4-5.0) gm/dl Globulin (2.5-4.0) gm/dl Albumin/Globulin Ratio (0.9-2) Procalcitonin (0-0.5) ng/ml Urine Color Urine Appearance (Clear) Urine pH (4.5-7.5) Ur Specific [place] (1.000-1.030) Urine Protein (Negative) Urine Glucose (UA) (Negative) Urine Ketones (Negative) Urine Blood (Negative) Urine Nitrite (Negative) Urine Bilirubin (Negative) Urine Urobilinogen (Negative) Ur Leukocyte Esterase (Negative) Urine WBC (Auto) (0-5) /hpf Urine RBC (Auto) (0-4) /hpf U Hyaline Cast (Auto) (0-5) /lpf U Epithel Cells (Auto) (0-5) /lpf Urine Bacteria (Auto) (Negative) Fluid Neutrophils % 14 % Fluid Lymphocytes % 19 % Fluid Eosinophils % 1 % Fluid Basophils % 0 % Fluid Meso/Macro/[place] % 66 % Peritoneal Color PALE YELLOW Peritoneal Appearance CLEAR Peritoneal WBC 420 H (0-300) /ul Peritoneal RBC < 3000 /uL Peritoneal Tot Protein 0.9 g/dl Peritoneal Albumin g/dl Nasal Screen MRSA (PCR) (Negative) Random Vancomycin mcg/ml 05/25/19 05/25/19 05/25/19 Range/Units 15:00 13:58 11:15 WBC (4.8-10.8) K/uL RBC (4.7-6.1) M/uL Hgb (14.0-18.0) g/dL Hct (42-52) % MCV (80-100) fL MCH (25-34) pg MCHC (32-36) g/dL RDW Std Deviation (36.4-46.3) fL RDW Coeff of Yung (11.5-14.5) % Plt Count (130-400) K/uL MPV (7.4-10.4) fL Immature Gran % (Auto) % Neut % (Auto) % Lymph % (Auto) % [place] % (Auto) % Eos % (Auto) % Baso % (Auto) % Immature Gran # (Auto) (0.00-0.02) K/uL Neut # (Auto) (1.4-6.5) K/uL Lymph # (Auto) (1.2-3.4) K/uL [place] # (Auto) (0.11-0.59) K/uL Eos # (Auto) (0-0.5) K/uL Baso # (Auto) (0-0.2) K/uL Toxic Vacuolation PT 13.4 H (9.0-12.0) Seconds INR 1.3 H (0.9-1.1) Sodium (136-145) mmol/L Potassium (3.5-5.1) mmol/L Chloride (98-107) mmol/L Carbon Dioxide (21-32) mmol/L Anion Gap (3-11) BUN (7-18) mg/dl Creatinine (0.6-1.4) mg/dl Est Cr Clr Drug Dosing ml/min Est GFR ( Amer) Est GFR (Non-Af Amer) BUN/Creatinine Ratio (10-20) Glucose (70-99) mg/dl POC Glucose (70-99) Lactate (0.4-2.0) mmol/L Calcium (8.5-10.1) mg/dl Phosphorus (2.5-4.9) mg/dl Magnesium (1.8-2.4) mg/dl Total Bilirubin (0.2-1) mg/dl Direct Bilirubin (0-0.2) mg/dl AST (15-37) U/L ALT (12-78) U/L Alkaline Phosphatase (45-117) U/L NT-Pro-B Natriuret Pep (0-900) pg/ml Total Protein (6.4-8.2) gm/dl Albumin (3.4-5.0) gm/dl Globulin (2.5-4.0) gm/dl Albumin/Globulin Ratio (0.9-2) Procalcitonin (0-0.5) ng/ml Urine Color Dark Yellow Urine Appearance Clear (Clear) Urine pH 7.5 (4.5-7.5) Ur Specific [place] 1.014 (1.000-1.030) Urine Protein Trace H (Negative) Urine Glucose (UA) Negative (Negative) Urine Ketones Negative (Negative) Urine Blood 2+ H (Negative) Urine Nitrite Negative (Negative) Urine Bilirubin Negative (Negative) Urine Urobilinogen Negative (Negative) Ur Leukocyte Esterase 1+ H (Negative) Urine WBC (Auto) 10-30 H (0-5) /hpf Urine RBC (Auto) >30 H (0-4) /hpf U Hyaline Cast (Auto) 10-30 H (0-5) /lpf U Epithel Cells (Auto) 20-30 H (0-5) /lpf Urine Bacteria (Auto) Negative (Negative) Fluid Neutrophils % % Fluid Lymphocytes % % Fluid Eosinophils % % Fluid Basophils % % Fluid Meso/Macro/[place] % % Peritoneal Color Peritoneal Appearance Peritoneal WBC (0-300) /ul Peritoneal RBC /uL Peritoneal Tot Protein g/dl Peritoneal Albumin < 0.6 g/dl Nasal Screen MRSA (PCR) (Negative) Random Vancomycin mcg/ml 05/25/19 05/25/19 05/25/19 Range/Units 11:15 11:15 11:15 WBC (4.8-10.8) K/uL RBC (4.7-6.1) M/uL Hgb (14.0-18.0) g/dL Hct (42-52) % MCV (80-100) fL MCH (25-34) pg MCHC (32-36) g/dL RDW Std Deviation (36.4-46.3) fL RDW Coeff of Yung (11.5-14.5) % Plt Count (130-400) K/uL MPV (7.4-10.4) fL Immature Gran % (Auto) % Neut % (Auto) % Lymph % (Auto) % [place] % (Auto) % Eos % (Auto) % Baso % (Auto) % Immature Gran # (Auto) (0.00-0.02) K/uL Neut # (Auto) (1.4-6.5) K/uL Lymph # (Auto) (1.2-3.4) K/uL [place] # (Auto) (0.11-0.59) K/uL Eos # (Auto) (0-0.5) K/uL Baso # (Auto) (0-0.2) K/uL Toxic Vacuolation PT (9.0-12.0) Seconds INR (0.9-1.1) Sodium 128 L (136-145) mmol/L Potassium 5.2 H (3.5-5.1) mmol/L Chloride 93 L (98-107) mmol/L Carbon Dioxide 27 (21-32) mmol/L Anion Gap 8.0 (3-11) BUN 21 H (7-18) mg/dl Creatinine 2.30 H (0.6-1.4) mg/dl Est Cr Clr Drug Dosing 45.6 ml/min Est GFR ( Amer) 35.2 Est GFR (Non-Af Amer) 30.4 BUN/Creatinine Ratio 9.3 L (10-20) Glucose 110 H (70-99) mg/dl POC Glucose (70-99) Lactate 1.7 (0.4-2.0) mmol/L Calcium 8.0 L (8.5-10.1) mg/dl Phosphorus (2.5-4.9) mg/dl Magnesium (1.8-2.4) mg/dl Total Bilirubin 1.1 H (0.2-1) mg/dl Direct Bilirubin (0-0.2) mg/dl AST 18 (15-37) U/L ALT 7 L (12-78) U/L Alkaline Phosphatase 152 H (45-117) U/L NT-Pro-B Natriuret Pep 8780 H (0-900) pg/ml Total Protein 5.5 L (6.4-8.2) gm/dl Albumin 1.2 L (3.4-5.0) gm/dl Globulin 4.3 H (2.5-4.0) gm/dl Albumin/Globulin Ratio 0.3 L (0.9-2) Procalcitonin 8.11 H (0-0.5) ng/ml Urine Color Urine Appearance (Clear) Urine pH (4.5-7.5) Ur Specific [place] (1.000-1.030) Urine Protein (Negative) Urine Glucose (UA) (Negative) Urine Ketones (Negative) Urine Blood (Negative) Urine Nitrite (Negative) Urine Bilirubin (Negative) Urine Urobilinogen (Negative) Ur Leukocyte Esterase (Negative) Urine WBC (Auto) (0-5) /hpf Urine RBC (Auto) (0-4) /hpf U Hyaline Cast (Auto) (0-5) /lpf U Epithel Cells (Auto) (0-5) /lpf Urine Bacteria (Auto) (Negative) Fluid Neutrophils % % Fluid Lymphocytes % % Fluid Eosinophils % % Fluid Basophils % % Fluid [place] % % Peritoneal Color Peritoneal Appearance Peritoneal WBC (0-300) /ul Peritoneal RBC /uL Peritoneal Tot Protein g/dl Peritoneal Albumin g/dl Nasal Screen MRSA (PCR) (Negative) Random Vancomycin mcg/ml Medications Administered Current Inpatient Medications Albuterol (Ventolin 0.083% 2.5mg/3ml) 2.5 mg INH Q4 PRN PRN Reason: Shortness Of Breath Or Wheezing Stop: 06/21/19 17:46 Last Admin: 05/22/19 23:27 Dose: 2.5 mg Documented by: Amiodarone HCl (Cordarone) 200 mg PO DAILY ROLANDO Stop: 06/22/19 08:59 Last Admin: 05/26/19 08:36 Dose: 200 mg Documented by: Aspirin (Ecotrin Ectab) 81 mg PO DAILY ROLANDO Stop: 06/22/19 08:59 Last Admin: 05/26/19 08:36 Dose: 81 mg Documented by: Dextrose (Dextrose 50%) 25 - 50 ml IV UD PRN; Protocol PRN Reason: Hypoglycemia Protocol Stop: 06/21/19 17:46 Docusate Sodium (Colace) 100 mg PO BID PRN PRN Reason: Constipation Stop: 06/21/19 17:46 Famotidine (Pepcid) 20 mg PO BID PRN PRN Reason: Heartburn Stop: 06/24/19 12:10 Glucagon (Glucagen) 1 mg SQ UD PRN; Protocol PRN Reason: Hypoglycemia Protocol Stop: 06/21/19 17:46 Glucose (Glucose 40%) 15 - 30 gm PO UD PRN; Protocol PRN Reason: Hypoglycemia Protocol Stop: 06/21/19 17:46 Glucose (Dex4 Glucose) 4 - 8 tabs PO UD PRN; Protocol PRN Reason: Hypoglycemia Protocol Stop: 06/21/19 17:46 Heparin Sodium (Porcine) (Heparin Sodium (Porcine)) 5,000 units SQ Q8 ROLANDO Stop: 06/21/19 21:59 Last Admin: 05/26/19 05:17 Dose: Not Given Documented by: Milrinone Lactate/Dextrose (Primacor/D5w) 20,000 mcg in 100 mls @ 6.6 mls/hr IV .[id number] [facility] Stop: 06/21/19 16:14 Last Infusion: 05/26/19 07:21 Dose: 0.25 mcg/kg/min, 6.6 mls/hr Documented by: Dopamine HCl/Dextrose (Dopamine / D5w) 400 mg in 250 mls @ 7.92 mls/hr IV .Q24H ROLANDO Stop: 01/11/20 08:59 Last Infusion: 05/26/19 07:20 Dose: 2 mcg/kg/min, 7.9 mls/hr Documented by: Cefepime HCl 2,000 mg/ Syringe 20 mls @ 5 mls/min IV Q12H [facility] Stop: 06/04/19 13:59 Last Admin: 05/26/19 01:35 Dose: 5 mls/min Documented by: Lactulose (Chronulac) 20 gm PO TID ROLANDO Stop: 06/24/19 13:59 Last Admin: 05/26/19 08:36 Dose: 20 gm Documented by: Miscellaneous (Carbohydrates For Hypoglycemia) 15 - 30 gm PO UD PRN PRN Reason: Hypoglycemia Protocol Stop: 06/21/19 17:46 Pantoprazole Sodium (Protonix) 40 mg PO DAILY [facility] Stop: 06/22/19 08:59 Last Admin: 05/26/19 08:36 Dose: 40 mg Documented by: Polyethylene Glycol (Miralax Powder Packet) 17 gm PO DAILY PRN PRN Reason: Constipation Stop: 06/21/19 17:46 Sertraline HCl (Zoloft) 50 mg PO DAILY [facility] Stop: 06/22/19 08:59 Last Admin: 05/26/19 08:37 Dose: 50 mg Documented by: Resident Activity Tracking Resident Involvement: Resident Care Provided Care Provided: Adult Hospital Medicine (ICU) (1) Cardiorenal syndrome Heart failure presence: with heart failure Hypertensive chronic kidney disease stage: stage 1-4 or unspecified chronic kidney disease Qualified Code(s): I13.0 - Hypertensive heart and chronic kidney disease with heart failure and stage 1 through stage 4 chronic kidney disease, or unspecified chronic kidney disease (2) Hypotension Hypotension type: unspecified hypotension type Qualified Code(s): I95.9 - Hypotension, unspecified
--- NOTE | 2019-05-25 09:07 | Cardiology Progress Note ---
Date of Service May 25, 2019 Assessment & Plan (1) Acute on chronic combined systolic and diastolic CHF, NYHA class 4: (2) Cardiorenal syndrome: (3) Acute on chronic renal failure: (4) Ischemic cardiomyopathy: (5) Acute hyponatremia: (6) End stage liver disease: (7) Hypotension: Patient's hemodynamics continued to decline with worsening hypotension and renal function. Recommend addition of dopamine 2.0 mcg/kg/min. Patient agreeable for transfer to the intensive care unit. If hemodynamics improve, recommend restarting Lasix. Patient declines palliative care/hospice at this time. Poor prognosis discussed. Subjective Patient seen and examined at the bedside. Progressive hypotension noted overnight. Milrinone infusion reduced to 0.25 mcg/kg/min. Creatinine trending upward. Patient denies chest pain or shortness of breath at rest. Episode of second-degree AV block Mobitz type I recorded on telemetry. ICD interrogated. Backup heart rate increased to 50 bpm. IV Lasix placed on hold due to hypotension. Review of Systems Constitutional: + fatigue and + weakness Respiratory: + dyspnea on exertion Cardiovascular: + dyspnea and + orthopnea Gastrointestinal: + bloating and + early satiety Physical Exam Constitutional: well developed and + ill appearing Eyes: PERRL, conjunctivae normal, anicteric sclerae Respiratory: Auscultation: + diminished lung sounds (At the bases bilaterally) and + rales Cardiovascular: Rate/Rhythm: regular rate and regular rhythm Heart Sounds: normal S1 and normal S2; no murmur Vessels: + JVD; no carotid bruit Extremities: + edema (1+ bilateral ankle edema with stasis changes) Gastrointestinal (Abdomen): Inspection/Auscultation: + abdomen distended and normal bowel sounds Percussion/Palpation: abdomen soft; abdomen nontender, no guarding and abdomen not rigid Neurologic: PERRL, EOMI, accommodation nl, no face palsy, no dysarthria Results & Data Vital Signs (Past 12 Hours) Vital Signs Temp Pulse Pulse Resp BP BP Pulse Ox 05/25/19 08:57 36.3 C L 86 18 94 05/25/19 07:44 68/40 L 70/40 L 05/25/19 03:40 36.5 C 82 20 73/51 L 94 05/25/19 00:02 75/48 L 05/24/19 23:49 36.4 C L 19 64/30 L 94 05/24/19 23:30 91 H (1) Cardiorenal syndrome Heart failure presence: with heart failure Hypertensive chronic kidney disease stage: stage 1-4 or unspecified chronic kidney disease Qualified Code(s): I13.0 - Hypertensive heart and chronic kidney disease with heart failure and stage 1 through stage 4 chronic kidney disease, or unspecified chronic kidney disease (2) Acute on chronic renal failure Acute renal failure type: unspecified Chronic kidney disease stage: stage 3 (moderate) Qualified Code(s): N17.9 - Acute kidney failure, unspecified; N18.3 - Chronic kidney disease, stage 3 (moderate) (3) Hypotension Hypotension type: unspecified hypotension type Qualified Code(s): I95.9 - Hypotension, unspecified
--- NOTE | 2019-05-25 09:18 | Hospitalist Progress Note ---
Date of Service May 25, 2019 Assessment & Plan (1) Fluid overload: (1) Acute on chronic combined systolic and diastolic CHF, NYHA class 4: (2) Ischemic cardiomyopathy: (3) Hypotension: Per admitting service notes This is a 58-year-old male who has significant past medical history of ischemic cardiomyopathy EF 20% AICD in place on continuous at home milrinone infusion , chronic systolic CHF, HTN, pulmonary HTN, CAD, hx of MSSA endocarditis, cirrhosis, CKD stage III, diet-controlled T2DM, history of tobacco abuse, history of VT arrest s/p ICD in 06/2018 who presents to [facility] secondary to weight gain and lethargy. In ED chest x-ray revealed pulmonary edema. Sodium 124, K2.8, chloride 98, BUN 21, creatinine 1.55. Initial troponin WNL, TSH elevated 9.02, but free T4 WNL. T bili elevated at 1.1, AST 18, ALT 7, alk phos 135, ammonia 34.0. pts condition continues to decline 2nd degree heart block /symptomatic noted over night worsening of renal funciton > 2.4 with persisted hypotension -unable to usu diuretics BP remains low -milrinone gtt dose reduced cardiology following very closely ordered for Dopamine gtt tx to ICU over all prognosis is very poor pt and updated multiple times by myself , cardiology and palliative care note on : 05/24/19 Lasix drip has to be discontinued as patient remained persistently hypotensive Milrinone infusion rate decreased Beta-derick with holding parameters, patient did not receive any dose this morning as systolic blood pressure remains in 80s Multiple discussion by cardiology regarding poor prognosis, Patient is likely to continue to decline over the next weeks/months(has been getting admitted in the hospital every 4-6 weeks for volume overload) Very limited treatment options available On maximum medical management, may have to be titrated secondary to persistent hypotension, renal failure Patient was seen by palliative care team in last admission, declined for hospice care Palliative care consulted again regarding prognosis, and goal of care-patient refused to explore the options He believes: "He feels fine now, and still has lot of unfinished business to do" very reluctant to accept or discussed regarding the gravity of his illness Patient is awake and alert, able to make his own decisions We will continue supportive care Patient remains full code as per his decision (4) Acute hyponatremia: Acute on chronic hyponatremia IV Lasix kept on hold secondary to hypotension Continue to follow lab (5) Acute hypokalemia: replaced, monitor (6) CKD (chronic kidney disease), stage III: Acute renal failure in his CKD stage III baseline Cr 1.5 worsenign of cr > 2 possible cardiorenal syndrome persisted hypotension causing poor perfusion all diuretics been kept on hold still noted worsening of renal function over all prognosis poor did discussed option for dialysis with pt and -remains indecisive (7) CAD (coronary artery disease): extensive CAD with severe ischemic cardiomyopathy EF 20% (8) Cirrhosis: Normal alcoholic steatohepatitis no signs of sx of hepatic encephalopathy (9) Diabetes mellitus, type II: 04/07/19 A1C 6. (10) Anemia: H&H stable 9.1 and 26.2 Normocytic normochromic no signs or symptoms of bleeding, likely secondary to chronic disease iron 78, folate normal, vit b 12 normal (11) GERD (gastroesophageal reflux disease): continue PPI (12) DVT prophylaxis: Heparin SQ CODE STATUS: Full code Discussed with patient getting poor outcome of chest compression mechanical ventilation, dialysis in his setting of cardiopulmonary arrest, renal failure Patient wants to proceed with full CODE STATUS -wants everything possible to be done if his condition declines Disposition: Very poor prognosis, pt is transferred to ICU updated over phone Subjective pt seen at bedside appears to be more lethargic today able to have conversation then doses off to sleep noted to have 2nd degree Heart block intermittently last night pt reports of SOB -but thinks it is due to his stress with : delong catheter : the catheter been bothering him , making him anxious pt will be started on [place] gtt and transferred to ICU for further care his clinical status is declining -tried to have pt understands the prognosis - does not appear that he understands it fully pt is updated that he is being transferred to ICU also regarding heroic measures -Dialysis , intubation , mechanical ventilation , CPR -he wants to think about it but for now wants evertyhing to be done Spoke with Mrs Edward -she knows that pt is very ill , but dont think she can make decision for him specially as he mentioned everything to be done in past she knows that he is on " borrowed time " , few years back pt had massive heart attack was on life support pt managed to survive after 48 hrs of life support which may not happen this time will be in hospital this afternoon to discuss options with medical team till then pt will be FULL CODE Physical Exam Constitutional: well developed and + ill appearing (chronically) Eyes: PERRL, conjunctivae normal, anicteric sclerae ENMT: external ear and nose normal, oropharynx normal Respiratory: normal respiratory effort; no labored breathing Auscultation: + diminished lung sounds (At the bases bilaterally) and + rales Cardiovascular: Rate/Rhythm: regular rate, regular rhythm and + tachycardic Heart Sounds: normal S1 and normal S2; no murmur Vessels: + JVD; no carotid bruit Extremities: + edema (right arm +4 pitting edema, left arm +2 pitting edema) Gastrointestinal (Abdomen): Inspection/Auscultation: + abdomen distended (but soft) and normal bowel sounds Percussion/Palpation: abdomen soft; abdomen nontender, no guarding and abdomen not rigid Skin: + jaundice Neurologic: PERRL, EOMI, accommodation nl, no face palsy, no dysarthria moves all extremities and awake (but drowsy); not confused Psychiatric: Orientation: oriented to person Insight: + limited insight Judgement: + limited judgement more somnolent today able to have conversation very briefly Results & Data Vital Signs (Past 12 Hours) morVital Signs Temp Pulse Pulse Resp BP BP Pulse Ox 05/25/19 08:57 36.3 C L 86 18 94 05/25/19 07:44 68/40 L 70/40 L 05/25/19 03:40 36.5 C 82 20 73/51 L 94 05/25/19 00:02 75/48 L 05/24/19 23:49 36.4 C L 19 64/30 L 94 05/24/19 23:30 91 H (1) Fluid overload Hypervolemia type: unspecified Qualified Code(s): E87.70 - Fluid overload, unspecified
[2019-05-25] MEDS: DOPAMINE / D5W 400 MG/250 ML BAG IV SCH (10:07)
--- NOTE | 2019-05-25 10:12 | Palliative Care Progress Note ---
Date of Service May 25, 2019 Assessment & Plan (1) Goals of care, counseling/discussion: -First visit to patient's room this morning after ICU rounds. He is drowsy, lethargic, but oriented and able to converse. The licensed prosthetist/orthotist and I both spoke to the patient about code status and he stated he wanted to remain a full code, despite his already extremely poor prognosis. -Called patient's , Stephanie. Stephanie states that she knows patient is coming to the end of life and is not surprised that he is declining. She and the patient's brother are on their way to the hospital now. Will return to room later. -Returned to patient's room this afternoon. Lengthy discussion with patient, his Stephanie, and brother, Yaya. Discussed patient's medical conditions and poor prognosis, specifically the heart failure and worsening renal function. -Discussed code status. Patient and family are in agreement with DO NOT RESUSCITATE. Patient's Stephanie tearful and stated that she is tired of seeing patient suffer. -No escalation in care. If kidneys worsen, no dialysis. Okay to continue dopamine and Primacor infusions and see if patient's kidneys and/or heart are going to improve. If not, may be looking at transitioning to comfort measures. -We will follow closely. (2) Acute on chronic combined systolic and diastolic CHF, NYHA class 4: (3) Acute on chronic renal failure: (4) Ischemic cardiomyopathy: Subjective Patient's blood pressure dropping this morning. 70/50s. transferred to ICU room 103. Patient continues to be lethargic and drowsy. He is now on dopamine for perfusion. Several visits to the patient's room today to discuss condition and goals. See A&P. Review of Systems Review of Systems: Const: + weakness Resp: + SOB with exertion Cardio: No chest pain, + upper and lower extremity edema GI: No abdominal pain, no N/V MS: No musculoskeletal pain Neuro: No confusion Psych: No anxiety Physical Exam Constitutional: + ill appearing (chronically) ENMT: external ear and nose normal, oropharynx normal Respiratory: normal respiratory effort; no labored breathing Cardiovascular: Rate/Rhythm: + tachycardic Extremities: + edema (right arm +4 pitting edema, left arm +2 pitting edema) Gastrointestinal (Abdomen): Inspection/Auscultation: + abdomen distended (but soft) and normal bowel sounds Percussion/Palpation: abdomen nontender Skin: + jaundice Neurologic: moves all extremities and awake (but drowsy); not confused Psychiatric: Orientation: alert and oriented x 3 Insight: + limited insight Judgement: + limited judgement Results & Data Vital Signs (Past 12 Hours) Vital Signs Temp Pulse Pulse Resp BP BP Pulse Ox 05/25/19 08:57 36.3 C L 86 18 94 05/25/19 07:44 68/40 L 70/40 L 05/25/19 03:40 36.5 C 82 20 73/51 L 94 05/25/19 00:02 75/48 L 05/24/19 23:49 36.4 C L 19 64/30 L 94 05/24/19 23:30 91 H PG Care Time/CCT Prolonged Care Time Prolonged Care Time: Yes Total Prolonged Care Time: 100 Time Spent Midlevel 100 minutes with >50% of the time spent at bedside with patient and family discussing condition and GOC. (1) Acute on chronic renal failure Acute renal failure type: unspecified Chronic kidney disease stage: stage 3 (moderate) Qualified Code(s): N17.9 - Acute kidney failure, unspecified; N18.3 - Chronic kidney disease, stage 3 (moderate)
--- NOTE | 2019-05-25 11:01 | Ultrasound Report ---
US abdomen ltd ascites CLINICAL HISTORY: eval for ascites abdominal distention COMPARISON STUDY: 04/07/2019 FINDINGS: Survey images of the abdomen are provided for interpretation. There is low volume ascites s lightly increased when compared the preceding study. IMPRESSION: Low volume ascites, slightly increased when compared the preceding study Electronically signed by: Philip Quiros M.D. 05/25/2019 11:00 AM
[2019-05-25] MEDS: MILRINONE LACTATE/D5W 20,000 MCG/100 ML BAG IV SCH (11:27)
[2019-05-25 11:40] LABS: INR 1.3 (0.9-1.1); Prothrombin Time 13.4 Seconds (9.0-12.0)
--- NOTE | 2019-05-25 11:46 | Communication Note ---
Date of Service: May 25, 2019
[2019-05-25 11:49] LABS: Albumin Level 1.2 gm/dl (3.4-5.0); BUN Creatinine Ratio 9.3 (10-20); Creatinine Clr Calc Pharmacy 45.6 ml/min; Est GFR (African American) 35.2; Est GFR (Non-African American) 30.4; Potassium 5.2 mmol/L (3.5-5.1)
[2019-05-25 11:54] LABS: Albumin Globulin Ratio 0.3 (0.9-2); Bilirubin,Total 1.1 mg/dl (0.2-1); Globulin 4.3 gm/dl (2.5-4.0); Total Protein 5.5 gm/dl (6.4-8.2)
[2019-05-25] MEDS ORDERED: FAMOTIDINE 20 MG TAB PO PRN (12:11)
[2019-05-25] MEDS: LACTULOSE SYRUP 20 GM/30 ML UDC PO SCH ×2 (13:34→21:29)
[2019-05-25] MEDS ORDERED: PIPERACILL/TAZOBAC CONSULT ACTIVE PRN (13:36)
[2019-05-25] MEDS ORDERED: VANCOMYCIN CONSULT ACTIVE PRN (13:36)
[2019-05-25] MEDS ORDERED: PIPERACILLIN/TAZOBACTAM 3.375 GM in DEXTROSE 5% 100 ML IV SCH (13:45)
[2019-05-25] MEDS: CEFEPIME 2,000 MG in SYRINGE 7.5 ML IV SCH (14:04)
[2019-05-25] MEDS: metroNIDAZOLE 500 MG/100 ML BAG IV SCH ×2 (14:07→21:29)
[2019-05-25] MEDS ORDERED: VANCOMYCIN HCL 2,250 MG in SODIUM CHLORIDE 0.9% 500 ML IV ONE (14:15)
[2019-05-25] MEDS ORDERED: LIDOCAINE HCL 1% 20 ML VIAL ONE ×2 (14:51→15:21)
--- NOTE | 2019-05-25 14:51 | Pharmacy Report ---
Pharmacy Abx Dose Short Note - Date of Service May 25, 2019 - Assessment & Plan Assessment * 58 year old M admitted to ICU for ADHF, volume overload, worsening INNA * Empiric broad spectrum ABX therapy initiated today for suspicion of sepsis, possible SBP, possible pna * Pharmacy has been consulted to dose VANCOMCYIN + CEFEPIME; METRONIDAZOLE also ordered per provider * SCr has climbed >0.3 in last 24 hrs, dopamine infusion added in last 24 hrs, UOP <0.5mL/kg/hr, MAPs in 60s Plan Vancomycin * Loading dose: 2250mg (~20mg/kg) x 1 * Estimated half-life ~24 hrs, therefore will not order maintenance dose in light of changing renal fxn. Will use random level to guide repeat dosing. * Random level has been ordered w/ AM labs tomorrow * Goal trough level for sepsis / pulm infxn : 15 to 20 mcg/mL Cefepime * Cefepime 2gm IV Q 12 hrs indicated for eCrCl 30-40cc/min Pharmacy will continue to follow and will adjust dose/frequency as necessary. Thank you.
[2019-05-25 15:37] LABS: Appearance Urine Clear (Clear); Bacteria Urine Automated Negative (Negative); Bilirubin Urine Negative (Negative); Blood Urine 2+ (Negative); Color Urine Dark Yellow; Epithelial Cell Urine Auto 20-30 /lpf (0-5); Glucose Urine UA Negative (Negative); Ketones Urine Negative (Negative); Leukocyte Esterase Urine 1+ (Negative); Nitrite Urine Negative (Negative); RBC Urine Automated >30 /hpf (0-4); Specific Gravity Urine 1.014 (1.000-1.030); Urobilinogen Urine Negative (Negative); pH Urine 7.5 (4.5-7.5)
[2019-05-25 15:41] LABS: Protein Urine Trace (Negative)
[2019-05-25 15:45] LABS: Sulfosalicylic Acid Urine Positive (Negative)
--- NOTE | 2019-05-25 15:45 | Billing Data ---
Date of Service May 25, 2019 Coding Level of Care Code Critical Care ea addt'l 30 min Time Spent (min) 60
--- NOTE | 2019-05-25 15:56 | Procedure Note ---
Procedure Note Date of Service May 25, 2019 Supervising Physician Co-Signing Physician Notes INDICATION: Ascites Ultrasound used to evelia location: Yes CONSENT: Consent was obtained from the patient prior to the procedure. Indications, risks, and benefits were explained at length. PROCEDURE SUMMARY: A time-out was performed. My hands were washed immediately prior to the procedure. I wore a surgical cap, mask with protective eyewear, sterile gown and sterile gloves throughout the procedure. The area was cleansed and draped in usual sterile fashion using chlorhexidine scrub. Anesthesia was achieved with 1% lidocaine. The right lower quadrant of the abdomen was prepped and draped in a sterile fashion using chlorhexidine scrub. 1% lidocaine was used to numb the skin, soft tissue and peritoneum. The paracentesis catheter was inserted and adv anced with negative pressure until yellow colored fluid was aspirated. Approximately 60 mL of ascitic fluid was collected and sent for laboratory analysis. The catheter was then connected to the vaccutainer and 2liters of additional ascitic fluid were drained. The catheter was removed and no leaking was noted. A tegaderm with 4x4 gauze was placed over the puncture wound. The patient tolerated the procedure well without any immediate complications. Estimated blood loss was 5 ml. Coding CPT Codes Skin and Soft Tissue - Skin and Soft Tissue: [id number] Abd paracentesis w/ imaging ([id number])
[2019-05-25 17:23] LABS: Appearance Peritoneal Fluid CLEAR; Basophils, Fluid 0 %; Color Peritoneal Fluid PALE YELLOW; Eosinophils, Fluid 1 %; Lymphocytes, Fluid 19 %; Mono,Macrophage,Mesothelial 66 %; Neutrophils, Fluid 14 %; RBC Peritoneal Fluid (A) < 3000 /uL; WBC Peritoneal Fluid (A) 420 /ul (0-300)
[2019-05-25 18:09] LABS: Calcium 7.5 mg/dl (8.5-10.1); Creatinine Clr Calc Pharmacy 46.2 ml/min; Est GFR (African American) 35.8; Est GFR (Non-African American) 30.9; Potassium 5.5 mmol/L (3.5-5.1)
[2019-05-25] MEDS: ALBUMIN 5% 250 ML IV SCH ×2 (18:31→22:50)
[2019-05-26] MEDS: MILRINONE LACTATE/D5W 20,000 MCG/100 ML BAG IV SCH ×2 (00:34→17:00)
[2019-05-26] MEDS: CEFEPIME 2,000 MG in SYRINGE 7.5 ML IV SCH ×2 (01:35→14:23)
[2019-05-26 04:32] LABS: INR 1.4 (0.9-1.1); Prothrombin Time 14.1 Seconds (9.0-12.0)
[2019-05-26 04:43] LABS: Albumin Level 1.3 gm/dl (3.4-5.0); BUN Creatinine Ratio 8.8 (10-20); Bilirubin Direct 0.9 mg/dl (0-0.2); Calcium 7.6 mg/dl (8.5-10.1); Est GFR (African American) 34.7; Est GFR (Non-African American) 29.9; Potassium 5.3 mmol/L (3.5-5.1)
[2019-05-26 04:53] LABS: Bilirubin,Total 1.6 mg/dl (0.2-1); Phosphorus 2.8 mg/dl (2.5-4.9); Total Protein 5.5 gm/dl (6.4-8.2)
[2019-05-26] MEDS: HEPARIN SOD 5,000 UNIT/0.5 ML VIAL SQ SCH ×3 (05:17→20:15)
[2019-05-26] MEDS: metroNIDAZOLE 500 MG/100 ML BAG IV SCH (05:54)
--- NOTE | 2019-05-26 07:31 | Critical Care Progress Note ---
Date of Service May 26, 2019 Assessment & Plan (1) Admitted to intensive care unit: Reason Critically Ill: 58-year-old male here for dopamine infusion 2/2 to ARF in the setting of ckd and endstage chf . Past medical history significant for ischemic cardiomyopathy EF 20% AICD in place on continuous milrinone infusion, chronic systolic CHF, HTN, pulmonary HTN, CAD, cirrhosis, CKD stage III, diet-controlled T2DM, history of tobacco abuse, history of V. tach Neuro: -[facility] ICU: NEGATIVE -Intermittently somnolent likely related to his end-stage CHF and poor perfusion of his brain Cardiac: Acute on chronic combined systolic and diastolic CHF NYHA a class IV Patient has a history of chronic congestive heart failure. Was placed on a milrinone infusion approximately 1 year ago. Over the past year his condition has progressively declined to his current situation where he is requiring hospitalization every 4 to 6 weeks. As an outpatient he is not been compliant with fluid restrictions and recommended diet or medications. Patient became hypotensive leading to ARF on milrinone now requiring dopamine support to maintain pressures. -Dopamine 2.0 mcg/kg/min -Continue milrinone Respiratory: Pulmonary edema secondary to CHF On discharge from most recent admission patient weighed 105 kg on admission to our hospital weight 112. He was aggressively diuresed on the general medical floors with 80 mg of IV Lasix 3 times daily in addition oral metolazone 5 mg twice daily. Ultimately he ended up becoming hypotensive and progressing to ARF. Since that time Lasix has been held. Currently saturating well on 3 L nasal cannula. -Prn o2 as needed, wean as tolerated -monitor for si/sx of worsening respiratory function GI: - Heart Healthy DM II diet Cirrhosis: Liver ultrasound obtained during this admission demonstrated cirrhosis. On admission the ICU patient had an elevated ammonia level. He is not currently on lactulose. Start lactulose 20 g p.o. 3 times daily -14 bm overnight -improving mentation Ascites secondary to cirrhosis Patient's physical exam demonstrated ascites, attempted paracentesis removed 2 L of fluid but had to stop secondary to hypotension and pain. -Not consistent with SBP -F/U cultures -prn paracentesis for comfort -Monitor for signs and symptoms of recurrence of ascites RENAL/LYTES: Acute renal failure in the setting of chronic kidney disease stage III Patient was transfer the ICU secondary to worsening renal function. On admi ssion creatinine was 1.55 increased to 1.91. Patient was transferred to the ICU for dopamine infusion in hopes that would increase renal perfusion and increased urine output. -Creatinine seems to stabilized around 2.3, continue to trend BMP -Increased UOP -Replace lytes as needed. : - No concerns at this time. HEME: - Stable H&H. ID: [id number] Given vital signs there is a concern for possible sepsis. -continue cefepime -Monitor fever curve. INTEGUMENTARY: -no concerns LINES/IV ACCESS: -PIVs intact. DVT PROPHYLAXIS: -contra in setting of cirrohosis Goals of Care: Ultimately this patient has a very poor prognosis. Unfortunately his has medical conditions of her own and is unable to provide supportive care for him. The patient repeatedly requests to be discharged on hospice with his medications to home however this is not possible due to his 's condition. The patient is currently DNR/DNI, however does not want to make a decision about inpatient hospice at this time. We have consulted the palliative team for assistance in coordinating this patient's care. Please see associated note. Dispo:ICU Thank you for allowing us to be part of this patient's care. Please refer to Dr. Chávez's documentation for any further recommendations. Supervising Physician Co-Signing Physician Notes Dr. Flores was the resident-physician during care of patient. I separately evaluated patient for mclain portions of the history and the exam. I was present during the critical portion of medical decision making, and I discussed the case with the resident. I generally agree with the findings and plan except for any additions/exceptions noted. Patient is on minimal dopamine today and continuous milrinone infusion. His renal function is stable. I did a paracentesis yesterday and removed 2 L of fluid with some improvement in his dyspnea. It does not appear that he has spontaneous bacterial peritonitis. He is having many bowel movements related to lactulose. He is still sleepy today. We had a lengthy discussion regarding his CODE STATUS and hospice. He does not want to make a decision about hospice at this time. He states that he just wants to go home and we did indicate that that is likely not going to be possible. He just keeps reiterating that he wants to go home. I did have discussion with Madisyn Perkins palliative care. We are continuing antibiotics for possible sepsis. Follow blood, urine and peritoneal fluid cultures. Patient's prognosis is very poor as he has multiorgan failure including heart failure, hypoxemic respiratory failure, decompensated liver failure and kidney failure. I have personally spent 40 minutes of critical care time in the direct man agement of this patient. This is a life/limb threatening event. This includes time spent evaluating patient, direct bedside care, chart review, placing orders, interpretation of diagnostic studies, discussion with consultants, patient, and/or family members regarding treatment decisions, as well as other required patient management activities. This time is exclusive of all separately billable procedures, and teaching time and separate from and in addition to any other critical care service time. Subjective Patient laying in bed this morning in no acute distress. More awake and alert than yesterday able to roll in bed, overnight had 14 bowel movements a little bit this morning. Continue to have goals of care discussion given the poor prognosis of this patient. The patient repeatedly states, "I want to go home with all my medicines ". We repeatedly explained to the patient that this is not possible as his is unable to care for him at home. Acute concerns at present are related to goals of care, all questions answered. Physical Exam Physical Exam: General: Ill-appearing gentleman in no acute distress, intermittently somnolent HEENT: Normocephalic atraumatic Neck: JVD present, otherwise normal to visual inspection Cardiac: Regular rate and rhythm, I did not appreciate any significant murmurs rubs or gallops, 2+ pedal edema bilaterally Respiratory: Diminished lung sounds bilaterally positive rales GI: Distended abdomen, nontender to palpation MSK: Unable to assess secondary to weakness Skin: Bruises and ecchymosis Neuro: Intermittently alert and oriented, somnolent time, will fall asleep in the middle of conversation Results & Data Vital Signs (Past 12 Hours) Vital Signs Temp Pulse Resp BP Pulse Ox 05/26/19 06:31 101 H 17 87/54 L 96 05/26/19 06:30 105 H 17 97 05/26/19 06:20 106 H 22 95 05/26/19 06:17 97 H 19 73/56 L 88 L 05/26/19 06:10 96 H 17 97 05/26/19 06:02 100 H 18 72/49 L 96 05/26/19 06:00 102 H 18 98 05/26/19 05:50 102 H 25 H 96 05/26/19 05:46 99 H 16 77/47 L 97 05/26/19 05:40 98 H 18 96 05/26/19 05:31 100 H 17 72/44 L 96 05/26/19 05:30 100 H 17 96 05/26/19 05:20 104 H 17 97 05/26/19 05:18 103 H 20 97 05/26/19 05:17 108 H 27 H 94/54 L 94 05/26/19 05:15 98 H 19 97 05/26/19 05:01 103 H 15 82/54 L 99 05/26/19 05:00 101 H 19 97 05/26/19 04:46 100 H 15 86/43 L 91 05/26/19 04:45 100 H 13 92 05/26/19 04:30 103 H 22 99 05/26/19 04:16 104 H 21 81/51 L 97 05/26/19 04:15 104 H 18 96 05/26/19 04:01 106 H 18 77/54 L 98 05/26/19 04:00 106 H 21 96 05/26/19 03:46 107 H 22 87/50 L 96 05/26/19 03:45 90 19 96 05/26/19 03:31 103 H 20 73/43 L 98 05/26/19 03:30 102 H 17 98 05/26/19 03:16 101 H 17 81/43 L 97 05/26/19 03:01 36.6 C 105 H 20 79/52 L 97 05/26/19 02:46 106 H 22 85/50 L 97 05/26/19 02:45 103 H 19 97 05/26/19 02:31 105 H 23 79/51 L 96 05/26/19 02:30 105 H 19 95 05/26/19 02:16 104 H 20 77/46 L 98 05/26/19 02:15 102 H 22 97 05/26/19 02:02 104 H 22 115/62 97 05/26/19 02:00 103 H 21 96 05/26/19 01:47 103 H 18 96 05/26/19 01:46 102 H 19 75/55 L 96 05/26/19 01:31 106 H 18 53/46 L 95 05/26/19 01:30 104 H 13 95 05/26/19 01:16 105 H 16 74/51 L 96 05/26/19 01:01 101 H 17 79/44 L 96 05/26/19 01:00 103 H 18 96 05/26/19 00:47 105 H 21 82/68 L 95 05/26/19 00:40 101 H 20 96 05/26/19 00:31 101 H 18 76/46 L 97 05/26/19 00:30 103 H 17 97 05/26/19 00:20 100 H 26 H 97 05/26/19 00:17 102 H 17 95/55 L 97 05/26/19 00:10 102 H 18 96 05/26/19 00:01 100 H 19 72/44 L 97 05/26/19 00:00 100 H 18 96 05/25/19 23:50 97 H 19 96 05/25/19 23:46 99 H 20 73/45 L 96 05/25/19 23:40 100 H 21 97 05/25/19 23:31 102 H 23 86/49 L 92 05/25/19 23:30 99 H 19 91 05/25/19 23:20 101 H 24 91 05/25/19 23:16 100 H 21 80/51 L 92 05/25/19 23:12 108 H 05/25/19 23:10 98 H 25 H 96 05/25/19 23:01 100 H 18 76/42 L 97 05/25/19 22:52 97 H 18 67/42 L 98 05/25/19 22:50 99 H 25 H 05/25/19 22:40 102 H 19 97 05/25/19 22:31 101 H 21 75/50 L 97 05/25/19 22:30 101 H 20 96 05/25/19 22:20 102 H 17 96 05/25/19 22:16 102 H 20 70/43 L 96 05/25/19 22:12 101 H 24 66/46 L 97 05/25/19 22:10 100 H 21 99 05/25/19 22:00 101 H 21 99 05/25/19 21:50 100 H 17 97 05/25/19 21:46 101 H 22 87/51 L 97 05/25/19 21:40 105 H 24 97 05/25/19 21:31 99 H 16 71/44 L 96 05/25/19 21:30 100 H 20 05/25/19 21:20 98 H 16 97 05/25/19 21:16 100 H 19 89/50 L 96 05/25/19 21:10 102 H 19 96 05/25/19 21:01 101 H 18 86/63 L 93 05/25/19 21:00 95 H 22 92 05/25/19 20:50 102 H 19 96 05/25/19 20:46 98 H 19 76/44 L 95 05/25/19 20:40 96 H 24 95 05/25/19 20:31 98 H 20 74/50 L 95 05/25/19 20:30 98 H 21 95 05/25/19 20:20 98 H 26 H 95 05/25/19 20:16 96 H 20 68/44 L 95 05/25/19 20:10 99 H 22 96 05/25/19 20:06 97 H 05/25/19 20:02 96 H 18 97 05/25/19 20:01 97 H 19 66/44 L 97 05/25/19 20:00 36.6 C 96 H 19 95 05/25/19 19:46 100 H 19 82/46 L 96 05/25/19 19:45 98 H 19 96 Laboratory Results 05/26/19 05/26/19 05/26/19 Range/Units 04:13 04:13 04:13 WBC 4.58 L (4.8-10.8) K/uL RBC 2.59 L (4.7-6.1) M/uL Hgb 8.1 L (14.0-18.0) g/dL Hct 23.7 L (42-52) % MCV 91.5 (80-100) fL MCH 31.3 (25-34) pg MCHC 34.2 (32-36) g/dL RDW Std Deviation 60.6 H (36.4-46.3) fL RDW Coeff of Yung 17.9 H (11.5-14.5) % Plt Count 108 L (130-400) K/uL MPV 9.9 (7.4-10.4) fL Immature Gran % (Auto) 0.4 % Neut % (Auto) 66.6 % Lymph % (Auto) 4.8 % [place] % (Auto) 14.2 % Eos % (Auto) 13.3 % Baso % (Auto) 0.7 % Immature Gran # (Auto) 0.02 (0.00-0.02) K/uL Neut # (Auto) 3.05 (1.4-6.5) K/uL Lymph # (Auto) 0.22 L (1.2-3.4) K/uL [place] # (Auto) 0.65 H (0.11-0.59) K/uL Eos # (Auto) 0.61 H (0-0.5) K/uL Baso # (Auto) 0.03 (0-0.2) K/uL Toxic Vacuolation 1+ PT 14.1 H (9.0-12.0) Seconds INR 1.4 H (0.9-1.1) Sodium (136-145) mmol/L Potassium (3.5-5.1) mmol/L Chloride (98-107) mmol/L Carbon Dioxide (21-32) mmol/L Anion Gap (3-11) BUN (7-18) mg/dl Creatinine (0.6-1.4) mg/dl Est Cr Clr Drug Dosing ml/min Est GFR ( Amer) Est GFR (Non-Af Amer) BUN/Creatinine Ratio (10-20) Glucose (70-99) mg/dl POC Glucose (70-99) Lactate (0.4-2.0) mmol/L Calcium (8.5-10.1) mg/dl Phosphorus (2.5-4.9) mg/dl Magnesium (1.8-2.4) mg/dl Total Bilirubin (0.2-1) mg/dl Direct Bilirubin (0-0.2) mg/dl AST (15-37) U/L ALT (12-78) U/L Alkaline Phosphatase (45-117) U/L NT-Pro-B Natriuret Pep (0-900) pg/ml Total Protein (6.4-8.2) gm/dl Albumin (3.4-5.0) gm/dl Globulin (2.5-4.0) gm/dl Albumin/Globulin Ratio (0.9-2) Procalcitonin 5.45 H (0-0.5) ng/ml Urine Color Urine Appearance (Clear) Urine pH (4.5-7.5) Ur Specific [place] (1.000-1.030) Urine Protein (Negative) Urine Glucose (UA) (Negative) Urine Ketones (Negative) Urine Blood (Negative) Urine Nitrite (Negative) Urine Bilirubin (Negative) Urine Urobilinogen (Negative) Ur Leukocyte Esterase (Negative) Urine WBC (Auto) (0-5) /hpf Urine RBC (Auto) (0-4) /hpf U Hyaline Cast (Auto) (0-5) /lpf U Epithel Cells (Auto) (0-5) /lpf Urine Bacteria (Auto) (Negative) Fluid Neutrophils % % Fluid Lymphocytes % % Fluid Eosinophils % % Fluid Basophils % % Fluid Meso/Macro/[place] % % Peritoneal Color Peritoneal Appearance Peritoneal WBC (0-300) /ul Peritoneal RBC /uL Peritoneal Tot Protein g/dl Peritoneal Albumin g/dl Nasal Screen MRSA (PCR) (Negative) Random Vancomycin mcg/ml 05/26/19 05/26/19 05/25/19 Range/Units 04:13 04:13 Unknown WBC (4.8-10.8) K/uL RBC (4.7-6.1) M/uL Hgb (14.0-18.0) g/dL Hct (42-52) % MCV (80-100) fL MCH (25-34) pg MCHC (32-36) g/dL RDW Std Deviation (36.4-46.3) fL RDW Coeff of Yung (11.5-14.5) % Plt Count (130-400) K/uL MPV (7.4-10.4) fL Immature Gran % (Auto) % Neut % (Auto) % Lymph % (Auto) % [place] % (Auto) % Eos % (Auto) % Baso % (Auto) % Immature Gran # (Auto) (0.00-0.02) K/uL Neut # (Auto) (1.4-6.5) K/uL Lymph # (Auto) (1.2-3.4) K/uL [place] # (Auto) (0.11-0.59) K/uL Eos # (Auto) (0-0.5) K/uL Baso # (Auto) (0-0.2) K/uL Toxic Vacuolation PT (9.0-12.0) Seconds INR (0.9-1.1) Sodium 127 L (136-145) mmol/L Potassium 5.3 H (3.5-5.1) mmol/L Chloride 96 L (98-107) mmol/L Carbon Dioxide 24 (21-32) mmol/L Anion Gap 7.0 (3-11) BUN 20 H (7-18) mg/dl Creatinine 2.33 H (0.6-1.4) mg/dl Est Cr Clr Drug Dosing 45.0 ml/min Est GFR ( Amer) 34.7 Est GFR (Non-Af Amer) 29.9 BUN/Creatinine Ratio 8.8 L (10-20) Glucose 89 (70-99) mg/dl POC Glucose (70-99) Lactate (0.4-2.0) mmol/L Calcium 7.6 L (8.5-10.1) mg/dl Phosphorus 2.8 (2.5-4.9) mg/dl Magnesium 2.0 (1.8-2.4) mg/dl Total Bilirubin 1.6 H (0.2-1) mg/dl Direct Bilirubin 0.9 H (0-0.2) mg/dl AST 19 (15-37) U/L ALT 10 L (12-78) U/L Alkaline Phosphatase 137 H (45-117) U/L NT-Pro-B Natriuret Pep (0-900) pg/ml Total Protein 5.5 L (6.4-8.2) gm/dl Albumin 1.3 L (3.4-5.0) gm/dl Globulin (2.5-4.0) gm/dl Albumin/Globulin Ratio (0.9-2) Procalcitonin (0-0.5) ng/ml Urine Color Urine Appearance (Clear) Urine pH (4.5-7.5) Ur Specific [place] (1.000-1.030) Urine Protein (Negative) Urine Glucose (UA) (Negative) Urine Ketones (Negative) Urine Blood (Negative) Urine Nitrite (Negative) Urine Bilirubin (Negative) Urine Urobilinogen (Negative) Ur Leukocyte Esterase (Negative) Urine WBC (Auto) (0-5) /hpf Urine RBC (Auto) (0-4) /hpf U Hyaline Cast (Auto) (0-5) /lpf U Epithel Cells (Auto) (0-5) /lpf Urine Bacteria (Auto) (Negative) Fluid Neutrophils % % Fluid Lymphocytes % % Fluid Eosinophils % % Fluid Basophils % % Fluid Meso/Macro/[place] % % Peritoneal Color Peritoneal Appearance Peritoneal WBC (0-300) /ul Peritoneal RBC /uL Peritoneal Tot Protein g/dl Peritoneal Albumin g/dl Nasal Screen MRSA (PCR) Negative (Negative) Random Vancomycin 20.3 mcg/ml 05/25/19 05/25/19 05/25/19 Range/Units 21:24 17:42 17:42 WBC (4.8-10.8) K/uL RBC (4.7-6.1) M/uL Hgb (14.0-18.0) g/dL Hct (42-52) % MCV (80-100) fL MCH (25-34) pg MCHC (32-36) g/dL RDW Std Deviation (36.4-46.3) fL RDW Coeff of Yung (11.5-14.5) % Plt Count (130-400) K/uL MPV (7.4-10.4) fL Immature Gran % (Auto) % Neut % (Auto) % Lymph % (Auto) % [place] % (Auto) % Eos % (Auto) % Baso % (Auto) % Immature Gran # (Auto) (0.00-0.02) K/uL Neut # (Auto) (1.4-6.5) K/uL Lymph # (Auto) (1.2-3.4) K/uL [place] # (Auto) (0.11-0.59) K/uL Eos # (Auto) (0-0.5) K/uL Baso # (Auto) (0-0.2) K/uL Toxic Vacuolation PT (9.0-12.0) Seconds INR (0.9-1.1) Sodium 127 L (136-145) mmol/L Potassium 5.5 H (3.5-5.1) mmol/L Chloride 95 L (98-107) mmol/L Carbon Dioxide 25 (21-32) mmol/L Anion Gap 7.0 (3-11) BUN 20 H (7-18) mg/dl Creatinine 2.27 H (0.6-1.4) mg/dl Est Cr Clr Drug Dosing 46.2 ml/min Est GFR ( Amer) 35.8 Est GFR (Non-Af Amer) 30.9 BUN/Creatinine Ratio 9.0 L (10-20) Glucose 97 (70-99) mg/dl POC Glucose 103 H (70-99) Lactate 1.8 (0.4-2.0) mmol/L Calcium 7.5 L (8.5-10.1) mg/dl Phosphorus (2.5-4.9) mg/dl Magnesium (1.8-2.4) mg/dl Total Bilirubin (0.2-1) mg/dl Direct Bilirubin (0-0.2) mg/dl AST (15-37) U/L ALT (12-78) U/L Alkaline Phosphatase (45-117) U/L NT-Pro-B Natriuret Pep (0-900) pg/ml Total Protein (6.4-8.2) gm/dl Albumin (3.4-5.0) gm/dl Globulin (2.5-4.0) gm/dl Albumin/Globulin Ratio (0.9-2) Procalcitonin (0-0.5) ng/ml Urine Color Urine Appearance (Clear) Urine pH (4.5-7.5) Ur Specific [place] (1.000-1.030) Urine Protein (Negative) Urine Glucose (UA) (Negative) Urine Ketones (Negative) Urine Blood (Negative) Urine Nitrite (Negative) Urine Bilirubin (Negative) Urine Urobilinogen (Negative) Ur Leukocyte Esterase (Negative) Urine WBC (Auto) (0-5) /hpf Urine RBC (Auto) (0-4) /hpf U Hyaline Cast (Auto) (0-5) /lpf U Epithel Cells (Auto) (0-5) /lpf Urine Bacteria (Auto) (Negative) Fluid Neutrophils % % Fluid Lymphocytes % % Fluid Eosinophils % % Fluid Basophils % % Fluid Meso/Macro/[place] % % Peritoneal Color Peritoneal Appearance Peritoneal WBC (0-300) /ul Peritoneal RBC /uL Peritoneal Tot Protein g/dl Peritoneal Albumin g/dl Nasal Screen MRSA (PCR) (Negative) Random Vancomycin mcg/ml 05/25/19 05/25/19 05/25/19 Range/Units 16:33 15:00 15:00 WBC (4.8-10.8) K/uL RBC (4.7-6.1) M/uL Hgb (14.0-18.0) g/dL Hct (42-52) % MCV (80-100) fL MCH (25-34) pg MCHC (32-36) g/dL RDW Std Deviation (36.4-46.3) fL RDW Coeff of Yung (11.5-14.5) % Plt Count (130-400) K/uL MPV (7.4-10.4) fL Immature Gran % (Auto) % Neut % (Auto) % Lymph % (Auto) % [place] % (Auto) % Eos % (Auto) % Baso % (Auto) % Immature Gran # (Auto) (0.00-0.02) K/uL Neut # (Auto) (1.4-6.5) K/uL Lymph # (Auto) (1.2-3.4) K/uL [place] # (Auto) (0.11-0.59) K/uL Eos # (Auto) (0-0.5) K/uL Baso # (Auto) (0-0.2) K/uL Toxic Vacuolation PT (9.0-12.0) Seconds INR (0.9-1.1) Sodium (136-145) mmol/L Potassium (3.5-5.1) mmol/L Chloride (98-107) mmol/L Carbon Dioxide (21-32) mmol/L Anion Gap (3-11) BUN (7-18) mg/dl Creatinine (0.6-1.4) mg/dl Est Cr Clr Drug Dosing ml/min Est GFR ( Amer) Est GFR (Non-Af Amer) BUN/Creatinine Ratio (10-20) Glucose (70-99) mg/dl POC Glucose 120 H (70-99) Lactate (0.4-2.0) mmol/L Calcium (8.5-10.1) mg/dl Phosphorus (2.5-4.9) mg/dl Magnesium (1.8-2.4) mg/dl Total Bilirubin (0.2-1) mg/dl Direct Bilirubin (0-0.2) mg/dl AST (15-37) U/L ALT (12-78) U/L Alkaline Phosphatase (45-117) U/L NT-Pro-B Natriuret Pep (0-900) pg/ml Total Protein (6.4-8.2) gm/dl Albumin (3.4-5.0) gm/dl Globulin (2.5-4.0) gm/dl Albumin/Globulin Ratio (0.9-2) Procalcitonin (0-0.5) ng/ml Urine Color Urine Appearance (Clear) Urine pH (4.5-7.5) Ur Specific [place] (1.000-1.030) Urine Protein (Negative) Urine Glucose (UA) (Negative) Urine Ketones (Negative) Urine Blood (Negative) Urine Nitrite (Negative) Urine Bilirubin (Negative) Urine Urobilinogen (Negative) Ur Leukocyte Esterase (Negative) Urine WBC (Auto) (0-5) /hpf Urine RBC (Auto) (0-4) /hpf U Hyaline Cast (Auto) (0-5) /lpf U Epithel Cells (Auto) (0-5) /lpf Urine Bacteria (Auto) (Negative) Fluid Neutrophils % 14 % Fluid Lymphocytes % 19 % Fluid Eosinophils % 1 % Fluid Basophils % 0 % Fluid Meso/Macro/[place] % 66 % Peritoneal Color PALE YELLOW Peritoneal Appearance CLEAR Peritoneal WBC 420 H (0-300) /ul Peritoneal RBC < 3000 /uL Peritoneal Tot Protein 0.9 g/dl Peritoneal Albumin g/dl Nasal Screen MRSA (PCR) (Negative) Random Vancomycin mcg/ml 05/25/19 05/25/19 05/25/19 Range/Units 15:00 13:58 11:15 WBC (4.8-10.8) K/uL RBC (4.7-6.1) M/uL Hgb (14.0-18.0) g/dL Hct (42-52) % MCV (80-100) fL MCH (25-34) pg MCHC (32-36) g/dL RDW Std Deviation (36.4-46.3) fL RDW Coeff of Yung (11.5-14.5) % Plt Count (130-400) K/uL MPV (7.4-10.4) fL Immature Gran % (Auto) % Neut % (Auto) % Lymph % (Auto) % [place] % (Auto) % Eos % (Auto) % Baso % (Auto) % Immature Gran # (Auto) (0.00-0.02) K/uL Neut # (Auto) (1.4-6.5) K/uL Lymph # (Auto) (1.2-3.4) K/uL [place] # (Auto) (0.11-0.59) K/uL Eos # (Auto) (0-0.5) K/uL Baso # (Auto) (0-0.2) K/uL Toxic Vacuolation PT 13.4 H (9.0-12.0) Seconds INR 1.3 H (0.9-1.1) Sodium (136-145) mmol/L Potassium (3.5-5.1) mmol/L Chloride (98-107) mmol/L Carbon Dioxide (21-32) mmol/L Anion Gap (3-11) BUN (7-18) mg/dl Creatinine (0.6-1.4) mg/dl Est Cr Clr Drug Dosing ml/min Est GFR ( Amer) Est GFR (Non-Af Amer) BUN/Creatinine Ratio (10-20) Glucose (70-99) mg/dl POC Glucose (70-99) Lactate (0.4-2.0) mmol/L Calcium (8.5-10.1) mg/dl Phosphorus (2.5-4.9) mg/dl Magnesium (1.8-2.4) mg/dl Total Bilirubin (0.2-1) mg/dl Direct Bilirubin (0-0.2) mg/dl AST (15-37) U/L ALT (12-78) U/L Alkaline Phosphatase (45-117) U/L NT-Pro-B Natriuret Pep (0-900) pg/ml Total Protein (6.4-8.2) gm/dl Albumin (3.4-5.0) gm/dl Globulin (2.5-4.0) gm/dl Albumin/Globulin Ratio (0.9-2) Procalcitonin (0-0.5) ng/ml Urine Color Dark Yellow Urine Appearance Clear (Clear) Urine pH 7.5 (4.5-7.5) Ur Specific [place] 1.014 (1.000-1.030) Urine Protein Trace H (Negative) Urine Glucose (UA) Negative (Negative) Urine Ketones Negative (Negative) Urine Blood 2+ H (Negative) Urine Nitrite Negative (Negative) Urine Bilirubin Negative (Negative) Urine Urobilinogen Negative (Negative) Ur Leukocyte Esterase 1+ H (Negative) Urine WBC (Auto) 10-30 H (0-5) /hpf Urine RBC (Auto) >30 H (0-4) /hpf U Hyaline Cast (Auto) 10-30 H (0-5) /lpf U Epithel Cells (Auto) 20-30 H (0-5) /lpf Urine Bacteria (Auto) Negative (Negative) Fluid Neutrophils % % Fluid Lymphocytes % % Fluid Eosinophils % % Fluid Basophils % % Fluid Meso/Macro/[place] % % Peritoneal Color Peritoneal Appearance Peritoneal WBC (0-300) /ul Peritoneal RBC /uL Peritoneal Tot Protein g/dl Peritoneal Albumin < 0.6 g/dl Nasal Screen MRSA (PCR) (Negative) Random Vancomycin mcg/ml 05/25/19 05/25/19 05/25/19 Range/Units 11:15 11:15 11:15 WBC (4.8-10.8) K/uL RBC (4.7-6.1) M/uL Hgb (14.0-18.0) g/dL Hct (42-52) % MCV (80-100) fL MCH (25-34) pg MCHC (32-36) g/dL RDW Std Deviation (36.4-46.3) fL RDW Coeff of Yung (11.5-14.5) % Plt Count (130-400) K/uL MPV (7.4-10.4) fL Immature Gran % (Auto) % Neut % (Auto) % Lymph % (Auto) % [place] % (Auto) % Eos % (Auto) % Baso % (Auto) % Immature Gran # (Auto) (0.00-0.02) K/uL Neut # (Auto) (1.4-6.5) K/uL Lymph # (Auto) (1.2-3.4) K/uL [place] # (Auto) (0.11-0.59) K/uL Eos # (Auto) (0-0.5) K/uL Baso # (Auto) (0-0.2) K/uL Toxic Vacuolation PT (9.0-12.0) Seconds INR (0.9-1.1) Sodium 128 L (136-145) mmol/L Potassium 5.2 H (3.5-5.1) mmol/L Chloride 93 L (98-107) mmol/L Carbon Dioxide 27 (21-32) mmol/L Anion Gap 8.0 (3-11) BUN 21 H (7-18) mg/dl Creatinine 2.30 H (0.6-1.4) mg/dl Est Cr Clr Drug Dosing 45.6 ml/min Est GFR ( Amer) 35.2 Est GFR (Non-Af Amer) 30.4 BUN/Creatinine Ratio 9.3 L (10-20) Glucose 110 H (70-99) mg/dl POC Glucose (70-99) Lactate 1.7 (0.4-2.0) mmol/L Calcium 8.0 L (8.5-10.1) mg/dl Phosphorus (2.5-4.9) mg/dl Magnesium (1.8-2.4) mg/dl Total Bilirubin 1.1 H (0.2-1) mg/dl Direct Bilirubin (0-0.2) mg/dl AST 18 (15-37) U/L ALT 7 L (12-78) U/L Alkaline Phosphatase 152 H (45-117) U/L NT-Pro-B Natriuret Pep 8780 H (0-900) pg/ml Total Protein 5.5 L (6.4-8.2) gm/dl Albumin 1.2 L (3.4-5.0) gm/dl Globulin 4.3 H (2.5-4.0) gm/dl Albumin/Globulin Ratio 0.3 L (0.9-2) Procalcitonin 8.11 H (0-0.5) ng/ml Urine Color Urine Appearance (Clear) Urine pH (4.5-7.5) Ur Specific [place] (1.000-1.030) Urine Protein (Negative) Urine Glucose (UA) (Negative) Urine Ketones (Negative) Urine Blood (Negative) Urine Nitrite (Negative) Urine Bilirubin (Negative) Urine Urobilinogen (Negative) Ur Leukocyte Esterase (Negative) Urine WBC (Auto) (0-5) /hpf Urine RBC (Auto) (0-4) /hpf U Hyaline Cast (Auto) (0-5) /lpf U Epithel Cells (Auto) (0-5) /lpf Urine Bacteria (Auto) (Negative) Fluid Neutrophils % % Fluid Lymphocytes % % Fluid Eosinophils % % Fluid Basophils % % Fluid [place] % % Peritoneal Color Peritoneal Appearance Peritoneal WBC (0-300) /ul Peritoneal RBC /uL Peritoneal Tot Protein g/dl Peritoneal Albumin g/dl Nasal Screen MRSA (PCR) (Negative) Random Vancomycin mcg/ml Medications Administered Current Inpatient Medications Albuterol (Ventolin 0.083% 2.5mg/3ml) 2.5 mg INH Q4 PRN PRN Reason: Shortness Of Breath Or Wheezing Stop: 06/21/19 17:46 Last Admin: 05/22/19 23:27 Dose: 2.5 mg Documented by: Amiodarone HCl (Cordarone) 200 mg PO DAILY [facility] Stop: 06/22/19 08:59 Last Admin: 05/26/19 08:36 Dose: 200 mg Documented by: Aspirin (Ecotrin Ectab) 81 mg PO DAILY [facility] Stop: 06/22/19 08:59 Last Admin: 05/26/19 08:36 Dose: 81 mg Documented by: Dextrose (Dextrose 50%) 25 - 50 ml IV UD PRN; Protocol PRN Reason: Hypoglycemia Protocol Stop: 06/21/19 17:46 Docusate Sodium (Colace) 100 mg PO BID PRN PRN Reason: Constipation Stop: 06/21/19 17:46 Famotidine (Pepcid) 20 mg PO BID PRN PRN Reason: Heartburn Stop: 06/24/19 12:10 Glucagon (Glucagen) 1 mg SQ UD PRN; Protocol PRN Reason: Hypoglycemia Protocol Stop: 06/21/19 17:46 Glucose (Glucose 40%) 15 - 30 gm PO UD PRN; Protocol PRN Reason: Hypoglycemia Protocol Stop: 06/21/19 17:46 Glucose (Dex4 Glucose) 4 - 8 tabs PO UD PRN; Protocol PRN Reason: Hypoglycemia Protocol Stop: 06/21/19 17:46 Heparin Sodium (Porcine) (Heparin Sodium (Porcine)) 5,000 units SQ Q8 [facility] Stop: 06/21/19 21:59 Last Admin: 05/26/19 05:17 Dose: Not Given Documented by: Milrinone Lactate/Dextrose (Primacor/D5w) 20,000 mcg in 100 mls @ 6.6 mls/hr IV .[id number] [facility] Stop: 06/21/19 16:14 Last Infusion: 05/26/19 07:21 Dose: 0.25 mcg/kg/min, 6.6 mls/hr Documented by: Dopamine HCl/Dextrose (Dopamine / D5w) 400 mg in 250 mls @ 7.92 mls/hr IV .Q24H [facility] Stop: 06/24/19 08:59 Last Infusion: 05/26/19 07:20 Dose: 2 mcg/kg/min, 7.9 mls/hr Documented by: Cefepime HCl 2,000 mg/ Syringe 20 mls @ 5 mls/min IV Q12H [facility] Stop: 06/04/19 13:59 Last Admin: 05/26/19 01:35 Dose: 5 mls/min Documented by: Lactulose (Chronulac) 20 gm PO TID [facility] Stop: 06/24/19 13:59 Last Admin: 05/26/19 08:36 Dose: 20 gm Documented by: Miscellaneous (Carbohydrates For Hypoglycemia) 15 - 30 gm PO UD PRN PRN Reason: Hypoglycemia Protocol Stop: 06/21/19 17:46 Pantoprazole Sodium (Protonix) 40 mg PO DAILY [facility] Stop: 06/22/19 08:59 Last Admin: 05/26/19 08:36 Dose: 40 mg Documented by: Polyethylene Glycol (Miralax Powder Packet) 17 gm PO DAILY PRN PRN Reason: Constipation Stop: 06/21/19 17:46 Sertraline HCl (Zoloft) 50 mg PO DAILY [facility] Stop: 06/22/19 08:59 Last Admin: 05/26/19 08:37 Dose: 50 mg Documented by: Critical Care Time Critical Care Time: Yes Total Critical Care Time: 40 Resident Activity Tracking Resident Involvement: Resident Care Provided Care Provided: Adult Hospital Medicine (ICU)
[2019-05-26 08:34] LABS: Basophils # (auto) 0.03 K/uL (0-0.2); Basophils % (auto) 0.7 %; Eosinophils # (auto) 0.61 K/uL (0-0.5); Eosinophils % (auto) 13.3 %; Hematocrit (blood only) 23.7 % (42-52); Hemoglobin 8.1 g/dL (14.0-18.0); Immature Granulocytes # (auto) 0.02 K/uL (0.00-0.02); Immature Granulocytes % (auto) 0.4 %; Lymphocytes # (auto) 0.22 K/uL (1.2-3.4); Lymphocytes % (auto) 4.8 %; Mean Corpuscular Hemoglobin 31.3 pg (25-34); Mean Corpuscular Hgb Conc 34.2 g/dL (32-36); Mean Corpuscular Volume 91.5 fL (80-100); Mean Platelet Volume 9.9 fL (7.4-10.4); Monocytes # (auto) 0.65 K/uL (0.11-0.59); Monocytes % (auto) 14.2 %; Neutrophils # (auto) 3.05 K/uL (1.4-6.5); Neutrophils % (auto) 66.6 %; Platelet Count 108 K/uL (130-400); RDW Coefficient of Variation 17.9 % (11.5-14.5); RDW Standard Deviation 60.6 fL (36.4-46.3); Red Blood Count 2.59 M/uL (4.7-6.1); White Blood Count 4.58 K/uL (4.8-10.8)
[2019-05-26] MEDS: AMIODARONE 200 MG TAB PO SCH (08:36)
[2019-05-26] MEDS: PANTOprazole 40 MG TAB PO SCH (08:36)
[2019-05-26] MEDS: LACTULOSE SYRUP 20 GM/30 ML UDC PO SCH ×3 (08:36→21:53)
[2019-05-26] MEDS: ASPIRIN 81 MG ECTAB PO SCH (08:36)
[2019-05-26] MEDS: SERTRALINE HCL 50 MG TABLET PO SCH (08:37)
[2019-05-26 09:05] LABS: Toxic Vacuolation 1+
--- NOTE | 2019-05-26 10:34 | Billing Data ---
Date of Service May 26, 2019 Coding Level of Care Code Critical Care 1st 30-74 mins Time Spent (min) 40
--- NOTE | 2019-05-26 10:46 | Palliative Care Progress Note ---
Date of Service May 26, 2019 Assessment & Plan (1) Goals of care, counseling/discussion: -Patient's condition remains about the same today. He is drowsy but oriented. -BP marginal even on Primacor and dopamine infusions. -Creatinine 2.33 from 2.27 yesterday. -Patient is insistent that he wants to go home, but myself and Dr. Chávez have told him multiple times over that this unfortunately is not possible. If we turn off the dopamine, his blood pressure will likely plumet and he could pass away. This has also been discussed with his Stephanie by myself over the phone this morning-- she verbalizes understanding and again states that she does not want patient to suffer. -Patient continues to struggle with decision making and does not want to transition to comfort measures only. For now, we will continue with care as is. -If patient declines (blood pressure drops, kidneys worsen, etc), NO ESCALATION IN CARE. At that point, patient agrees that he would want to be made comfort measures only. He is a DNR/DNI. -We will continue to follow. (2) Acute on chronic combined systolic and diastolic CHF, NYHA class 4: (3) Acute on chronic renal failure: (4) Ischemic cardiomyopathy: Subjective Patient's condition remains about the same today. He is drowsy but oriented. BP marginal even on primacor and dopamine. Creatinine 2.33 from 2.27 yesterday. Review of Systems Review of Systems: Const: + weakness Resp: + SOB with exertion Cardio: No chest pain, + upper and lower extremity edema GI: No abdominal pain, no N/V MS: No musculoskeletal pain Neuro: No confusion Psych: No anxiety Physical Exam Constitutional: + ill appearing (chronically) ENMT: external ear and nose normal, oropharynx normal Respiratory: normal respiratory effort; no labored breathing Cardiovascular: Rate/Rhythm: + tachycardic Extremities: + edema (right arm +4 pitting edema, left arm +2 pitting edema) Gastrointestinal (Abdomen): Inspection/Auscultation: + abdomen distended (but soft) and normal bowel sounds Percussion/Palpation: abdomen nontender Skin: + jaundice Neurologic: moves all extremities and awake (but drowsy); not confused Psychiatric: Orientation: oriented x 3 Insight: + limited insight Judgement: + limited judgement Results & Data Vital Signs (Past 12 Hours) Vital Signs Temp Pulse Resp BP Pulse Ox 05/26/19 09:57 103 H 19 78/53 L 97 05/26/19 09:31 104 H 69/52 L 99 05/26/19 08:32 103 H 84/57 L 97 05/26/19 08:00 99 H 05/26/19 07:31 36.7 C 103 H 23 84/55 L 97 05/26/19 07:02 100 H 17 81/50 L 97 05/26/19 06:46 98 H 16 71/43 L 95 05/26/19 06:31 101 H 17 87/54 L 96 05/26/19 06:30 105 H 17 97 05/26/19 06:20 106 H 22 95 05/26/19 06:17 97 H 19 73/56 L 88 L 05/26/19 06:10 96 H 17 97 05/26/19 06:02 100 H 18 72/49 L 96 05/26/19 06:00 102 H 18 98 05/26/19 05:50 102 H 25 H 96 05/26/19 05:46 99 H 16 77/47 L 97 05/26/19 05:40 98 H 18 96 05/26/19 05:31 100 H 17 72/44 L 96 05/26/19 05:30 100 H 17 96 05/26/19 05:20 104 H 17 97 05/26/19 05:18 103 H 20 97 05/26/19 05:17 108 H 27 H 94/54 L 94 05/26/19 05:15 98 H 19 97 05/26/19 05:01 103 H 15 82/54 L 99 05/26/19 05:00 101 H 19 97 05/26/19 04:46 100 H 15 86/43 L 91 05/26/19 04:45 100 H 13 92 05/26/19 04:30 103 H 22 99 05/26/19 04:16 104 H 21 81/51 L 97 05/26/19 04:15 104 H 18 96 05/26/19 04:01 106 H 18 77/54 L 98 05/26/19 04:00 106 H 21 96 05/26/19 03:46 107 H 22 87/50 L 96 05/26/19 03:45 90 19 96 05/26/19 03:31 103 H 20 73/43 L 98 05/26/19 03:30 102 H 17 98 05/26/19 03:16 101 H 17 81/43 L 97 05/26/19 03:01 36.6 C 105 H 20 79/52 L 97 05/26/19 02:46 106 H 22 85/50 L 97 05/26/19 02:45 103 H 19 97 05/26/19 02:31 105 H 23 79/51 L 96 05/26/19 02:30 105 H 19 95 05/26/19 02:16 104 H 20 77/46 L 98 05/26/19 02:15 102 H 22 97 05/26/19 02:02 104 H 22 115/62 97 05/26/19 02:00 103 H 21 96 05/26/19 01:47 103 H 18 96 05/26/19 01:46 102 H 19 75/55 L 96 05/26/19 01:31 106 H 18 53/46 L 95 05/26/19 01:30 104 H 13 95 05/26/19 01:16 105 H 16 74/51 L 96 05/26/19 01:01 101 H 17 79/44 L 96 05/26/19 01:00 103 H 18 96 05/26/19 00:47 105 H 21 82/68 L 95 05/26/19 00:40 101 H 20 96 05/26/19 00:31 101 H 18 76/46 L 97 05/26/19 00:30 103 H 17 97 05/26/19 00:20 100 H 26 H 97 05/26/19 00:17 102 H 17 95/55 L 97 05/26/19 00:10 102 H 18 96 05/26/19 00:01 100 H 19 72/44 L 97 05/26/19 00:00 100 H 18 96 05/25/19 23:50 97 H 19 96 05/25/19 23:46 99 H 20 73/45 L 96 05/25/19 23:40 100 H 21 97 05/25/19 23:31 102 H 23 86/49 L 92 05/25/19 23:30 99 H 19 91 05/25/19 23:20 101 H 24 91 05/25/19 23:16 100 H 21 80/51 L 92 05/25/19 23:12 108 H 05/25/19 23:10 98 H 25 H 96 05/25/19 23:01 100 H 18 76/42 L 97 05/25/19 22:52 97 H 18 67/42 L 98 05/25/19 22:50 99 H 25 H PG Care Time/CCT Prolonged Care Time Prolonged Care Time: Yes Total Prolonged Care Time: 65 Time Spent Midlevel 65 minutes with >50% of time spent at bedside with patient and ICU team, on phone with family, discussing condition, prognosis, end of life, and goals of care. (1) Acute on chronic renal failure Acute renal failure type: unspecified Chronic kidney disease stage: stage 3 (moderate) Qualified Code(s): N17.9 - Acute kidney failure, unspecified; N18.3 - Chronic kidney disease, stage 3 (moderate)
[2019-05-26] MEDS: DOPAMINE / D5W 400 MG/250 ML BAG IV SCH (11:44)
[2019-05-26] MEDS ORDERED: VANCOMYCIN HCL 1,500 MG in SODIUM CHLORIDE 0.9% 250 ML IV ONE (14:00)
--- NOTE | 2019-05-26 15:45 | Cardiology Progress Note ---
Date of Service May 26, 2019 Assessment & Plan (1) Acute on chronic combined systolic and diastolic CHF, NYHA class 4: Patient with chronic inotrope dependent heart failure on milrinone for 1 year or greater now with decompensated heart failure and failure to respond to usual therapies. Dopamine has been added for blood pressure support. Expect renal function to decline further. We will continue current therapies Have discussed above all in detail with patient and his . Patient wishes to return to home though feels this is unrealistic given the level of care required. Patient has not initiated hospice but if any acute decline further would move towards comfort measures/no further resuscitate (2) Cardiorenal syndrome: (3) Acute on chronic renal failure: (4) Ischemic cardiomyopathy: (5) Acute hyponatremia: (6) End stage liver disease: (7) Hypotension: Subjective Patient seen and examined, chart, medications, telemetry reviewed. Patient notes no acute changes or complaints. Is emotionally labile back-and-fo rth regarding medical care and potential futility. Currently no chest pains or worsening shortness of breath. Continues to manifest positive diuresis No further bradycardia on telemetry no sustained tachyarrhythmias Underwent paracentesis yesterday without event but dwindling urine outputs today. Physical Exam Constitutional: + cachectic (Cardiac) Eyes: PERRL, conjunctivae normal, anicteric sclerae ENMT: external ear and nose normal, oropharynx normal Neck: trachea midline, no thyromegaly Respiratory: Auscultation: + diminished lung sounds and + rales Cardiovascular: Rate/Rhythm: regular rate and regular rhythm Heart Sounds: + gallop Vessels: + JVD Extremities: + edema (1+ with chronic stasis changes) Chest (Breasts): Chest: + pacemaker (/Defibrillator site without tenderness) Gastrointestinal (Abdomen): Inspection/Auscultation: + abdomen distended Percussion/Palpation: abdomen soft Reducible ventral hernia Results & Data Vital Signs (Past 12 Hours) Vital Signs Temp Pulse Resp BP Pulse Ox 05/26/19 13:58 104 H 85/46 L 97 05/26/19 13:11 104 H 89/57 L 92 05/26/19 13:00 105 H 96 05/26/19 11:57 36.5 C 105 H 77/42 L 96 05/26/19 10:57 102 H 18 77/57 L 97 05/26/19 09:57 103 H 19 78/53 L 97 05/26/19 09:31 104 H 69/52 L 99 05/26/19 08:32 103 H 84/57 L 97 05/26/19 08:00 99 H 05/26/19 07:31 36.7 C 103 H 23 84/55 L 97 05/26/19 07:02 100 H 17 81/50 L 97 05/26/19 06:46 98 H 16 71/43 L 95 05/26/19 06:31 101 H 17 87/54 L 96 05/26/19 06:30 105 H 17 97 05/26/19 06:20 106 H 22 95 05/26/19 06:17 97 H 19 73/56 L 88 L 05/26/19 06:10 96 H 17 97 05/26/19 06:02 100 H 18 72/49 L 96 05/26/19 06:00 102 H 18 98 05/26/19 05:50 102 H 25 H 96 05/26/19 05:46 99 H 16 77/47 L 97 05/26/19 05:40 98 H 18 96 05/26/19 05:31 100 H 17 72/44 L 96 05/26/19 05:30 100 H 17 96 05/26/19 05:20 104 H 17 97 05/26/19 05:18 103 H 20 97 05/26/19 05:17 108 H 27 H 94/54 L 94 05/26/19 05:15 98 H 19 97 05/26/19 05:01 103 H 15 82/54 L 99 05/26/19 05:00 101 H 19 97 05/26/19 04:46 100 H 15 86/43 L 91 05/26/19 04:45 100 H 13 92 05/26/19 04:30 103 H 22 99 05/26/19 04:16 104 H 21 81/51 L 97 05/26/19 04:15 104 H 18 96 05/26/19 04:01 106 H 18 77/54 L 98 05/26/19 04:00 106 H 21 96 05/26/19 03:46 107 H 22 87/50 L 96 05/26/19 03:45 90 19 96 Laboratory Results Laboratory Results - last 24 hr 05/25/19 05/25/19 05/25/19 15:00 15:00 15:00 WBC RBC Hgb Hct MCV MCH MCHC RDW Std Deviation RDW Coeff of Yung Plt Count MPV Immature Gran % (Auto) Neut % (Auto) Lymph % (Auto) [place] % (Auto) Eos % (Auto) Baso % (Auto) Immature Gran # (Auto) Neut # (Auto) Lymph # (Auto) [place] # (Auto) Eos # (Auto) Baso # (Auto) Toxic Vacuolation PT INR Sodium Potassium Chloride Carbon Dioxide Anion Gap BUN Creatinine Est Cr Clr Drug Dosing Est GFR ( Amer) Est GFR (Non-Af Amer) BUN/Creatinine Ratio Glucose POC Glucose Lactate Calcium Phosphorus Magnesium Total Bilirubin Direct Bilirubin AST ALT Alkaline Phosphatase Total Protein Albumin Procalcitonin Fluid Neutrophils % 14 Fluid Lymphocytes % 19 Fluid Eosinophils % 1 Fluid Basophils % 0 Fluid Meso/Macro/Laurens % 66 Peritoneal Color PALE YELLOW Peritoneal Appearance CLEAR Peritoneal WBC 420 H Peritoneal RBC < 3000 Peritoneal Tot Protein 0.9 Peritoneal Albumin < 0.6 Random Vancomycin 05/25/19 05/25/19 05/25/19 16:33 17:42 17:42 WBC RBC Hgb Hct MCV MCH MCHC RDW Std Deviation RDW Coeff of Yung Plt Count MPV Immature Gran % (Auto) Neut % (Auto) Lymph % (Auto) [place] % (Auto) Eos % (Auto) Baso % (Auto) Immature Gran # (Auto) Neut # (Auto) Lymph # (Auto) [place] # (Auto) Eos # (Auto) Baso # (Auto) Toxic Vacuolation PT INR Sodium 127 L Potassium 5.5 H Chloride 95 L Carbon Dioxide 25 Anion Gap 7.0 BUN 20 H Creatinine 2.27 H Est Cr Clr Drug Dosing 46.2 Est GFR ( Amer) 35.8 Est GFR (Non-Af Amer) 30.9 BUN/Creatinine Ratio 9.0 L Glucose 97 POC Glucose 120 H Lactate 1.8 Calcium 7.5 L Phosphorus Magnesium Total Bilirubin Direct Bilirubin AST ALT Alkaline Phosphatase Total Protein Albumin Procalcitonin Fluid Neutrophils % Fluid Lymphocytes % Fluid Eosinophils % Fluid Basophils % Fluid Meso/Macro/Laurens % Peritoneal Color Peritoneal Appearance Peritoneal WBC Peritoneal RBC Peritoneal Tot Protein Peritoneal Albumin Random Vancomycin 05/25/19 05/26/19 05/26/19 21:24 04:13 04:13 WBC RBC Hgb Hct MCV MCH MCHC RDW Std Deviation RDW Coeff of Yung Plt Count MPV Immature Gran % (Auto) Neut % (Auto) Lymph % (Auto) [place] % (Auto) Eos % (Auto) Baso % (Auto) Immature Gran # (Auto) Neut # (Auto) Lymph # (Auto) [place] # (Auto) Eos # (Auto) Baso # (Auto) Toxic Vacuolation PT INR Sodium 127 L Potassium 5.3 H Chloride 96 L Carbon Dioxide 24 Anion Gap 7.0 BUN 20 H Creatinine 2.33 H Est Cr Clr Drug Dosing 45.0 Est GFR ( Amer) 34.7 Est GFR (Non-Af Amer) 29.9 BUN/Creatinine Ratio 8.8 L Glucose 89 POC Glucose 103 H Lactate Calcium 7.6 L Phosphorus 2.8 Magnesium 2.0 Total Bilirubin 1.6 H Direct Bilirubin 0.9 H AST 19 ALT 10 L Alkaline Phosphatase 137 H Total Protein 5.5 L Albumin 1.3 L Procalcitonin Fluid Neutrophils % Fluid Lymphocytes % Fluid Eosinophils % Fluid Basophils % Fluid Meso/Macro/Laurens % Peritoneal Color Peritoneal Appearance Peritoneal WBC Peritoneal RBC Peritoneal Tot Protein Peritoneal Albumin Random Vancomycin 20.3 05/26/19 05/26/19 05/26/19 04:13 04:13 04:13 WBC 4.58 L RBC 2.59 L Hgb 8.1 L Hct 23.7 L MCV 91.5 MCH 31.3 MCHC 34.2 RDW Std Deviation 60.6 H RDW Coeff of Yung 17.9 H Plt Count 108 L MPV 9.9 Immature Gran % (Auto) 0.4 Neut % (Auto) 66.6 Lymph % (Auto) 4.8 Laurens % (Auto) 14.2 Eos % (Auto) 13.3 Baso % (Auto) 0.7 Immature Gran # (Auto) 0.02 Neut # (Auto) 3.05 Lymph # (Auto) 0.22 L [place] # (Auto) 0.65 H Eos # (Auto) 0.61 H Baso # (Auto) 0.03 Toxic Vacuolation 1+ PT 14.1 H INR 1.4 H Sodium Potassium Chloride Carbon Dioxide Anion Gap BUN Creatinine Est Cr Clr Drug Dosing Est GFR ( Amer) Est GFR (Non-Af Amer) BUN/Creatinine Ratio Glucose POC Glucose Lactate Calcium Phosphorus Magnesium Total Bilirubin Direct Bilirubin AST ALT Alkaline Phosphatase Total Protein Albumin Procalcitonin 5.45 H Fluid Neutrophils % Fluid Lymphocytes % Fluid Eosinophils % Fluid Basophils % Fluid Meso/Macro/Laurens % Peritoneal Color Peritoneal Appearance Peritoneal WBC Peritoneal RBC Peritoneal Tot Protein Peritoneal Albumin Random Vancomycin 05/26/19 11:28 WBC RBC Hgb Hct MCV MCH MCHC RDW Std Deviation RDW Coeff of Yung Plt Count MPV Immature Gran % (Auto) Neut % (Auto) Lymph % (Auto) [place] % (Auto) Eos % (Auto) Baso % (Auto) Immature Gran # (Auto) Neut # (Auto) Lymph # (Auto) [place] # (Auto) Eos # (Auto) Baso # (Auto) Toxic Vacuolation PT INR Sodium Potassium Chloride Carbon Dioxide Anion Gap BUN Creatinine Est Cr Clr Drug Dosing Est GFR ( Amer) Est GFR (Non-Af Amer) BUN/Creatinine Ratio Glucose POC Glucose 95 Lactate Calcium Phosphorus Magnesium Total Bilirubin Direct Bilirubin AST ALT Alkaline Phosphatase Total Protein Albumin Procalcitonin Fluid Neutrophils % Fluid Lymphocytes % Fluid Eosinophils % Fluid Basophils % Fluid Meso/Macro/Laurens % Peritoneal Color Peritoneal Appearance Peritoneal WBC Peritoneal RBC Peritoneal Tot Protein Peritoneal Albumin Random Vancomycin (1) Cardiorenal syndrome Heart failure presence: with heart failure Hypertensive chronic kidney disease stage: stage 1-4 or unspecified chronic kidney disease Qualified Code(s): I13.0 - Hypertensive heart and chronic kidney disease with heart failure and stage 1 through stage 4 chronic kidney disease, or unspecified chronic kidney disease (2) Acute on chronic renal failure Acute renal failure type: unspecified Chronic kidney disease stage: stage 3 (moderate) Qualified Code(s): N17.9 - Acute kidney failure, unspecified; N18.3 - Chronic kidney disease, stage 3 (moderate) (3) Hypotension Hypotension type: unspecified hypotension type Qualified Code(s): I95.9 - Hypotension, unspecified
--- NOTE | 2019-05-26 15:57 | Ultrasound Report ---
US venous doppler UE RT CLINICAL HISTORY: 58 years-old Male presenting with severe swelling RUE. TECHNIQUE: Real-time grayscale and color and spectral Doppler ultrasound imaging of the veins of the right upper extremity was performed. Compression and augmentation were also utilized. COMPARISON: None. FINDINGS: RIGHT: Internal jugular vein: Patent. Subclavian vein: Patent. Axillary vein: Patent. Brachial vein: Patent. Basilic vein (superficial): Patent. Cephalic vein (superficial): Patent. Radial vein: Patent. Ulnar vein: Patent. Other: Subcutaneous edema with dilated lymphatics evident. IMPRESSION: 1. No evidence of deep venous thrombosis. 2. Subcutaneous edema in the right upper cavity. Electronically signed by: Abram Mark M.D. 05/26/2019 3:55 PM
--- NOTE | 2019-05-26 17:29 | Hospitalist Progress Note ---
Date of Service May 26, 2019 Assessment & Plan (1) Fluid overload: (1) Acute on chronic combined systolic and diastolic CHF, NYHA class 4: (2) Ischemic cardiomyopathy: (3) Hypotension: Per admitting service notes This is a 58-year-old male who has significant past medical history of ischemic cardiomyopathy EF 20% AICD in place on continuous at home milrinone infusion , chronic systolic CHF, HTN, pulmonary HTN, CAD, hx of MSSA endocarditis, cirrhosis, CKD stage III, diet-controlled T2DM, history of tobacco abuse, history of VT arrest s/p ICD in 06/2018 who presents to [facility] secondary to weight gain and lethargy. In ED chest x-ray revealed pulmonary edema. Sodium 124, K2.8, chloride 98, BUN 21, creatinine 1.55. Initial troponin WNL, TSH elevated 9.02, but free T4 WNL. T bili elevated at 1.1, AST 18, ALT 7, alk phos 135, ammonia 34.0. pts condition continues to decline 2nd degree heart block /symptomatic noted over night worsening of renal funciton > cr 2.4-> 2.7 with hyperkalemia not a candidate for HD given very low BP and hemodynamic instability BP remains low -milrinone gtt dose reduced transferred to ICU on 05/25/19 Dopamine gtt added s/p 2 Liter of paracethesis by ICU team on 05/25/19 over all prognosis is very poor pt and updated multiple times by myself , cardiology and palliative care appreciate help and input from Pallaitive care CODE status changed to DNR/DNI after D/w pt and at present cont supportive care pt is yet indecisive to transition to hospice /comfort care acute renal failure CKD (chronic kidney disease), stage III: possible cardiorenal symptom baseline Cr 1.5 worsening of cr > 2.7 with poor urine out put persisted hypotension causing poor perfusion over all prognosis poor (7) CAD (coronary artery disease): extensive CAD with severe ischemic cardiomyopathy EF 20% (8) Cirrhosis: ROBLERO , worsening of ascites due to decompensated CHF and renal failure (12) DVT prophylaxis: Heparin SQ CODE STATUS: DNR/DNI Disposition: over all prognosis remains poor Subjective pt seen in ICU 103 on dopamine and milrinone gtt alert and awake says feels a bit better after taking away the fluid from abdomen wants to go home as soon as possible denies of any SOB , chest heaviness no complain of pain or discomfort Physical Exam Constitutional: well developed and + ill appearing (chronically) Eyes: PERRL, conjunctivae normal, anicteric sclerae ENMT: external ear and nose normal, oropharynx normal Respiratory: normal respiratory effort; no labored breathing Auscultation: + diminished lung sounds (At the bases bilaterally) and + rales Cardiovascular: Rate/Rhythm: regular rate, regular rhythm and + tachycardic Heart Sounds: normal S1 and normal S2; no murmur Vessels: + JVD; no carotid bruit Extremities: + edema (right arm +4 pitting edema, left arm +2 pitting edema) Gastrointestinal (Abdomen): Inspection/Auscultation: + abdomen distended (but soft) and normal bowel sounds Percussion/Palpation: abdomen soft; abdomen nontender, no guarding and abdomen not rigid Skin: + jaundice Neurologic: PERRL, EOMI, accommodation nl, no face palsy, no dysarthria moves all extremities and awake (but drowsy); not confused Psychiatric: Orientation: oriented to person Insight: + limited insight Judgement: + limited judgement Results & Data Vital Signs (Past 12 Hours) Vital Signs Temp Pulse Resp BP Pulse Ox 05/26/19 13:58 104 H 85/46 L 97 05/26/19 13:11 104 H 89/57 L 92 05/26/19 13:00 105 H 96 05/26/19 11:57 36.5 C 105 H 77/42 L 96 05/26/19 10:57 102 H 18 77/57 L 97 05/26/19 09:57 103 H 19 78/53 L 97 05/26/19 09:31 104 H 69/52 L 99 05/26/19 08:32 103 H 84/57 L 97 05/26/19 08:00 99 H 05/26/19 07:31 36.7 C 103 H 23 84/55 L 97 05/26/19 07:02 100 H 17 81/50 L 97 05/26/19 06:46 98 H 16 71/43 L 95 05/26/19 06:31 101 H 17 87/54 L 96 05/26/19 06:30 105 H 17 97 05/26/19 06:20 106 H 22 95 05/26/19 06:17 97 H 19 73/56 L 88 L 05/26/19 06:10 96 H 17 97 05/26/19 06:02 100 H 18 72/49 L 96 05/26/19 06:00 102 H 18 98 05/26/19 05:50 102 H 25 H 96 05/26/19 05:46 99 H 16 77/47 L 97 05/26/19 05:40 98 H 18 96 05/26/19 05:31 100 H 17 72/44 L 96 05/26/19 05:30 100 H 17 96 (1) Fluid overload Hypervolemia type: unspecified Qualified Code(s): E87.70 - Fluid overload, unspecified
[2019-05-27] MEDS: CEFEPIME 2,000 MG in SYRINGE 7.5 ML IV SCH (01:54)
[2019-05-27 04:12] LABS: Hematocrit (blood only) 24.4 % (42-52); Hemoglobin 8.3 g/dL (14.0-18.0); Mean Corpuscular Hemoglobin 31.1 pg (25-34); Mean Corpuscular Volume 91.4 fL (80-100); RDW Coefficient of Variation 18.1 % (11.5-14.5); RDW Standard Deviation 60.8 fL (36.4-46.3); Red Blood Count 2.67 M/uL (4.7-6.1); White Blood Count 4.62 K/uL (4.8-10.8)
[2019-05-27 04:40] LABS: Albumin Level 1.2 gm/dl (3.4-5.0); BUN Creatinine Ratio 9.1 (10-20); Bilirubin,Total 1.3 mg/dl (0.2-1); Calcium 7.4 mg/dl (8.5-10.1); Creatinine Clr Calc Pharmacy 48.7 ml/min; Est GFR (African American) 39.3; Est GFR (Non-African American) 33.9; Magnesium 1.9 mg/dl (1.8-2.4); Phosphorus 2.9 mg/dl (2.5-4.9); Potassium 4.6 mmol/L (3.5-5.1); Total Protein 5.6 gm/dl (6.4-8.2)
[2019-05-27 04:48] LABS: Mean Platelet Volume 9.4 fL (7.4-10.4); Platelet Count 93 K/uL (130-400)
[2019-05-27 04:49] LABS: Platelet Estimate Decreased (Normal)
[2019-05-27 04:50] LABS: INR 1.4 (0.9-1.1); Prothrombin Time 14.3 Seconds (9.0-12.0)
[2019-05-27] MEDS: HEPARIN SOD 5,000 UNIT/0.5 ML VIAL SQ SCH ×3 (05:35→21:04)
--- NOTE | 2019-05-27 07:17 | Critical Care Progress Note ---
Date of Service May 27, 2019 Assessment & Plan (1) Admitted to intensive care unit: Reason Critically Ill: 58-year-old male here for dopamine infusion 2/2 to ARF in the setting of ckd and endstage chf . Past medical history significant for ischemic cardiomyopathy EF 20% AICD in place on continuous milrinone infusion, chronic systolic CHF, HTN, pulmonary HTN, CAD, cirrhosis, CKD stage III, diet-controlled T2DM, history of tobacco abuse, history of V. tach Neuro: -[facility] ICU: NEGATIVE -Intermittently somnolent likely related to his end-stage CHF and poor perfusion of his brain Cardiac: Acute on chronic combined systolic and diastolic CHF NYHA a class IV Patient has a history of chronic congestive heart failure. Was placed on a milrinone infusion approximately 1 year ago. Over the past year his condition has progressively declined to his current situation where he is requiring hospitalization every 4 to 6 weeks. As an outpatient he is not been compliant with fluid restrictions and recommended diet or medications. Patient became hypotensive leading to ARF on milrinone now requiring dopamine support to maintain pressures. -Dopamine 2.0 mcg/kg/min -Continue milrinone -Cardiology consulted following recommendations -Continue dopamine for pressure support -Resume furosemide infusion at 2 mg/h -Given single dose of 2.5 mg metolazone p.o. this morning Respiratory: Pulmonary edema secondary to CHF On discharge from most recent admission patient weighed 105 kg on admission to our hospital weight 112. He was aggressively diuresed on the general medical floors with 80 mg of IV Lasix 3 times daily in addition oral metolazone 5 mg twice daily. Ultimately he ended up becoming hypotensive and progressing to ARF. Since that time Lasix has been held. Currently saturating well on 3 L nasal cannula. -Prn o2 as needed, wean as tolerated -monitor for si/sx of worsening respiratory function GI: - Heart Healthy DM II diet Cirrhosis: Liver ultrasound obtained during this admission demonstrated cirrhosis. On admission the ICU patient had an elevated ammonia level. He is not currently on lactulose. Lactulose 3 times daily -Patient currently refusing Ascites secondary to cirrhosis Patient's physical exam demonstrated ascites, attempted paracentesis removed 2 L of fluid but had to stop secondary to hypotension and pain. -Not consistent with SBP -Cultures NGTD -prn paracentesis for comfort -Monitor for signs and symptoms of recurrence of ascites RENAL/LYTES: Acute renal failure in the setting of chronic kidney disease stage III Patient was transfer the ICU secondary to worsening renal function. On admission creatinine was 1.55 increased to 1.91. Patient was transferred to the ICU for dopamine infusion in hopes that would increase renal perfusion and increased urine output. -Creatinine 2.1, continue to trend BMP -Increased UOP -Replace lytes as needed. : - No concerns at this time. HEME: - Stable H&H. ID: Sepsis Cultures NGTD. Hemodynamic instability likely related to chronic conditions -d/c cefepime -Monitor fever curve. INTEGUMENTARY: -no concerns LINES/IV ACCESS: -PIVs intact. DVT PROPHYLAXIS: -contra in setting of cirrohosis Goals of Care: Ultimately this patient has a very poor prognosis. Unfortunately his has medical conditions of her own and is unable to provide supportive care for him. The patient repeatedly requests to be discharged on hospice with his medications to home however this is not possible due to his 's condition. The patient is currently DNR/DNI, however does not want to make a decision about inpatient hospice at this time. We have consulted the palliative team for assistance in coordinating this patient's care. Please see associated note. Dispo:ICU Thank you for allowing us to be part of this patient's care. Please refer to Dr. Chávez's documentation for any further recommendations. (2) Cardiorenal syndrome: (3) Acute on chronic renal failure: (4) Hypotension: (5) Cardiogenic shock: (6) Goals of care, counseling/discussion: Supervising Physician Co-Signing Physician Notes Dr. Flores was the resident-physician during care of patient. I separately evaluated patient for mclain portions of the history and the exam. I was present during the critical portion of medical decision making, and I discussed the case with the resident. I generally agree with the findings and plan except for any additions/exceptions noted. Patient continues on dopamine infusion and milrinone infusion. He has advanced heart failure with liver failure and kidney failure. His renal function is improving a bit. Cardiology is ordered for Lasix drip to help diurese him. Patient is still indecisive regarding hospice care. I did discuss this again with him today and he did not seem interested in the conversation. His prognosis is extremely poor. Continue ICU care for now. I have personally spent 30 minutes of critical care time in the direct management of this patient. This is a life/limb threatening event. This includes time spent evaluating patient, direct bedside care, chart review, placing orders, interpretation of diagnostic studies, discussion with consultants, patient, and/or family members regarding treatment decisions, as well as other required patient management activities. This time is exclusive of all separately billable procedures, and teaching time and separate from and in addition to any other critical care service time. Subjective Patient seen and evaluated at bedside this morning. Patient reports no acute events overnight. Patient has Ramirez in place, has had less bowel movements as he is refusing lactulose, slept well overnight, tolerating diet. Ongoing discussing regarding patient's ultimate disposition. Overall prognosis remains poor. All questions answered Physical Exam Physical Exam: General: Ill-appearing gentleman in no acute distress, intermittently somnolent HEENT: Normocephalic atraumatic Neck: JVD present, otherwise normal to visual inspection Cardiac: Regular rate and rhythm, I did not appreciate any significant murmurs rubs or gallops, 2+ pedal edema bilaterally Respiratory: Diminished lung sounds bilaterally positive rales GI: Distended abdomen, nontender to palpation MSK: Unable to assess secondary to weakness Skin: Bruises and ecchymosis Neuro: Intermittently alert and oriented, somnolent time, will fall asleep in the middle of conversation Results & Data Vital Signs (Past 12 Hours) Vital Signs Temp Pulse Resp BP Pulse Ox 05/27/19 06:24 100 H 22 102/55 L 99 05/27/19 05:53 103 H 19 96/55 L 100 05/27/19 05:23 107 H 19 103/53 L 97 05/27/19 04:53 105 H 74/43 L 99 05/27/19 04:24 111 H 105/53 L 99 05/27/19 04:16 105 H 120/68 99 05/27/19 04:00 36.6 C 05/27/19 03:54 111 H 21 120/68 94 05/27/19 03:24 112 H 22 80/57 L 94 05/27/19 03:00 105 H 25 H 97 05/27/19 02:53 105 H 17 108/71 96 05/27/19 02:30 104 H 21 98 05/27/19 02:23 104 H 16 98/65 L 98 05/27/19 01:55 100 H 16 99/57 L 94 05/27/19 01:53 98 H 16 68/42 L 90 05/27/19 01:30 103 H 17 92 05/27/19 01:23 103 H 17 79/45 L 93 05/27/19 01:00 106 H 18 92 05/27/19 00:53 103 H 19 79/53 L 91 05/27/19 00:23 102 H 19 76/53 L 98 05/27/19 00:00 36.6 C 05/26/19 23:53 102 H 18 86/49 L 100 05/26/19 23:23 105 H 20 110/96 98 05/26/19 22:53 104 H 14 102/63 97 05/26/19 22:23 103 H 23 99/63 L 91 05/26/19 21:53 101 H 21 94/60 L 96 05/26/19 21:23 100 H 16 88/56 L 96 05/26/19 20:53 101 H 16 82/50 L 96 05/26/19 20:23 95 H 17 97/54 L 96 05/26/19 20:02 96 H 19 103/61 05/26/19 20:00 36.6 C 05/26/19 19:30 99 H 23 95 05/26/19 19:23 99 H 14 71/45 L 100 Laboratory Results 05/27/19 05/27/19 05/27/19 Range/Units 11:12 05:13 05:10 WBC (4.8-10.8) K/uL RBC (4.7-6.1) M/uL Hgb (14.0-18.0) g/dL Hct (42-52) % MCV (80-100) fL MCH (25-34) pg MCHC (32-36) g/dL RDW Std Deviation (36.4-46.3) fL RDW Coeff of Yung (11.5-14.5) % Plt Count (130-400) K/uL MPV (7.4-10.4) fL Platelet Estimate (Normal) PT (9.0-12.0) Seconds INR (0.9-1.1) Sodium (136-145) mmol/L Potassium (3.5-5.1) mmol/L Chloride (98-107) mmol/L Carbon Dioxide (21-32) mmol/L Anion Gap (3-11) BUN (7-18) mg/dl Creatinine (0.6-1.4) mg/dl Est Cr Clr Drug Dosing ml/min Est GFR ( Amer) Est GFR (Non-Af Amer) BUN/Creatinine Ratio (10-20) Glucose (70-99) mg/dl POC Glucose 95 93 (70-99) Calcium (8.5-10.1) mg/dl Phosphorus (2.5-4.9) mg/dl Magnesium (1.8-2.4) mg/dl Total Bilirubin (0.2-1) mg/dl Direct Bilirubin 0.7 H (0-0.2) mg/dl AST (15-37) U/L ALT (12-78) U/L Alkaline Phosphatase (45-117) U/L Total Protein (6.4-8.2) gm/dl Albumin (3.4-5.0) gm/dl Specimen Hemolysis 05/27/19 05/27/19 05/27/19 Range/Units 03:54 03:54 03:54 WBC 4.62 L (4.8-10.8) K/uL RBC 2.67 L (4.7-6.1) M/uL Hgb 8.3 L (14.0-18.0) g/dL Hct 24.4 L (42-52) % MCV 91.4 (80-100) fL MCH 31.1 (25-34) pg MCHC 34.0 (32-36) g/dL RDW Std Deviation 60.8 H (36.4-46.3) fL RDW Coeff of Yung 18.1 H (11.5-14.5) % Plt Count 93 L (130-400) K/uL MPV 9.4 (7.4-10.4) fL Platelet Estimate Decreased L (Normal) PT 14.3 H (9.0-12.0) Seconds INR 1.4 H (0.9-1.1) Sodium 128 L (136-145) mmol/L Potassium 4.6 (3.5-5.1) mmol/L Chloride 97 L (98-107) mmol/L Carbon Dioxide 24 (21-32) mmol/L Anion Gap 7.0 (3-11) BUN 19 H (7-18) mg/dl Creatinine 2.10 H (0.6-1.4) mg/dl Est Cr Clr Drug Dosing 48.7 ml/min Est GFR ( Amer) 39.3 Est GFR (Non-Af Amer) 33.9 BUN/Creatinine Ratio 9.1 L (10-20) Glucose 88 (70-99) mg/dl POC Glucose (70-99) Calcium 7.4 L (8.5-10.1) mg/dl Phosphorus 2.9 (2.5-4.9) mg/dl Magnesium 1.9 (1.8-2.4) mg/dl Total Bilirubin 1.3 H (0.2-1) mg/dl Direct Bilirubin (0-0.2) mg/dl AST 24 (15-37) U/L ALT 10 L (12-78) U/L Alkaline Phosphatase 133 H (45-117) U/L Total Protein 5.6 L (6.4-8.2) gm/dl Albumin 1.2 L (3.4-5.0) gm/dl Specimen Hemolysis 05/26/19 Range/Units 21:55 WBC (4.8-10.8) K/uL RBC (4.7-6.1) M/uL Hgb (14.0-18.0) g/dL Hct (42-52) % MCV (80-100) fL MCH (25-34) pg MCHC (32-36) g/dL RDW Std Deviation (36.4-46.3) fL RDW Coeff of Yung (11.5-14.5) % Plt Count (130-400) K/uL MPV (7.4-10.4) fL Platelet Estimate (Normal) PT (9.0-12.0) Seconds INR (0.9-1.1) Sodium (136-145) mmol/L Potassium (3.5-5.1) mmol/L Chloride (98-107) mmol/L Carbon Dioxide (21-32) mmol/L Anion Gap (3-11) BUN (7-18) mg/dl Creatinine (0.6-1.4) mg/dl Est Cr Clr Drug Dosing ml/min Est GFR ( Amer) Est GFR (Non-Af Amer) BUN/Creatinine Ratio (10-20) Glucose (70-99) mg/dl POC Glucose 100 H (70-99) Calcium (8.5-10.1) mg/dl Phosphorus (2.5-4.9) mg/dl Magnesium (1.8-2.4) mg/dl Total Bilirubin (0.2-1) mg/dl Direct Bilirubin (0-0.2) mg/dl AST (15-37) U/L ALT (12-78) U/L Alkaline Phosphatase (45-117) U/L Total Protein (6.4-8.2) gm/dl Albumin (3.4-5.0) gm/dl Specimen Hemolysis Medications Administered Current Inpatient Medications Albuterol (Ventolin 0.083% 2.5mg/3ml) 2.5 mg INH Q4 PRN PRN Reason: Shortness Of Breath Or Wheezing Stop: 06/21/19 17:46 Last Admin: 05/22/19 23:27 Dose: 2.5 mg Documented by: Amiodarone HCl (Cordarone) 200 mg PO DAILY [facility] Stop: 06/22/19 08:59 Last Admin: 05/27/19 09:18 Dose: 200 mg Documented by: Aspirin (Ecotrin Ectab) 81 mg PO DAILY [facility] Stop: 06/22/19 08:59 Last Admin: 05/27/19 09:18 Dose: 81 mg Documented by: Dextrose (Dextrose 50%) 25 - 50 ml IV UD PRN; Protocol PRN Reason: Hypoglycemia Protocol Stop: 06/21/19 17:46 Docusate Sodium (Colace) 100 mg PO BID PRN PRN Reason: Constipation Stop: 06/21/19 17:46 Famotidine (Pepcid) 20 mg PO BID PRN PRN Reason: Heartburn Stop: 06/24/19 12:10 Glucagon (Glucagen) 1 mg SQ UD PRN; Protocol PRN Reason: Hypoglycemia Protocol Stop: 06/21/19 17:46 Glucose (Glucose 40%) 15 - 30 gm PO UD PRN; Protocol PRN Reason: Hypoglycemia Protocol Stop: 06/21/19 17:46 Glucose (Dex4 Glucose) 4 - 8 tabs PO UD PRN; Protocol PRN Reason: Hypoglycemia Protocol Stop: 06/21/19 17:46 Heparin Sodium (Porcine) (Heparin Sodium (Porcine)) 5,000 units SQ Q8 [facility] Stop: 06/21/19 21:59 Last Admin: 05/27/19 05:35 Dose: Not Given Documented by: Milrinone Lactate/Dextrose (Primacor/D5w) 20,000 mcg in 100 mls @ 6.6 mls/hr IV .[id number] [facility] Stop: 06/21/19 16:14 Last Admin: 05/27/19 09:17 Dose: 0.25 mcg/kg/min, 6.6 mls/hr Documented by: Dopamine HCl/Dextrose (Dopamine / D5w) 400 mg in 250 mls @ 7.92 mls/hr IV .Q24H [facility] Stop: 06/24/19 08:59 Last Admin: 05/27/19 09:20 Dose: 2 mcg/kg/min, 7.9 mls/hr Documented by: Furosemide 100 mg/ Dextrose 100 mls @ 2 mls/hr IV .Q24H [facility] Stop: 06/26/19 09:59 Last Admin: 05/27/19 10:30 Dose: 2 mg/hr, 2 mls/hr Documented by: Sodium Chloride (Nss 1000ml) 1,000 mls @ 13 mls/hr IV .Q24H [facility] Stop: 06/26/19 11:44 Last Admin: 05/27/19 10:30 Dose: 13 mls/hr Documented by: Lactulose (Chronulac) 20 gm PO TID [facility] Stop: 06/24/19 13:59 Last Admin: 05/27/19 09:34 Dose: Not Given Documented by: Miscellaneous (Carbohydrates For Hypoglycemia) 15 - 30 gm PO UD PRN PRN Reason: Hypoglycemia Protocol Stop: 06/21/19 17:46 Pantoprazole Sodium (Protonix) 40 mg PO DAILY [facility] Stop: 06/22/19 08:59 Last Admin: 05/27/19 09:18 Dose: 40 mg Documented by: Polyethylene Glycol (Miralax Powder Packet) 17 gm PO DAILY PRN PRN Reason: Constipation Stop: 06/21/19 17:46 Sertraline HCl (Zoloft) 50 mg PO DAILY [facility] Stop: 06/22/19 08:59 Last Admin: 05/27/19 09:18 Dose: 50 mg Documented by: Resident Activity Tracking Resident Involvement: Resident Care Provided Care Provided: Adult Hospital Medicine (1) Cardiorenal syndrome Heart failure presence: with heart failure Hypertensive chronic kidney disease stage: stage 1-4 or unspecified chronic kidney disease Qualified Code(s): I13.0 - Hypertensive heart and chronic kidney disease with heart failure and stage 1 through stage 4 chronic kidney disease, or unspecified chronic kidney disease (2) Acute on chronic renal failure Acute renal failure type: unspecified Chronic kidney disease stage: stage 3 (moderate) Qualified Code(s): N17.9 - Acute kidney failure, unspecified; N18.3 - Chronic kidney disease, stage 3 (moderate) (3) Hypotension Hypotension type: unspecified hypotension type Qualified Code(s): I95.9 - Hypotension, unspecified
[2019-05-27] MEDS ORDERED: CEFEPIME CONSULT ACTIVE PRN (08:16)
[2019-05-27] MEDS: MILRINONE LACTATE/D5W 20,000 MCG/100 ML BAG IV SCH ×2 (09:17→22:39)
[2019-05-27] MEDS: SERTRALINE HCL 50 MG TABLET PO SCH (09:18)
[2019-05-27] MEDS: ASPIRIN 81 MG ECTAB PO SCH (09:18)
[2019-05-27] MEDS: PANTOprazole 40 MG TAB PO SCH (09:18)
[2019-05-27] MEDS: AMIODARONE 200 MG TAB PO SCH (09:18)
[2019-05-27] MEDS: DOPAMINE / D5W 400 MG/250 ML BAG IV SCH (09:20)
[2019-05-27] MEDS: LACTULOSE SYRUP 20 GM/30 ML UDC PO SCH ×3 (09:34→21:04)
--- NOTE | 2019-05-27 09:43 | Cardiology Progress Note ---
Date of Service May 27, 2019 Assessment & Plan (1) Acute on chronic combined systolic and diastolic CHF, NYHA class 4: Patient with chronic inotrope dependent heart failure on milrinone for 1 year or greater now with decompensated heart failure and failure to respond to usual therapies. Dopamine has been added for blood pressure support. Blood pressure slightly better but no significant diuresis, off diuretics We will reinstitute IV furosemide infusion at 2 mg/h Single dose metolazone 2.5 mg p.o. this morning (2) Cardiorenal syndrome: (3) Acute on chronic renal failure: (4) Ischemic cardiomyopathy: (5) Acute hyponatremia: (6) End stage liver disease: (7) Hypotension: Patient's hemodynamics continued to decline with worsening hypotension and renal function. Recommend addition of dopamine 2.0 mcg/kg/min. Patient agreeable for transfer to the intensive care unit. If hemodynamics improve, recommend restarting Lasix. Patient declines palliative care/hospice at this time. Poor prognosis discussed. Subjective Patient seen and examined, chart, medications, telemetry reviewed. Patient denies any focal complaints but continues to have significant lower extremity anasarca and edema. Blood pressures are slightly better with combination of milrinone and dopamine. Has not received diuretics for 2 days Physical Exam Constitutional: + cachectic (Cardiac) Eyes: PERRL, conjunctivae normal, anicteric sclerae ENMT: external ear and nose normal, oropharynx normal Neck: trachea midline, no thyromegaly Respiratory: Auscultation: + diminished lung sounds and + rales Cardiovascular: Rate/Rhythm: regular rate and regular rhythm Heart Sounds: + gallop Vessels: + JVD Extremities: + edema (3+ lower extremity edema with presacral edema) Chest (Breasts): Chest: + pacemaker (/Defibrillator site without tenderness) Gastrointestinal (Abdomen): Inspection/Auscultation: + abdomen distended Percussion/Palpation: abdomen soft Results & Data Vital Signs (Past 12 Hours) Vital Signs Temp Pulse Resp BP Pulse Ox 05/27/19 09:23 101 H 18 88/51 L 92 05/27/19 08:54 104 H 18 75/41 L 97 05/27/19 08:23 105 H 18 85/54 L 96 05/27/19 07:53 36.6 C 107 H 17 85/56 L 97 05/27/19 07:23 105 H 18 79/62 L 97 05/27/19 06:53 101 H 18 86/49 L 98 05/27/19 06:24 100 H 22 102/55 L 99 05/27/19 05:53 103 H 19 96/55 L 100 05/27/19 05:23 107 H 19 103/53 L 97 05/27/19 04:53 105 H 74/43 L 99 05/27/19 04:24 111 H 105/53 L 99 05/27/19 04:16 105 H 120/68 99 05/27/19 04:00 36.6 C 05/27/19 03:54 111 H 21 120/68 94 05/27/19 03:24 112 H 22 80/57 L 94 05/27/19 03:00 105 H 25 H 97 05/27/19 02:53 105 H 17 108/71 96 05/27/19 02:30 104 H 21 98 05/27/19 02:23 104 H 16 98/65 L 98 05/27/19 01:55 100 H 16 99/57 L 94 05/27/19 01:53 98 H 16 68/42 L 90 05/27/19 01:30 103 H 17 92 05/27/19 01:23 103 H 17 79/45 L 93 05/27/19 01:00 106 H 18 92 05/27/19 00:53 103 H 19 79/53 L 91 05/27/19 00:23 102 H 19 76/53 L 98 05/27/19 00:00 36.6 C 05/26/19 23:53 102 H 18 86/49 L 100 05/26/19 23:23 105 H 20 110/96 98 05/26/19 22:53 104 H 14 102/63 97 05/26/19 22:23 103 H 23 99/63 L 91 05/26/19 21:53 101 H 21 94/60 L 96 (1) Cardiorenal syndrome Heart failure presence: with heart failure Hypertensive chronic kidney disease stage: stage 1-4 or unspecified chronic kidney disease Qualified Code(s): I13.0 - Hypertensive heart and chronic kidney disease with heart f ailure and stage 1 through stage 4 chronic kidney disease, or unspecified chronic kidney disease (2) Acute on chronic renal failure Acute renal failure type: unspecified Chronic kidney disease stage: stage 3 (moderate) Qualified Code(s): N17.9 - Acute kidney failure, unspecified; N18.3 - Chronic kidney disease, stage 3 (moderate) (3) Hypotension Hypotension type: unspecified hypotension type Qualified Code(s): I95.9 - Hypotension, unspecified
[2019-05-27] MEDS ORDERED: metOLazone 2.5 MG TABLET PO ONE (09:47)
[2019-05-27] MEDS: SODIUM CHLORIDE 0.9% 1000ML 1,000 ML IV SCH (10:30)
[2019-05-27] MEDS: FUROSEMIDE 100 MG in DEXTROSE 5% 90 ML IV SCH (10:30)
--- NOTE | 2019-05-27 12:15 | Billing Data ---
Date of Service May 27, 2019 Coding Level of Care Code Critical Care 1st 30-74 mins Time Spent (min) 30
--- NOTE | 2019-05-27 12:20 | Hospitalist Progress Note ---
Date of Service May 27, 2019 Assessment & Plan (1) Fluid overload: (1) Acute on chronic combined systolic and diastolic CHF, NYHA class 4: (2) Ischemic cardiomyopathy: (3) Hypotension: This is a 58-year-old male who has significant past medical history of ischemic cardiomyopathy EF 20% AICD in place on continuous at home milrinone infusion , chronic systolic CHF, HTN, pulmonary HTN, CAD, hx of MSSA endocarditis, cirrhosis, CKD stage III, diet-controlled T2DM, history of tobacco abuse, history of VT arrest s/p ICD in 06/2018 who presents to [facility] secondary to weight gain and lethargy. In ED chest x-ray revealed pulmonary edema. Sodium 124, K2.8, chloride 98, BUN 21, creatinine 1.55. Initial troponin WNL, TSH elevated 9.02, but free T4 WNL. T bili elevated at 1.1, AST 18, ALT 7, alk phos 135, ammonia 34.0. pts condition continues to decline worsening of renal function > cr 2.4-> 2.7 with hyperkalemia not a candidate for HD given very low BP and hemodynamic instability BP remains low -milrinone gtt dose added Dopamine gtt transferred to ICU on 05/25/19 s/p 2 Liter of paracethesis by ICU team on 05/25/19 started on IV lasix gtt over all prognosis is very poor pt and updated multiple times by myself , cardiology and palliative care appreciate help and input from Palliative care CODE status changed to DNR/DNI after D/w pt and at present cont supportive care pt is yet indecisive to transition to hospice /comfort care acute renal failure CKD (chronic kidney disease), stage III: possible cardiorenal symptom baseline Cr 1.5 worsening of cr > 2.7 with poor urine out put persisted hypotension causing poor perfusion over all prognosis poor (7) CAD (coronary artery disease): extensive CAD with severe ischemic cardiomyopathy EF 20% (8) Cirrhosis: ROBLERO , worsening of ascites due to decompensated CHF and renal failure (12) DVT prophylaxis: Heparin SQ CODE STATUS: DNR/DNI Disposition: over all prognosis remains poor continue ICU monitor Subjective pt seen in ICU room 103 Patient denies of any SOB or chest discomfort but continues to have significant lower extremity anasarca and edema. BP in low 80's on milrinone and dopamine gtt Physical Exam Constitutional: well developed and + ill appearing (chronically) Eyes: PERRL, conjunctivae normal, anicteric sclerae ENMT: external ear and nose normal, oropharynx normal Respiratory: normal respiratory effort; no labored breathing Auscultation: + diminished lung sounds (At the bases bilaterally) and + rales Cardiovascular: Rate/Rhythm: regular rate, regular rhythm and + tachycardic Heart Sounds: normal S1 and normal S2; no murmur Vessels: + JVD; no carotid bruit Extremities: + edema (right arm +4 pitting edema, left arm +2 pitting edema) Gastrointestinal (Abdomen): Inspection/Auscultation: + abdomen distended (but soft) and normal bowel sounds Percussion/Palpation: abdomen soft; abdomen nontender, no guarding and abdomen not rigid Skin: + jaundice Neurologic: PERRL, EOMI, accommodation nl, no face palsy, no dysarthria moves all extremities and awake (but drowsy); not confused Psychiatric: Orientation: oriented to person Insight: + limited insight Judgement: + limited judgement Results & Data Vital Signs (Past 12 Hours) Vital Signs Temp Pulse Resp BP Pulse Ox 05/27/19 11:23 106 H 19 79/53 L 95 05/27/19 10:53 105 H 20 81/57 L 97 05/27/19 10:24 107 H 18 100/58 L 97 05/27/19 09:54 102 H 16 80/51 L 98 05/27/19 09:23 101 H 18 88/51 L 92 05/27/19 08:54 104 H 18 75/41 L 97 05/27/19 08:23 105 H 18 85/54 L 96 05/27/19 08:00 106 H 05/27/19 07:53 36.6 C 107 H 17 85/56 L 97 05/27/19 07:23 105 H 18 79/62 L 97 05/27/19 06:53 101 H 18 86/49 L 98 05/27/19 06:24 100 H 22 102/55 L 99 05/27/19 05:53 103 H 19 96/55 L 100 05/27/19 05:23 107 H 19 103/53 L 97 05/27/19 04:53 105 H 74/43 L 99 05/27/19 04:24 111 H 105/53 L 99 05/27/19 04:16 105 H 120/68 99 05/27/19 04:00 36.6 C 05/27/19 03:54 111 H 21 120/68 94 05/27/19 03:24 112 H 22 80/57 L 94 05/27/19 03:00 105 H 25 H 97 05/27/19 02:53 105 H 17 108/71 96 05/27/19 02:30 104 H 21 98 05/27/19 02:23 104 H 16 98/65 L 98 05/27/19 01:55 100 H 16 99/57 L 94 05/27/19 01:53 98 H 16 68/42 L 90 05/27/19 01:30 103 H 17 92 05/27/19 01:23 103 H 17 79/45 L 93 05/27/19 01:00 106 H 18 92 05/27/19 00:53 103 H 19 79/53 L 91 05/27/19 00:23 102 H 19 76/53 L 98 (1) Fluid overload Hypervolemia type: unspecified Qualified Code(s): E87.70 - Fluid overload, unspecified
--- NOTE | 2019-05-28 02:43 | Critical Care Progress Note ---
Date of Service May 28, 2019 Assessment & Plan (1) Admitted to intensive care unit: Reason Critically Ill: 58-year-old male here for dopamine infusion 2/2 to ARF in the setting of ckd and endstage chf . Past medical history significant for ischemic cardiomyopathy EF 20% AICD in place on continuous milrinone infusion, chronic systolic CHF, HTN, pulmonary HTN, CAD, cirrhosis, CKD stage III, diet-controlled T2DM, history of tobacco abuse, history of V. tach Neuro: -[facility] ICU: NEGATIVE -Intermittently somnolent likely related to his end-stage CHF and poor perfusion of his brain Cardiac: Acute on chronic combined systolic and diastolic CHF NYHA a class IV Patient has a history of chronic congestive heart failure. Was placed on a milrinone infusion approximately 1 year ago. Over the past year his condition has progressively declined to his current situation where he is requiring hospitalization every 4 to 6 weeks. As an outpatient he is not been compliant with fluid restrictions and recommended diet or medications. Patient became hypotensive leading to ARF on milrinone now requiring dopamine support to maintain pressures. -Dopamine 2.0 mcg/kg/min, wean as tolerated -Continue milrinone -Cardiology consulted following recommendations -Continue dopamine for pressure support -Resume furosemide infusion at 2 mg/h -Given single dose of 2.5 mg metolazone p.o. yesterday -put out 1.5 L Respiratory: Pulmonary edema secondary to CHF On discharge from most recent admission patient weighed 105 kg on admission to our hospital weight 112. He was aggressively diuresed on the general medical floors with 80 mg of IV Lasix 3 times daily in addition oral metolazone 5 mg twice daily. Ultimately he ended up becoming hypotensive and progressing to ARF. Since that time Lasix has been held. Currently saturating well on 3 L nasal cannula. -Prn o2 as needed, wean as tolerated -monitor for si/sx of worsening respiratory function GI: - Heart Healthy DM II diet Cirrhosis: Liver ultrasound obtained during this admission demonstrated cirrhosis. On admission the ICU patient had an elevated ammonia level. He is not currently on lactulose. Lactulose 3 times daily -Patient continues to refuse Ascites secondary to cirrhosis Patient's physical exam demonstrated ascites, attempted paracentesis removed 2 L of fluid but had to stop secondary to hypotension and pain. -Not consistent with SBP -Cultures NGTD -prn paracentesis for comfort -Monitor for signs and symptoms of recurrence of ascites RENAL/LYTES: Acute renal failure in the setting of chronic kidney disease stage III Patient was transfer the ICU secondary to worsening renal function. On admission creatinine was 1.55 increased to 1.91. Patient was transferred to the ICU for dopamine infusion in hopes that would increase renal perfusion and increased urine output. -Creatinine 2.1, continue to trend BMP -1500 out yesterday -Replace lytes as needed. -f/u am labs : - No concerns at this time. HEME: - Stable H&H. ID: Sepsis Cultures NGTD. Hemodynamic instability likely related to chronic conditions -d/c cefepime -Monitor fever curve, continues to be afebrile INTEGUMENTARY: -no concerns LINES/IV ACCESS: -PIVs intact. DVT PROPHYLAXIS: -Contraindicated in the setting of elevated INR Goals of Care: Ultimately this patient has a very poor prognosis. Unfortunately his has medical conditions of her own and is unable to provide supportive care for him. The patient repeatedly requests to be discharged on hospice with his medications to home however this is not possible due to his 's condition. The patient is currently DNR/DNI, however does not want to make a decision about inpatient hospice at this time. We have consulted the palliative team for assistance in coordinating this patient's care. Please see associated note. Dispo:ICU Thank you for allowing us to be part of this patient's care. Please refer to Dr. Chávez's documentation for any further recommendations. (2) Cardiorenal syndrome: (3) Acute on chronic renal failure: (4) Cirrhosis: (5) Hypotension: (6) Ischemic cardiomyopathy: (7) Acute on chronic combined systolic and diastolic CHF, NYHA class 4: (8) End stage liver disease: (9) Acute hyponatremia: (10) Acute hypokalemia: (11) Goals of care, counseling/discussion: (12) Pleural effusion on right: (13) History of acute renal failure: Supervising Physician Co-Signing Physician Notes Dr. Flores was the resident-physician during care of patient. I separately evaluated patient for mclain portions of the history and the exam. I was present during the critical portion of medical decision making, and I discussed the case with the resident. I generally agree with the findings and plan except for any additions/exceptions noted. Patient is a bit improved today. His urine output is picking up and his creatinine has improved as well. He likely has cardiorenal failure. He is on stable doses of dopamine and milrinone at this time. He says that he has had the best sleep in a long time. We are continuing lactulose for his cirrhosis. We are replacing electrolytes as needed. Patient to remain in the ICU while he is still on the dopamine drip. His prognosis still remains poor. Subjective Patient sleeping comfortably in bed in no acute distress. No acute events overnight, tolerated diet yesterday, Ramirez in place, having BMs, sleeping. Acute concerns at present related to ultimate disposition. All questions answered. Physical Exam Physical Exam: General: Ill-appearing gentleman in no acute distress, intermittently somnolent HEENT: Normocephalic atraumatic Neck: JVD present, otherwise normal to visual inspection Cardiac: Regular rate and rhythm, I did not appreciate any significant murmurs rubs or gallops, 2+ pedal edema bilaterally Respiratory: Diminished lung sounds bilaterally, positive rales GI: Distended abdomen, nontender to palpation MSK: Unable to assess secondary to weakness Skin: Bruises and ecchymosis Neuro: Intermittently alert and oriented, somnolent time, will fall asleep in the middle of conversation Results & Data Vital Signs (Past 12 Hours) Vital Signs Temp Pulse Resp BP Pulse Ox 05/28/19 02:00 103 H 18 91 05/28/19 01:32 103 H 19 85/54 L 90 05/28/19 00:32 102 H 22 85/51 L 89 L 05/28/19 00:12 36.6 C 05/28/19 00:10 98 H 05/27/19 23:32 97 H 20 76/45 L 97 05/27/19 22:32 104 H 24 84/64 L 93 05/27/19 22:00 102 H 22 88 L 05/27/19 21:32 104 H 20 100/73 99 05/27/19 21:00 102 H 19 91 05/27/19 20:32 102 H 18 91/53 L 89 L 05/27/19 20:06 104 H 05/27/19 20:01 36.6 C 05/27/19 19:32 100 H 17 79/43 L 98 05/27/19 18:25 102 H 16 83/59 L 97 05/27/19 17:32 107 H 16 92/63 L 92 05/27/19 16:32 109 H 16 95/61 L 94 05/27/19 16:04 104 H 20 79/49 L 98 05/27/19 16:00 36.6 C 106 H 19 96 05/27/19 15:32 102 H 17 80/48 L 100 Laboratory Results 05/27/19 05/27/19 05/27/19 Range/Units 20:34 11:12 05:13 WBC (4.8-10.8) K/uL RBC (4.7-6.1) M/uL Hgb (14.0-18.0) g/dL Hct (42-52) % MCV (80-100) fL MCH (25-34) pg MCHC (32-36) g/dL RDW Std Deviation (36.4-46.3) fL RDW Coeff of Yung (11.5-14.5) % Plt Count (130-400) K/uL MPV (7.4-10.4) fL Platelet Estimate (Normal) PT (9.0-12.0) Seconds INR (0.9-1.1) Sodium (136-145) mmol/L Potassium (3.5-5.1) mmol/L Chloride (98-107) mmol/L Carbon Dioxide (21-32) mmol/L Anion Gap (3-11) BUN (7-18) mg/dl Creatinine (0.6-1.4) mg/dl Est Cr Clr Drug Dosing ml/min Est GFR ( Amer) Est GFR (Non-Af Amer) BUN/Creatinine Ratio (10-20) Glucose (70-99) mg/dl POC Glucose 95 95 93 (70-99) Calcium (8.5-10.1) mg/dl Phosphorus (2.5-4.9) mg/dl Magnesium (1.8-2.4) mg/dl Total Bilirubin (0.2-1) mg/dl Direct Bilirubin (0-0.2) mg/dl AST (15-37) U/L ALT (12-78) U/L Alkaline Phosphatase (45-117) U/L Total Protein (6.4-8.2) gm/dl Albumin (3.4-5.0) gm/dl Specimen Hemolysis 05/27/19 05/27/19 05/27/19 Range/Units 05:10 03:54 03:54 WBC 4.62 L (4.8-10.8) K/uL RBC 2.67 L (4.7-6.1) M/uL Hgb 8.3 L (14.0-18.0) g/dL Hct 24.4 L (42-52) % MCV 91.4 (80-100) fL MCH 31.1 (25-34) pg MCHC 34.0 (32-36) g/dL RDW Std Deviation 60.8 H (36.4-46.3) fL RDW Coeff of Yung 18.1 H (11.5-14.5) % Plt Count 93 L (130-400) K/uL MPV 9.4 (7.4-10.4) fL Platelet Estimate Decreased L (Normal) PT 14.3 H (9.0-12.0) Seconds INR 1.4 H (0.9-1.1) Sodium (136-145) mmol/L Potassium (3.5-5.1) mmol/L Chloride (98-107) mmol/L Carbon Dioxide (21-32) mmol/L Anion Gap (3-11) BUN (7-18) mg/dl Creatinine (0.6-1.4) mg/dl Est Cr Clr Drug Dosing ml/min Est GFR ( Amer) Est GFR (Non-Af Amer) BUN/Creatinine Ratio (10-20) Glucose (70-99) mg/dl POC Glucose (70-99) Calcium (8.5-10.1) mg/dl Phosphorus (2.5-4.9) mg/dl Magnesium (1.8-2.4) mg/dl Total Bilirubin (0.2-1) mg/dl Direct Bilirubin 0.7 H (0-0.2) mg/dl AST (15-37) U/L ALT (12-78) U/L Alkaline Phosphatase (45-117) U/L Total Protein (6.4-8.2) gm/dl Albumin (3.4-5.0) gm/dl Specimen Hemolysis 05/27/19 Range/Units 03:54 WBC (4.8-10.8) K/uL RBC (4.7-6.1) M/uL Hgb (14.0-18.0) g/dL Hct (42-52) % MCV (80-100) fL MCH (25-34) pg MCHC (32-36) g/dL RDW Std Deviation (36.4-46.3) fL RDW Coeff of Yung (11.5-14.5) % Plt Count (130-400) K/uL MPV (7.4-10.4) fL Platelet Estimate (Normal) PT (9.0-12.0) Seconds INR (0.9-1.1) Sodium 128 L (136-145) mmol/L Potassium 4.6 (3.5-5.1) mmol/L Chloride 97 L (98-107) mmol/L Carbon Dioxide 24 (21-32) mmol/L Anion Gap 7.0 (3-11) BUN 19 H (7-18) mg/dl Creatinine 2.10 H (0.6-1.4) mg/dl Est Cr Clr Drug Dosing 48.7 ml/min Est GFR ( Amer) 39.3 Est GFR (Non-Af Amer) 33.9 BUN/Creatinine Ratio 9.1 L (10-20) Glucose 88 (70-99) mg/dl POC Glucose (70-99) Calcium 7.4 L (8.5-10.1) mg/dl Phosphorus 2.9 (2.5-4.9) mg/dl Magnesium 1.9 (1.8-2.4) mg/dl Total Bilirubin 1.3 H (0.2-1) mg/dl Direct Bilirubin (0-0.2) mg/dl AST 24 (15-37) U/L ALT 10 L (12-78) U/L Alkaline Phosphatase 133 H (45-117) U/L Total Protein 5.6 L (6.4-8.2) gm/dl Albumin 1.2 L (3.4-5.0) gm/dl Specimen Hemolysis Medications Administered Current Inpatient Medications Albuterol (Ventolin 0.083% 2.5mg/3ml) 2.5 mg INH Q4 PRN PRN Reason: Shortness Of Breath Or Wheezing Stop: 06/21/19 17:46 Last Admin: 05/22/19 23:27 Dose: 2.5 mg Documented by: Amiodarone HCl (Cordarone) 200 mg PO DAILY [facility] Stop: 06/22/19 08:59 Last Admin: 05/27/19 09:18 Dose: 200 mg Documented by: Aspirin (Ecotrin Ectab) 81 mg PO DAILY [facility] Stop: 06/22/19 08:59 Last Admin: 05/27/19 09:18 Dose: 81 mg Documented by: Dextrose (Dextrose 50%) 25 - 50 ml IV UD PRN; Protocol PRN Reason: Hypoglycemia Protocol Stop: 06/21/19 17:46 Docusate Sodium (Colace) 100 mg PO BID PRN PRN Reason: Constipation Stop: 06/21/19 17:46 Famotidine (Pepcid) 20 mg PO BID PRN PRN Reason: Heartburn Stop: 06/24/19 12:10 Glucagon (Glucagen) 1 mg SQ UD PRN; Protocol PRN Reason: Hypoglycemia Protocol Stop: 06/21/19 17:46 Glucose (Glucose 40%) 15 - 30 gm PO UD PRN; Protocol PRN Reason: Hypoglycemia Protocol Stop: 06/21/19 17:46 Glucose (Dex4 Glucose) 4 - 8 tabs PO UD PRN; Protocol PRN Reason: Hypoglycemia Protocol Stop: 06/21/19 17:46 Heparin Sodium (Porcine) (Heparin Sodium (Porcine)) 5,000 units SQ Q8 [facility] Stop: 06/21/19 21:59 Last Admin: 05/27/19 21:04 Dose: Not Given Documented by: Milrinone Lactate/Dextrose (Primacor/D5w) 20,000 mcg in 100 mls @ 6.6 mls/hr IV .[id number] [facility] Stop: 06/21/19 16:14 Last Admin: 05/27/19 22:39 Dose: 0.25 mcg/kg/min, 6.6 mls/hr Documented by: Dopamine HCl/Dextrose (Dopamine / D5w) 400 mg in 250 mls @ 7.92 mls/hr IV .Q24H [facility]OL[facility] Stop: 06/24/19 08:59 Last Infusion: 05/27/19 18:56 Dose: 2 mcg/kg/min, 7.9 mls/hr Documented by: Furosemide 100 mg/ Dextrose 100 mls @ 2 mls/hr IV .Q24H [facility] Stop: 06/26/19 09:59 Last Infusion: 05/27/19 18:56 Dose: 2 mg/hr, 2 mls/hr Documented by: Sodium Chloride (Nss 1000ml) 1,000 mls @ 13 mls/hr IV .Q24H [facility] Stop: 06/26/19 11:44 Last Infusion: 05/27/19 18:56 Dose: 13 mls/hr Documented by: Lactulose (Chronulac) 20 gm PO TID [facility] Stop: 06/24/19 13:59 Last Admin: 05/27/19 21:04 Dose: Not Given Documented by: Miscellaneous (Carbohydrates For Hypoglycemia) 15 - 30 gm PO UD PRN PRN Reason: Hypoglycemia Protocol Stop: 06/21/19 17:46 Pantoprazole Sodium (Protonix) 40 mg PO DAILY [facility] Stop: 06/22/19 08:59 Last Admin: 05/27/19 09:18 Dose: 40 mg Documented by: Polyethylene Glycol (Miralax Powder Packet) 17 gm PO DAILY PRN PRN Reason: Constipation Stop: 06/21/19 17:46 Sertraline HCl (Zoloft) 50 mg PO DAILY [facility] Stop: 06/22/19 08:59 Last Admin: 05/27/19 09:18 Dose: 50 mg Documented by: Resident Activity Tracking Resident Involvement: Resident Care Provided Care Provided: Adult Hospital Medicine (1) Cardiorenal syndrome Heart failure presence: with heart failure Hypertensive chronic kidney disease stage: stage 1-4 or unspecified chronic kidney disease Qualified Code(s): I13.0 - Hypertensive heart and chronic kidney disease with heart failure and stage 1 through stage 4 chronic kidney disease, or unspecified chronic kidney disease (2) Acute on chronic renal failure Acute renal failure type: unspecified Chronic kidney disease stage: stage 3 (moderate) Qualified Code(s): N17.9 - Acute kidney failure, unspecified; N18.3 - Chronic kidney disease, stage 3 (moderate) (3) Hypotension Hypotension type: unspecified hypotension type Qualified Code(s): I95.9 - Hypotension, unspecified
[2019-05-28 04:52] LABS: Hematocrit (blood only) 23.6 % (42-52); Hemoglobin 8.1 g/dL (14.0-18.0); Mean Corpuscular Hgb Conc 34.3 g/dL (32-36); Mean Corpuscular Volume 90.4 fL (80-100); Mean Platelet Volume 11.4 fL (7.4-10.4); Platelet Count 114 K/uL (130-400); RDW Coefficient of Variation 18.1 % (11.5-14.5); RDW Standard Deviation 60.3 fL (36.4-46.3); Red Blood Count 2.61 M/uL (4.7-6.1); White Blood Count 4.15 K/uL (4.8-10.8)
[2019-05-28] MEDS: HEPARIN SOD 5,000 UNIT/0.5 ML VIAL SQ SCH ×3 (05:29→20:43)
[2019-05-28 05:33] LABS: BUN Creatinine Ratio 9.7 (10-20); Calcium 7.5 mg/dl (8.5-10.1); Creatinine Clr Calc Pharmacy 53.7 ml/min; Est GFR (African American) 44.9; Est GFR (Non-African American) 38.8; Phosphorus 3.2 mg/dl (2.5-4.9)
[2019-05-28 06:11] LABS: Magnesium 1.5 mg/dl (1.8-2.4); Potassium 3.5 mmol/L (3.5-5.1)
[2019-05-28] MEDS ORDERED: POTASSIUM CHLORIDE 20 MEQ TABCR PO STA (08:00)
--- NOTE | 2019-05-28 08:05 | Hospitalist Progress Note ---
Date of Service May 28, 2019 Assessment & Plan (1) Fluid overload: (1) Acute on chronic combined systolic and diastolic CHF, NYHA class 4: (2) Ischemic cardiomyopathy: (3) Hypotension: This is a 58-year-old male who has significant past medical history of ischemic cardiomyopathy EF 20% AICD in place on continuous at home milrinone infusion , chronic systolic CHF, HTN, pulmonary HTN, CAD, hx of MSSA endocarditis, cirrhosis, CKD stage III, diet-controlled T2DM, history of tobacco abuse, history of VT arrest s/p ICD in 06/[address] [facility] secondary to weight gain and lethargy. In ED chest x-ray revealed pulmonary edema. Sodium 124, K2.8, chloride 98, BUN 21, creatinine 1.55. Initial troponin WNL, TSH elevated 9.02, but free T4 WNL. T bili elevated at 1.1, AST 18, ALT 7, alk phos 135, ammonia 34.0. started on IV Lasix gtt by Cardiology pt reports of feeling better after diuresis improvement of lower ext edema noted renal function > cr 2.4-> 2.7 -> 1.88 overall prognosis remains extremely poor not a candidate for HD given very low BP and hemodynamic instability remains in pressors BP remains low -milrinone gtt dose / Dopamine gtt transferred to ICU on 05/25/19 s/p 2 Liter of paracethesis by ICU team on 05/25/19 over all prognosis is very poor Palliative care involved , appreciate input pt and updated multiple times cardiology / palliative care /ICU team/ Hospitalist CODE status changed to DNR/DNI after D/w pt and at present cont supportive care pt is yet indecisive to transition to hospice /comfort care acute renal failure CKD (chronic kidney disease), stage III: possible cardiorenal symptom baseline Cr 1.5 worsening of cr > 2.7 with poor urine out put persisted hypotension causing poor perfusion over all prognosis poor (7) CAD (coronary artery disease): extensive CAD with severe ischemic cardiomyopathy EF 20% (8) Cirrhosis: ROBLERO , worsening of ascites due to decompensated CHF and renal failure elevated Ammonia level -due to hepatic congestion ordered Lactulose -pt been refusing no evidence of hepatic encephalopathy yet (12) DVT prophylaxis: Heparin SQ -pt has been refusing CODE STATUS: DNR/DNI Disposition: over all prognosis remains poor -with limited life expectancy remains in ICU as pt requiring multiple pressors Subjective pt reports of feeling better today had a good night sleep no complain of SOB , no fever , chills or cough large amount of diuresis with IV lasix gtt still remains hypotensive on Dopamine gtt/milrinone gtt Physical Exam Constitutional: well developed and + ill appearing (chronically) Eyes: PERRL, conjunctivae normal, anicteric sclerae ENMT: external ear and nose normal, oropharynx normal Respiratory: normal respiratory effort; no labored breathing Auscultation: + diminished lung sounds (At the bases bilaterally) and + rales Cardiovascular: Rate/Rhythm: regular rate, regular rhythm and + tachycardic Heart Sounds: normal S1 and normal S2; no murmur Vessels: + JVD; no carotid bruit Extremities: + edema (right arm +4 pitting edema, left arm +2 pitting edema) Gastrointestinal (Abdomen): Inspection/Auscultation: + abdomen distended (but soft) and normal bowel sounds Percussion/Palpation: abdomen soft; abdomen nontender, no guarding and abdomen not rigid Neurologic: PERRL, EOMI, accommodation nl, no face palsy, no dysarthria moves all extremities Psychiatric: A+Ox3, euthymic affect Insight: + limited insight Judgem ent: + limited judgement Results & Data Vital Signs (Past 12 Hours) Vital Signs Temp Pulse Resp BP Pulse Ox 05/28/19 06:00 99 H 16 93 05/28/19 05:32 98 H 16 74/42 L 90 05/28/19 04:32 102 H 16 72/45 L 96 05/28/19 04:00 36.6 C 05/28/19 03:32 99 H 16 73/44 L 96 05/28/19 02:32 109 H 23 75/47 L 92 05/28/19 02:00 103 H 18 91 05/28/19 01:32 103 H 19 85/54 L 90 05/28/19 00:32 102 H 22 85/51 L 89 L 05/28/19 00:12 36.6 C 05/28/19 00:10 98 H 05/27/19 23:32 97 H 20 76/45 L 97 05/27/19 22:32 104 H 24 84/64 L 93 05/27/19 22:00 102 H 22 88 L 05/27/19 21:32 104 H 20 100/73 99 05/27/19 21:00 102 H 19 91 05/27/19 20:32 102 H 18 91/53 L 89 L 05/27/19 20:06 104 H 05/27/19 20:01 36.6 C (1) Fluid overload Hypervolemia type: unspecified Qualified Code(s): E87.70 - Fluid overload, unspecified
[2019-05-28] MEDS: ASPIRIN 81 MG ECTAB PO SCH (08:42)
[2019-05-28] MEDS: SERTRALINE HCL 50 MG TABLET PO SCH (08:42)
[2019-05-28] MEDS: PANTOprazole 40 MG TAB PO SCH (08:42)
[2019-05-28] MEDS: AMIODARONE 200 MG TAB PO SCH (08:42)
[2019-05-28] MEDS: MAGNESIUM SULFATE / D5W 1 GM/100 ML BAG IV SCH ×2 (08:42→09:39)
[2019-05-28] MEDS: LACTULOSE SYRUP 20 GM/30 ML UDC PO SCH ×3 (08:42→20:43)
--- NOTE | 2019-05-28 09:08 | Billing Data ---
Date of Service May 28, 2019 Coding Level of Care Code 21608 Subseq Hosp Care Lvl 3
--- NOTE | 2019-05-28 09:47 | Cardiology Progress Note ---
Date of Service May 28, 2019 Assessment & Plan (1) Acute on chronic combined systolic and diastolic CHF, NYHA class 4: Patient with chronic inotrope dependent heart failure on milrinone for 1 year or greater now with decompensated heart failure and failure to respond to usual therapies. Dopamine has been added for blood pressure support. Has begun to diurese with some improvement in renal function. We will continue IV furosemide overall long-term prognosis remains poor (2) Cardiorenal syndrome: (3) Acute on chronic renal failure: (4) Ischemic cardiomyopathy: (5) Acute hyponatremia: (6) End stage liver disease: (7) Hypotension: Subjective Patient seen and examined, chart, medications, telemetry reviewed. Patient without complaints but remains hypotensive. Has begun to manifest some diuresis with IV furosemide infusion Physical Exam Constitutional: + cachectic (Cardiac) Eyes: PERRL, conjunctivae normal, anicteric sclerae ENMT: external ear and nose normal, oropharynx normal Neck: trachea midline, no thyromegaly Respiratory: Auscultation: + diminished lung sounds and + rales Cardiovascular: Rate/Rhythm: regular rate and regular rhythm Heart Sounds: + gallop Vessels: + JVD Extremities: + edema (3+ lower extremity edema with presacral edema) Chest (Breasts): Chest: + pacemaker (/Defibrillator site without tenderness) Gastrointestinal (Abdomen): Inspection/Auscultation: + abdomen distended Percussion/Palpation: abdomen soft Results & Data Vital Signs (Past 12 Hours) Vital Signs Temp Pulse Resp BP Pulse Ox 05/28/19 08:32 101 H 20 77/55 L 95 05/28/19 08:00 36.6 C 105 H 24 93 05/28/19 07:32 105 H 16 79/58 L 96 05/28/19 06:32 99 H 12 82/52 L 95 05/28/19 06:00 99 H 16 93 05/28/19 05:32 98 H 16 74/42 L 90 05/28/19 04:32 102 H 16 72/45 L 96 05/28/19 04:00 36.6 C 05/28/19 03:32 99 H 16 73/44 L 96 05/28/19 02:32 109 H 23 75/47 L 92 05/28/19 02:00 103 H 18 91 05/28/19 01:32 103 H 19 85/54 L 90 05/28/19 00:32 102 H 22 85/51 L 89 L 05/28/19 00:12 36.6 C 05/28/19 00:10 98 H 05/27/19 23:32 97 H 20 76/45 L 97 05/27/19 22:32 104 H 24 84/64 L 93 05/27/19 22:00 102 H 22 88 L Laboratory Results Laboratory Results - last 24 hr 05/27/19 05/27/19 05/28/19 11:12 20:34 04:10 WBC 4.15 L RBC 2.61 L Hgb 8.1 L Hct 23.6 L MCV 90.4 MCH 31.0 MCHC 34.3 RDW Std Deviation 60.3 H RDW Coeff of Yung 18.1 H Plt Count 114 L MPV 11.4 H Sodium Potassium Chloride Carbon Dioxide Anion Gap BUN Creatinine Est Cr Clr Drug Dosing Est GFR ( Amer) Est GFR (Non-Af Amer) BUN/Creatinine Ratio Glucose POC Glucose 95 95 Calcium Phosphorus Magnesium 05/28/19 05/28/19 05/28/19 04:10 05:45 05:52 WBC RBC Hgb Hct MCV MCH MCHC RDW Std Deviation RDW Coeff of Yung Plt Count MPV Sodium 128 L Potassium 3.5 D Chloride 95 L Carbon Dioxide 26 Anion Gap 7.0 BUN 18 Creatinine 1.88 H Est Cr Clr Drug Dosing 53.7 Est GFR ( Amer) 44.9 Est GFR (Non-Af Amer) 38.8 BUN/Creatinine Ratio 9.7 L Glucose 81 POC Glucose 92 Calcium 7.5 L Phosphorus 3.2 Magnesium 1.5 L (1) Cardiorenal syndrome Heart failure presence: with heart failure Hypertensive chronic kidney disease stage: stage 1-4 or unspecified chronic kidney disease Qualified Code(s): I13.0 - Hypertensive heart and chronic kidney disease with heart failure and stage 1 through stage 4 chronic kidney disease, or unspecified chronic kidney disease (2) Acute on chronic renal failure Acute renal failure type: unspecified Chronic kidney disease stage: stage 3 (moderate) Qualified Code(s): N17.9 - Acute kidney failure, unspecified; N18.3 - Chronic kidney disease, stage 3 (moderate) (3) Hypotension Hypotension type: unspecified hypotension type Qualified Code(s): I95.9 - Hypotension, unspecified
[2019-05-28] MEDS: DOPAMINE / D5W 400 MG/250 ML BAG IV SCH (10:08)
[2019-05-28] MEDS: FUROSEMIDE 100 MG in DEXTROSE 5% 90 ML IV SCH (10:09)
[2019-05-28] MEDS: SODIUM CHLORIDE 0.9% 1000ML 1,000 ML IV SCH (10:13)
[2019-05-28] MEDS: MILRINONE LACTATE/D5W 20,000 MCG/100 ML BAG IV SCH (10:28)
[2019-05-29] MEDS: MILRINONE LACTATE/D5W 20,000 MCG/100 ML BAG IV SCH ×2 (00:24→14:58)
[2019-05-29 04:31] LABS: Hemoglobin 8.5 g/dL (14.0-18.0); Mean Corpuscular Hemoglobin 30.9 pg (25-34); Mean Corpuscular Volume 90.9 fL (80-100); RDW Coefficient of Variation 17.4 % (11.5-14.5); RDW Standard Deviation 58.4 fL (36.4-46.3); Red Blood Count 2.75 M/uL (4.7-6.1); White Blood Count 4.49 K/uL (4.8-10.8)
[2019-05-29 04:45] LABS: INR 1.7 (0.9-1.1); Prothrombin Time 16.5 Seconds (9.0-12.0)
[2019-05-29 04:58] LABS: BUN Creatinine Ratio 9.8 (10-20); Calcium 7.5 mg/dl (8.5-10.1); Creatinine Clr Calc Pharmacy 60.3 ml/min; Est GFR (African American) 51.9; Est GFR (Non-African American) 44.7; Magnesium 1.6 mg/dl (1.8-2.4); Phosphorus 2.9 mg/dl (2.5-4.9); Potassium 3.4 mmol/L (3.5-5.1)
[2019-05-29 05:13] LABS: Mean Platelet Volume 9.1 fL (7.4-10.4); Platelet Count 88 K/uL (130-400)
[2019-05-29] MEDS: HEPARIN SOD 5,000 UNIT/0.5 ML VIAL SQ SCH ×3 (05:48→20:47)
--- NOTE | 2019-05-29 07:39 | Critical Care Progress Note ---
Date of Service May 29, 2019 Assessment & Plan (1) Admitted to intensive care unit: Reason Critically Ill: 58-year-old male here for dopamine infusion 2/2 to ARF in the setting of ckd and endstage chf . Past medical history significant for ischemic cardiomyopathy EF 20% AICD in place on continuous milrinone infusion, chronic systolic CHF, HTN, pulmonary HTN, CAD, cirrhosis, CKD stage III, diet-controlled T2DM, history of tobacco abuse, history of V. tach Neuro: -[facility] ICU: NEGATIVE -Intermittently somnolent likely related to his end-stage CHF and poor perfusion of his brain Cardiac: Acute on chronic combined systolic and diastolic CHF NYHA a class IV Patient has a history of chronic congestive heart failure. Was placed on a milrinone infusion approximately 1 year ago. Over the past year his condition has progressively declined to his current situation where he is requiring hospitalization every 4 to 6 weeks. As an outpatient he is not been compliant with fluid restrictions and recommended diet or medications. Patient became hypotensive leading to ARF on milrinone now requiring dopamine support to maintain pressures. -Dopamine 2.0 mcg/kg/min, continue, renal dosing, no titration required -Continue milrinone -Cardiology consulted following recommendations -Continue dopamine for pressure support -Continue furosemide infusion increased to 4 mg/h -Given single dose of 2.5 mg metolazone p.o. yesterday Respiratory: Pulmonary edema secondary to CHF On discharge from most recent admission patient weighed 105 kg on admission to our hospital weight 112. He was aggressively diuresed on the general medical floors with 80 mg of IV Lasix 3 times daily in addition oral metolazone 5 mg twice daily. Ultimately he ended up becoming hypotensive and progressing to ARF. Since that time Lasix has been held. Currently saturating well on 3 L nasal cannula. -Prn o2 as needed, wean as tolerated -monitor for si/sx of worsening respiratory function GI: - Heart Healthy DM II diet Cirrhosis: Liver ultrasound obtained during this admission demonstrated cirrhosis. On admission the ICU patient had an elevated ammonia level. He is not currently on lactulose. Lactulose 3 times daily Ascites secondary to cirrhosis Patient's physical exam demonstrated ascites, attempted paracentesis removed 2 L of fluid but had to stop secondary to hypotension and pain. -Not consistent with SBP -Cultures NGTD -prn paracentesis for comfort -Monitor for signs and symptoms of recurrence of ascites RENAL/LYTES: Acute renal failure in the setting of chronic kidney disease stage III Patient was transfer the ICU secondary to worsening renal function. On admission creatinine was 1.55 increased to 1.91. Patient was transferred to the ICU for dopamine infusion in hopes that would increase renal perfusion and increased urine output. -Creatinine 1.67, continue to trend BMP -Replace lytes as needed. -f/u am labs : - No concerns at this time. HEME: - Stable H&H. ID: Sepsis Cultures NGTD. Hemodynamic instability likely related to chronic conditions -d/c cefepime -Monitor fever curve, continues to be afebrile INTEGUMENTARY: -no concerns LINES/IV ACCESS: -PIVs intact. DVT PROPHYLAXIS: -Contraindicated in the setting of elevated INR Goals of Care: Ultimately this patient has a very poor prognosis. Unfortunately his has medical conditions of her own and is unable to provide supportive care for him. The patient repeatedly requests to be discharged on hospice with his medications to home however this is not possible due to his 's condition. The patient is currently DNR/DNI, however does not want to make a decision about inpatient hospice at this time. We have consulted the palliative team for assistance in coordinating this patient's care. Please see associated note. Dispo:ICU Thank you for allowing us to be part of this patient's care. Please refer to Dr. Garcia's documentation for any further recommendations. (2) Cardiorenal syndrome: (3) Acute on chronic renal failure: (4) Cirrhosis: (5) Hypotension: (6) Ischemic cardiomyopathy: (7) Acute on chronic combined systolic and diastolic CHF, NYHA class 4: (8) End stage liver disease: (9) Acute hyponatremia: (10) Acute hypokalemia: (11) Goals of care, counseling/discussion: (12) Pleural effusion on right: (13) History of acute renal failure: Supervising Physician Co-Signing Physician Notes Dr. Flores was the resident-physician during care of patient. I separately evaluated patient for mclain portions of the history and the exam. I was present during the critical portion of medical decision making, and I discussed the case with the resident. I generally agree with the findings and plan except for any additions/exceptions noted. Patient's creatinine is mildly improved, we are increasing his diuretic dose as he likely has cardiorenal failure. He is on consistent doses of dopamine and milrinone at this time. We are continuing lactulose for his cirrhosis; however, he is routinely refusing this medication. We are replacing electrolytes as needed. At one point the patient's blood pressure was reading 60s systolic however he was mentating normally and without complaint. His prognosis is poor. Subjective Patient sitting upright in bed today in no acute distress, reported doing well overnight. Patient reports that he is improving clinically and feeling great. Patient has not had a bowel movement since Wednesday, voiding on his own, tolerating his diet, sleeping. All questions answered to concerns related to ultimate disposition. Physical Exam Physical Exam: General: Ill-appearing gentleman in no acute distress, intermittently somnolent HEENT: Normocephalic atraumatic Neck: JVD present, otherwise normal to visual inspection Cardiac: Regular rate and rhythm, I did not appreciate any significant murmurs rubs or gallops, 2+ pedal edema bilaterally Respiratory: Diminished lung sounds bilaterally, positive rales GI: Distended abdomen, nontender to palpation MSK: Unable to assess secondary to weakness Skin: Bruises and ecchymosis Neuro: Intermittently alert and oriented, somnolent time, will fall asleep in the middle of conversation Results & Data Vital Signs (Past 12 Hours) Vital Signs Temp Pulse Resp BP Pulse Ox 05/29/19 06:32 109 H 15 90/52 L 95 05/29/19 05:45 105 H 18 82/55 L 94 05/29/19 05:01 108 H 21 72/41 L 96 05/29/19 04:58 108 H 16 80/45 L 94 05/29/19 04:00 36.5 C 107 H 21 96 05/29/19 03:33 109 H 15 95 05/29/19 03:32 107 H 19 71/43 L 95 05/29/19 03:00 107 H 19 95 05/29/19 02:32 108 H 17 69/35 L 94 05/29/19 02:00 108 H 21 95 05/29/19 01:45 105 H 18 94 05/29/19 01:44 105 H 17 74/32 L 95 05/29/19 01:00 106 H 18 94 05/29/19 00:32 107 H 15 77/50 L 93 05/29/19 00:00 101 H 16 97 05/28/19 23:57 36.5 C 05/28/19 23:32 99 H 16 70/41 L 96 05/28/19 22:32 98 H 16 72/39 L 97 05/28/19 21:36 104 H 05/28/19 21:32 103 H 21 76/44 L 95 05/28/19 21:00 106 H 20 97 05/28/19 20:37 104 H 18 73/42 L 98 05/28/19 20:00 36.5 C 108 H 17 96 Laboratory Results 05/29/19 05/29/19 05/29/19 Range/Units 09:34 04:22 04:22 WBC (4.8-10.8) K/uL RBC (4.7-6.1) M/uL Hgb (14.0-18.0) g/dL Hct (42-52) % MCV (80-100) fL MCH (25-34) pg MCHC (32-36) g/dL RDW Std Deviation (36.4-46.3) fL RDW Coeff of Yung (11.5-14.5) % Plt Count (130-400) K/uL MPV (7.4-10.4) fL PT 16.5 H (9.0-12.0) Seconds INR 1.7 H (0.9-1.1) Fibrinogen 212 (184-400) mg/dl Sodium 128 L (136-145) mmol/L Potassium 3.4 L (3.5-5.1) mmol/L Chloride 95 L (98-107) mmol/L Carbon Dioxide 26 (21-32) mmol/L Anion Gap 7.0 (3-11) BUN 16 (7-18) mg/dl Creatinine 1.67 H (0.6-1.4) mg/dl Est Cr Clr Drug Dosing 60.3 ml/min Est GFR ( Amer) 51.9 Est GFR (Non-Af Amer) 44.7 BUN/Creatinine Ratio 9.8 L (10-20) Glucose 101 H (70-99) mg/dl Calcium 7.5 L (8.5-10.1) mg/dl Phosphorus 2.9 (2.5-4.9) mg/dl Magnesium 1.6 L (1.8-2.4) mg/dl 05/29/19 Range/Units 04:22 WBC 4.49 L (4.8-10.8) K/uL RBC 2.75 L (4.7-6.1) M/uL Hgb 8.5 L (14.0-18.0) g/dL Hct 25.0 L (42-52) % MCV 90.9 (80-100) fL MCH 30.9 (25-34) pg MCHC 34.0 (32-36) g/dL RDW Std Deviation 58.4 H (36.4-46.3) fL RDW Coeff of Yung 17.4 H (11.5-14.5) % Plt Count 88 L (130-400) K/uL MPV 9.1 (7.4-10.4) fL PT (9.0-12.0) Seconds INR (0.9-1.1) Fibrinogen (184-400) mg/dl Sodium (136-145) mmol/L Potassium (3.5-5.1) mmol/L Chloride (98-107) mmol/L Carbon Dioxide (21-32) mmol/L Anion Gap (3-11) BUN (7-18) mg/dl Creatinine (0.6-1.4) mg/dl Est Cr Clr Drug Dosing ml/min Est GFR ( Amer) Est GFR (Non-Af Amer) BUN/Creatinine Ratio (10-20) Glucose (70-99) mg/dl Calcium (8.5-10.1) mg/dl Phosphorus (2.5-4.9) mg/dl Magnesium (1.8-2.4) mg/dl Medications Administered Current Inpatient Medications Albuterol (Ventolin 0.083% 2.5mg/3ml) 2.5 mg INH Q4 PRN PRN Reason: Shortness Of Breath Or Wheezing Stop: 06/21/19 17:46 Last Admin: 05/22/19 23:27 Dose: 2.5 mg Documented by: Amiodarone HCl (Cordarone) 200 mg PO DAILY [facility] Stop: 06/22/19 08:59 Last Admin: 05/29/19 08:40 Dose: 200 mg Documented by: Aspirin (Ecotrin Ectab) 81 mg PO DAILY [facility] Stop: 06/22/19 08:59 Last Admin: 05/29/19 08:40 Dose: 81 mg Documented by: Dextrose (Dextrose 50%) 25 - 50 ml IV UD PRN; Protocol PRN Reason: Hypoglycemia Protocol Stop: 06/21/19 17:46 Docusate Sodium (Colace) 100 mg PO BID PRN PRN Reason: Constipation Stop: 06/21/19 17:46 Famotidine (Pepcid) 20 mg PO BID PRN PRN Reason: Heartburn Stop: 06/24/19 12:10 Glucagon (Glucagen) 1 mg SQ UD PRN; Protocol PRN Reason: Hypoglycemia Protocol Stop: 06/21/19 17:46 Glucose (Glucose 40%) 15 - 30 gm PO UD PRN; Protocol PRN Reason: Hypoglycemia Protocol Stop: 06/21/19 17:46 Glucose (Dex4 Glucose) 4 - 8 tabs PO UD PRN; Protocol PRN Reason: Hypoglycemia Protocol Stop: 06/21/19 17:46 Heparin Sodium (Porcine) (Heparin Sodium (Porcine)) 5,000 units SQ Q8 [facility] Stop: 06/21/19 21:59 Last Admin: 05/29/19 05:48 Dose: Not Given Documented by: Milrinone Lactate/Dextrose (Primacor/D5w) 20,000 mcg in 100 mls @ 6.6 mls/hr IV .[id number] [facility] Stop: 06/21/19 16:14 Last Infusion: 05/29/19 07:18 Dose: 0.25 mcg/kg/min, 6.6 mls/hr Documented by: Dopamine HCl/Dextrose (Dopamine / D5w) 400 mg in 250 mls @ 7.92 mls/hr IV .Q24H ROLANDO Stop: 06/24/19 08:59 Last Admin: 05/29/19 08:40 Dose: 2 mcg/kg/min, 7.9 mls/hr Documented by: Furosemide 100 mg/ Dextrose 100 mls @ 4 mls/hr IV .Q24H [facility] Stop: 06/26/19 09:59 Last Infusion: 05/29/19 11:00 Dose: 4 mg/hr, 4 mls/hr Documented by: Sodium Chloride (Nss 1000ml) 1,000 mls @ 13 mls/hr IV .Q24H [facility] Stop: 06/26/19 11:44 Last Admin: 05/29/19 10:42 Dose: 13 mls/hr Documented by: Lactulose (Chronulac) 20 gm PO TID [facility] Stop: 06/24/19 13:59 Last Admin: 05/29/19 08:41 Dose: 20 gm Documented by: Magnesium Oxide (Mag-Ox) 400 mg PO BID [facility] Stop: 06/28/19 20:59 Miscellaneous (Carbohydrates For Hypoglycemia) 15 - 30 gm PO UD PRN PRN Reason: Hypoglycemia Protocol Stop: 06/21/19 17:46 Pantoprazole Sodium (Protonix) 40 mg PO DAILY [facility] Stop: 06/22/19 08:59 Last Admin: 05/29/19 08:40 Dose: 40 mg Documented by: Polyethylene Glycol (Miralax Powder Packet) 17 gm PO DAILY PRN PRN Reason: Constipation Stop: 06/21/19 17:46 Potassium Chloride (Klor-Con M20) 40 meq PO Q12 [facility] Stop: 05/29/19 21:01 Last Admin: 05/29/19 10:41 Dose: 40 meq Documented by: Sertraline HCl (Zoloft) 50 mg PO DAILY [facility] Stop: 06/22/19 08:59 Last Admin: 05/29/19 08:40 Dose: 50 mg Documented by: Spironolactone (Aldactone) 25 mg PO DAILY [facility] Stop: 06/29/19 08:59 Critical Care Time Critical Care Time: Yes Total Critical Care Time: 35 I have personally spent 35 minutes of critical care time in the direct management of this patient. This is a life/limb threatening event. This includes time spent evaluating patient, direct bedside care, chart review, placing orders, interpretation of diagnostic studies, discussion with consultants, patient, and/or family members regarding treatment decisions, as well as other required patient management activities. This time is exclusive of all separately billable procedures, and teaching time and separate from and in addition to any other critical care service time. Resident Activity Tracking Resident Involvement: Resident Care Provided Care Provided: Adult Hospital Medicine (ICU) (1) Cardiorenal syndrome Heart failure presence: with heart failure Hypertensive chronic kidney disease stage: stage 1-4 or unspecified chronic kidney disease Qualified Code(s): I13.0 - Hypertensive heart and chronic kidney disease with heart failure and stage 1 through stage 4 chronic kidney disease, or unspecified chronic kidney disease (2) Acute on chronic renal failure Acute renal failure type: unspecified Chronic kidney disease stage: stage 3 (moderate) Qualified Code(s): N17.9 - Acute kidney failure, unspecified; N18.3 - Chronic kidney disease, stage 3 (moderate) (3) Hypotension Hypotension type: unspecified hypotension type Qualified Code(s): I95.9 - Hypotension, unspecified
[2019-05-29] MEDS: FUROSEMIDE 100 MG in DEXTROSE 5% 90 ML IV SCH (08:40)
[2019-05-29] MEDS: ASPIRIN 81 MG ECTAB PO SCH (08:40)
[2019-05-29] MEDS: SERTRALINE HCL 50 MG TABLET PO SCH (08:40)
[2019-05-29] MEDS: AMIODARONE 200 MG TAB PO SCH (08:40)
[2019-05-29] MEDS: PANTOprazole 40 MG TAB PO SCH (08:40)
[2019-05-29] MEDS: DOPAMINE / D5W 400 MG/250 ML BAG IV SCH (08:40)
[2019-05-29] MEDS: LACTULOSE SYRUP 20 GM/30 ML UDC PO SCH ×3 (08:41→20:47)
[2019-05-29] MEDS ORDERED: SPIRONOLACTONE 25 MG TAB PO ONE (10:00)
[2019-05-29] MEDS: POTASSIUM CHLORIDE 20 MEQ TABCR PO SCH ×2 (10:41→20:47)
[2019-05-29] MEDS: SODIUM CHLORIDE 0.9% 1000ML 1,000 ML IV SCH (10:42)
[2019-05-29] MEDS ORDERED: metOLazone 2.5 MG TABLET PO ONE (10:45)
[2019-05-29 10:49] LABS: Fibrinogen 212 mg/dl (184-400)
[2019-05-29] MEDS ORDERED: Nursing to Pharmacy Communication ONE (10:59)
--- NOTE | 2019-05-29 11:40 | Cardiology Progress Note ---
Date of Service May 29, 2019 Assessment & Plan (1) Acute on chronic combined systolic and diastolic CHF, NYHA class 4: Patient with chronic inotrope dependent heart failure on milrinone for 1 year or greater now with decompensated heart failure and failure to respond to usual therapies. Dopamine has been added for blood pressure support. Has begun to diurese with some improvement in renal function. We will continue IV furosemide overall long-term prognosis remains poor (2) Cardiorenal syndrome: (3) Acute on chronic renal failure: (4) Ischemic cardiomyopathy: (5) Acute hyponatremia: (6) End stage liver disease: (7) Hypotension: Patient's hemodynamics continued to decline with worsening hypotension and renal function. Recommend addition of dopamine 2.0 mcg/kg/min. Patient agreeable for transfer to the intensive care unit. If hemodynamics improve, recommend restarting Lasix. Patient declines palliative care/hospice at this time. Poor prognosis discussed. Additional metolazone will be given this morning 2.5 mg p.o. Potassium supplement to be ordered Subjective Patient seen and examined, chart, medications, telemetry reviewed. Patient without complaints Positive urine outputs overnight Physical Exam Constitutional: + cachectic (Cardiac) Eyes: PERRL, conjunctivae normal, anicteric sclerae ENMT: external ear and nose normal, oropharynx normal Neck: trachea midline, no thyromegaly Respiratory: Auscultation: + diminished lung sounds and + rales Cardiovascular: Rate/Rhythm: regular rate and regular rhythm Heart Sounds: + gallop Vessels: + JVD Extremities: + edema (3+ lower extremity edema with presacral edema) Chest (Breasts): Chest: + pacemaker (/Defibrillator site without tenderness) Gastrointestinal (Abdomen): Inspection/Auscultation: + abdomen distended Percussion/Palpation: abdomen soft Results & Data Vital Signs (Past 12 Hours) Vital Signs Temp Pulse Resp BP Pulse Ox 05/29/19 09:00 106 H 33 H 94 05/29/19 08:33 108 H 22 80/69 L 94 05/29/19 07:32 36.4 C L 107 H 23 83/64 L 96 05/29/19 06:32 109 H 15 90/52 L 95 05/29/19 05:45 105 H 18 82/55 L 94 05/29/19 05:01 108 H 21 72/41 L 96 05/29/19 04:58 108 H 16 80/45 L 94 05/29/19 04:00 36.5 C 107 H 21 96 05/29/19 03:33 109 H 15 95 05/29/19 03:32 107 H 19 71/43 L 95 05/29/19 03:00 107 H 19 95 05/29/19 02:32 108 H 17 69/35 L 94 05/29/19 02:00 108 H 21 95 05/29/19 01:45 105 H 18 94 05/29/19 01:44 105 H 17 74/32 L 95 05/29/19 01:00 106 H 18 94 05/29/19 00:32 107 H 15 77/50 L 93 05/29/19 00:00 101 H 16 97 05/28/19 23:57 36.5 C Laboratory Results Laboratory Results - last 24 hr 05/29/19 05/29/19 05/29/19 04:22 04:22 04:22 WBC 4.49 L RBC 2.75 L Hgb 8.5 L Hct 25.0 L MCV 90.9 MCH 30.9 MCHC 34.0 RDW Std Deviation 58.4 H RDW Coeff of Yung 17.4 H Plt Count 88 L MPV 9.1 PT 16.5 H INR 1.7 H Fibrinogen Sodium 128 L Potassium 3.4 L Chloride 95 L Carbon Dioxide 26 Anion Gap 7.0 BUN 16 Creatinine 1.67 H Est Cr Clr Drug Dosing 60.3 Est GFR ( Amer) 51.9 Est GFR (Non-Af Amer) 44.7 BUN/Creatinine Ratio 9.8 L Glucose 101 H Calcium 7.5 L Phosphorus 2.9 Magnesium 1.6 L 05/29/19 09:34 WBC RBC Hgb Hct MCV MCH MCHC RDW Std Deviation RDW Coeff of Yung Plt Count MPV PT INR Fibrinogen 212 Sodium Potassium Chloride Carbon Dioxide Anion Gap BUN Creatinine Est Cr Clr Drug Dosing Est GFR ( Amer) Est GFR (Non-Af Amer) BUN/Creatinine Ratio Glucose Calcium Phosphorus Magnesium (1) Cardiorenal syndrome Heart failure presence: with heart failure Hypertensive chronic kidney disease stage: stage 1-4 or unspecified chronic kidney disease Qualified Code(s): I13.0 - Hypertensive heart and chronic kidney disease with heart failure and stage 1 through stage 4 chronic kidney disease, or unspecified chronic kidney disease (2) Acute on chronic renal failure Acute renal failure type: unspecified Chronic kidney disease stage: stage 3 (moderate) Qualified Code(s): N17.9 - Acute kidney failure, unspecified; N18.3 - Chronic kidney disease, stage 3 (moderate) (3) Hypotension Hypotension type: unspecified hypotension type Qualified Code(s): I95.9 - Hypotension, unspecified
--- NOTE | 2019-05-29 12:25 | Palliative Care Progress Note ---
Date of Service May 29, 2019 Assessment & Plan (1) Goals of care, counseling/discussion: -Patient seems more confused today. Is paranoid, thinks nurses are blocking his calls. No family at bedside. -Patient remains on Primacor, Lasix, and dopamine infusions. His creatinine is actually slightly better at 1.67 from 1.88 yesterday. -Overall, condition still remains quite poor. Uncertain of our plan or what the patient's goals are. He does not want to go to a [place] [facility] facility, but says she can't bring him home. -Patient is a DNR. No dialysis if kidneys worsen, which we talked about last week when patient was alert and oriented, with his and brother present in the room. (2) Acute on chronic combined systolic and diastolic CHF, NYHA class 4: (3) Acute on chronic renal failure: (4) Ischemic cardiomyopathy: Subjective Patient more confused today. Dopamine, Lasix and Primacor infusions continue. Creatinine is mildly improved. Review of Systems Review of Systems: Denies pain or discomfort. More confused, difficult to get full ROS from. Physical Exam Constitutional: + ill appearing (chronically) ENMT: external ear and nose normal, oropharynx normal Respiratory: normal respiratory effort; no labored breathing Cardiovascular: Rate/Rhythm: + tachycardic Extremities: + edema (right arm +4 pitting edema, left arm +2 pitting edema) Skin: + jaundice Neurologic: moves all extremities and awake (but drowsy) Psychiatric: Insight: + limited insight Judgement: + limited judgement Results & Data Vital Signs (Past 12 Hours) Vital Signs Temp Pulse Resp BP Pulse Ox 05/29/19 09:00 106 H 33 H 94 05/29/19 08:33 108 H 22 80/69 L 94 05/29/19 07:32 36.4 C L 107 H 23 83/64 L 96 05/29/19 06:32 109 H 15 90/52 L 95 05/29/19 05:45 105 H 18 82/55 L 94 05/29/19 05:01 108 H 21 72/41 L 96 05/29/19 04:58 108 H 16 80/45 L 94 05/29/19 04:00 36.5 C 107 H 21 96 05/29/19 03:33 109 H 15 95 05/29/19 03:32 107 H 19 71/43 L 95 12/16/19 03:00 107 H 19 95 05/29/19 02:32 108 H 17 69/35 L 94 05/29/19 02:00 108 H 21 95 05/29/19 01:45 105 H 18 94 05/29/19 01:44 105 H 17 74/32 L 95 05/29/19 01:00 106 H 18 94 05/29/19 00:32 107 H 15 77/50 L 93 Time Spent Midlevel 35 minutes with >50% of the time spent at bedside with patient and ICU team discussing condition and GOC. (1) Acute on chronic renal failure Acute renal failure type: unspecified Chronic kidney disease stage: stage 3 (moderate) Qualified Code(s): N17.9 - Acute kidney failure, unspecified; N18.3 - Chronic kidney disease, stage 3 (moderate)
--- NOTE | 2019-05-29 13:06 | Hospitalist Progress Note ---
Date of Service May 29, 2019 Assessment & Plan (1) Fluid overload: (1) Acute on chronic combined systolic and diastolic CHF, NYHA class 4: (2) Ischemic cardiomyopathy: (3) Hypotension: This is a 58-year-old male who has significant past medical history of ischemic cardiomyopathy EF 20% AICD in place on continuous at home milrinone infusion , chronic systolic CHF, HTN, pulmonary HTN, CAD, hx of MSSA endocarditis, cirrhosis, CKD stage III, diet-controlled T2DM, history of tobacco abuse, history of VT arrest s/p ICD in 06/2018 who presents to [facility] secondary to weight gain and lethargy. In ED chest x-ray revealed pulmonary edema. Sodium 124, K2.8, chloride 98, BUN 21, creatinine 1.55. Initial troponin WNL, TSH elevated 9.02, but free T4 WNL. T bili elevated at 1.1, AST 18, ALT 7, alk phos 135, ammonia 34.0. started on IV Lasix gtt by Cardiology overall prognosis remains extremely poor not a candidate for HD given very low BP and hemodynamic instability remains in pressors BP remains low -milrinone gtt dose / Dopamine gtt transferred to ICU on 05/25/19 s/p 2 Liter of paracethesis by ICU team on 05/25/19 over all prognosis is very poor Palliative care involved , appreciate input pt and updated multiple times cardiology / palliative care /ICU team/ Mino morocho CODE status changed to DNR/DNI after D/w pt and at present cont supportive care pt is yet indecisive to transition to hospice /comfort care acute renal failure CKD (chronic kidney disease), stage III: possible cardiorenal symptom baseline Cr 1.5 worsening of cr > 2.7 with poor urine out put persisted hypotension causing poor perfusion over all prognosis poor (7) CAD (coronary artery disease): extensive CAD with severe ischemic cardiomyopathy EF 20% (8) Cirrhosis: ROBLERO , worsening of ascites due to decompensated CHF and renal failure elevated Ammonia level -due to hepatic congestion ordered Lactulose -pt been refusing no evidence of hepatic encephalopathy yet (12) DVT prophylaxis: Heparin SQ -pt has been refusing CODE STATUS: DNR/DNI Disposition: over all prognosis remains poor -with limited life expectancy remains in ICU as pt requiring multiple pressors Subjective more tired and lathergic today opens eyes to voice denies of any pain or discomfort asking repeatedly when he can go home on IV doapamine and milrinone gtt Physical Exam Constitutional: well developed and + ill appearing (chronically) Eyes: PERRL, conjunctivae normal, anicteric sclerae ENMT: external ear and nose normal, oropharynx normal Respiratory: normal respiratory effort; no labored breathing Auscultation: + diminished lung sounds (At the bases bilaterally) and + rales Cardiovascular: Rate/Rhythm: regular rate, regular rhythm and + tachycardic Heart Sounds: normal S1 and normal S2; no murmur Vessels: + JVD; no carotid bruit Extremities: + edema (right arm +4 pitting edema, left arm +2 pitting edema) Gastrointestinal (Abdomen): Inspection/Auscultation: + abdomen distended (but soft) and normal bowel sounds Percussion/Palpation: abdomen soft; abdomen nontender, no guarding and abdomen not rigid Skin: + jaundice Neurologic: PERRL, EOMI, accommodation nl, no face palsy, no dysarthria moves all extremities Psychiatric: A+Ox3, euthymic affect Orientation: oriented to person Insight: + limited insight Judgement: + limited judgement Results & Data Vital Signs (Past 12 Hours) Vital Signs Temp Pulse Resp BP Pulse Ox 05/29/19 12:32 97 H 16 77/45 L 96 05/29/19 11:32 98 H 20 78/50 L 97 05/29/19 10:32 98 H 34 H 80/52 L 96 05/29/19 09:32 87 28 H 78/46 L 97 05/29/19 09:00 106 H 33 H 94 05/29/19 08:33 108 H 22 80/69 L 94 05/29/19 07:32 36.4 C L 107 H 23 83/64 L 96 05/29/19 06:32 109 H 15 90/52 L 95 05/29/19 05:45 105 H 18 82/55 L 94 05/29/19 05:01 108 H 21 72/41 L 96 05/29/19 04:58 108 H 16 80/45 L 94 05/29/19 04:00 36.5 C 107 H 21 96 05/29/19 03:33 109 H 15 95 05/29/19 03:32 107 H 19 71/43 L 95 05/29/19 03:00 107 H 19 95 05/29/19 02:32 108 H 17 69/35 L 94 05/29/19 02:00 108 H 21 95 05/29/19 01:45 105 H 18 94 05/29/19 01:44 105 H 17 74/32 L 95 (1) Fluid overload Hypervolemia type: unspecified Qualified Code(s): E87.70 - Fluid overload, unspecified
[2019-05-29 19:29] LABS: BUN Creatinine Ratio 9.5 (10-20); Calcium 7.8 mg/dl (8.5-10.1); Creatinine Clr Calc Pharmacy 61.6 ml/min; Est GFR (African American) 53.4; Est GFR (Non-African American) 46.1; Magnesium 1.6 mg/dl (1.8-2.4); Phosphorus 2.8 mg/dl (2.5-4.9); Potassium 3.4 mmol/L (3.5-5.1)
[2019-05-29] MEDS: MAGNESIUM OXIDE 400 MG TAB PO SCH (20:47)
[2019-05-29] MEDS: POTASSIUM CHLORIDE / WTR 10 MEQ/100 ML PLCT IV SCH ×2 (22:11→23:23)
[2019-05-29] MEDS ORDERED: MAGNESIUM SULFATE / D5W 1 GM/100 ML BAG IV ONE (22:15)
[2019-05-29] MEDS ORDERED: ACETAMINOPHEN 325 MG TAB PO ONE (22:21)
[2019-05-30] MEDS: POTASSIUM CHLORIDE / WTR 10 MEQ/100 ML PLCT IV SCH (00:37)
[2019-05-30 04:39] LABS: Hematocrit (blood only) 27.6 % (42-52); Hemoglobin 9.2 g/dL (14.0-18.0); Mean Corpuscular Hemoglobin 30.9 pg (25-34); Mean Corpuscular Hgb Conc 33.3 g/dL (32-36); Mean Corpuscular Volume 92.6 fL (80-100); RDW Coefficient of Variation 17.2 % (11.5-14.5); RDW Standard Deviation 58.2 fL (36.4-46.3); Red Blood Count 2.98 M/uL (4.7-6.1)
[2019-05-30 04:49] LABS: INR 1.6 (0.9-1.1); Prothrombin Time 15.5 Seconds (9.0-12.0)
[2019-05-30 04:55] LABS: Albumin Level 1.2 gm/dl (3.4-5.0); BUN Creatinine Ratio 9.5 (10-20); Bilirubin Direct 0.6 mg/dl (0-0.2); Calcium 7.8 mg/dl (8.5-10.1); Creatinine Clr Calc Pharmacy 62.4 ml/min; Est GFR (African American) 54.2; Est GFR (Non-African American) 46.8; Magnesium 1.6 mg/dl (1.8-2.4); Potassium 3.8 mmol/L (3.5-5.1)
[2019-05-30 04:58] LABS: Bilirubin,Total 1.1 mg/dl (0.2-1); Phosphorus 2.8 mg/dl (2.5-4.9); Total Protein 5.7 gm/dl (6.4-8.2)
--- NOTE | 2019-05-30 04:59 | Billing Data ---
Date of Service May 29, 2019 Coding Level of Care Code Critical Care 1st - mins
[2019-05-30] MEDS: HEPARIN SOD 5,000 UNIT/0.5 ML VIAL SQ SCH ×3 (05:07→20:45)
[2019-05-30 05:09] LABS: Basophils # (auto) 0.02 K/uL (0-0.2); Basophils % (auto) 0.4 %; Echinocytes 1+; Eosinophils # (auto) 1.15 K/uL (0-0.5); Eosinophils % (auto) 23.5 %; Immature Granulocytes # (auto) 0.01 K/uL (0.00-0.02); Immature Granulocytes % (auto) 0.2 %; Lymphocytes # (auto) 0.28 K/uL (1.2-3.4); Lymphocytes % (auto) 5.7 %; Mean Platelet Volume 9.6 fL (7.4-10.4); Monocytes # (auto) 0.61 K/uL (0.11-0.59); Monocytes % (auto) 12.4 %; Neutrophils # (auto) 2.83 K/uL (1.4-6.5); Neutrophils % (auto) 57.8 %; Platelet Count 93 K/uL (130-400); Platelet Estimate Decreased (Normal); Target Cells 1+
[2019-05-30] MEDS: MILRINONE LACTATE/D5W 20,000 MCG/100 ML BAG IV SCH ×2 (06:17→18:31)
--- NOTE | 2019-05-30 07:17 | Critical Care Progress Note ---
Date of Service May 30, 2019 Assessment & Plan (1) Admitted to intensive care unit: Reason Critically Ill: 58-year-old male here for dopamine infusion 2/2 to ARF in the setting of ckd and endstage chf . Past medical history significant for ischemic cardiomyopathy EF 20% AICD in place on continuous milrinone infusion, chronic systolic CHF, HTN, pulmonary HTN, CAD, cirrhosis, CKD stage III, diet-controlled T2DM, history of tobacco abuse, history of V. tach Neuro: -[facility] ICU: NEGATIVE -Intermittently somnolent likely related to his end-stage CHF and poor perfusion of his brain Cardiac: Acute on chronic combined systolic and diastolic CHF NYHA a class IV Patient has a history of chronic congestive heart failure. Was placed on a milrinone infusion approximately 1 year ago. Over the past year his condition has progressively declined to his current situation where he is requiring hospitalization every 4 to 6 weeks. As an outpatient he is not been compliant with fluid restrictions and recommended diet or medications. Patient became hypotensive leading to ARF on milrinone now requiring dopamine support to maintain pressures. -Dopamine 2.0 mcg/kg/min, continue, renal dosing, no titration required -Continue milrinone -Cardiology consulted following recommendations -Continue dopamine for pressure support -Continue furosemide infusion increased to 8 mg/h Respiratory: Pulmonary edema secondary to CHF On discharge from most recent admission patient weighed 105 kg on admission to our hospital weight 112. He was aggressively diuresed on the general medical floors with 80 mg of IV Lasix 3 times daily in addition oral metolazone 5 mg twice daily. Ultimately he ended up becoming hypotensive and progressing to ARF. Since that time Lasix has been held. Currently saturating well on 3 L nasal cannula. -Prn o2 as needed, wean as tolerated -monitor for si/sx of worsening respiratory function GI: - Heart Healthy DM II diet Cirrhosis: Liver ultrasound obtained during this admission demonstrated cirrhosis. On admission the ICU patient had an elevated ammonia level. He is not currently on lactulose. Lactulose 3 times daily -pt refusing Ascites secondary to cirrhosis Patient's physical exam demonstrated ascites, attempted paracentesis removed 2 L of fluid but had to stop secondary to hypotension and pain. -Not consistent with SBP -Cultures NGTD -prn paracentesis for comfort -Monitor for signs and symptoms of recurrence of ascites RENAL/LYTES: Acute renal failure in the setting of chronic kidney disease stage III Patient was transfer the ICU secondary to worsening renal function. On admission creatinine was 1.55 increased to 1.91. Patient was transferred to the ICU for dopamine infusion in hopes that would increase renal perfusion and increased urine output. -Creatinine 1.61, continue to trend BMP -Replace lytes as needed. -1 g MgSO4 - 60 meq kcl bid -daily bmp : - No concerns at this time. HEME: - Stable H&H. ID: Sepsis Cultures NGTD. Hemodynamic instability likely related to chronic conditions -d/c cefepime -Monitor fever curve, continues to be afebrile INTEGUMENTARY: -no concerns LINES/IV ACCESS: -PIVs intact. DVT PROPHYLAXIS: -Contraindicated in the setting of elevated INR Goals of Care: Ultimately this patient has a very poor prognosis. Unfortunately his has medical conditions of her own and is unable to provide supportive care for him. The patient repeatedly requests to be discharged on hospice with his medications to home however this is not possible due to his 's condition. The patient is currently DNR/DNI, however does not want to make a decision about inpatient hospice at this time. We have consulted the palliative team for assistance in coordinating this patient's care. Please see associated note. Dispo:stable to downgrade to pcu Thank you for allowing us to be part of this patient's care. Please refer to Dr. Garcia's documentation for any further recommendations. (2) Cardiorenal syndrome: (3) Acute on chronic renal failure: (4) Cirrhosis: (5) Hypotension: (6) Ischemic cardiomyopathy: (7) Acute on chronic combined systolic and diastolic CHF, NYHA class 4: (8) End stage liver disease: (9) Acute hyponatremia: (10) Acute hypokalemia: (11) Goals of care, counseling/discussion: (12) Pleural effusion on right: (13) History of acute renal failure: Supervising Physician Co-Signing Physician Notes Dr. Flores was the resident-physician during care of patient. I separately evaluated patient for mclain portions of the history and the exam. I was present during the critical portion of medical decision making, and I discussed the case with the resident. I generally agree with the findings and plan except for any additions/exceptions noted. Patient was discussed in multidisciplinary rounds. Patient's vasoactive medications have remained stable, continue to attempt further diuresis, stable for downgrade out of ICU to telemetry status after discussion with Dr. Jose No cardiology Subjective pt laying in bed, doing well this am. no acute events overnight. refusing lactulose, abdomen distend, abdomen is not that great . no acute concerns at present, all questions answered Physical Exam Physical Exam: General: Ill-appearing gentleman in no acute distress, intermittently somnolent HEENT: Normocephalic atraumatic Neck: JVD present, otherwise normal to visual inspection Cardiac: Regular rate and rhythm, I did not appreciate any significant murmurs rubs or gallops, 2+ pedal edema bilaterally Respiratory: Diminished lung sounds bilaterally, positive rales GI: profoundly Distended abdomen, nontender to palpation MSK: Unable to assess secondary to weakness Skin: Bruises and ecchymosis Neuro: Intermittently alert and oriented, somnolent time, will fall asleep in the middle of conversation Results & Data Vital Signs (Past 12 Hours) Vital Signs Temp Pulse Resp BP Pulse Ox 05/30/19 06:08 97 H 16 89/46 L 96 05/30/19 06:00 101 H 18 65/44 L 95 05/30/19 05:33 91 H 21 74/43 L 98 05/30/19 05:00 95 H 14 97 05/30/19 04:33 96 H 14 73/45 L 97 05/30/19 04:00 36.5 C 102 H 22 95 05/30/19 03:33 98 H 20 76/44 L 97 05/30/19 03:00 99 H 16 97 05/30/19 02:33 99 H 15 65/42 L 98 05/30/19 02:00 101 H 21 96 05/30/19 01:32 102 H 16 75/39 L 95 05/30/19 01:00 102 H 16 97 05/30/19 00:44 102 H 05/30/19 00:33 103 H 31 H 96 05/30/19 00:32 103 H 16 71/48 L 95 05/30/19 00:00 36.5 C 98 H 18 97 05/29/19 23:32 102 H 20 60/30 L 05/29/19 23:01 101 H 20 74/50 L 94 05/29/19 22:33 102 H 21 59/23 L 95 05/29/19 22:00 106 H 17 94 12/16/19 21:32 103 H 18 70/46 L 95 05/29/19 21:03 102 H 22 74/49 L 96 05/29/19 20:33 101 H 20 71/49 L 100 05/29/19 20:00 36.5 C 98 H 24 96 05/29/19 19:33 75/40 L Laboratory Results 05/30/19 05/30/19 05/30/19 Range/Units 04:16 04:16 04:16 WBC 4.90 (4.8-10.8) K/uL RBC 2.98 L (4.7-6.1) M/uL Hgb 9.2 L (14.0-18.0) g/dL Hct 27.6 L (42-52) % MCV 92.6 (80-100) fL MCH 30.9 (25-34) pg MCHC 33.3 (32-36) g/dL RDW Std Deviation 58.2 H (36.4-46.3) fL RDW Coeff of Yung 17.2 H (11.5-14.5) % Plt Count 93 L (130-400) K/uL MPV 9.6 (7.4-10.4) fL Immature Gran % (Auto) 0.2 % Neut % (Auto) 57.8 % Lymph % (Auto) 5.7 % [place] % (Auto) 12.4 % Eos % (Auto) 23.5 % Baso % (Auto) 0.4 % Immature Gran # (Auto) 0.01 (0.00-0.02) K/uL Neut # (Auto) 2.83 (1.4-6.5) K/uL Lymph # (Auto) 0.28 L (1.2-3.4) K/uL [place] # (Auto) 0.61 H (0.11-0.59) K/uL Eos # (Auto) 1.15 H (0-0.5) K/uL Baso # (Auto) 0.02 (0-0.2) K/uL Platelet Estimate Decreased L (Normal) Target Cells 1+ Echinocytes 1+ PT 15.5 H (9.0-12.0) Seconds INR 1.6 H (0.9-1.1) Fibrinogen (184-400) mg/dl Sodium 128 L (136-145) mmol/L Potassium 3.8 (3.5-5.1) mmol/L Chloride 96 L (98-107) mmol/L Carbon Dioxide 27 (21-32) mmol/L Anion Gap 5.0 (3-11) BUN 15 (7-18) mg/dl Creatinine 1.61 H (0.6-1.4) mg/dl Est Cr Clr Drug Dosing 62.4 ml/min Est GFR ( Amer) 54.2 Est GFR (Non-Af Amer) 46.8 BUN/Creatinine Ratio 9.5 L (10-20) Glucose 96 (70-99) mg/dl Calcium 7.8 L (8.5-10.1) mg/dl Phosphorus 2.8 (2.5-4.9) mg/dl Magnesium 1.6 L (1.8-2.4) mg/dl Total Bilirubin 1.1 H (0.2-1) mg/dl Direct Bilirubin 0.6 H (0-0.2) mg/dl AST 19 (15-37) U/L ALT 11 L (12-78) U/L Alkaline Phosphatase 140 H (45-117) U/L Total Protein 5.7 L (6.4-8.2) gm/dl Albumin 1.2 L (3.4-5.0) gm/dl 05/29/19 05/29/19 Range/Units 19:02 09:34 WBC (4.8-10.8) K/uL RBC (4.7-6.1) M/uL Hgb (14.0-18.0) g/dL Hct (42-52) % MCV (80-100) fL MCH (25-34) pg MCHC (32-36) g/dL RDW Std Deviation (36.4-46.3) fL RDW Coeff of Yung (11.5-14.5) % Plt Count (130-400) K/uL MPV (7.4-10.4) fL Immature Gran % (Auto) % Neut % (Auto) % Lymph % (Auto) % [place] % (Auto) % Eos % (Auto) % Baso % (Auto) % Immature Gran # (Auto) (0.00-0.02) K/uL Neut # (Auto) (1.4-6.5) K/uL Lymph # (Auto) (1.2-3.4) K/uL [place] # (Auto) (0.11-0.59) K/uL Eos # (Auto) (0-0.5) K/uL Baso # (Auto) (0-0.2) K/uL Platelet Estimate (Normal) Target Cells Echinocytes PT (9.0-12.0) Seconds INR (0.9-1.1) Fibrinogen 212 (184-400) mg/dl Sodium 128 L (136-145) mmol/L Potassium 3.4 L (3.5-5.1) mmol/L Chloride 95 L (98-107) mmol/L Carbon Dioxide 26 (21-32) mmol/L Anion Gap 7.0 (3-11) BUN 16 (7-18) mg/dl Creatinine 1.63 H (0.6-1.4) mg/dl Est Cr Clr Drug Dosing 61.6 ml/min Est GFR ( Amer) 53.4 Est GFR (Non-Af Amer) 46.1 BUN/Creatinine Ratio 9.5 L (10-20) Glucose 120 H (70-99) mg/dl Calcium 7.8 L (8.5-10.1) mg/dl Phosphorus 2.8 (2.5-4.9) mg/dl Magnesium 1.6 L (1.8-2.4) mg/dl Total Bilirubin (0.2-1) mg/dl Direct Bilirubin (0-0.2) mg/dl AST (15-37) U/L ALT (12-78) U/L Alkaline Phosphatase (45-117) U/L Total Protein (6.4-8.2) gm/dl Albumin (3.4-5.0) gm/dl Medications Administered Current Inpatient Medications Albuterol (Ventolin 0.083% 2.5mg/3ml) 2.5 mg INH Q4 PRN PRN Reason: Shortness Of Breath Or Wheezing Stop: 06/21/19 17:46 Last Admin: 05/22/19 23:27 Dose: 2.5 mg Documented by: Amiodarone HCl (Cordarone) 200 mg PO DAILY ROLANDO Stop: 06/22/19 08:59 Last Admin: 05/30/19 07:52 Dose: 200 mg Documented by: Aspirin (Ecotrin Ectab) 81 mg PO DAILY ROLANDO Stop: 06/22/19 08:59 Last Admin: 05/30/19 07:52 Dose: 81 mg Documented by: Dextrose (Dextrose 50%) 25 - 50 ml IV UD PRN; Protocol PRN Reason: Hypoglycemia Protocol Stop: 06/21/19 17:46 Docusate Sodium (Colace) 100 mg PO BID PRN PRN Reason: Constipation Stop: 06/21/19 17:46 Famotidine (Pepcid) 20 mg PO BID PRN PRN Reason: Heartburn Stop: 06/24/19 12:10 Glucagon (Glucagen) 1 mg SQ UD PRN; Protocol PRN Reason: Hypoglycemia Protocol Stop: 06/21/19 17:46 Glucose (Glucose 40%) 15 - 30 gm PO UD PRN; Protocol PRN Reason: Hypoglycemia Protocol Stop: 06/21/19 17:46 Glucose (Dex4 Glucose) 4 - 8 tabs PO UD PRN; Protocol PRN Reason: Hypoglycemia Protocol Stop: 06/21/19 17:46 Heparin Sodium (Porcine) (Heparin Sodium (Porcine)) 5,000 units SQ Q8 ROLANDO Stop: 06/21/19 21:59 Last Admin: 05/30/19 05:07 Dose: Not Given Documented by: Milrinone Lactate/Dextrose (Primacor/D5w) 20,000 mcg in 100 mls @ 6.6 mls/hr IV .[id number] [facility] Stop: 06/21/19 16:14 Last Infusion: 05/30/19 07:10 Dose: 0.25 mcg/kg/min, 6.6 mls/hr Documented by: Dopamine HCl/Dextrose (Dopamine / D5w) 400 mg in 250 mls @ 7.92 mls/hr IV .Q24H ROLANDO Stop: 06/24/19 08:59 Last Infusion: 05/30/19 07:10 Dose: 2 mcg/kg/min, 7.9 mls/hr Documented by: Furosemide 100 mg/ Dextrose 100 mls @ 4 mls/hr IV .Q24H [facility] Stop: 06/26/19 09:59 Last Infusion: 05/30/19 07:10 Dose: 4 mg/hr, 4 mls/hr Documented by: Sodium Chloride (Nss 1000ml) 1,000 mls @ 13 mls/hr IV .Q24H [facility] Stop: 06/26/19 11:44 Last Infusion: 05/30/19 07:10 Dose: 13 mls/hr Documented by: Lactulose (Chronulac) 20 gm PO TID ROLANDO Stop: 06/24/19 13:59 Last Admin: 05/30/19 07:52 Dose: Not Given Documented by: Magnesium Oxide (Mag-Ox) 400 mg PO BID ROLANDO Stop: 06/28/19 20:59 Last Admin: 05/30/19 07:53 Dose: 400 mg Documented by: Miscellaneous (Carbohydrates For Hypoglycemia) 15 - 30 gm PO UD PRN PRN Reason: Hypoglycemia Protocol Stop: 06/21/19 17:46 Pantoprazole Sodium (Protonix) 40 mg PO DAILY [facility] Stop: 06/22/19 08:59 Last Admin: 05/30/19 07:53 Dose: 40 mg Documented by: Polyethylene Glycol (Miralax Powder Packet) 17 gm PO DAILY PRN PRN Reason: Constipation Stop: 06/21/19 17:46 Sertraline HCl (Zoloft) 50 mg PO DAILY [facility] Stop: 06/22/19 08:59 Last Admin: 05/30/19 07:53 Dose: 50 mg Documented by: Spironolactone (Aldactone) 25 mg PO DAILY [facility] Stop: 06/29/19 08:59 Last Admin: 05/30/19 07:52 Dose: 25 mg Documented by: Resident Activity Tracking Resident Involvement: Resident Care Provided Care Provided: Adult Hospital Medicine (ICU) (1) Cardiorenal syndrome Heart failure presence: with heart failure Hypertensive chronic kidney disease stage: stage 1-4 or unspecified chronic kidney disease Qualified Code(s): I13.0 - Hypertensive heart and chronic kidney disease with heart failure and stage 1 through stage 4 chronic kidney disease, or unspecified chronic kidney disease (2) Acute on chronic renal failure Acute renal failure type: unspecified Chronic kidney disease stage: stage 3 (moderate) Qualified Code(s): N17.9 - Acute kidney failure, unspecified; N18.3 - Chronic kidney disease, stage 3 (moderate) (3) Hypotension Hypotension type: unspecified hypotension type Qualified Code(s): I95.9 - Hypotension, unspecified
[2019-05-30] MEDS: AMIODARONE 200 MG TAB PO SCH (07:52)
[2019-05-30] MEDS: SPIRONOLACTONE 25 MG TAB PO SCH (07:52)
[2019-05-30] MEDS: ASPIRIN 81 MG ECTAB PO SCH (07:52)
[2019-05-30] MEDS: LACTULOSE SYRUP 20 GM/30 ML UDC PO SCH ×3 (07:52→20:25)
[2019-05-30] MEDS: PANTOprazole 40 MG TAB PO SCH (07:53)
[2019-05-30] MEDS: SERTRALINE HCL 50 MG TABLET PO SCH (07:53)
[2019-05-30] MEDS: MAGNESIUM OXIDE 400 MG TAB PO SCH ×2 (07:53→20:45)
[2019-05-30] MEDS ORDERED: MAGNESIUM SULFATE / D5W 1 GM/100 ML BAG IV ONE (10:00)
[2019-05-30] MEDS: FUROSEMIDE 100 MG in DEXTROSE 5% 90 ML IV SCH ×2 (11:01→22:22)
[2019-05-30] MEDS: POTASSIUM CHLORIDE 20 MEQ TABCR PO SCH ×2 (11:11→20:45)
[2019-05-30] MEDS: SODIUM CHLORIDE 0.9% 1000ML 1,000 ML IV SCH (12:10)
[2019-05-30] MEDS: DOPAMINE / D5W 400 MG/250 ML BAG IV SCH (12:13)
[2019-05-30] MEDS ORDERED: metOLazone 5 MG TABLET PO ONE (12:17)
--- NOTE | 2019-05-30 12:20 | Cardiology Progress Note ---
Date of Service May 30, 2019 Assessment & Plan (1) Acute on chronic combined systolic and diastolic CHF, NYHA class 4: Patient with chronic inotrope dependent heart failure on milrinone for 1 year or greater now with decompensated heart failure and failure to respond to usual therapies. Dopamine has been added for blood pressure support. Has begun to diurese with some improvement in renal function. We will continue IV furosemide overall long-term prognosis remains poor Will increase Lasix infusion to 10 mg/h give additional 5 mg p.o. metolazone today overall prognosis remains limited May need to consider weaning dopamine near future (2) Cardiorenal syndrome: (3) Acute on chronic renal failure: (4) Ischemic cardiomyopathy: (5) Acute hyponatremia: (6) End stage liver disease: (7) Hypotension: Patient with profound class IV heart failure Subjective Patient seen and examined, chart medications telemetry reviewed. Diuresis slowing patient slightly more somnolent today Physical Exam Constitutional: + cachectic (Cardiac) Eyes: PERRL, conjunctivae normal, anicteric sclerae ENMT: external ear and nose normal, oropharynx normal Neck: trachea midline, no thyromegaly Respiratory: Auscultation: + diminished lung sounds and + rales Cardiovascular: Rate/Rhythm: regular rate and regular rhythm Heart Sounds: + gallop Vessels: + JVD Extremities: + edema (3+ lower extremity edema with presacral edema) Chest (Breasts): Chest: + pacemaker (/Defibrillator site without tenderness) Gastrointestinal (Abdomen): Inspection/Auscultation: + abdomen distended Percussion/Palpation: abdomen soft Results & Data Vital Signs (Past 12 Hours) Vital Signs Temp Pulse Resp BP Pulse Ox 05/30/19 12:00 36.5 C 102 H 17 95 05/30/19 11:33 103 H 22 86/59 L 100 05/30/19 11:30 102 H 17 100 05/30/19 11:00 102 H 18 98 05/30/19 10:33 99 H 15 74/59 L 96 05/30/19 10:30 97 H 17 100 05/30/19 10:00 97 H 22 97 05/30/19 09:33 98 H 16 84/57 L 97 05/30/19 09:30 94 H 17 96 05/30/19 09:00 99 H 13 94 05/30/19 08:34 105 H 18 95 12/17/19 08:33 107 H 19 79/51 L 96 05/30/19 08:00 36.5 C 103 H 22 97 05/30/19 07:33 103 H 23 77/54 L 96 05/30/19 07:00 97 H 23 96 05/30/19 06:08 97 H 16 89/46 L 96 05/30/19 06:00 101 H 18 65/44 L 95 05/30/19 05:33 91 H 21 74/43 L 98 05/30/19 05:00 95 H 14 97 05/30/19 04:33 96 H 14 73/45 L 97 05/30/19 04:00 36.5 C 102 H 22 95 05/30/19 03:33 98 H 20 76/44 L 97 05/30/19 03:00 99 H 16 97 05/30/19 02:33 99 H 15 65/42 L 98 05/30/19 02:00 101 H 21 96 05/30/19 01:32 102 H 16 75/39 L 95 05/30/19 01:00 102 H 16 97 05/30/19 00:44 102 H 05/30/19 00:33 103 H 31 H 96 05/30/19 00:32 103 H 16 71/48 L 95 Laboratory Results Laboratory Results - last 24 hr 05/29/19 05/30/19 05/30/19 19:02 04:16 04:16 WBC 4.90 RBC 2.98 L Hgb 9.2 L Hct 27.6 L MCV 92.6 MCH 30.9 MCHC 33.3 RDW Std Deviation 58.2 H RDW Coeff of Yung 17.2 H Plt Count 93 L MPV 9.6 Immature Gran % (Auto) 0.2 Neut % (Auto) 57.8 Lymph % (Auto) 5.7 [place] % (Auto) 12.4 Eos % (Auto) 23.5 Baso % (Auto) 0.4 Immature Gran # (Auto) 0.01 Neut # (Auto) 2.83 Lymph # (Auto) 0.28 L [place] # (Auto) 0.61 H Eos # (Auto) 1.15 H Baso # (Auto) 0.02 Platelet Estimate Decreased L Target Cells 1+ Echinocytes 1+ PT INR Sodium 128 L 128 L Potassium 3.4 L 3.8 Chloride 95 L 96 L Carbon Dioxide 26 27 Anion Gap 7.0 5.0 BUN 16 15 Creatinine 1.63 H 1.61 H Est Cr Clr Drug Dosing 61.6 62.4 Est GFR ( Amer) 53.4 54.2 Est GFR (Non-Af Amer) 46.1 46.8 BUN/Creatinine Ratio 9.5 L 9.5 L Glucose 120 H 96 Calcium 7.8 L 7.8 L Phosphorus 2.8 2.8 Magnesium 1.6 L 1.6 L Total Bilirubin 1.1 H Direct Bilirubin 0.6 H AST 19 ALT 11 L Alkaline Phosphatase 140 H Total Protein 5.7 L Albumin 1.2 L 05/30/19 04:16 WBC RBC Hgb Hct MCV MCH MCHC RDW Std Deviation RDW Coeff of Yung Plt Count MPV Immature Gran % (Auto) Neut % (Auto) Lymph % (Auto) [place] % (Auto) Eos % (Auto) Baso % (Auto) Immature Gran # (Auto) Neut # (Auto) Lymph # (Auto) [place] # (Auto) Eos # (Auto) Baso # (Auto) Platelet Estimate Target Cells Echinocytes PT 15.5 H INR 1.6 H Sodium Potassium Chloride Carbon Dioxide Anion Gap BUN Creatinine Est Cr Clr Drug Dosing Est GFR ( Amer) Est GFR (Non-Af Amer) BUN/Creatinine Ratio Glucose Calcium Phosphorus Magnesium Total Bilirubin Direct Bilirubin AST ALT Alkaline Phosphatase Total Protein Albumin (1) Cardiorenal syndrome Heart failure presence: with heart failure Hypertensive chronic kidney disease stage: stage 1-4 or unspecified chronic kidney disease Qualified Code(s): I13.0 - Hypertensive heart and chronic kidney disease with heart failure and stage 1 through stage 4 chronic kidney disease, or unspecified chronic kidney disease (2) Acute on chronic renal failure Acute renal failure type: unspecified Chronic kidney disease stage: stage 3 (moderate) Qualified Code(s): N17.9 - Acute kidney failure, unspecified; N18.3 - Chronic kidney disease, stage 3 (moderate) (3) Hypotension Hypotension type: unspecified hypotension type Qualified Code(s): I95.9 - Hypotension, unspecified
--- NOTE | 2019-05-30 14:14 | Billing Data ---
Date of Service May 30, 2019 Coding Level of Care Code 21485 Subseq Hosp Care Lvl 3
--- NOTE | 2019-05-30 14:56 | Hospitalist Progress Note ---
Date of Service May 30, 2019 Assessment & Plan (1) Fluid overload: (1) Acute on chronic combined systolic and diastolic CHF, NYHA class 4: (2) Ischemic cardiomyopathy: (3) Hypotension: This is a 58-year-old male who has significant past medical history of ischemic cardiomyopathy EF 20% AICD in place on continuous at home milrinone infusion , chronic systolic CHF, HTN, pulmonary HTN, CAD, hx of MSSA endocarditis, cirrhosis, CKD stage III, diet-controlled T2DM, history of tobacco abuse, history of VT arrest s/p ICD in 06/2018 who presents to [facility] secondary to weight gain and lethargy. In ED chest x-ray revealed pulmonary edema. Sodium 124, K2.8, chloride 98, BUN 21, creatinine 1.55. Initial troponin WNL, TSH elevated 9.02, but free T4 WNL. T bili elevated at 1.1, AST 18, ALT 7, alk phos 135, ammonia 34.0. started on IV Lasix gtt by Cardiology overall prognosis remains extremely poor not a candidate for HD given very low BP and hemodynamic instability remains in pressors BP remains low -milrinone gtt dose / Dopamine gtt transferred to ICU on 05/25/19 s/p 2 Liter of paracethesis by ICU team on 05/25/19 reaccumulation of ascties noted , with worsening abdominal distention stage 4 CHF with poor perfusion , pt will continue to have 3rd spacing of fluids pt requested repeat thoracentesis but wants to wait till he gets more symptomatic after discussing with risk involved in repeat procedure over all prognosis is very poor Palliative care involved , appreciate input pt and updated multiple times cardiology / palliative care /ICU team/ Hospitalist CODE status changed to DNR/DNI after D/w pt and at present cont supportive care pt is yet indecisive to transition to hospice /comfort care acute renal failure CKD (chronic kidney disease), stage III: possible cardiorenal symptom baseline Cr 1.5 worsening of cr > 2.7 with poor urine out put persisted hypotension causing poor perfusion over all prognosis poor (7) CAD (coronary artery disease): extensive CAD with severe ischemic cardiomyopathy EF 20% (8) Cirrhosis: ROBLERO , worsening of ascites due to decompensated CHF and renal failure elevated Ammonia level -due to hepatic congestion ordered Lactulose -pt been refusing no evidence of hepatic encephalopathy yet (12) DVT prophylaxis: Heparin SQ -pt has been refusing CODE STATUS: DNR/DNI Disposition: over all prognosis remains poor -with limited life expectancy remains in ICU as pt requiring multiple pressors Subjective complains of feeling bloated , worsening of ascities noted otherwise says he feels fine , wants to be discharged home , but not sure about stopping IV drips pt is reassured that without the iv meds -his life expectancy will be only few hours to days appropriate will be transition care to comfort only and if continuing on IV gtt is too much for him pt decides to continue treatment , hoping that he will be able to get off this meds and return home understands that chance of his recovery is most unlikely pt admits the gravity of his illness , still hoping that he will get better enough to go home next few days complains of abdomen being distended again , requesting for paracenthesis pt is updated by Mail Distribution Clerk -palliative paracenthesis is an option but has risk of bleeding , SBP , vol shift leading to hypotension , renal failure pt wants to wait till he becomes symptomatic over all prognosis remains poor pt has been on stable Dopamine and milrinone gtt after discussing with ICU team -found to be appropriate to transfer patient to PCU with drips Review of Systems Review of Systems: All systems reviewed & are unremarkable except as noted in HPI & below Physical Exam Constitutional: well developed and + ill appearing (chronically) Eyes: PERRL, conjunctivae normal, anicteric sclerae ENMT: external ear and nose normal, oropharynx normal Respiratory: normal respiratory effort; no labored breathing Auscultation: + diminished lung sounds (At the bases bilaterally) and + rales Cardiovascular: Rate/Rhythm: regular rate, regular rhythm and + tachycardic Heart Sounds: normal S1 and normal S2; no murmur Vessels: + JVD; no carotid bruit Extremities: + edema (right arm +4 pitting edema, left arm +2 pitting edema) Gastrointestinal (Abdomen): Inspection/Auscultation: + abdomen distended (but soft) and normal bowel sounds Percussion/Palpation: abdomen soft; abdomen nontender, no guarding and abdomen not rigid Skin: + jaundice Neurologic: PERRL, EOMI, accommodation nl, no face palsy, no dysarthria moves all extremities Psychiatric: A+Ox3, euthymic affect Orientation: oriented to person Insight: + limited insight Judgement: + limited judgement Results & Data Vital Signs (Past 12 Hours) Vital Signs Temp Pulse Resp BP Pulse Ox 05/30/19 12:00 36.5 C 102 H 17 95 05/30/19 11:33 103 H 22 86/59 L 100 05/30/19 11:30 102 H 17 100 05/30/19 11:00 102 H 18 98 05/30/19 10:33 99 H 15 74/59 L 96 05/30/19 10:30 97 H 17 100 05/30/19 10:00 97 H 22 97 05/30/19 09:33 98 H 16 84/57 L 97 05/30/19 09:30 94 H 17 96 05/30/19 09:00 99 H 13 94 05/30/19 08:34 105 H 18 95 05/30/19 08:33 107 H 19 79/51 L 96 05/30/19 08:00 36.5 C 103 H 22 97 05/30/19 07:33 103 H 23 77/54 L 96 05/30/19 07:00 97 H 23 96 05/30/19 06:08 97 H 16 89/46 L 96 05/30/19 06:00 101 H 18 65/44 L 95 05/30/19 05:33 91 H 21 74/43 L 98 05/30/19 05:00 95 H 14 97 05/30/19 04:33 96 H 14 73/45 L 97 05/30/19 04:00 36.5 C 102 H 22 95 05/30/19 03:33 98 H 20 76/44 L 97 05/30/19 03:00 99 H 16 97 (1) Fluid overload Hypervolemia type: unspecified Qualified Code(s): E87.70 - Fluid overload, unspecified
--- NOTE | 2019-05-30 17:46 | Communication Note ---
Date of Service: May 30, 2019 I discussed the case with Dr. Savage, patient is requesting symptomatic paracentesis. Performed a limited bedside ultrasound and revealed one area that I may safely introduce a needle to drain fluid,. Is not tachypneic, not exhibiting signs of abdominal guarding concerning for SBP. Emphasized that given his end-stage cardiovascular status, known congestive hepatopathy and concurrent cardiorenal syndrome any attempts at therapeutic paracentesis carries an extremely high probability of adverse events, worsening kidney function, . I emphasized I consider this procedure to be palliative in nature given the significant risks. Patient feels that this is not the worst discomfort in terms of abdominal distention he has felt and opts to forego symptomatic paracentesis at this time.
[2019-05-31] MEDS: MILRINONE LACTATE/D5W 20,000 MCG/100 ML BAG IV SCH ×2 (04:23→18:25)
[2019-05-31] MEDS: HEPARIN SOD 5,000 UNIT/0.5 ML VIAL SQ SCH ×3 (06:13→21:31)
[2019-05-31 07:22] LABS: BUN Creatinine Ratio 10.1 (10-20); Calcium 7.9 mg/dl (8.5-10.1); Creatinine Clr Calc Pharmacy 66.5 ml/min; Est GFR (African American) 58.6; Est GFR (Non-African American) 50.5; Potassium 3.8 mmol/L (3.5-5.1)
[2019-05-31] MEDS: FUROSEMIDE 100 MG in DEXTROSE 5% 90 ML IV SCH ×2 (09:05→18:26)
[2019-05-31] MEDS: DOPAMINE / D5W 400 MG/250 ML BAG IV SCH (09:17)
[2019-05-31] MEDS: ASPIRIN 81 MG ECTAB PO SCH (10:14)
[2019-05-31] MEDS: MAGNESIUM OXIDE 400 MG TAB PO SCH ×2 (10:14→21:31)
[2019-05-31] MEDS: SPIRONOLACTONE 25 MG TAB PO SCH (10:14)
[2019-05-31] MEDS: LACTULOSE SYRUP 20 GM/30 ML UDC PO SCH ×5 (10:14→21:39)
[2019-05-31] MEDS: PANTOprazole 40 MG TAB PO SCH (10:14)
[2019-05-31] MEDS: AMIODARONE 200 MG TAB PO SCH (10:15)
[2019-05-31] MEDS: SERTRALINE HCL 50 MG TABLET PO SCH (10:15)
[2019-05-31] MEDS: SODIUM CHLORIDE 0.9% 1000ML 1,000 ML IV SCH (12:30)
--- NOTE | 2019-05-31 12:58 | Cardiology Progress Note ---
Date of Service May 31, 2019 Assessment & Plan (1) Acute on chronic combined systolic and diastolic CHF, NYHA class 4: Patient with chronic inotrope dependent heart failure on milrinone for 1 year or greater now with decompensated heart failure and failure to respond to usual therapies. Dopamine has been added for blood pressure support. Has begun to diurese with some improvement in renal function. We will continue IV furosemide overall long-term prognosis remains poor Will increase Lasix infusion to 10 mg/h give additional 5 mg p.o. metolazone today overall prognosis remains limited Continue IV furosemide at current dosing. Begin to reduce dopamine drip to 1 mg (2) Cardiorenal syndrome: (3) Acute on chronic renal failure: (4) Ischemic cardiomyopathy: (5) Acute hyponatremia: (6) End stage liver disease: (7) Hypotension: Patient with profound class IV heart failure Subjective Patient seen and examined, chart, medications, telemetry reviewed. Little change clinically but he does continue to make positive urine outputs Lower extremity edema abdominal bloating significantly less pronounced Physical Exam Constitutional: + cachectic (Cardiac) Eyes: PERRL, conjunctivae normal, anicteric sclerae ENMT: external ear and nose normal, oropharynx normal Neck: trachea midline, no thyromegaly Respiratory: Auscultation: + diminished lung sounds and + rales Cardiovascular: Rate/Rhythm: regular rate and regular rhythm Heart Sounds: + gallop Vessels: + JVD Extremities: + edema (3+ lower extremity edema with presacral edema) Chest (Breasts): Chest: + pacemaker (/Defibrillator site without tenderness) Gastrointestinal (Abdomen): Inspection/Auscultation: + abdomen distended Percussion/Palpation: abdomen soft Results & Data Vital Signs (Past 12 Hours) Vital Signs Temp Pulse Resp BP BP Pulse Ox 05/31/19 12:06 36.6 C 108 H 18 84/53 L 83/46 L 90 05/31/19 07:46 36.9 C 110 H 20 90/56 L 94 05/31/19 03:36 36.6 C 100 H 20 79/54 L 95 (1) Cardiorenal syndrome Heart failure presence: with heart failure Hypertensive chronic kidney disease stage: stage 1-4 or unspecified chronic kidney disease Qualified Code(s): I13.0 - Hypertensive heart and chronic kidney disease with heart failure and stage 1 through stage 4 chronic kidney disease, or unspecified chronic kidney disease (2) Acute on chronic renal failure Acute renal failure type: unspecified Chronic kidney disease stage: stage 3 (moderate) Qualified Code(s): N17.9 - Acute kidney failure, unspecified; N18.3 - Chronic kidney disease, stage 3 (moderate) (3) Hypotension Hypotension type: unspecified hypotension type Qualified Code(s): I95.9 - Hypotension, unspecified
[2019-05-31] MEDS ORDERED: POTASSIUM CHLORIDE 20 MEQ TABCR PO ONE (13:30)
--- NOTE | 2019-05-31 16:07 | Hospitalist Progress Note ---
Date of Service May 31, 2019 Assessment & Plan (1) Fluid overload: (1) Acute on chronic combined systolic and diastolic CHF, NYHA class 4: (2) Ischemic cardiomyopathy: (3) Hypotension: This is a 58-year-old male who has significant past medical history of ischemic cardiomyopathy EF 20% AICD in place on continuous at home milrinone infusion , chronic systolic CHF, HTN, pulmonary HTN, CAD, hx of MSSA endocarditis, cirrhosis, CKD stage III, diet-controlled T2DM, history of tobacco abuse, history of VT arrest s/p ICD in 06/2018 who presents to [facility] secondary to weight gain and lethargy. In ED chest x-ray revealed pulmonary edema. Sodium 124, K2.8, chloride 98, BUN 21, creatinine 1.55. Initial troponin WNL, TSH elevated 9.02, but free T4 WNL. T bili elevated at 1.1, AST 18, ALT 7, alk phos 135, ammonia 34.0. started on IV Lasix gtt by Cardiology overall prognosis remains extremely poor not a candidate for HD given very low BP and hemodynamic instability remains on pressors (dopamine decreased today 05/31) BP remains low -milrinone gtt dose / Dopamine gtt transferred to ICU on 05/25/19 s/p 2 Liter of paracethesis by ICU team on 05/25/19 reaccumulation of ascites noted , with worsening abdominal distention stage 4 CHF with poor perfusion , pt will continue to have 3rd spacing of fluids pt requested repeat thoracentesis but wants to wait till he gets more symptomatic after discussing with risk involved in repeat procedure over all prognosis is very poor Palliative care involved , appreciate input pt and updated multiple times cardiology / palliative care /ICU team/ Hospitalist CODE status changed to DNR/DNI after D/w pt and at present cont supportive care pt is yet indecisive to transition to hospice /comfort care Acute renal failure CKD (chronic kidney disease), stage III: possible cardiorenal symptom baseline Cr 1.5 worsening of cr > 2.7 with poor urine out put persisted hypotension causing poor perfusion over all prognosis poor (7) CAD (coronary artery disease): extensive CAD with severe ischemic cardiomyopathy EF 20% (8) Cirrhosis: ROBLERO , worsening of ascites due to decompensated CHF and renal failure elevated Ammonia level -due to hepatic congestion ordered Lactulose -pt been refusing no evidence of hepatic encephalopathy yet (12) DVT prophylaxis: Heparin SQ -pt has been refusing CODE STATUS: DNR/DNI Disposition: over all prognosis remains poor -with limited life expectancy Downgraded from ICU but requiring multiple pressors Discussed w/pt and , CM involved, pt wishes to go home but unable to take care of him Subjective Patient is lying in bed, in no acute distress, inquiring about going home. Denies any fevers, chills, chest pain, palpitations, increased shortness of breath, however using supplemental oxygen. Vomited this morning, says that this happens often to him in the mornings. I confirmed this later with his as well at the bedside, says that he oftentimes has emesis in the mornings. Currently denies any abdominal pain, or nausea. Dopamine gtt decreased. Review of Systems Review of Systems: All systems reviewed & are unremarkable except as noted in HPI & below Constitutional: + fatigue; no fever and no chills Respiratory: no cough Cardiovascular: no chest pain and no palpitations Gastrointestinal: + nausea and + vomiting (in the mornings (seems chronic)); no abdominal pain Physical Exam Physical Exam: Constitutional: well developed male, lying in bed, + ill appearing (chronically), on suppl. O2, milrinone, and dopamine gtt Eyes: PERRL, EOMI, conjunctivae normal, anicteric sclerae ENMT: external ear and nose normal, oropharynx normal Respiratory: normal respiratory effort; no labored breathing Auscultation: + diminished lung sounds (At the bases bilaterally) and + rales Cardiovascular: Rate/Rhythm: regular rate, regular rhythm and + tachycardic Heart Sounds: normal S1 and normal S2; no murmur Vessels: + JVD; no carotid bruit Extremities: + edema (right arm +4 pitting edema, left arm +2 pitting edema) Gastrointestinal (Abdomen): Inspection/Auscultation: + abdomen distended (but soft) and normal bowel sounds Percussion/Palpation: abdomen soft; abdomen nontender, no guarding and abdomen not rigid Skin: + jaundice Neurologic: PERRL, EOMI, accommodation nl, no face palsy, no dysarthria moves all extremities Psychiatric: A+Ox3, euthymic affect Orientation: oriented to person Insight: + limited insight Judgement: + limited judgement Results & Data Vital Signs (Past 12 Hours) Vital Signs Temp Pulse Pulse Resp BP BP Pulse Ox 05/31/19 12:06 36.6 C 108 H 18 84/53 L 83/46 L 90 05/31/19 07:50 102 H 05/31/19 07:46 36.9 C 110 H 20 90/56 L 94 Laboratory Results 05/31/19 Range/Units 06:19 Sodium 125 L (136-145) mmol/L Potassium 3.8 (3.5-5.1) mmol/L Chloride 93 L (98-107) mmol/L Carbon Dioxide 27 (21-32) mmol/L Anion Gap 5.0 (3-11) BUN 15 (7-18) mg/dl Creatinine 1.51 H (0.6-1.4) mg/dl Est Cr Clr Drug Dosing 66.5 ml/min Est GFR ( Amer) 58.6 Est GFR (Non-Af Amer) 50.5 BUN/Creatinine Ratio 10.1 (10-20) Glucose 102 H (70-99) mg/dl Calcium 7.9 L (8.5-10.1) mg/dl Medications Administered Current Inpatient Medications Acetaminophen (Tylenol) 500 mg PO Q4H PRN PRN Reason: Mild Pain Stop: 06/30/19 16:02 Albuterol (Ventolin 0.083% 2.5mg/3ml) 2.5 mg INH Q4 PRN PRN Reason: Shortness Of Breath Or Wheezing Stop: 06/21/19 17:46 Last Admin: 05/22/19 23:27 Dose: 2.5 mg Documented by: Amiodarone HCl (Cordarone) 200 mg PO DAILY [facility] Stop: 06/22/19 08:59 Last Admin: 05/31/19 10:15 Dose: 200 mg Documented by: Aspirin (Ecotrin Ectab) 81 mg PO DAILY [facility] Stop: 06/22/19 08:59 Last Admin: 05/31/19 10:14 Dose: 81 mg Documented by: Dextrose (Dextrose 50%) 25 - 50 ml IV UD PRN; Protocol PRN Reason: Hypoglycemia Protocol Stop: 06/21/19 17:46 Docusate Sodium (Colace) 100 mg PO BID PRN PRN Reason: Constipation Stop: 06/21/19 17:46 Famotidine (Pepcid) 20 mg PO BID PRN PRN Reason: Heartburn Stop: 06/24/19 12:10 Glucagon (Glucagen) 1 mg SQ UD PRN; Protocol PRN Reason: Hypoglycemia Protocol Stop: 06/21/19 17:46 Glucose (Glucose 40%) 15 - 30 gm PO UD PRN; Protocol PRN Reason: Hypoglycemia Protocol Stop: 06/21/19 17:46 Glucose (Dex4 Glucose) 4 - 8 tabs PO UD PRN; Protocol PRN Reason: Hypoglycemia Protocol Stop: 06/21/19 17:46 Heparin Sodium (Porcine) (Heparin Sodium (Porcine)) 5,000 units SQ Q8 [facility] Stop: 06/21/19 21:59 Last Admin: 05/31/19 14:42 Dose: Not Given Documented by: Milrinone Lactate/Dextrose (Primacor/D5w) 20,000 mcg in 100 mls @ 6.6 mls/hr IV .[id number] [facility] Stop: 06/21/19 16:14 Last Infusion: 05/31/19 07:12 Dose: 0.25 mcg/kg/min, 6.6 mls/hr Documented by: Dopamine HCl/Dextrose (Dopamine / D5w) 400 mg in 250 mls @ 3.881 mls/hr IV .Q24H [facility] Stop: 06/24/19 08:59 Last Infusion: 05/31/19 13:26 Dose: 0.98 mcg/kg/min, 3.9 mls/hr Documented by: Furosemide 100 mg/ Dextrose 100 mls @ 10 mls/hr IV .Q10H [facility] Stop: 06/26/19 09:59 Last Admin: 05/31/19 09:05 Dose: 10 mg/hr, 10 mls/hr Documented by: Sodium Chloride (Nss 1000ml) 1,000 mls @ 13 mls/hr IV .Q24H [facility] Stop: 06/26/19 11:44 Last Admin: 05/31/19 12:30 Dose: 13 mls/hr Documented by: Promethazine HCl 6.25 mg/ (Sodium Chloride) 50.25 mls @ 201 mls/hr IV Q6H PRN PRN Reason: Nausea And Vomiting Stop: 06/30/19 10:04 Lactulose (Chronulac) 20 gm PO TID [facility] Stop: 06/24/19 13:59 Last Admin: 05/31/19 14:42 Dose: Not Given Documented by: Magnesium Oxide (Mag-Ox) 400 mg PO BID [facility] Stop: 06/28/19 20:59 Last Admin: 05/31/19 10:14 Dose: 400 mg Documented by: Miscellaneous (Carbohydrates For Hypoglycemia) 15 - 30 gm PO UD PRN PRN Reason: Hypoglycemia Protocol Stop: 06/21/19 17:46 Pantoprazole Sodium (Protonix) 40 mg PO DAILY [facility] Stop: 06/22/19 08:59 Last Admin: 05/31/19 10:14 Dose: 40 mg Documented by: Polyethylene Glycol (Miralax Powder Packet) 17 gm PO DAILY PRN PRN Reason: Constipation Stop: 06/21/19 17:46 Sertraline HCl (Zoloft) 50 mg PO DAILY [facility] Stop: 06/22/19 08:59 Last Admin: 05/31/19 10:15 Dose: 50 mg Documented by: Spironolactone (Aldactone) 25 mg PO DAILY [facility] Stop: 06/29/19 08:59 Last Admin: 05/31/19 10:14 Dose: 25 mg Documented by: (1) Fluid overload Hypervolemia type: unspecified Qualified Code(s): E87.70 - Fluid overload, unspecified
[2019-05-31] MEDS: ACETAMINOPHEN 500 MG TAB PO PRN ×2 (16:19→21:34)
[2019-06-01] MEDS: FUROSEMIDE 100 MG in DEXTROSE 5% 90 ML IV SCH ×3 (03:34→23:38)
[2019-06-01] MEDS: HEPARIN SOD 5,000 UNIT/0.5 ML VIAL SQ SCH ×3 (05:05→20:59)
[2019-06-01] MEDS: DOPAMINE / D5W 400 MG/250 ML BAG IV SCH (09:41)
[2019-06-01] MEDS: LACTULOSE SYRUP 20 GM/30 ML UDC PO SCH ×4 (09:42→21:02)
[2019-06-01] MEDS: SERTRALINE HCL 50 MG TABLET PO SCH (09:42)
[2019-06-01] MEDS: PANTOprazole 40 MG TAB PO SCH (09:42)
--- NOTE | 2019-06-01 09:42 | Hospitalist Progress Note ---
Date of Service June 01, 2019 Assessment & Plan (1) Fluid overload: (1) Acute on chronic combined systolic and diastolic CHF, NYHA class 4: (2) Ischemic cardiomyopathy: (3) Hypotension: This is a 58-year-old male who has significant past medical history of ischemic cardiomyopathy EF 20% AICD in place on continuous at home milrinone infusion , chronic systolic CHF, HTN, pulmonary HTN, CAD, hx of MSSA endocarditis, cirrhosis, CKD stage III, diet-controlled T2DM, history of tobacco abuse, history of VT arrest s/p ICD in 06/2018 who presents to [facility] secondary to weight gain and lethargy. In ED chest x-ray revealed pulmonary edema. Sodium 124, K2.8, chloride 98, BUN 21, creatinine 1.55. Initial troponin WNL, TSH elevated 9.02, but free T4 WNL. T bili elevated at 1.1, AST 18, ALT 7, alk phos 135, ammonia 34.0. started on IV Lasix gtt by Cardiology overall prognosis remains extremely poor not a candidate for HD given very low BP and hemodynamic instability remains on pressors (dopamine stopped 06/01) BP remains low -milrinone gtt and IV lasix gtt transferred to ICU on 05/25/19, now downgraded s/p 2 Liter of paracethesis by ICU team on 05/25/19 reaccumulation of ascites noted , with worsening abdominal distention stage 4 CHF with poor perfusion , pt will continue to have 3rd spacing of fluids pt requested repeat thoracentesis but wants to wait till he gets more symptomatic after discussing with risk involved in repeat procedure over all prognosis is very poor Palliative care involved , appreciate input pt and updated multiple times cardiology / palliative care /ICU team/ Hospitalist - now considering SNF in [place] CODE status changed to DNR/DNI after D/w pt and at present cont supportive care pt is yet indecisive to transition to hospice /comfort care Acute renal failure CKD (chronic kidney disease), stage III: possible cardiorenal symptom baseline Cr 1.5 worsening of cr > 2.7 with poor urine out put persisted hypotension causing poor perfusion over all prognosis poor (7) CAD (coronary artery disease): extensive CAD with severe ischemic cardiomyopathy EF 20% (8) Cirrhosis: ROBLERO , worsening of ascites due to decompensated CHF and renal failure elevated Ammonia level -due to hepatic congestion ordered Lactulose -pt been refusing no evidence of hepatic encephalopathy yet (12) DVT prophylaxis: Heparin SQ -pt has been refusing CODE STATUS: DNR/DNI Disposition: over all prognosis remains poor -with limited life expectancy Downgraded from ICU but requiring multiple pressors, now dopamine stopped Discussed w/pt and , CM involved, pt wishes to go home but unable to take care of him - now considering SNF in [place] Subjective Patient is lying in bed, comfortable in no acute distress, appears very tired. Denies any chest pain, increased shortness of breath, fevers, chills, abdominal pain, nausea or vomiting. Dopamine stopped today. BP acceptable. Remains on home milrinone and now on IV lasix gtt. Discussed w/ CM this AM. Pt seen by palliative care. Review of Systems Review of Systems: All systems reviewed & are unremarkable except as noted in HPI & below Constitutional: + fatigue; no fever and no chills Respiratory: no cough Cardiovascular: no chest pain and no palpitations Gastrointestinal: no abdominal pain, no nausea and no vomiting Physical Exam Physical Exam: Constitutional: well developed male, lying in bed, + ill appearing (chronically), on suppl. O2, milrinone, and IV lasix gtt Eyes: PERRL, EOMI, conjunctivae normal, anicteric sclerae ENMT: external ear and nose normal, oropharynx normal Respiratory: normal respiratory effort; no labored breathing Auscultation: + diminished lung sounds (At the bases bilaterally) and + rales Cardiovascular: Rate/Rhythm: regular rate, regular rhythm and + tachycardic Heart Sounds: normal S1 and normal S2; no murmur Vessels: + JVD; no carotid bruit Extremities: + edema Gastrointestinal (Abdomen): + abdomen distended (but soft) and normal bowel sounds, nontender, no guarding and abdomen not rigid Skin: + venous stasis changes in LEs b/l Neurologic: PERRL, EOMI, accommodation nl, no face palsy, no dysarthria moves all extremities Psychiatric: A+Ox3, euthymic affect Orientation: oriented to person In sight: + limited insight Judgement: + limited judgement Results & Data Vital Signs (Past 12 Hours) Vital Signs Temp Pulse Pulse Resp BP Pulse Ox 06/01/19 07:28 36.3 C L 94 H 19 86/54 L 96 06/01/19 03:22 36.3 C L 87 20 88/55 L 90 06/01/19 00:52 90 05/31/19 23:11 36.3 C L 93 H 20 93/60 L 95 Laboratory Results 06/01/19 Range/Units 09:59 Sodium 126 L (136-145) mmol/L Potassium 3.8 (3.5-5.1) mmol/L Chloride 90 L (98-107) mmol/L Carbon Dioxide 31 (21-32) mmol/L Anion Gap 5.0 (3-11) BUN 18 (7-18) mg/dl Creatinine 1.52 H (0.6-1.4) mg/dl Est Cr Clr Drug Dosing 66.6 ml/min Est GFR ( Amer) 58.1 Est GFR (Non-Af Amer) 50.1 BUN/Creatinine Ratio 11.9 (10-20) Glucose 92 (70-99) mg/dl Calcium 8.0 L (8.5-10.1) mg/dl Medications Administered Current Inpatient Medications Acetaminophen (Tylenol) 500 mg PO Q4H PRN PRN Reason: Mild Pain Stop: 06/30/19 16:02 Last Admin: 05/31/19 21:34 Dose: 500 mg Documented by: Albuterol (Ventolin 0.083% 2.5mg/3ml) 2.5 mg INH Q4 PRN PRN Reason: Shortness Of Breath Or Wheezing Stop: 06/21/19 17:46 Last Admin: 05/22/19 23:27 Dose: 2.5 mg Documented by: Amiodarone HCl (Cordarone) 200 mg PO DAILY [facility] Stop: 06/22/19 08:59 Last Admin: 05/31/19 10:15 Dose: 200 mg Documented by: Aspirin (Ecotrin Ectab) 81 mg PO DAILY [facility] Stop: 06/22/19 08:59 Last Admin: 05/31/19 10:14 Dose: 81 mg Documented by: Dextrose (Dextrose 50%) 25 - 50 ml IV UD PRN; Protocol PRN Reason: Hypoglycemia Protocol Stop: 06/21/19 17:46 Docusate Sodium (Colace) 100 mg PO BID PRN PRN Reason: Constipation Stop: 06/21/19 17:46 Famotidine (Pepcid) 20 mg PO BID PRN PRN Reason: Heartburn Stop: 06/24/19 12:10 Glucagon (Glucagen) 1 mg SQ UD PRN; Protocol PRN Reason: Hypoglycemia Protocol Stop: 06/21/19 17:46 Glucose (Glucose 40%) 15 - 30 gm PO UD PRN; Protocol PRN Reason: Hypoglycemia Protocol Stop: 06/21/19 17:46 Glucose (Dex4 Glucose) 4 - 8 tabs PO UD PRN; Protocol PRN Reason: Hypoglycemia Protocol Stop: 06/21/19 17:46 Heparin Sodium (Porcine) (Heparin Sodium (Porcine)) 5,000 units SQ Q8 [facility] Stop: 06/21/19 21:59 Last Admin: 06/01/19 05:05 Dose: Not Given Documented by: Milrinone Lactate/Dextrose (Primacor/D5w) 20,000 mcg in 100 mls @ 6.6 mls/hr IV .[id number] [facility] Stop: 06/21/19 16:14 Last Infusion: 06/01/19 07:17 Dose: 0.25 mcg/kg/min, 6.6 mls/hr Documented by: Furosemide 100 mg/ Dextrose 100 mls @ 10 mls/hr IV .Q10H [facility] Stop: 06/26/19 09:59 Last Admin: 06/01/19 03:34 Dose: 10 mg/hr, 10 mls/hr Documented by: Sodium Chloride (Nss 1000ml) 1,000 mls @ 13 mls/hr IV .Q24H [facility] Stop: 06/26/19 11:44 Last Admin: 05/31/19 12:30 Dose: 13 mls/hr Documented by: Promethazine HCl 6.25 mg/ (Sodium Chloride) 50.25 mls @ 201 mls/hr IV Q6H PRN PRN Reason: Nausea And Vomiting Stop: 06/30/19 10:04 Lactulose (Chronulac) 20 gm PO TID [facility] Stop: 06/24/19 13:59 Last Admin: 05/31/19 21:39 Dose: Not Given Documented by: Magnesium Oxide (Mag-Ox) 400 mg PO BID [facility] Stop: 06/28/19 20:59 Last Admin: 05/31/19 21:31 Dose: 400 mg Documented by: Miscellaneous (Carbohydrates For Hypoglycemia) 15 - 30 gm PO UD PRN PRN Reason: Hypoglycemia Protocol Stop: 01/08/20 17:46 Pantoprazole Sodium (Protonix) 40 mg PO DAILY [facility] Stop: 06/22/19 08:59 Last Admin: 05/31/19 10:14 Dose: 40 mg Documented by: Polyethylene Glycol (Miralax Powder Packet) 17 gm PO DAILY PRN PRN Reason: Constipation Stop: 06/21/19 17:46 Sertraline HCl (Zoloft) 50 mg PO DAILY [facility] Stop: 06/22/19 08:59 Last Admin: 05/31/19 10:15 Dose: 50 mg Documented by: Spironolactone (Aldactone) 25 mg PO DAILY [facility] Stop: 06/29/19 08:59 Last Admin: 05/31/19 10:14 Dose: 25 mg Documented by: (1) Fluid overload Hypervolemia type: unspecified Qualified Code(s): E87.70 - Fluid overload, unspecified
[2019-06-01] MEDS: ASPIRIN 81 MG ECTAB PO SCH (09:43)
[2019-06-01] MEDS: SPIRONOLACTONE 25 MG TAB PO SCH (09:43)
[2019-06-01] MEDS: MAGNESIUM OXIDE 400 MG TAB PO SCH ×2 (09:43→20:59)
[2019-06-01] MEDS: AMIODARONE 200 MG TAB PO SCH (09:43)
--- NOTE | 2019-06-01 09:46 | Cardiology Progress Note ---
Date of Service June 01, 2019 Assessment & Plan (1) Acute on chronic combined systolic and diastolic CHF, NYHA class 4: Patient with chronic inotrope dependent heart failure on milrinone for 1 year or greater now with decompensated heart failure and failure to respond to usual therapies. Dopamine has been added for blood pressure support. Continue IV furosemide at current dosing. Stop dopamine would not consider resume Check BMP today and in a.m. Overall prognosis significantly limited begin tailoring drugs towards oral regimen in the future though expect continued decline (2) Cardiorenal syndrome: (3) Acute on chronic renal failure: (4) Ischemic cardiomyopathy: (5) Acute hyponatremia: (6) End stage liver disease: (7) Hypotension: Patient with profound class IV heart failure Subjective Slightly more somnolent, nauseated this morning. No chest pains or discomfort. Blood pressures relatively stable Physical Exam Constitutional: + cachectic (Cardiac) Eyes: PERRL, conjunctivae normal, anicteric sclerae ENMT: external ear and nose normal, oropharynx normal Neck: trachea midline, no thyromegaly Respiratory: Auscultation: + diminished lung sounds and + rales Cardiovascular: Rate/Rhythm: regular rate and regular rhythm Heart Sounds: + gallop Extremities: + edema (Much lower over amounts of edema with contraction of tissues) Chest (Breasts): Chest: + pacemaker (/Defibrillator site without tenderness) Gastrointestinal (Abdomen): Inspection/Auscultation: + abdomen distended Percussion/Palpation: abdomen soft Results & Data Vital Signs (Past 12 Hours) Vital Signs Temp Pulse Pulse Resp BP Pulse Ox 06/01/19 07:28 36.3 C L 94 H 19 86/54 L 96 06/01/19 03:22 36.3 C L 87 20 88/55 L 90 06/01/19 00:52 90 05/31/19 23:11 36.3 C L 93 H 20 93/60 L 95 (1) Cardiorenal syndrome Heart failure presence: with heart failure Hypertensive chronic kidney disease stage: stage 1-4 or unspecified chronic kidney disease Qualified Code(s): I13.0 - Hypertensive heart and chronic kidney disease with heart failure and stage 1 through stage 4 chronic kidney disease, or unspecified chronic kidney disease (2) Acute on chronic renal failure Acute renal failure type: unspecified Chronic kidney disease stage: stage 3 (moderate) Qualified Code(s): N17.9 - Acute kidney failure, unspecified; N18.3 - Chronic kidney disease, stage 3 (moderate) (3) Hypotension Hypotension type: unspecified hypotension type Qualified Code(s): I95.9 - Hypotension, unspecified
[2019-06-01 10:29] LABS: BUN Creatinine Ratio 11.9 (10-20); Creatinine Clr Calc Pharmacy 66.6 ml/min; Est GFR (African American) 58.1; Est GFR (Non-African American) 50.1; Potassium 3.8 mmol/L (3.5-5.1)
[2019-06-01] MEDS: MILRINONE LACTATE/D5W 20,000 MCG/100 ML BAG IV SCH ×2 (10:42→23:38)
--- NOTE | 2019-06-01 12:49 | Palliative Care Progress Note ---
Date of Service June 01, 2019 Assessment & Plan (1) Goals of care, counseling/discussion: -Patient more oriented today. Still drowsy at times. -Dopamine gtt is off. Continues on furosemide and milrinone infusions at this time. Creatinine is improved, good urine output. -Despite the progress medically, his overall functional status is extremely poor and he is extremely weak and debilitated. -Spoke with patient in room 207. Patient is still wanting to go home, but we talked about how he is unable to care for himself, walk, or even reposition himself in bed. Spoke with his Stephanie by phone-- she agrees he will not be able to come home after hospitalization. -Patient is obviously not medically ready for discharge, and his condition remains tenuous due to how severely and chronically ill he is. However, we should still plan for discharge if we are able to get the Lasix gtt off and his VS remain stable. His Stephanie agreed to a referral to [facility]. Case management is involved and is making the referral. -As far as goals, patient is still not wanting to transition more towards comfort measures and states that he absolutely does not want hospice care. His prognosis remains poor. -We will follow. (2) Acute on chronic combined systolic and diastolic CHF, NYHA class 4: (3) Acute on chronic renal failure: (4) Ischemic cardiomyopathy: Subjective Patient more oriented today. Still drowsy at times. Spoke with patient in room 207. Spoke with his Stephanie by phone. Coordinated care with case management. Review of Systems Review of Systems: C/o severe generlized weakness. Denies pain, N/V. Physical Exam Constitutional: + ill appearing (chronically) ENMT: external ear and nose normal, oropharynx normal Respiratory: normal respiratory effort; no labored breathing Cardiovascular: Rate/Rhythm: regular rate and regular rhythm Extremities: + edema (BL upper extremities) Gastrointestinal (Abdomen): Inspection/Auscultation: + abdomen distended (but soft) and normal bowel sounds Percussion/Palpation: abdomen nontender Skin: + jaundice Neurologic: moves all extremities and awake (but drowsy); not confused Psychiatric: Orientation: oriented x 3 Results & Data Vital Signs (Past 12 Hours) Vital Signs Temp Pulse Pulse Resp BP BP Pulse Ox 06/01/19 11:31 36.3 C L 97 H 18 87/46 L 97 06/01/19 07:50 91 H 06/01/19 07:28 36.3 C L 94 H 19 86/54 L 96 06/01/19 03:22 36.3 C L 87 20 88/55 L 90 06/01/19 00:52 90 Supervising Physician Co-Signing Physician Notes Chart reviewed, patient seen and examined. No family or friends at bedside. Collaborated with ARETHA Duran PE: Patient awake and alert, no acute distress HEENT: EOMI, hearing within normal limits Respirations: Unlabored, on O2 at 3 L nasal cannula CV: Regular rate, positive murmur, positive edema all extremities Abdomen: Soft, nontender, obese Neuro: Alert and oriented Agree with above note, assessment and plan as per ARETHA Duran-will continue to follow and assist family with medical decision making Time Spent Midlevel 40 minutes with >50% of the time spent at bedside with patient, IDT, and on phone with family discussing condition, goals and plan of care. (1) Acute on chronic renal failure Acute renal failure type: unspecified Chronic kidney disease stage: stage 3 (moderate) Qualified Code(s): N17.9 - Acute kidney failure, unspecified; N18.3 - Chronic kidney disease, stage 3 (moderate)
[2019-06-01] MEDS ORDERED: metOLazone 2.5 MG TABLET PO ONE (12:59)
[2019-06-01] MEDS: SODIUM CHLORIDE 0.9% 1000ML 1,000 ML IV SCH (13:39)
[2019-06-01] MEDS: ACETAMINOPHEN 500 MG TAB PO PRN ×2 (17:06→23:47)
[2019-06-02] MEDS: HEPARIN SOD 5,000 UNIT/0.5 ML VIAL SQ SCH ×3 (05:10→21:59)
[2019-06-02 07:28] LABS: BUN Creatinine Ratio 11.7 (10-20); Calcium 8.1 mg/dl (8.5-10.1); Creatinine Clr Calc Pharmacy 59.7 ml/min; Est GFR (African American) 51.9; Est GFR (Non-African American) 44.7; Potassium 3.7 mmol/L (3.5-5.1)
--- NOTE | 2019-06-02 08:21 | Hospitalist Progress Note ---
Date of Service June 02, 2019 Assessment & Plan (1) Fluid overload: (1) Acute on chronic combined systolic and diastolic CHF, NYHA class 4: (2) Ischemic cardiomyopathy: (3) Hypotension: This is a 58-year-old male who has significant past medical history of ischemic cardiomyopathy EF 20% AICD in place on continuous at home milrinone infusion , chronic systolic CHF, HTN, pulmonary HTN, CAD, hx of MSSA endocarditis, cirrhosis, CKD stage III, diet-controlled T2DM, history of tobacco abuse, history of VT arrest s/p ICD in 06/2018 who presents to [facility] secondary to weight gain and lethargy. In ED chest x-ray revealed pulmonary edema. Sodium 124, K2.8, chloride 98, BUN 21, creatinine 1.55. Initial troponin WNL, TSH elevated 9.02, but free T4 WNL. T bili elevated at 1.1, AST 18, ALT 7, alk phos 135, ammonia 34.0. - started on IV Lasix gtt by Cardiology, today (06/02) will transfer to PO - discontinue IV furosemide. Begin metolazone 2.5 mg twice daily, torsemide 100 mg p.o. daily overall prognosis remains extremely poor - not a candidate for HD given very low BP and hemodynamic instability - BP remains low but acceptable, on cont. milrinone (dopamine stopped 06/01) - transferred to ICU on 05/25/19, now downgraded Overall prognosis is very poor Palliative care involved , appreciate input Pt and updated multiple times cardiology / palliative care /ICU team/ Hospitalist - now considering SNF in [place] CODE status changed to DNR/DNI after D/w pt and at present cont supportive care pt is yet indecisive to transition to hospice /comfort care Acute renal failure CKD (chronic kidney disease), stage III: possible cardiorenal symptom baseline Cr 1.5 worsening of cr > 2.7 with poor urine output - current Cr 1.67 persisted hypotension causing poor perfusion over all prognosis poor CAD (coronary artery disease): - extensive CAD with severe ischemic cardiomyopathy - EF 20% Cirrhosis: ROBLERO , worsening of ascites due to decompensated CHF and renal failure - s/p 2 Liter of paracethesis by ICU team on 05/25/19 - reaccumulation of ascites noted , with worsening abdominal distention - Stage 4 CHF with poor perfusion, pt will continue to have 3rd spacing of fluids - pt requested repeat thoracentesis but wants to wait till he gets more symptomatic after discussing with risk involved in repeat procedure - elevated Ammonia level -due to hepatic congestion - Hyponatremia, secondary to above - ordered Lactulose -pt been refusing - no evidence of hepatic encephalopathy yet DVT prophylaxis: Heparin SQ -pt has been refusing CODE STATUS: DNR/DNI Disposition: over all prognosis remains poor -with limited life expectancy Discussed w/pt and , CM involved, pt wishes to go home but unable to take care of him - now considering SNF in [place] Subjective Patient is lying in bed, in no acute distress, comfortable. Denies any fevers, chills, chest pain, palpitations, increased shortness of breath, abdominal pain, nausea or vomiting. Talked with patient's Kaylee on the phone this morning,( her number is [phone]). She confirmed that she is unable to take care of the patient at home, due to her medical issues. They were talking about possible SNF in [place]. Case management is following. Yesterday evening patient was asking me about SNF, and how it is financed, I advised him to discuss this with case management. Patient is currently off dopamine, tolerating, BP acceptable. Plan to stop IV Lasix gtt, and transition to p.o. Review of Systems Review of Systems: All systems reviewed & are unremarkable except as noted in HPI & below Constitutional: + fatigue; no fever and no chills Respiratory: no cough and no dyspnea Cardiovascular: no chest pain and no palpitations Gastrointestinal: no abdominal pain, no nausea and no vomiting Physical Exam Physical Exam: Constitutional: Elderly male, ill-appearing, lying in bed on suppl. O2, and milrinone Eyes: PERRL, EOMI, conjunctivae normal ENMT: external ear and nose normal, oropharynx normal Respiratory: normal respiratory effort; no labored breathing Auscultation: + diminished lung sounds and + diffuse rales Cardiovascular: Rate/Rhythm: regular rate, regular rhythm and + slightly tachycardic Heart Sounds: normal S1 and normal S2; no murmur Vessels: + JVD Extremities: + LE edema b/l Gastrointestinal (Abdomen): + abdomen distended (but soft) and normal bowel sounds, nontender, no guarding, not rigid Skin: + venous stasis changes in LEs b/l Neurologic: PERRL, EOMI, accommodation nl, no face palsy, no dysarthria moves all extremities Psychiatric: A+Ox3, euthymic affect Orientation: oriented to person Insight: + limited insight Judgement: + limited judgement Results & Data Vital Signs (Past 12 Hours) Vital Signs Temp Pulse Resp BP Pulse Ox 06/02/19 07:47 36.4 C L 100 H 20 92/62 L 96 06/02/19 05:10 98 H 78/45 L 06/02/19 03:44 36.5 C 107 H 20 70/45 L 96 06/01/19 23:43 36.4 C L 95 H 20 78/42 L 99 Laboratory Results 06/02/19 06/01/19 06/01/19 Range/Units 06:40 16:12 09:59 Sodium 126 L 126 L (136-145) mmol/L Potassium 3.7 3.8 (3.5-5.1) mmol/L Chloride 90 L 90 L (98-107) mmol/L Carbon Dioxide 29 31 (21-32) mmol/L Anion Gap 7.0 5.0 (3-11) BUN 20 H 18 (7-18) mg/dl Creatinine 1.67 H 1.52 H (0.6-1.4) mg/dl Est Cr Clr Drug Dosing 59.7 66.6 ml/min Est GFR ( Amer) 51.9 58.1 Est GFR (Non-Af Amer) 44.7 50.1 BUN/Creatinine Ratio 11.7 11.9 (10-20) Glucose 83 92 (70-99) mg/dl POC Glucose 95 (70-99) Calcium 8.1 L 8.0 L (8.5-10.1) mg/dl Medications Administered Current Inpatient Medications Acetaminophen (Tylenol) 500 mg PO Q4H PRN PRN Reason: Mild Pain Stop: 06/30/19 16:02 Last Admin: 06/01/19 23:47 Dose: 500 mg Documented by: Albuterol (Ventolin 0.083% 2.5mg/3ml) 2.5 mg INH Q4 PRN PRN Reason: Shortness Of Breath Or Wheezing Stop: 06/21/19 17:46 Last Admin: 05/22/19 23:27 Dose: 2.5 mg Documented by: Amiodarone HCl (Cordarone) 200 mg PO DAILY [facility] Stop: 06/22/19 08:59 Last Admin: 06/01/19 09:43 Dose: 200 mg Documented by: Aspirin (Ecotrin Ectab) 81 mg PO DAILY [facility] Stop: 06/22/19 08:59 Last Admin: 06/01/19 09:43 Dose: 81 mg Documented by: Dextrose (Dextrose 50%) 25 - 50 ml IV UD PRN; Protocol PRN Reason: Hypoglycemia Protocol Stop: 06/21/19 17:46 Docusate Sodium (Colace) 100 mg PO BID PRN PRN Reason: Constipation Stop: 06/21/19 17:46 Famotidine (Pepcid) 20 mg PO BID PRN PRN Reason: Heartburn Stop: 06/24/19 12:10 Glucagon (Glucagen) 1 mg SQ UD PRN; Protocol PRN Reason: Hypoglycemia Protocol Stop: 06/21/19 17:46 Glucose (Glucose 40%) 15 - 30 gm PO UD PRN; Protocol PRN Reason: Hypoglycemia Protocol Stop: 06/21/19 17:46 Glucose (Dex4 Glucose) 4 - 8 tabs PO UD PRN; Protocol PRN Reason: Hypoglycemia Protocol Stop: 06/21/19 17:46 Heparin Sodium (Porcine) (Heparin Sodium (Porcine)) 5,000 units SQ Q8 ROLANDO Stop: 06/21/19 21:59 Last Admin: 06/02/19 05:10 Dose: 5,000 units Documented by: Milrinone Lactate/Dextrose (Primacor/D5w) 20,000 mcg in 100 mls @ 6.6 mls/hr IV .[id number] ROLANDO Stop: 06/21/19 16:14 Last Infusion: 06/02/19 07:02 Dose: 0.25 mcg/kg/min, 6.6 mls/hr Documented by: Furosemide 100 mg/ Dextrose 100 mls @ 10 mls/hr IV .Q10H [facility] Stop: 06/26/19 09:59 Last Admin: 06/01/19 23:38 Dose: 10 mg/hr, 10 mls/hr Documented by: Sodium Chloride (Nss 1000ml) 1,000 mls @ 13 mls/hr IV .Q24H [facility] Stop: 06/26/19 11:44 Last Admin: 06/01/19 13:39 Dose: 13 mls/hr Documented by: Promethazine HCl 6.25 mg/ (Sodium Chloride) 50.25 mls @ 201 mls/hr IV Q6H PRN PRN Reason: Nausea And Vomiting Stop: 06/30/19 10:04 Lactulose (Chronulac) 20 gm PO TID [facility] Stop: 06/24/19 13:59 Last Admin: 06/01/19 21:02 Dose: Not Given Documented by: Magnesium Oxide (Mag-Ox) 400 mg PO BID [facility] Stop: 06/28/19 20:59 Last Admin: 06/01/19 20:59 Dose: 400 mg Documented by: Miscellaneous (Carbohydrates For Hypoglycemia) 15 - 30 gm PO UD PRN PRN Reason: Hypoglycemia Protocol Stop: 06/21/19 17:46 Pantoprazole Sodium (Protonix) 40 mg PO DAILY [facility] Stop: 06/22/19 08:59 Last Admin: 06/01/19 09:42 Dose: 40 mg Documented by: Polyethylene Glycol (Miralax Powder Packet) 17 gm PO DAILY PRN PRN Reason: Constipation Stop: 06/21/19 17:46 Sertraline HCl (Zoloft) 50 mg PO DAILY [facility] Stop: 06/22/19 08:59 Last Admin: 06/01/19 09:42 Dose: 50 mg Documented by: Spironolactone (Aldactone) 25 mg PO DAILY [facility] Stop: 06/29/19 08:59 Last Admin: 06/01/19 09:43 Dose: 25 mg Documented by: (1) Fluid overload Hypervolemia type: unspecified Qualified Code(s): E87.70 - Fluid overload, unspecified
[2019-06-02] MEDS: LACTULOSE SYRUP 20 GM/30 ML UDC PO SCH ×5 (08:59→22:03)
[2019-06-02] MEDS: PANTOprazole 40 MG TAB PO SCH (09:00)
[2019-06-02] MEDS: MAGNESIUM OXIDE 400 MG TAB PO SCH ×2 (09:00→22:01)
[2019-06-02] MEDS: ASPIRIN 81 MG ECTAB PO SCH (09:00)
[2019-06-02] MEDS: SPIRONOLACTONE 25 MG TAB PO SCH (09:01)
[2019-06-02] MEDS: SERTRALINE HCL 50 MG TABLET PO SCH (09:01)
[2019-06-02] MEDS: FUROSEMIDE 100 MG in DEXTROSE 5% 90 ML IV SCH (09:52)
--- NOTE | 2019-06-02 10:37 | Palliative Care Progress Note ---
Date of Service June 02, 2019 Assessment & Plan (1) Goals of care, counseling/discussion: -Patient denies any new complaints today. -Cardiology is converting his Lasix from IV to oral today. -Patient is still adamant about wanting to go home, but agrees that he is not strong enough to care for himself. There are referrals to facilities for after hospitalization. PT/OT is ordered for evaluations. -Spoke with patient again about his prognosis and goals. Patient continues to state, "I'm not ready to give up." He states that if he is able to get out of the hospital, he would want to come back if he worsened. However, patient does still agree that if he gets to the point of absolutely no hope of recovery and his condition is worsening despite all medical interventions, he would want to be made comfortable. He stated this previously in front of his as well. -At this point, there is little else that can be offered by palliative care team. We will follow peripherally for now and be available for any further needs. (2) Acute on chronic combined systolic and diastolic CHF, NYHA class 4: (3) Acute on chronic renal failure: (4) Ischemic cardiomyopathy: Subjective Patient denies any new complaints today. Cardiology is converting his Lasix from IV to oral today. Patient is still adamant about wanting to go home, but agrees that he is not strong enough to care for himself. Review of Systems Review of Systems: C/o severe generlized weakness. Denies pain, N/V. Physical Exam Constitutional: + ill appearing (chronically) ENMT: external ear and nose normal, oropharynx normal Respiratory: normal respiratory effort; no labored breathing Cardiovascular: Rate/Rhythm: regular rate and regular rhythm Extremities: + edema (BL upper extremities) Gastrointestinal (Abdomen): Inspection/Auscultation: + abdomen distended (but soft) and normal bowel sounds Percussion/Palpation: abdomen nontender Skin: + jaundice Neurologic: moves all extremities and awake (but drowsy); not confused Psychiatric: Orientation: alert and oriented x 3 Insight: + limited insight Judgement: + limited judgement Results & Data Vital Signs (Past 12 Hours) Vital Signs Temp Pulse Resp BP Pulse Ox 06/02/19 07:47 36.4 C L 100 H 20 92/62 L 96 06/02/19 05:10 98 H 78/45 L 06/02/19 03:44 36.5 C 107 H 20 70/45 L 96 06/01/19 23:43 36.4 C L 95 H 20 78/42 L 99 Time Spent Midlevel 35 minutes with >50% of the time spent at bedside with patient and IDT, discussing condition, goals and plan of care. (1) Acute on chronic renal failure Acute renal failure type: unspecified Chronic kidney disease stage: stage 3 (moderate) Qualified Code(s): N17.9 - Acute kidney failure, unspecified; N18.3 - Chronic kidney disease, stage 3 (moderate)
[2019-06-02] MEDS: AMIODARONE 200 MG TAB PO SCH (10:49)
--- NOTE | 2019-06-02 10:55 | Cardiology Progress Note ---
Date of Service June 02, 2019 Assessment & Plan (1) Acute on chronic combined systolic and diastolic CHF, NYHA class 4: Patient with chronic inotrope dependent heart failure on milrinone for 1 year or greater now with decompensated heart failure and failure to respond to usual therapies. Dopamine has been added for blood pressure support. Blood pressure adequate off dopamine infusion Milrinone infusion continuing We will transition diuretics to oral. Discontinue IV furosemide. Begin metolazone 2.5 mg twice daily, torsemide 100 mg p.o. daily first dose this morning Overall prognosis limited Researching SNF placement (2) Cardiorenal syndrome: (3) Acute on chronic renal failure: (4) Ischemic cardiomyopathy: (5) Acute hyponatremia: (6) End stage liver disease: (7) Hypotension: Patient with profound class IV heart failure Subjective Patient seen and examined, chart, medications, telemetry reviewed. Answering questions appropriately this morning. Notes legs much less heavy, able to bend knees Physical Exam Constitutional: + cachectic (Cardiac) Eyes: PERRL, conjunctivae normal, anicteric sclerae ENMT: external ear and nose normal, oropharynx normal Neck: trachea midline, no thyromegaly Respiratory: Auscultation: + diminished lung sounds and + rales Cardiovascular: Rate/Rhythm: regular rate and regular rhythm Heart Sounds: + gallop Extremities: + edema (Much lower amounts of edema with contraction of tissues) Chest (Breasts): Chest: + pacemaker (/Defibrillator site without tenderness) Gastrointestinal (Abdomen): Inspection/Auscultation: + abdomen distended Percussion/Palpation: abdomen soft Results & Data Vital Signs (Past 12 Hours) Vital Signs Temp Pulse Resp BP Pulse Ox 06/02/19 07:47 36.4 C L 100 H 20 92/62 L 96 06/02/19 05:10 98 H 78/45 L 06/02/19 03:44 36.5 C 107 H 20 70/45 L 96 06/01/19 23:43 36.4 C L 95 H 20 78/42 L 99 Laboratory Results Laboratory Results - last 24 hr 06/01/19 06/02/19 16:12 06:40 Sodium 126 L Potassium 3.7 Chloride 90 L Carbon Dioxide 29 Anion Gap 7.0 BUN 20 H Creatinine 1.67 H Est Cr Clr Drug Dosing 59.7 Est GFR ( Amer) 51.9 Est GFR (Non-Af Amer) 44.7 BUN/Creatinine Ratio 11.7 Glucose 83 POC Glucose 95 Calcium 8.1 L (1) Cardiorenal syndrome Heart failure presence: with heart failure Hypertensive chronic kidney disease stage: stage 1-4 or unspecified chronic kidney disease Qualified Code(s): I13.0 - Hypertensive heart and chronic kidney disease with heart failure and stage 1 through stage 4 chronic kidney disease, or unspecified chronic kidney disease (2) Acute on chronic renal failure Acute renal failure type: unspecified Chronic kidney disease stage: stage 3 (moderate) Qualified Code(s): N17.9 - Acute kidney failure, unspecified; N18.3 - Chronic kidney disease, stage 3 (moderate) (3) Hypotension Hypotension type: unspecified hypotension type Qualified Code(s): I95.9 - Hypotension, unspecified
[2019-06-02] MEDS: TORSEMIDE 100 MG TAB PO SCH (11:14)
[2019-06-02] MEDS: SODIUM CHLORIDE 0.9% 1000ML 1,000 ML IV SCH (12:47)
[2019-06-02] MEDS: MILRINONE LACTATE/D5W 20,000 MCG/100 ML BAG IV SCH (15:07)
[2019-06-02] MEDS: metOLazone 2.5 MG TABLET PO SCH (17:08)
[2019-06-02] MEDS: ACETAMINOPHEN 500 MG TAB PO PRN (17:10)
[2019-06-02] MEDS: DICLOFENAC SOD 1% GEL 100 GM TUBE EXT PRN (19:08)
[2019-06-03] MEDS: DICLOFENAC SOD 1% GEL 100 GM TUBE EXT PRN ×2 (03:40→23:42)
[2019-06-03] MEDS: HEPARIN SOD 5,000 UNIT/0.5 ML VIAL SQ SCH ×3 (05:10→19:57)
[2019-06-03 06:31] LABS: BUN Creatinine Ratio 12.4 (10-20); Calcium 7.7 mg/dl (8.5-10.1); Creatinine Clr Calc Pharmacy 58.3 ml/min; Est GFR (African American) 50.4; Est GFR (Non-African American) 43.5; Potassium 3.6 mmol/L (3.5-5.1)
[2019-06-03] MEDS: PROMETHAZINE HCL 6.25 MG in SODIUM CHLORIDE 0.9% 50 ML IV PRN (06:34)
[2019-06-03] MEDS: MILRINONE LACTATE/D5W 20,000 MCG/100 ML BAG IV SCH ×2 (07:03→21:50)
[2019-06-03] MEDS: MAGNESIUM OXIDE 400 MG TAB PO SCH ×2 (08:32→20:11)
[2019-06-03] MEDS: ASPIRIN 81 MG ECTAB PO SCH (08:32)
[2019-06-03] MEDS: TORSEMIDE 100 MG TAB PO SCH (08:33)
[2019-06-03] MEDS: AMIODARONE 200 MG TAB PO SCH (08:33)
[2019-06-03] MEDS: SPIRONOLACTONE 25 MG TAB PO SCH (08:33)
[2019-06-03] MEDS: metOLazone 2.5 MG TABLET PO SCH ×2 (08:33→16:47)
[2019-06-03] MEDS: LACTULOSE SYRUP 20 GM/30 ML UDC PO SCH ×3 (08:33→19:57)
[2019-06-03] MEDS: SERTRALINE HCL 50 MG TABLET PO SCH (08:33)
[2019-06-03] MEDS: PANTOprazole 40 MG TAB PO SCH (08:33)
--- NOTE | 2019-06-03 12:32 | Hospitalist Progress Note ---
Date of Service June 03, 2019 Assessment & Plan (1) Fluid overload: (1) Acute on chronic combined systolic and diastolic CHF, NYHA class 4: (2) Ischemic cardiomyopathy: (3) Hypotension: This is a 58-year-old male who has significant past medical history of ischemic cardiomyopathy EF 20% AICD in place on continuous at home milrinone infusion , chronic systolic CHF, HTN, pulmonary HTN, CAD, hx of MSSA endocarditis, cirrhosis, CKD stage III, diet-controlled T2DM, history of tobacco abuse, history of VT arrest s/p ICD in 06/2018 who presents to [facility] secondary to weight gain and lethargy. In ED chest x-ray revealed pulmonary edema. Sodium 124, K2.8, chloride 98, BUN 21, creatinine 1.55. Initial troponin WNL, TSH elevated 9.02, but free T4 WNL. T bili elevated at 1.1, AST 18, ALT 7, alk phos 135, ammonia 34.0. - initially on IV Lasix gtt by Cardiology, now transferred to PO - Started metolazone 2.5 mg twice daily, torsemide 100 mg p.o. daily, so far tolerates well Overall prognosis remains extremely poor - not a candidate for HD given very low BP and hemodynamic instability - BP remains low but acceptable, on cont. milrinone (dopamine stopped 06/01) - transferred to ICU on 05/25/19, now downgraded Overall prognosis is very poor Palliative care involved , appreciate input Pt and updated multiple times cardiology / palliative care /ICU team/ Hospitalist - now considering SNF in [place] CODE status changed to DNR/DNI after D/w pt and at present cont supportive care pt is yet indecisive to transition to hospice /comfort care Acute renal failure CKD (chronic kidney disease), stage III: possible cardiorenal symptom baseline Cr 1.5 worsening of cr > 2.7 with poor urine output - current Cr 1.7 persisted hypotension causing poor perfusion over all prognosis poor CAD (coronary artery disease): - extensive CAD with severe ischemic cardiomyopathy - EF 20% Cirrhosis: ROBLERO , worsening of ascites due to decompensated CHF and renal failure - s/p 2 Liter of paracentesis by ICU team on 05/25/19 - reaccumulation of ascites noted , with worsening abdominal distention - Stage 4 CHF with poor perfusion, pt will continue to have 3rd spacing of fluids - pt requested repeat thoracentesis but wants to wait till he gets more symptomatic after discussing with risk involved in repeat procedure - elevated Ammonia level -due to hepatic congestion - Hyponatremia, secondary to above - ordered Lactulose -pt been refusing - no evidence of hepatic encephalopathy yet DVT prophylaxis: Heparin SQ -pt has been refusing CODE STATUS: DNR/DNI Disposition: over all prognosis remains poor -with limited life expectancy Discussed w/pt and , CM involved, pt wishes to go home but unable to take care of him - now considering SNF in [place] Subjective Patient is lying in bed, in no acute distress. Denies fevers, chills, chest pain, palpitations, increased shortness of breath, abdominal pain, nausea or vomiting. Review of Systems Review of Systems: All systems reviewed & are unremarkable except as noted in HPI & below Constitutional: + fatigue; no fever and no chills Respiratory: no cough and no dyspnea Cardiovascular: no chest pain and no palpitations Gastrointestinal: no abdominal pain, no nausea and no vomiting Physical Exam Physical Exam: Constitutional: Elderly male, ill-appearing, lying in bed on suppl. O2, and milrinone Eyes: PERRL, EOMI, conjunctivae normal ENMT: external ear and nose normal, oropharynx normal Respiratory: normal respiratory effort; no labored breathing Auscultation: + diminished lung sounds and + diffuse rales Cardiovascular: Rate/Rhythm: regular rate, regular rhythm and + slightly tachycardic Heart Sounds: normal S1 and normal S2; no murmur Vessels: + JVD Extremities: + LE edema b/l Gastrointestinal (Abdomen): + abdomen distended (but soft) and normal bowel sounds, nontender, no guarding, not rigid Skin: + venous stasis changes in LEs b/l Neurologic: PERRL, EOMI, accommodation nl, no face palsy, no dysarthria moves all extremities Psychiatric: A+Ox3, euthymic affect Results & Data Vital Signs (Past 12 Hours) Vital Signs Temp Pulse Resp BP Pulse Ox 06/03/19 11:15 36.6 C 101 H 18 86/60 L 100 06/03/19 08:01 36.4 C L 96 H 17 90/60 L 96 06/03/19 03:31 36.6 C 95 H 19 78/46 L 94 06/03/19 00:44 36.5 C 90 18 75/53 L 96 Laboratory Results 06/03/19 Range/Units 05:39 Sodium 126 L (136-145) mmol/L Potassium 3.6 (3.5-5.1) mmol/L Chloride 90 L (98-107) mmol/L Carbon Dioxide 30 (21-32) mmol/L Anion Gap 6.0 (3-11) BUN 21 H (7-18) mg/dl Creatinine 1.71 H (0.6-1.4) mg/dl Est Cr Clr Drug Dosing 58.3 ml/min Est GFR ( Amer) 50.4 Est GFR (Non-Af Amer) 43.5 BUN/Creatinine Ratio 12.4 (10-20) Glucose 79 (70-99) mg/dl Calcium 7.7 L (8.5-10.1) mg/dl Medications Administered Current Inpatient Medications Acetaminophen (Tylenol) 500 mg PO Q4H PRN PRN Reason: Mild Pain Stop: 06/30/19 16:02 Last Admin: 06/02/19 17:10 Dose: 500 mg Documented by: Albuterol (Ventolin 0.083% 2.5mg/3ml) 2.5 mg INH Q4 PRN PRN Reason: Shortness Of Breath Or Wheezing Stop: 06/21/19 17:46 Last Admin: 05/22/19 23:27 Dose: 2.5 mg Documented by: Amiodarone HCl (Cordarone) 200 mg PO DAILY [facility] Stop: 06/22/19 08:59 Last Admin: 06/03/19 08:33 Dose: 200 mg Documented by: Aspirin (Ecotrin Ectab) 81 mg PO DAILY [facility] Stop: 06/22/19 08:59 Last Admin: 06/03/19 08:32 Dose: 81 mg Documented by: Dextrose (Dextrose 50%) 25 - 50 ml IV UD PRN; Protocol PRN Reason: Hypoglycemia Protocol Stop: 06/21/19 17:46 Diclofenac Sodium (Voltaren 1% Top) 2 gm EXT BID PRN PRN Reason: pain Stop: 07/02/19 17:55 Last Admin: 06/03/19 03:40 Dose: 2 gm Documented by: Docusate Sodium (Colace) 100 mg PO BID PRN PRN Reason: Constipation Stop: 06/21/19 17:46 Famotidine (Pepcid) 20 mg PO BID PRN PRN Reason: Heartburn Stop: 06/24/19 12:10 Last Admin: 06/02/19 17:09 Dose: 20 mg Documented by: Glucagon (Glucagen) 1 mg SQ UD PRN; Protocol PRN Reason: Hypoglycemia Protocol Stop: 06/21/19 17:46 Glucose (Glucose 40%) 15 - 30 gm PO UD PRN; Protocol PRN Reason: Hypoglycemia Protocol Stop: 06/21/19 17:46 Glucose (Dex4 Glucose) 4 - 8 tabs PO UD PRN; Protocol PRN Reason: Hypoglycemia Protocol Stop: 06/21/19 17:46 Heparin Sodium (Porcine) (Heparin Sodium (Porcine)) 5,000 units SQ Q8 [facility] Stop: 06/21/19 21:59 Last Admin: 06/03/19 05:10 Dose: Not Given Documented by: Milrinone Lactate/Dextrose (Primacor/D5w) 20,000 mcg in 100 mls @ 6.6 mls/hr IV .[id number] [facility] Stop: 06/21/19 16:14 Last Admin: 06/03/19 07:03 Dose: 0.25 mcg/kg/min, 6.6 mls/hr Documented by: Promethazine HCl 6.25 mg/ (Sodium Chloride) 50.25 mls @ 201 mls/hr IV Q6H PRN PRN Reason: Nausea And Vomiting Stop: 06/30/19 10:04 Last Infusion: 06/03/19 06:49 Dose: Infused Documented by: Lactulose (Chronulac) 20 gm PO TID [facility] Stop: 06/24/19 13:59 Last Admin: 06/03/19 08:33 Dose: 20 gm Documented by: Magnesium Oxide (Mag-Ox) 400 mg PO BID [facility] Stop: 06/28/19 20:59 Last Admin: 06/03/19 08:32 Dose: 400 mg Documented by: Metolazone (Zaroxolyn) 2.5 mg PO BID17 [facility] Stop: 07/02/19 16:59 Last Admin: 06/03/19 08:33 Dose: 2.5 mg Documented by: Miscellaneous (Carbohydrates For Hypoglycemia) 15 - 30 gm PO UD PRN PRN Reason: Hypoglycemia Protocol Stop: 06/21/19 17:46 Pantoprazole Sodium (Protonix) 40 mg PO DAILY [facility] Stop: 06/22/19 08:59 Last Admin: 06/03/19 08:33 Dose: 40 mg Documented by: Polyethylene Glycol (Miralax Powder Packet) 17 gm PO DAILY PRN PRN Reason: Constipation Stop: 06/21/19 17:46 Sertraline HCl (Zoloft) 50 mg PO DAILY [facility] Stop: 06/22/19 08:59 Last Admin: 06/03/19 08:33 Dose: 50 mg Documented by: Spironolactone (Aldactone) 25 mg PO DAILY [facility] Stop: 06/29/19 08:59 Last Admin: 06/03/19 08:33 Dose: 25 mg Documented by: Torsemide (Demadex) 100 mg PO QAM [facility] Stop: 07/02/19 10:59 Last Admin: 06/03/19 08:33 Dose: 100 mg Documented by: (1) Fluid overload Hypervolemia type: unspecified Qualified Code(s): E87.70 - Fluid overload, unspecified
--- NOTE | 2019-06-03 14:51 | Cardiology Progress Note ---
Date of Service June 03, 2019 Assessment & Plan (1) Acute on chronic combined systolic and diastolic CHF, NYHA class 4: Patient with chronic inotrope dependent heart failure on milrinone for 1 year or greater now with decompensated heart failure and failure to respond to usual therapies. Dopamine has been added for blood pressure support. Blood pressure adequate off dopamine infusion Milrinone infusion continuing Tolerating transition to oral diuretics with continued diuresis. We will continue current dose of torsemide and metolazone at this time. Overall prognosis limited Researching SNF placement, agree with discharge to SNF at this time Once again overall poor prognosis was reviewed with patient and his . (2) Cardiorenal syndrome: (3) Acute on chronic renal failure: (4) Ischemic cardiomyopathy: (5) Acute hyponatremia: (6) End stage liver disease: (7) Hypotension: Patient with profound class IV heart failure Subjective Patient seen and examined out of bed in chair somewhat somnolent. The patient's was on the phone during examination. He states that he is feeling well and denies any complaints overnight. Specifically denying any chest pain, shortness of breath, palpitations, lightheadedness, dizziness or syncope. Telemetry reviewed: Review of Systems Review of Systems: All systems reviewed & are unremarkable except as noted in HPI & below Physical Exam Physical Exam: General: Awake, alert and oriented x 3. Somewhat somnolent but responsive. No acute distress. HEENT: Normocephalic, atraumatic. Pupils equal, round and reactive to light and accommodation. Extraocular muscles are intact. Anicteric sclera. Moist mucous membranes. Neck: No JVD. No bruit. Cardiovascular: Regular. Positive S-4. Normal S-1 and S-2. No S-3. No murmurs or rubs. Pulmonary: Clear to auscultation B/L. No rales, rhonchi or wheezing Abdomen: Bowel sounds x 4, soft. No rebound, guarding or tenderness. No organomegaly. Extremities: No clubbing, cyanosis or edema. +2 pedal pulses bilaterally. Skin: Warm and dry. Results & Data Vital Signs (Past 12 Hours) Vital Signs Temp Pulse Resp BP Pulse Ox 06/03/19 11:15 36.6 C 101 H 18 86/60 L 100 06/03/19 08:01 36.4 C L 96 H 17 90/60 L 96 06/03/19 03:31 36.6 C 95 H 19 78/46 L 94 (1) Cardiorenal syndrome Heart failure presence: with heart failure Hypertensive chronic kidney disease stage: stage 1-4 or unspecified chronic kidney disease Qualified Code(s): I13.0 - Hypertensive heart and chronic kidney disease with heart failure and stage 1 through stage 4 chronic kidney disease, or unspecified chronic kidney disease (2) Acute on chronic renal failure Acute renal failure type: unspecified Chronic kidney disease stage: stage 3 (moderate) Qualified Code(s): N17.9 - Acute kidney failure, unspecified; N18.3 - Chronic kidney disease, stage 3 (moderate) (3) Hypotension Hypotension type: unspecified hypotension type Qualified Code(s): I95.9 - Hypotension, unspecified
[2019-06-03] MEDS: ACETAMINOPHEN 500 MG TAB PO PRN (23:31)
[2019-06-04] MEDS: HEPARIN SOD 5,000 UNIT/0.5 ML VIAL SQ SCH ×3 (04:29→21:19)
--- NOTE | 2019-06-04 07:05 | Hospitalist Progress Note ---
Date of Service June 04, 2019 Assessment & Plan (1) Fluid overload: (1) Acute on chronic combined systolic and diastolic CHF, NYHA class 4: (2) Ischemic cardiomyopathy: (3) Hypotension: This is a 58-year-old male who has significant past medical history of ischemic cardiomyopathy EF 20% AICD in place on continuous at home milrinone infusion , chronic systolic CHF, HTN, pulmonary HTN, CAD, hx of MSSA endocarditis, cirrhosis, CKD stage III, diet-controlled T2DM, history of tobacco abuse, history of VT arrest s/p ICD in 06/2018 who presents to [facility] secondary to weight gain and lethargy. In ED chest x-ray revealed pulmonary edema. Sodium 124, K2.8, chloride 98, BUN 21, creatinine 1.55. Initial troponin WNL, TSH elevated 9.02, but free T4 WNL. T bili elevated at 1.1, AST 18, ALT 7, alk phos 135, ammonia 34.0. - initially on IV Lasix gtt by Cardiology, now transferred to PO - Started metolazone 2.5 mg twice daily, torsemide 100 mg p.o. daily, so far tolerates well Overall prognosis remains extremely poor - not a candidate for HD given very low BP and hemodynamic instability - BP remains low but acceptable, on cont. milrinone (dopamine stopped 06/01) - transferred to ICU on 05/25/19, now downgraded Overall prognosis is very poor Palliative care involved , appreciate input Pt and updated multiple times cardiology / palliative care /ICU team/ Hospitalist - now considering SNF in [place] CODE status changed to DNR/DNI after D/w pt and at present cont supportive care pt is yet indecisive to transition to hospice /comfort care Acute renal failure CKD (chronic kidney disease), stage III: possible cardiorenal symptom baseline Cr 1.5 worsening of cr > 2.7 with poor urine output - current Cr 1.8 persisted hypotension causing poor perfusion over all prognosis poor CAD (coronary artery disease): - extensive CAD with severe ischemic cardiomyopathy - EF 20% Cirrhosis: ROBLERO , worsening of ascites due to decompensated CHF and renal failure - s/p 2 Liter of paracentesis by ICU team on 05/25/19 - reaccumulation of ascites noted , with worsening abdominal distention - Stage 4 CHF with poor perfusion, pt will continue to have 3rd spacing of fluids - pt requested repeat thoracentesis but wants to wait till he gets more symptomatic after discussing with risk involved in repeat procedure - elevated Ammonia level -due to hepatic congestion - Hyponatremia, secondary to above - ordered Lactulose -pt been refusing - no evidence of hepatic encephalopathy yet DVT prophylaxis: Heparin SQ -pt has been refusing CODE STATUS: DNR/DNI Disposition: over all prognosis remains poor -with limited life expectancy Discussed w/pt and , CM involved, pt wishes to go home but unable to take care of him - now considering SNF in [place] Subjective Patient is lying in bed, in no acute distress, eating yogurt. Denies any fevers, chills, chest pain, shortness of breath, abdominal pain, nausea, or vomiting. Review of Systems Review of Systems: All systems reviewed & are unremarkable except as noted in HPI & below Constitutional: + fatigue; no fever and no chills Respiratory: no cough and no dyspnea Cardiovascular: no chest pain and no palpitations Gastrointestinal: no abdominal pain, no nausea and no vomiting Physical Exam Physical Exam: Constitutional: Elderly male, ill-appearing, lying in bed on suppl. O2, and milrinone Eyes: PERRL, EOMI, conjunctivae normal ENMT: external ear and nose normal, oropharynx normal Respiratory: normal respiratory effort; no labored breathing Auscultation: + diminished lung sounds and + diffuse rales Cardiovascular: Rate/Rhythm: regular rate, regular rhythm and + slightly tachycardic Heart Sounds: normal S1 and normal S2; no murmur Extremities: + LE edema b/l Gastrointestinal (Abdomen): + abdomen distended (but soft) and normal bowel sounds, nontender, no guarding, not rigid Skin: + venous stasis changes in LEs b/l Neurologic: PERRL, EOMI, accommodation nl, no face palsy, no dysarthria moves all extremities Psychiatric: A+Ox3, euthymic affect Results & Data Vital Signs (Past 12 Hours) Vital Signs Temp Pulse Pulse Resp BP BP Pulse Ox 06/04/19 03:15 36.5 C 95 H 18 82/58 L 96 06/03/19 23:44 36.3 C L 96 H 19 79/45 L 95 06/03/19 23:05 97 H 06/03/19 19:38 36.5 C 83 20 133/69 96 Laboratory Results 06/04/19 Range/Units 07:13 Sodium 127 L (136-145) mmol/L Potassium 3.7 (3.5-5.1) mmol/L Chloride 91 L (98-107) mmol/L Carbon Dioxide 30 (21-32) mmol/L Anion Gap 6.0 (3-11) BUN 23 H (7-18) mg/dl Creatinine 1.84 H (0.6-1.4) mg/dl Est Cr Clr Drug Dosing 53.5 ml/min Est GFR ( Amer) 46.1 Est GFR (Non-Af Amer) 39.8 BUN/Creatinine Ratio 12.4 (10-20) Glucose 74 (70-99) mg/dl Calcium 7.7 L (8.5-10.1) mg/dl Medications Administered Current Inpatient Medications Acetaminophen (Tylenol) 500 mg PO Q4H PRN PRN Reason: Mild Pain Stop: 06/30/19 16:02 Last Admin: 06/03/19 23:31 Dose: 500 mg Documented by: Albuterol (Ventolin 0.083% 2.5mg/3ml) 2.5 mg INH Q4 PRN PRN Reason: Shortness Of Breath Or Wheezing Stop: 06/21/19 17:46 Last Admin: 05/22/19 23:27 Dose: 2.5 mg Documented by: Amiodarone HCl (Cordarone) 200 mg PO DAILY [facility] Stop: 06/22/19 08:59 Last Admin: 06/04/19 08:14 Dose: 200 mg Documented by: Aspirin (Ecotrin Ectab) 81 mg PO DAILY [facility] Stop: 06/22/19 08:59 Last Admin: 06/04/19 08:15 Dose: 81 mg Documented by: Dextrose (Dextrose 50%) 25 - 50 ml IV UD PRN; Protocol PRN Reason: Hypoglycemia Protocol Stop: 06/21/19 17:46 Diclofenac Sodium (Voltaren 1% Top) 2 gm EXT BID PRN PRN Reason: pain Stop: 07/02/19 17:55 Last Admin: 06/03/19 23:42 Dose: 2 gm Documented by: Docusate Sodium (Colace) 100 mg PO BID PRN PRN Reason: Constipation Stop: 06/21/19 17:46 Famotidine (Pepcid) 20 mg PO BID PRN PRN Reason: Heartburn Stop: 06/24/19 12:10 Last Admin: 06/02/19 17:09 Dose: 20 mg Documented by: Glucagon (Glucagen) 1 mg SQ UD PRN; Protocol PRN Reason: Hypoglycemia Protocol Stop: 06/21/19 17:46 Glucose (Glucose 40%) 15 - 30 gm PO UD PRN; Protocol PRN Reason: Hypoglycemia Protocol Stop: 06/21/19 17:46 Glucose (Dex4 Glucose) 4 - 8 tabs PO UD PRN; Protocol PRN Reason: Hypoglycemia Protocol Stop: 06/21/19 17:46 Heparin Sodium (Porcine) (Heparin Sodium (Porcine)) 5,000 units SQ Q8 [facility] Stop: 06/21/19 21:59 Last Admin: 06/04/19 04:29 Dose: Not Given Documented by: Milrinone Lactate/Dextrose (Primacor/D5w) 20,000 mcg in 100 mls @ 6.6 mls/hr IV .[id number] [facility] Stop: 06/21/19 16:14 Last Infusion: 06/04/19 07:05 Dose: 0.25 mcg/kg/min, 6.6 mls/hr Documented by: Promethazine HCl 6.25 mg/ (Sodium Chloride) 50.25 mls @ 201 mls/hr IV Q6H PRN PRN Reason: Nausea And Vomiting Stop: 06/30/19 10:04 Last Infusion: 06/03/19 06:49 Dose: Infused Documented by: Lactulose (Chronulac) 20 gm PO TID [facility] Stop: 06/24/19 13:59 Last Admin: 06/04/19 08:15 Dose: Not Given Documented by: Magnesium Oxide (Mag-Ox) 400 mg PO BID [facility] Stop: 06/28/19 20:59 Last Admin: 06/04/19 08:14 Dose: 400 mg Documented by: Metolazone (Zaroxolyn) 2.5 mg PO BID17 [facility] Stop: 07/02/19 16:59 Last Admin: 06/04/19 08:15 Dose: 2.5 mg Documented by: Miscellaneous (Carbohydrates For Hypoglycemia) 15 - 30 gm PO UD PRN PRN Reason: Hypoglycemia Protocol Stop: 06/21/19 17:46 Pantoprazole Sodium (Protonix) 40 mg PO DAILY [facility] Stop: 06/22/19 08:59 Last Admin: 06/04/19 08:15 Dose: 40 mg Documented by: Polyethylene Glycol (Miralax Powder Packet) 17 gm PO DAILY PRN PRN Reason: Constipation Stop: 06/21/19 17:46 Sertraline HCl (Zoloft) 50 mg PO DAILY [facility] Stop: 06/22/19 08:59 Last Admin: 06/04/19 08:14 Dose: 50 mg Documented by: Spironolactone (Aldactone) 25 mg PO DAILY [facility] Stop: 06/29/19 08:59 Last Admin: 06/04/19 08:14 Dose: 25 mg Documented by: Torsemide (Demadex) 100 mg PO QAM [facility] Stop: 07/02/19 10:59 Last Admin: 06/04/19 08:14 Dose: 100 mg Documented by: (1) Fluid overload Hypervolemia type: unspecified Qualified Code(s): E87.70 - Fluid overload, unspecified
[2019-06-04 07:48] LABS: BUN Creatinine Ratio 12.4 (10-20); Calcium 7.7 mg/dl (8.5-10.1); Creatinine Clr Calc Pharmacy 53.5 ml/min; Est GFR (African American) 46.1; Est GFR (Non-African American) 39.8; Potassium 3.7 mmol/L (3.5-5.1)
[2019-06-04] MEDS: SPIRONOLACTONE 25 MG TAB PO SCH (08:14)
[2019-06-04] MEDS: AMIODARONE 200 MG TAB PO SCH (08:14)
[2019-06-04] MEDS: MAGNESIUM OXIDE 400 MG TAB PO SCH ×2 (08:14→21:19)
[2019-06-04] MEDS: TORSEMIDE 100 MG TAB PO SCH (08:14)
[2019-06-04] MEDS: SERTRALINE HCL 50 MG TABLET PO SCH (08:14)
[2019-06-04] MEDS: LACTULOSE SYRUP 20 GM/30 ML UDC PO SCH ×3 (08:15→21:19)
[2019-06-04] MEDS: ASPIRIN 81 MG ECTAB PO SCH (08:15)
[2019-06-04] MEDS: PANTOprazole 40 MG TAB PO SCH (08:15)
[2019-06-04] MEDS: metOLazone 2.5 MG TABLET PO SCH ×2 (08:15→17:20)
[2019-06-04] MEDS: MILRINONE LACTATE/D5W 20,000 MCG/100 ML BAG IV SCH (13:24)
--- NOTE | 2019-06-04 14:13 | Cardiology Progress Note ---
Date of Service June 04, 2019 Assessment & Plan (1) Acute on chronic combined systolic and diastolic CHF, NYHA class 4: Patient with chronic inotrope dependent heart failure on milrinone for 1 year or greater now with decompensated heart failure and failure to respond to usual therapies. Dopamine has been added for blood pressure support. Blood pressure adequate off dopamine infusion Milrinone infusion continuing Tolerating transition to oral diuretics with continued diuresis. We will continue current dose of torsemide and metolazone at this time. Overall prognosis limited Researching SNF placement, agree with discharge to SNF at this time Once again overall poor prognosis was reviewed with patient and his . Okay to discharge to SNF from cardiac standpoint Recommend not restricting the patient's diet at this time. Given his end-stage disease I believe the benefit he receives from beverly from his food far outweighs the risk of any progression of his atherosclerotic disease. (2) Cardiorenal syndrome: (3) Acute on chronic renal failure: (4) Ischemic cardiomyopathy: (5) Acute hyponatremia: (6) End stage liver disease: (7) Hypotension: Patient with profound class IV heart failure Subjective Patient seen and examined out of bed in chair. States that he is had a good night without any events. He is very happy this a.m. after receiving tay with breakfast. Denies any chest pain, shortness of breath, palpitations, lightheadedness, dizziness or syncope. Telemetry reviewed: Normal sinus rhythm without arrhythmia. Review of Systems Review of Systems: All systems reviewed & are unremarkable except as noted in HPI & below Physical Exam Physical Exam: General: Awake, alert and oriented x 3. No acute distress. HEENT: Normocephalic, atraumatic. Pupils equal, round and reactive to light and accommodation. Extraocular muscles are intact. Anicteric sclera. Moist mucous membranes. Neck: No JVD. No bruit. Cardiovascular: Regular. Positive S-4. Normal S-1 and S-2. No S-3. 3/6 mid to late systolic ejection murmur, greatest at the right sternal border, second intercostal space with radiation to the bilateral carotids. No rubs. Pulmonary: Clear to auscultation bilaterally. No rales, rhonchi, or wheezing. Abdomen: Bowel sounds x 4, soft. No rebound, guarding or tenderness. No organomegaly. Extremities: No clubbing, cyanosis or edema. +2 pedal pulses bilaterally. Skin: Warm and dry. Results & Data Vital Signs (Past 12 Hours) Vital Signs Temp Pulse Resp BP Pulse Ox 06/04/19 11:34 36.6 C 80 19 76/45 L 96 06/04/19 08:17 36.5 C 98 H 15 87/62 L 98 06/04/19 03:15 36.5 C 95 H 18 82/58 L 96 (1) Cardiorenal syndrome Heart failure presence: with heart failure Hypertensive chronic kidney disease stage: stage 1-4 or unspecified chronic kidney disease Qualified Code(s): I13.0 - Hypertensive heart and chronic kidney disease with heart failure and stage 1 through stage 4 chronic kidney disease, or unspecified chronic kidney disease (2) Acute on chronic renal failure Acute renal failure type: unspecified Chronic kidney disease stage: stage 3 (moderate) Qualified Code(s): N17.9 - Acute kidney failure, unspecified; N18.3 - Chronic kidney disease, stage 3 (moderate) (3) Hypotension Hypotension type: unspecified hypotension type Qualified Code(s): I95.9 - Hypotension, unspecified
[2019-06-05] MEDS: PROMETHAZINE HCL 6.25 MG in SODIUM CHLORIDE 0.9% 50 ML IV PRN (01:34)
[2019-06-05] MEDS: MILRINONE LACTATE/D5W 20,000 MCG/100 ML BAG IV SCH ×2 (05:35→20:34)
[2019-06-05] MEDS: HEPARIN SOD 5,000 UNIT/0.5 ML VIAL SQ SCH ×4 (05:59→20:40)
[2019-06-05] MEDS: metOLazone 2.5 MG TABLET PO SCH ×2 (08:12→17:04)
[2019-06-05] MEDS: AMIODARONE 200 MG TAB PO SCH (08:13)
[2019-06-05] MEDS: TORSEMIDE 100 MG TAB PO SCH (08:13)
[2019-06-05] MEDS: PANTOprazole 40 MG TAB PO SCH (08:13)
[2019-06-05] MEDS: SERTRALINE HCL 50 MG TABLET PO SCH (08:13)
[2019-06-05] MEDS: LACTULOSE SYRUP 20 GM/30 ML UDC PO SCH ×4 (08:13→20:43)
[2019-06-05] MEDS: SPIRONOLACTONE 25 MG TAB PO SCH (08:13)
[2019-06-05] MEDS: MAGNESIUM OXIDE 400 MG TAB PO SCH ×2 (08:13→20:35)
[2019-06-05] MEDS: ASPIRIN 81 MG ECTAB PO SCH (08:13)
--- NOTE | 2019-06-05 10:33 | Cardiology Progress Note ---
Date of Service June 05, 2019 Assessment & Plan (1) Acute on chronic combined systolic and diastolic CHF, NYHA class 4: Patient with chronic inotrope dependent heart failure on milrinone for 1 year or greater now with decompensated heart failure and failure to respond to usual therapies. Dopamine has been added for blood pressure support. Blood pressure adequate off dopamine infusion Milrinone infusion continuing Tolerating transition to oral diuretics with continued diuresis. We will continue current dose of torsemide and metolazone at this time. Overall prognosis limited Researching SNF placement, agree with discharge to SNF at this time Once again overall poor prognosis was reviewed with patient and his . Okay to discharge to SNF from cardiac standpoint Recommend not restricting the patient's diet at this time. Given his end-stage disease I believe the benefit he receives from beverly from his food far outweighs the risk of any progression of his atherosclerotic disease. (2) Cardiorenal syndrome: (3) Acute on chronic renal failure: (4) Ischemic cardiomyopathy: (5) Acute hyponatremia: (6) End stage liver disease: (7) Hypotension: Patient with profound class IV heart failure Subjective Patient seen and examined out of bed in chair. States he is feeling well today and denies any chest pain, shortness of breath, palpitations, lightheadedness, dizziness or syncope. Telemetry reviewed: Normal sinus rhythm without arrhythmia Review of Systems Review of Systems: All systems reviewed & are unremarkable except as noted in HPI & below Physical Exam Physical Exam: General: Awake, alert and oriented x 3. No acute distress. HEENT: Normocephalic, atraumatic. Pupils equal, round and reactive to light and accommodation. Extraocular muscles are intact. Anicteric sclera. Moist mucous membranes. Neck: No JVD. No bruit. Cardiovascular: Regular. Positive S-4. Normal S-1 and S-2. No S-3. 3/6 mid to late systolic ejection murmur, greatest at the right sternal border, second intercostal space with radiation to the bilateral carotids. No rubs. Pulmonary: Clear to auscultation bilaterally. No rales, rhonchi, or wheezing. Abdomen: Bowel sounds x 4, soft. No rebound, guarding or tenderness. No organomegaly. Extremities: No clubbing, cyanosis or edema. +2 pedal pulses bilaterally. Skin: Warm and dry. Results & Data Vital Signs (Past 12 Hours) Vital Signs Temp Pulse Pulse Resp BP BP Pulse Ox 06/05/19 10:24 36.7 C 93 H 18 86/52 L 100 06/05/19 08:00 36.5 C 98 H 19 72/46 L 97 06/05/19 04:20 36.4 C L 97 H 20 76/54 L 98 06/04/19 23:35 36.4 C L 100 H 19 101/50 L 97 06/04/19 23:08 100 H (1) Cardiorenal syndrome Heart failure presence: with heart failure Hypertensive chronic kidney disease stage: stage 1-4 or unspecified chronic kidney disease Qualified Code(s): I13.0 - Hypertensive heart and chronic kidney disease with heart failure and stage 1 through stage 4 chronic kidney disease, or unspecified chronic kidney disease (2) Acute on chronic renal failure Acute renal failure type: unspecified Chronic kidney disease stage: stage 3 (moderate) Qualified Code(s): N17.9 - Acute kidney failure, unspecified; N18.3 - Chronic kidney disease, stage 3 (moderate) (3) Hypotension Hypotension type: unspecified hypotension type Qualified Code(s): I95.9 - Hypotension, unspecified
[2019-06-05] MEDS ORDERED: ALTEPLASE, RECOMBINANT 1 MG/ML 2ML VIAL IV ONE (10:45)
[2019-06-05] MEDS ORDERED: PROMETHAZINE HCL 6.25 MG in SODIUM CHLORIDE 0.9% 50 ML IV STA (17:40)
[2019-06-06] MEDS: HEPARIN SOD 5,000 UNIT/0.5 ML VIAL SQ SCH ×3 (05:19→20:15)
--- NOTE | 2019-06-06 05:40 | Hospitalist Progress Note ---
Date of Service June 05, 2019 Assessment & Plan (1) Fluid overload: (1) Acute on chronic combined systolic and diastolic CHF, NYHA class 4: (2) Ischemic cardiomyopathy: (3) Hypotension: This is a 58-year-old male who has significant past medical history of ischemic cardiomyopathy EF 20% AICD in place on continuous at home milrinone infusion , chronic systolic CHF, HTN, pulmonary HTN, CAD, hx of MSSA endocarditis, cirrhosis, CKD stage III, diet-controlled T2DM, history of tobacco abuse, history of VT arrest s/p ICD in 06/2018 who presents to [facility] secondary to weight gain and lethargy. In ED chest x-ray revealed pulmonary edema. Sodium 124, K2.8, chloride 98, BUN 21, creatinine 1.55. Initial troponin WNL, TSH elevated 9.02, but free T4 WNL. T bili elevated at 1.1, AST 18, ALT 7, alk phos 135, ammonia 34.0. - initially on IV Lasix gtt by Cardiology, now transferred to PO - Started metolazone 2.5 mg twice daily, torsemide 100 mg p.o. daily, so far tolerates well Overall prognosis remains extremely poor - not a candidate for HD given very low BP and hemodynamic instability - BP remains low but acceptable, on cont. milrinone (dopamine stopped 06/01) - transferred to ICU on 05/25/19, now downgraded Overall prognosis is very poor Palliative care involved , appreciate input Pt and updated multiple times cardiology / palliative care /ICU team/ Hospitalist - now considering SNF in [place] CODE status changed to DNR/DNI after D/w pt and at present cont supportive care pt is yet indecisive to transition to hospice /comfort care Acute renal failure CKD (chronic kidney disease), stage III: possible cardiorenal symptom baseline Cr 1.5 worsening of cr > 2.7 with poor urine output - current Cr 1.8 persisted hypotension causing poor perfusion over all prognosis poor CAD (coronary artery disease): - extensive CAD with severe ischemic cardiomyopathy - EF 20% Cirrhosis: ROBLERO , worsening of ascites due to decompensated CHF and renal failure - s/p 2 Liter of paracentesis by ICU team on 05/25/19 - reaccumulation of ascites noted , with worsening abdominal distention - Stage 4 CHF with poor perfusion, pt will continue to have 3rd spacing of fluids - pt requested repeat thoracentesis but wants to wait till he gets more symptomatic after discussing with risk involved in repeat procedure - elevated Ammonia level -due to hepatic congestion - Hyponatremia, secondary to above - ordered Lactulose -pt been refusing - no evidence of hepatic encephalopathy yet DVT prophylaxis: Heparin SQ -pt has been refusing CODE STATUS: DNR/DNI Disposition: over all prognosis remains poor -with limited life expectancy Discussed w/pt and , CM involved, pt wishes to go home but unable to take care of him - now considering LTACH/SNF Subjective Patient is lying in bed, in no acute distress, appears very somnolent though but arousable and answers questions appropriately. Denies any fevers, chills, chest pain, palpitations, abdominal pain nausea or vomiting. Talked to his nurse about his lactulose, says that patient's been refusing,- talked to the patient and nurse again and patient is willing to take lactulose. Wonder if part of his somnolence is due to elevated ammonia, will recheck. Contacted his Kaylee, discussed his clinical course here, and possible discharge/placement. She has gerardo in contact with director of casework department, and is aware of difficulties of his discharge/placement. Review of Systems Review of Systems: All systems reviewed & are unremarkable except as noted in HPI & below Constitutional: + fatigue; no fever and no chills Respiratory: no cough and no dyspnea Cardiovascular: + edema; no chest pain and no palpitations Gastrointestinal: no abdominal pain, no nausea and no vomiting Physical Exam Physical Exam: Constitutional: Elderly male, ill-appearing, lying in bed on suppl. O2, somnolent, and milrinone Eyes: PERRL, EOMI, conjunctivae normal ENMT: external ear and nose normal, oropharynx normal Respiratory: normal respiratory effort; no labored breathing Auscultation: + diminished lung sounds and + mild diffuse rales Cardiovascular: Rate/Rhythm: regular rate, regular rhythm and + slightly tachycardic Heart Sounds: normal S1 and normal S2; no murmur Extremities: + LE edema b/l Gastrointestinal (Abdomen): + abdomen distended (but soft) and normal bowel sounds, nontender, no guarding, not rigid Skin: + venous stasis changes in LEs b/l Neurologic: PERRL, EOMI, accommodation nl, no face palsy, no dysarthria moves all extremities, appears more somnolent today, however easily arousable and answers questions appropriately Psychiatric: A+Ox3, euthymic affect Results & Data Vital Signs (Past 12 Hours) Vital Signs Temp Pulse Resp BP BP Pulse Ox 06/06/19 04:07 36.6 C 98 H 20 86/56 L 98 06/05/19 23:16 36.3 C L 97 H 18 81/51 L 99 06/05/19 19:30 36.3 C L 95 H 16 72/38 L 99 (1) Fluid overload Hypervolemia type: unspecified Qualified Code(s): E87.70 - Fluid overload, unspecified
[2019-06-06] MEDS: ASPIRIN 81 MG ECTAB PO SCH (08:27)
[2019-06-06] MEDS: LACTULOSE SYRUP 20 GM/30 ML UDC PO SCH ×3 (08:27→20:15)
[2019-06-06] MEDS: TORSEMIDE 100 MG TAB PO SCH (08:27)
[2019-06-06] MEDS: SPIRONOLACTONE 25 MG TAB PO SCH (08:27)
[2019-06-06] MEDS: metOLazone 2.5 MG TABLET PO SCH ×2 (08:27→17:38)
[2019-06-06] MEDS: MAGNESIUM OXIDE 400 MG TAB PO SCH ×2 (08:27→20:15)
[2019-06-06] MEDS: AMIODARONE 200 MG TAB PO SCH (08:27)
[2019-06-06] MEDS: PANTOprazole 40 MG TAB PO SCH (08:27)
[2019-06-06] MEDS: SERTRALINE HCL 50 MG TABLET PO SCH (08:28)
--- NOTE | 2019-06-06 10:04 | Cardiology Progress Note ---
Date of Service June 06, 2019 Assessment & Plan (1) Acute on chronic combined systolic and diastolic CHF, NYHA class 4: Patient with chronic inotrope dependent heart failure on milrinone for 1 year or greater now with decompensated heart failure and failure to respond to usual therapies. Dopamine has been added for blood pressure support. Blood pressure adequate off dopamine infusion Milrinone infusion continuing Tolerating transition to oral diuretics with continued diuresis. We will continue current dose of torsemide and metolazone at this time. Overall prognosis limited Researching SNF placement, agree with discharge to SNF at this time Once again overall poor prognosis was reviewed with patient and his . Okay to discharge to SNF from cardiac standpoint Recommend not restricting the patient's diet at this time. Given his end-stage disease I believe the benefit he receives from beverly from his food far outweighs the risk of any progression of his atherosclerotic disease. (2) Cardiorenal syndrome: (3) Acute on chronic renal failure: (4) Ischemic cardiomyopathy: (5) Acute hyponatremia: (6) End stage liver disease: (7) Hypotension: Patient with profound class IV heart failure Subjective Patient seen and examined out of bed in chair. States he is feeling well today and denies any chest pain, shortness of breath, palpitations, lightheadedness, dizziness or syncope. Telemetry reviewed: Normal sinus rhythm without arrhythmia Review of Systems Review of Systems: All systems reviewed & are unremarkable except as noted in HPI & below Physical Exam Physical Exam: General: Awake, alert and oriented x 3. No acute distress. HEENT: Normocephalic, atraumatic. Pupils equal, round and reactive to light and accommodation. Extraocular muscles are intact. Anicteric sclera. Moist mucous membranes. Neck: No JVD. No bruit. Cardiovascular: Regular. Positive S-4. Normal S-1 and S-2. No S-3. No murmurs or rubs. Pulmonary: Clear to auscultation B/L. No rales, rhonchi or wheezing Abdomen: Bowel sounds x 4, soft. No rebound, guarding or tenderness. No organomegaly. Extremities: No clubbing, cyanosis or edema. +2 pedal pulses bilaterally. Skin: Warm and dry. Results & Data Vital Signs (Past 12 Hours) Vital Signs Temp Pulse Resp BP BP Pulse Ox 06/06/19 07:16 36.3 C L 97 H 18 81/53 L 98 06/06/19 04:07 36.6 C 98 H 20 86/56 L 98 06/05/19 23:16 36.3 C L 97 H 18 81/51 L 99 (1) Cardiorenal syndrome Heart failure presence: with heart failure Hypertensive chronic kidney disease stage: stage 1-4 or unspecified chronic kidney disease Qualified Code(s): I13.0 - Hypertensive heart and chronic kidney disease with heart failure and stage 1 through stage 4 chronic kidney disease, or unspecified chronic kidney disease (2) Acute on chronic renal failure Acute renal failure type: unspecified Chronic kidney disease stage: stage 3 (moderate) Qualified Code(s): N17.9 - Acute kidney failure, unspecified; N18.3 - Chronic kidney disease, stage 3 (moderate) (3) Hypotension Hypotension type: unspecified hypotension type Qualified Code(s): I95.9 - Hypotension, unspecified
[2019-06-06] MEDS: MILRINONE LACTATE/D5W 20,000 MCG/100 ML BAG IV SCH (10:57)
--- NOTE | 2019-06-06 20:00 | Hospitalist Progress Note ---
Date of Service June 06, 2019 Assessment & Plan (1) Fluid overload: (1) Acute on chronic combined systolic and diastolic CHF, NYHA class 4: (2) Ischemic cardiomyopathy: (3) Hypotension: This is a 58-year-old male who has significant past medical history of ischemic cardiomyopathy EF 20% AICD in place on continuous at home milrinone infusion , chronic systolic CHF, HTN, pulmonary HTN, CAD, hx of MSSA endocarditis, cirrhosis, CKD stage III, diet-controlled T2DM, history of tobacco abuse, history of VT arrest s/p ICD in 06/2018 who presents to [facility] secondary to weight gain and lethargy. In ED chest x-ray revealed pulmonary edema. Sodium 124, K2.8, chloride 98, BUN 21, creatinine 1.55. Initial troponin WNL, TSH elevated 9.02, but free T4 WNL. T bili elevated at 1.1, AST 18, ALT 7, alk phos 135, ammonia 34.0. - initially on IV Lasix gtt by Cardiology, now transferred to PO - Started metolazone 2.5 mg twice daily, torsemide 100 mg p.o. daily, so far tolerates well Overall prognosis remains extremely poor - not a candidate for HD given very low BP and hemodynamic instability - BP remains low but acceptable, on cont. milrinone (dopamine stopped 06/01) - transferred to ICU on 05/25/19, now downgraded Overall prognosis is very poor Palliative care involved , appreciate input Pt and updated multiple times cardiology / palliative care /ICU team/ Hospitalist - now considering LTACH/SNF CODE status changed to DNR/DNI after D/w pt and at present cont supportive care pt is yet indecisive to transition to hospice /comfort care Acute renal failure CKD (chronic kidney disease), stage III: possible cardiorenal symptom baseline Cr 1.5 worsening of cr > 2.7 with poor urine output - current Cr 1.8 persisted hypotension causing poor perfusion overall prognosis poor CAD (coronary artery disease): - extensive CAD with severe ischemic cardiomyopathy - EF 20% Cirrhosis: ROBLERO , worsening of ascites due to decompensated CHF and renal failure - s/p 2 Liter of paracentesis by ICU team on 05/25/19 - reaccumulation of ascites noted , with worsening abdominal distention - Stage 4 CHF with poor perfusion, pt will continue to have 3rd spacing of fluids - elevated Ammonia level -due to hepatic congestion - Hyponatremia, secondary to above - ordered Lactulose -pt been refusing (took lactulose yesterday 06/05) - no evidence of hepatic encephalopathy yet DVT prophylaxis: Heparin SQ -pt has been refusing CODE STATUS: DNR/DNI Disposition: over all prognosis remains poor -with limited life expectancy Discussed w/pt and , CM involved, pt wishes to go home but unable to take care of him - now considering LTACH/SNF Subjective Patient is lying in bed, in no acute distress, appears tired. He is unhappy to spend [facility] in the hospital. Denies any fevers, chills, chest pain, palpitations, abdominal pain nausea or vomiting. Review of Systems Review of Systems: All systems reviewed & are unremarkable except as noted in HPI & below Constitutional: + fatigue; no fever and no chills Respiratory: no cough and no dyspnea Cardiovascular: + edema; no chest pain and no palpitations Gastrointestinal: no abdominal pain, no nausea and no vomiting Physical Exam Physical Exam: Constitutional: Elderly male, ill-appearing, lying in bed on suppl. O2, somnolent, and milrinone Eyes: PERRL, EOMI, conjunctivae normal ENMT: external ear and nose normal, oropharynx normal Respiratory: normal respiratory effort; no labored breathing Auscultation: + diminished lung sounds and + mild diffuse rales Cardiovascular: Rate/Rhythm: regular rate, regular rhythm and + slightly tachycardic Heart Sounds: normal S1 and normal S2; no murmur Extremities: + LE edema b/l Gastrointestinal (Abdomen): + abdomen distended (but soft) and normal bowel sounds, nontender, no guarding, not rigid Skin: + venous stasis changes in LEs b/l Neurologic: PERRL, EOMI, accommodation nl, no face palsy, no dysarthria moves all extremities, appears tired, answers questions appropriately Psychiatric: A+Ox3, euthymic affect Results & Data Vital Signs (Past 12 Hours) Vital Signs Temp Pulse Resp BP BP Pulse Ox 06/06/19 19:02 36.3 C L 98 H 19 72/45 L 96 06/06/19 15:36 36.7 C 101 H 18 78/51 L 99 06/06/19 10:53 36.3 C L 102 H 20 80/58 L 96 (1) Fluid overload Hypervolemia type: unspecified Qualified Code(s): E87.70 - Fluid overload, unspecified
[2019-06-07] MEDS: MILRINONE LACTATE/D5W 20,000 MCG/100 ML BAG IV SCH ×2 (05:03→17:37)
[2019-06-07] MEDS: HEPARIN SOD 5,000 UNIT/0.5 ML VIAL SQ SCH ×3 (06:36→20:46)
[2019-06-07 07:09] LABS: BUN Creatinine Ratio 11.8 (10-20); Calcium 7.8 mg/dl (8.5-10.1); Creatinine Clr Calc Pharmacy 40.1 ml/min; Est GFR (African American) 32.6; Est GFR (Non-African American) 28.2; Potassium 3.7 mmol/L (3.5-5.1)
[2019-06-07] MEDS: PANTOprazole 40 MG TAB PO SCH (08:20)
[2019-06-07] MEDS: ASPIRIN 81 MG ECTAB PO SCH (08:20)
[2019-06-07] MEDS: TORSEMIDE 100 MG TAB PO SCH (08:20)
[2019-06-07] MEDS: SERTRALINE HCL 50 MG TABLET PO SCH (08:21)
[2019-06-07] MEDS: MAGNESIUM OXIDE 400 MG TAB PO SCH ×2 (08:21→20:46)
[2019-06-07] MEDS: AMIODARONE 200 MG TAB PO SCH (08:21)
[2019-06-07] MEDS: SPIRONOLACTONE 25 MG TAB PO SCH (08:21)
[2019-06-07] MEDS: metOLazone 2.5 MG TABLET PO SCH (08:21)
[2019-06-07] MEDS: LACTULOSE SYRUP 20 GM/30 ML UDC PO SCH ×4 (08:22→20:51)
--- NOTE | 2019-06-07 11:15 | Cardiology Progress Note ---
Date of Service June 07, 2019 Subjective Telemetry reviewed. Little change clinically. However renal function has declined on testing this morning We will hold metolazone this evening continue all other medications as prescribed Recommendations and outlined as previously defined Results & Data Vital Signs (Past 12 Hours) Vital Signs Temp Pulse Resp BP Pulse Ox 06/07/19 07:10 36.2 C L 91 H 18 82/57 L 100 06/07/19 02:44 36.3 C L 97 H 16 75/47 L 98
--- NOTE | 2019-06-07 16:09 | Hospitalist Progress Note ---
Date of Service June 07, 2019 Assessment & Plan (1) Fluid overload: (1) Acute on chronic combined systolic and diastolic CHF, NYHA class 4: (2) Ischemic cardiomyopathy: (3) Hypotension: This is a 58-year-old male who has significant past medical history of ischemic cardiomyopathy EF 20% AICD in place on continuous at home milrinone infusion , chronic systolic CHF, HTN, pulmonary HTN, CAD, hx of MSSA endocarditis, cirrhosis, CKD stage III, diet-controlled T2DM, history of tobacco abuse, history of VT arrest s/p ICD in 06/2018 admitted to [facility] secondary to weight gain and lethargy. In ED chest x-ray revealed pulmonary edema. Sodium 124, K2.8, chloride 98, BUN 21, creatinine 1.55. Initial troponin WNL, TSH elevated 9.02, but free T4 WNL. T bili elevated at 1.1, AST 18, ALT 7, alk phos 135, ammonia 34.0. - initially on IV Lasix gtt by Cardiology, now transferred to PO - Started metolazone 2.5 mg twice daily, torsemide 100 mg p.o. daily, Aldactone 85 mg daily Creatinine worsen today, metolazone ordered to be kept on hold by cardiology Overall prognosis remains extremely poor - not a candidate for HD given very low BP and hemodynamic instability - BP remains low but acceptable, on cont. milrinone patient been on home IV continuous milrinone infusion since 07/2018 (dopamine stopped 06/01) -Was transferred to ICU on 05/25/19, now downgraded to PCU Overall prognosis is very poor Palliative care involved , appreciate input Pt and updated multiple times cardiology / palliative care /ICU team/ Hospitalist Patient and family both declined hospice care CODE status changed to DNR/DNI after D/w pt and at present cont supportive care /patient wants to return home Overall significant deconditioning, unable to return back home safely/ will not be able to provide care Referral made to SNF versus LTAC-given IV milrinone infusion Acute renal failure CKD (chronic kidney disease), stage III: possible cardiorenal symptom,persisted hypotension causing poor perfusion baseline Cr 1.5 Creatinine worsening 2.4 today noted, ordered to hold metolazone With BMP overall prognosis poor CAD (coronary artery disease): - extensive CAD with severe ischemic cardiomyopathy - EF 20% Developed volume overload, compensated CHF, treated with IV Lasix, changed to p.o. diuretics, Renal function continues to decline Long-term prognosis poor ROBLERO cirrhosis: Developed worsening of ascites due to decompensated CHF and renal failure - s/p 2 Liter of paracentesis by ICU team on 05/25/19 - reaccumulation of ascites noted , with worsening abdominal distention - Stage 4 CHF with poor perfusion, pt will continue to have 3rd spacing of fluids Continued on p.o. diuretics: Aldactone, torsemide, metolazone - elevated Ammonia level -due to hepatic congestion - Hyponatremia, secondary to above - ordered Lactulose -pt been refusing intermittently - no evidence of hepatic encephalopathy yet DVT prophylaxis: Heparin SQ -pt has been refusing CODE STATUS: DNR/DNI Disposition: over all prognosis remains poor -with limited life expectancy Discussed w/pt and , CM involved, pt wishes to go home but unable to take care of him - now considering LTACH/SNF Subjective Patient reports of feeling well, denies of any complaint of shortness of breath, no abdominal pain or discomfort States that" he is doing fine" Wants to know when he can be discharged home No fever or chills, no cough Ramirez draining clear yellow urine Review of Systems Review of Systems: All systems reviewed & are unremarkable except as noted in HPI & below Constitutional: + fatigue; no fever and no chills Cardiovascular: + edema; no chest pain and no palpitations Physical Exam Constitutional: well developed and + ill appearing (chronically) Eyes: PERRL, conjunctivae normal, anicteric sclerae ENMT: external ear and nose normal, oropharynx normal Respiratory: normal respiratory effort; no labored breathing Auscultation: + diminished lung sounds (At the bases bilaterally) and + rales Cardiovascular: Rate/Rhythm: regular rate and regular rhythm Heart Sounds: normal S1 and normal S2; no murmur Vessels: + JVD; no carotid bruit Extremities: + edema (right arm +4 pitting edema, left arm +2 pitting edema) Gastrointestinal (Abdomen): Inspection/Auscultation: + abdomen distended (but soft) and normal bowel sounds Percussion/Palpation: abdomen soft; abdomen nontender, no guarding and abdomen not rigid Neurologic: PERRL, EOMI, accommodation nl, no face palsy, no dysarthria moves all extremities Psychiatric: A+Ox3, euthymic affect Orientation: alert and oriented x 3 Results & Data Vital Signs (Past 12 Hours) Vital Signs Temp Pulse Resp BP BP Pulse Ox 06/07/19 15:41 36.5 C 96 H 18 75/48 L 98 06/07/19 11:22 36.3 C L 98 H 18 79/55 L 96 06/07/19 07:10 36.2 C L 91 H 18 82/57 L 100 (1) Fluid overload Hypervolemia type: unspecified Qualified Code(s): E87.70 - Fluid overload, unspecified
[2019-06-08] MEDS: HEPARIN SOD 5,000 UNIT/0.5 ML VIAL SQ SCH ×3 (05:09→20:13)
[2019-06-08 07:11] LABS: BUN Creatinine Ratio 13.3 (10-20); Calcium 7.7 mg/dl (8.5-10.1); Creatinine Clr Calc Pharmacy 39.1 ml/min; Est GFR (African American) 35.4; Est GFR (Non-African American) 30.5; Potassium 3.6 mmol/L (3.5-5.1)
[2019-06-08] MEDS: MILRINONE LACTATE/D5W 20,000 MCG/100 ML BAG IV SCH ×2 (07:53→23:26)
[2019-06-08] MEDS: AMIODARONE 200 MG TAB PO SCH (07:54)
[2019-06-08] MEDS: ASPIRIN 81 MG ECTAB PO SCH (07:54)
[2019-06-08] MEDS: TORSEMIDE 100 MG TAB PO SCH (07:54)
[2019-06-08] MEDS: MAGNESIUM OXIDE 400 MG TAB PO SCH ×2 (07:54→20:13)
[2019-06-08] MEDS: PANTOprazole 40 MG TAB PO SCH (07:54)
[2019-06-08] MEDS: SERTRALINE HCL 50 MG TABLET PO SCH (07:54)
[2019-06-08] MEDS: LACTULOSE SYRUP 20 GM/30 ML UDC PO SCH ×3 (07:55→20:13)
[2019-06-08] MEDS: SPIRONOLACTONE 25 MG TAB PO SCH (07:55)
[2019-06-08] MEDS: PROMETHAZINE HCL 6.25 MG in SODIUM CHLORIDE 0.9% 50 ML IV PRN (12:22)
--- NOTE | 2019-06-08 13:49 | Internal Medicine Consult Note ---
Date of Consultation June 08, 2019 Assessment & Plan (1) Encounter for rehabilitation evaluation: His condition is beyond what the [facility] hospital can do to help him. He would not be able to participate in any meaningful rehab activity. History of Present Illness Reason for Consultation: Evaluate Medical Stability for [facility] Attending Physician: Natalie Savage MD History of Present Illness Mr. Edward suffers from end-stage CHF. A referral for consideration of Rehab Hospital care initiated. His performance status is very very poor. He exhibits all signs of poor perfusion. He has no endurance to perform the most basic activities of daily living without support and assistance. He has been treated with Milrinone for an extended period of time. Allergies Allergy/AdvReac Type Severity Reaction Status Date / Time atorvastatin Allergy Severe itching Verified 04/06/19 22:14 nafcillin Allergy Intermediate Rash Verified 04/06/19 21:51 piperacillin [From Zosyn] Allergy Intermediate Rash Verified 04/06/19 21:51 tazobactam [From Zosyn] Allergy Intermediate Rash Verified 04/06/19 21:51 bee venom protein (honey bee) Allergy Unknown Verified 04/06/19 21:51 hydromorphone [From Dilaudid] Allergy Unknown Verified 04/06/19 21:51 levofloxacin [From Levaquin] Allergy Hives Verified 04/06/19 21:51 Home Medications Home Medications Medication Instructions Recorded Confirmed Type Milrinone Lactate In Dextrose 88 kg IV UD 04/06/19 05/22/19 History acetaminophen [Tylenol Extra 500 mg PO Q6H PRN 04/06/19 05/22/19 History Strength] albuterol sulfate 2 puff INHALATION Q6 PRN 04/06/19 05/22/19 History albuterol sulfate 2.5 mg INHALATION Q4 PRN 04/06/19 05/22/19 History amiodarone [Pacerone] 200 mg PO DAILY 04/06/19 05/22/19 History aspirin [Aspir-81] 81 mg PO DAILY 04/06/19 05/22/19 History docusate sodium 100 mg PO BID PRN 04/06/19 05/22/19 History epinephrine [EpiPen] 0.3 mg IM UD PRN 04/06/19 05/22/19 History lorazepam [Ativan] 1 mg PO HS PRN 04/06/19 05/22/19 History magnesium oxide [MagOx] 400 mg PO BID 04/06/19 05/22/19 History metoprolol succinate [Toprol XL] 25 mg PO DAILY 04/06/19 05/22/19 History omeprazole 40 mg PO DAILY 04/06/19 05/22/19 History sertraline [Zoloft] 50 mg PO DAILY 04/06/19 05/22/19 History ursodiol [Actigall] 300 mg PO BID 04/06/19 05/22/19 History metolazone 5 mg PO BID 30 Days #60 tab 04/08/19 05/22/19 Rx potassium chloride [Klor-Con M20] 40 meq PO TID 30 Days #90 tab 04/08/19 05/22/19 Rx spironolactone [Aldactone] 25 mg PO DAILY 05/22/19 05/22/19 History torsemide 100 mg PO TID 05/22/19 05/22/19 History Patient History Medical History (Updated 06/08/19 @ 13:48 by Abram Damon MD) Abdominal pain Acute on chronic HFrEF (heart failure with reduced ejection fraction) Acute on chronic systolic (congestive) heart failure Anemia (Chronic) Anxiety (Chronic) CAD (coronary artery disease) (Chronic) s/p stent LAD in 2004 Cardiac arrest (Resolved) 05/2018 Cardiogenic shock Cirrhosis CKD (chronic kidney disease), stage III (Chronic) Diabetes mellitus, type II (Chronic) Dyslipidemia (Chronic) Elevated liver function tests (Chronic) 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 GERD (gastroesophageal reflux disease) (Chronic) History of acute renal failure History of tobacco use (Chronic) HTN (hypertension) (Chronic) Hypokalemia Hyponatremia Ischemic cardiomyopathy (Chronic) 05/2018 EF: 20-24% Pleural effusion on right Thrombocytopenia (Chronic) Surgical History History of heart artery stent ICD (implantable cardioverter-defibrillator) in place (Chronic) 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 [facility] [place]18 [place] [facility] [place] Family History Other Coronary heart disease Social History Preferred Language: Gambian Communication Ability: Effective Mental Health Program Manager Required: No Beliefs That Will Affect Care: None Current Living Situation: Spouse Current Living Situation Comment: home Other Information That Helps Us Care for You: No Feels Safe at Home: Yes Safety Concerns: Feels Safe At This Time Smoking Status: Current some day smoker Tobacco Type: cigarettes ; Cigarettes Per Day: 1 ; Do You Dip or Chew Tobacco: No ; Second Hand Exposure: No ; Tobacco Cessation Education Requested by Patient: No Hx Alcohol Use: No Hx Substance Use: No Review of Systems Review of Systems: No new ROS targets Physical Exam Physical Exam: Vitals reviewed HEENT-bitemporal wasting Respiratory--exchange is fair Cardio--as noted--poor perfusion and changes consistent with profound LV dysfunction Abdomen--distended Musculo--wasting Neuro--no focal target Derm--poor perfusion changes Results & Data Vital Signs (Past 12 Hours) Vital Signs Temp Pulse Resp BP Pulse Ox 06/08/19 11:32 36.3 C L 96 H 20 91/62 L 96 06/08/19 08:40 36.2 C L 91 H 20 72/49 L 94 06/08/19 04:00 36.3 C L 96 H 20 74/53 L 96
--- NOTE | 2019-06-08 15:53 | Hospitalist Progress Note ---
Date of Service June 08, 2019 Assessment & Plan (1) Fluid overload: (1) Acute on chronic combined systolic and diastolic CHF, NYHA class 4: (2) Ischemic cardiomyopathy: (3) Hypotension: This is a 58-year-old male who has significant past medical history of ischemic cardiomyopathy EF 20% s/p AICD was on continuous home IV milrinone infusion since 07/2018 , chronic systolic CHF, HTN, pulmonary HTN, CAD, hx of MSSA endocarditis, cirrhosis, CKD stage III, diet-controlled T2DM, history of tobacco abuse, history of VT arrest s/p ICD in 06/2018 admitted to [facility] secondary to weight gain and lethargy. - initially on IV Lasix gtt by Cardiology, now transferred to PO - Started metolazone 2.5 mg twice daily, torsemide 100 mg p.o. daily, Aldactone 85 mg daily metolazone ordered to be kept on hold by cardiology for worsening creatinine will resume tomorrow if renal function stays stable Overall prognosis remains extremely poor - not a candidate for HD given very low BP and hemodynamic instability - BP remains low but acceptable, on IV milrinone gtt (dopamine stopped 06/01) Overall prognosis is very poor Palliative care involved , appreciate input Pt and updated multiple times cardiology / palliative care /ICU team/ Hospitalist Patient and family both declined hospice care CODE status changed to DNR/DNI after D/w pt and at present cont supportive care /patient wants to return home Overall significant deconditioning, unable to return back home safely/ will not be able to provide care Referral made to LTAC-given IV milrinone infusion Acute renal failure CKD (chronic kidney disease), stage III: possible cardiorenal symptom,persisted hypotension causing poor perfusion baseline Cr 1.5 Metolazone was kept on hold for worsening of creatinine will be resumed tomorrow if cr remains stable , improves With BMP overall prognosis poor CAD (coronary artery disease): - extensive CAD with severe ischemic cardiomyopathy - EF 20% Developed volume overload, compensated CHF, treated with IV Lasix, changed to p.o. diuretics, Renal function continues to decline Long-term prognosis poor ROBLERO cirrhosis: Developed worsening of ascites due to decompensated CHF and renal failure - s/p 2 Liter of paracentesis by ICU team on 05/25/19 - - Stage 4 CHF with poor perfusion, pt will continue to have 3rd spacing of fluids Continued on p.o. diuretics: Aldactone, torsemide, metolazone - elevated Ammonia level -due to hepatic congestion -no confusion or hepatic encephalopathy noted LFT level normalized after diuresis - Hyponatremia, secondary to above - ordered Lactulose -pt been refusing intermittently-will hold off as no evidence of hepatic encephalopathy DVT prophylaxis: Heparin SQ - CODE STATUS: DNR/DNI Disposition: over all prognosis remains poor -with limited life expectancy Discussed w/pt and , CM involved, pt wishes to go home but unable to take care of him - now considering LTAC called pt's Kaylee given update over the phone Subjective pt reports of feeling well denies of any complain of SOB , no cough no fever or chills Review of Systems Review of Systems: All systems reviewed & are unremarkable except as noted in HPI & below Physical Exam Constitutional: well developed and + ill appearing (chronically) Eyes: PERRL, conjunctivae normal, anicteric sclerae ENMT: external ear and nose normal, oropharynx normal Respiratory: normal respiratory effort; no labored breathing Auscultation: + diminished lung sounds (At the bases bilaterally) and + rales Cardiovascular: Rate/Rhythm: regular rate and regular rhythm Heart Sounds: normal S1 and normal S2; no murmur Vessels: + JVD; no carotid bruit Extremities: + edema (right arm +4 pitting edema, left arm +2 pitting edema) Gastrointestinal (Abdomen): Inspection/Auscultation: + abdomen distended (but soft) and normal bowel sounds Percussion/Palpation: abdomen soft; abdomen nontender, no guarding and abdomen not rigid Skin: + jaundice Neurologic: PERRL, EOMI, accommodation nl, no face palsy, no dysarthria moves all extremities Psychiatric: A+Ox3, euthymic affect Orientation: alert and oriented x 3 Insight: + limited insight Judgement: + limited judgement Results & Data Vital Signs (Past 12 Hours) Vital Signs Temp Pulse Resp BP Pulse Ox 06/08/19 15:34 36.5 C 95 H 16 83/51 L 95 06/08/19 11:32 36.3 C L 96 H 20 91/62 L 96 06/08/19 08:40 36.2 C L 91 H 20 72/49 L 94 06/08/19 04:00 36.3 C L 96 H 20 74/53 L 96 (1) Fluid overload Hypervolemia type: unspecified Qualified Code(s): E87.70 - Fluid overload, unspecified
[2019-06-09] MEDS: HEPARIN SOD 5,000 UNIT/0.5 ML VIAL SQ SCH ×3 (05:15→20:40)
[2019-06-09 05:54] LABS: BUN Creatinine Ratio 13.2 (10-20); Calcium 7.3 mg/dl (8.5-10.1); Creatinine Clr Calc Pharmacy 39.2 ml/min; Est GFR (African American) 35.6; Est GFR (Non-African American) 30.7; Potassium 3.7 mmol/L (3.5-5.1)
[2019-06-09] MEDS: TORSEMIDE 100 MG TAB PO SCH (10:18)
[2019-06-09] MEDS: SPIRONOLACTONE 25 MG TAB PO SCH (10:18)
[2019-06-09] MEDS: MAGNESIUM OXIDE 400 MG TAB PO SCH ×2 (10:18→23:30)
[2019-06-09] MEDS: AMIODARONE 200 MG TAB PO SCH (10:19)
[2019-06-09] MEDS: LACTULOSE SYRUP 20 GM/30 ML UDC PO SCH ×3 (10:19→20:40)
[2019-06-09] MEDS: SERTRALINE HCL 50 MG TABLET PO SCH (10:19)
[2019-06-09] MEDS: PANTOprazole 40 MG TAB PO SCH (10:19)
[2019-06-09] MEDS: ASPIRIN 81 MG ECTAB PO SCH (10:19)
[2019-06-09] MEDS: MILRINONE LACTATE/D5W 20,000 MCG/100 ML BAG IV SCH (14:37)
--- NOTE | 2019-06-09 15:55 | Hospitalist Progress Note ---
Date of Service June 09, 2019 Assessment & Plan (1) Fluid overload: (1) Acute on chronic combined systolic and diastolic CHF, NYHA class 4: (2) Ischemic cardiomyopathy: (3) Hypotension: This is a 58-year-old male who has significant past medical history of ischemic cardiomyopathy EF 20% s/p AICD was on continuous home IV milrinone infusion since 07/2018 , chronic systolic CHF, HTN, pulmonary HTN, CAD, hx of MSSA endocarditis, cirrhosis, CKD stage III, diet-controlled T2DM, history of tobacco abuse, history of VT arrest s/p ICD in 06/2018 admitted to [facility] secondary to weight gain and lethargy. Required ICU transfer pressors: Dobutamine, (dopamine stopped 06/01) - initially on IV Lasix gtt by Cardiology, now transferred to PO - Started metolazone 2.5 mg twice daily, torsemide 100 mg p.o. daily, Aldactone 85 mg daily Worsening of shortness of breath, bilateral rales, increased abdominal girth noted today 40 mg of IV Lasix ordered, abdominal ultrasound to assess for ascites Overall prognosis remains extremely poor - not a candidate for HD given very low BP and hemodynamic instability - BP remains low but acceptable, on IV milrinone gtt Overall prognosis is very poor Palliative care involved , appreciate input Pt and updated multiple times cardiology / palliative care /ICU team/ Hospitalist Patient and family both declined hospice care CODE status changed to DNR/DNI after D/w pt and at present cont supportive care /patient wants to return home Overall significant deconditioning, unable to return back home safely/ will not be able to provide care Referral made to LTAC-given IV milrinone infusion Acute renal failure CKD (chronic kidney disease), stage III: possible cardiorenal symptom,persisted hypotension causing poor perfusion baseline Cr 1.5 Callosum resumed, extra dose of Lasix given /only congestion shortness of breath, reaccumulation of ascites overall prognosis poor CAD (coronary artery disease): - extensive CAD with severe ischemic cardiomyopathy - EF 20% Developed volume overload, compensated CHF, treated with IV Lasix, changed to p.o. diuretics, Renal function continues to decline Long-term prognosis poor ROBLERO cirrhosis: Developed worsening of ascites due to decompensated CHF and renal failure - s/p 2 Liter of paracentesis by ICU team on 05/25/19 -Repeat abdominal ultrasound ordered as increased abdominal girth noted, patient has biventricular heart failure, continues to have third spacing of fluids - Stage 4 CHF with poor perfusion, pt will continue to have 3rd spacing of fluids Continued on p.o. diuretics: Aldactone, torsemide, metolazone - elevated Ammonia level -due to hepatic congestion -no confusion or hepatic encephalopathy noted LFT level normalized after diuresis - Hyponatremia, secondary to above - DVT prophylaxis: Heparin SQ - CODE STATUS: DNR/DNI Disposition: over all prognosis remains poor -with limited life expectancy Discussed w/pt and , CM involved, pt wishes to go home but unable to take care of him - now considering LTAC Patient's is agreeable for transfer to [facility] in [place] plan to tx to LTACH in 24-48 hrs if remains medically stable Subjective Complains of being more short of breath today, having pain and discomfort in the abdomen 8 out of 10 Reports of abdominal distention, No cough, no orthopnea, no fever or chills Generalized weakness Review of Systems Review of Systems: All systems reviewed & are unremarkable except as noted in HPI & below Physical Exam Constitutional: well developed and + ill appearing (chronically) Eyes: PERRL, conjunctivae normal, anicteric sclerae ENMT: external ear and nose normal, oropharynx normal Respiratory: normal respiratory effort; no labored breathing Auscultation: + diminished lung sounds (At the bases bilaterally) and + rales Cardiovascular: Rate/Rhythm: regular rate and regular rhythm Heart Sounds: normal S1 and normal S2; no murmur Vessels: + JVD; no carotid bruit Extremities: + edema (right arm +4 pitting edema, left arm +2 pitting edema) Gastrointestinal (Abdomen): Inspection/Auscultation: + abdomen distended (but soft), normal bowel sounds and + visible herniation (Ventral/umbilical hernia); + abdomen abnormal to inspection (Large ventral hernia) Percussion/Palpation: abdomen soft and + ascites; abdomen nontender, no guarding and abdomen not rigid Neurologic: PERRL, EOMI, accommodation nl, no face palsy, no dysarthria moves all extremities Psychiatric: A+Ox3, euthymic affect Orientation: alert and oriented x 3 Results & Data Vital Signs (Past 12 Hours) Vital Signs Temp Pulse Pulse Resp BP BP Pulse Ox 06/09/19 15:54 36.3 C L 95 H 20 76/51 L 98 06/09/19 11:19 36.3 C L 96 H 20 73/43 L 98 06/09/19 11:06 97 H 06/09/19 07:30 36.4 C L 95 H 16 77/50 L 96 (1) Fluid overload Hypervolemia type: unspecified Qualified Code(s): E87.70 - Fluid overload, unspecified
[2019-06-09] MEDS ORDERED: TRAMADOL HCL 50 MG TABLET PO PRN (19:46)
[2019-06-09] MEDS ORDERED: FUROSEMIDE 40 MG in SYRINGE 0 ML IV STA (19:47)
--- NOTE | 2019-06-09 23:08 | Ultrasound Report ---
US abdomen ltd ascites HISTORY: 58 years-old Male ascities follow-up study in a patient with history of ascites COMPARISON: Abdominal ultrasound 05/25/2018 TECHNIQUE: Multiple real-time sonographic images of the abdomen were obtained assessing grayscale ludmila earance. FINDINGS/IMPRESSION: Small volume ascites noted within all 4 quadrants of the abdomen, similar to comparison. ACT 112: Negative or not required by law. The above report was generated using voice recognition software. It may contain grammatical, syntax o r spelling errors. Electronically signed by: Andi Valenzuela M.D. 06/09/2019 11:07 PM
[2019-06-10] MEDS: MILRINONE LACTATE/D5W 20,000 MCG/100 ML BAG IV SCH ×2 (05:43→18:46)
[2019-06-10] MEDS: HEPARIN SOD 5,000 UNIT/0.5 ML VIAL SQ SCH ×3 (05:43→20:12)
[2019-06-10 07:58] LABS: BUN Creatinine Ratio 13.4 (10-20); Calcium 7.6 mg/dl (8.5-10.1); Creatinine Clr Calc Pharmacy 40.2 ml/min; Est GFR (African American) 33.3; Est GFR (Non-African American) 28.7; Potassium 3.6 mmol/L (3.5-5.1)
[2019-06-10] MEDS: TORSEMIDE 100 MG TAB PO SCH (09:46)
[2019-06-10] MEDS: LACTULOSE SYRUP 20 GM/30 ML UDC PO SCH ×3 (09:46→20:12)
[2019-06-10] MEDS: ASPIRIN 81 MG ECTAB PO SCH (09:46)
[2019-06-10] MEDS: SPIRONOLACTONE 25 MG TAB PO SCH (09:46)
[2019-06-10] MEDS: PANTOprazole 40 MG TAB PO SCH (09:46)
[2019-06-10] MEDS: AMIODARONE 200 MG TAB PO SCH (09:47)
[2019-06-10] MEDS: MAGNESIUM OXIDE 400 MG TAB PO SCH ×2 (09:47→20:12)
[2019-06-10] MEDS: SERTRALINE HCL 50 MG TABLET PO SCH (09:47)
[2019-06-10] MEDS: metOLazone 2.5 MG TABLET PO SCH ×2 (10:09→16:47)
--- NOTE | 2019-06-10 12:49 | Hospitalist Progress Note ---
Date of Service June 10, 2019 Assessment & Plan (1) Fluid overload: (1) Acute on chronic combined systolic and diastolic CHF, NYHA class 4: (2) Ischemic cardiomyopathy: (3) Hypotension: Secondary to advanced CHF, on IV milrinone drip chronically Patient's clinical status has been stable for last few days This is a 58-year-old male who has significant past medical history of ischemic cardiomyopathy EF 20% s/p AICD was on continuous home IV milrinone infusion since 07/2018 , chronic systolic CHF, HTN, pulmonary HTN, CAD, hx of MSSA endocarditis, cirrhosis, CKD stage III, diet-controlled T2DM, history of tobacco abuse, history of VT arrest s/p ICD in 06/2018 admitted to [facility] secondary to weight gain and lethargy. Required ICU transfer pressors: Dobutamine, (dopamine stopped 06/01) - initially on IV Lasix gtt by Cardiology, now on p.o. PO diuretics- metolazone 2.5 mg twice daily, torsemide 100 mg p.o. daily, Aldactone 85 mg daily Overall prognosis remains extremely poor - BP remains low but acceptable, on IV milrinone gtt Overall prognosis is very poor Palliative care involved , appreciate input Pt and updated multiple times cardiology / palliative care /ICU team/ Hospitalist Patient and family both declined hospice care CODE status changed to DNR/DNI after D/w pt and Overall significant deconditioning, unable to return back home safely/ will not be able to provide care Referral made to LTACH-given IV milrinone infusion And is accepted at [facility] And [facility] in next 24 to 48 hours when bed available Acute renal failure CKD (chronic kidney disease), stage III: possible cardiorenal symptom,persisted hypotension causing poor perfusion baseline Cr 1.5 Creatinine remains between 2.22.4 On diuretics as outlined above, Not a candidate for dialysis secondary to very poor perforation status, advance congestive heart failure on milrinone drip CAD (coronary artery disease): - extensive CAD with severe ischemic cardiomyopathy - EF 20% Developed volume overload, compensated CHF, treated with IV Lasix, changed to p.o. diuretics, Has been on IV milrinone drip for past 10 months Long-term prognosis poor ROBLERO cirrhosis: Developed worsening of ascites due to decompensated CHF and renal failure patient has biventricular heart failure, continues to have third spacing of fluids - s/p 2 Liter of paracentesis by ICU team on 05/25/19 -Repeat abdominal ultrasound: Small volume ascites noted within for all 4 quadrant of abdomen, similar to ultrasound on 05/25/2019 Patient does not need paracentesis - Stage 4 CHF with poor perfusion, pt will continue to have 3rd spacing of fluids Continued on p.o. diuretics: Aldactone, torsemide, metolazone - elevated Ammonia level -due to hepatic congestion -no confusion or hepatic e ncephalopathy noted LFT level normalized after diuresis Ordered PRN lactulose - Hyponatremia, secondary to above - DVT prophylaxis: Heparin SQ - CODE STATUS: DNR/DNI Disposition: over all prognosis remains poor -with limited life expectancy Discussed w/pt and , CM involved, pt wishes to go home but unable to take care of him - now considering LTAC Patient's is agreeable for transfer to [facility] in [place] plan to tx to LTACH in 24-48 hrs if remains medically stable Subjective Patient offers no complaint today feels much better no complaint of shortness of breath abdominal pain pain discomfort has resolved tolerating diet no fever or chills or cough Review of Systems Constitutional: + fatigue; no fever and no chills Cardiovascular: + edema; no chest pain and no palpitations Physical Exam Constitutional: well developed and + ill appearing (chronically) Eyes: PERRL, conjunctivae normal, anicteric sclerae ENMT: external ear and nose normal, oropharynx normal Respiratory: normal respiratory effort; no labored breathing Auscultation: + diminished lung sounds (At the bases bilaterally) and + rales Cardiovascular: Rate/Rhythm: regular rate and regular rhythm Heart Sounds: normal S1 and normal S2; no murmur Vessels: + JVD; no carotid bruit Extremities: + edema (right arm +4 pitting edema, left arm +2 pitting edema) Gastrointestinal (Abdomen): Inspection/Auscultation: + abdomen distended (but soft), normal bowel sounds and + visible herniation (Ventral/umbilical hernia); + abdomen abnormal to inspection (Large ventral hernia) Percussion/Palpation: abdomen soft and + ascites; abdomen nontender, no guarding and abdomen not rigid Skin: + jaundice Neurologic: PERRL, EOMI, accommodation nl, no face palsy, no dysarthria moves all extremities Psychiatric: A+Ox3, euthymic affect Orientation: alert and oriented x 3 Insight: + limited insight Judgement: + limited judgement Results & Data Vital Signs (Past 12 Hours) Vital Signs Temp Pulse Resp BP Pulse Ox 06/10/19 11:22 35.8 C L 87 19 63/42 L 100 06/10/19 07:40 36.3 C L 93 H 22 76/46 L 97 06/10/19 03:19 36.2 C L 96 H 18 77/50 L 98 (1) Fluid overload Hypervolemia type: unspecified Qualified Code(s): E87.70 - Fluid overload, unspecified
[2019-06-11] MEDS: HEPARIN SOD 5,000 UNIT/0.5 ML VIAL SQ SCH (06:33)
[2019-06-11] MEDS ORDERED: FAMOTIDINE 20 MG TAB PO SCH (09:00)
[2019-06-11] MEDS: ASPIRIN 81 MG ECTAB PO SCH (09:48)
[2019-06-11] MEDS: SPIRONOLACTONE 25 MG TAB PO SCH (09:48)
[2019-06-11] MEDS: TORSEMIDE 100 MG TAB PO SCH (09:49)
[2019-06-11] MEDS: metOLazone 2.5 MG TABLET PO SCH (09:49)
[2019-06-11] MEDS: MAGNESIUM OXIDE 400 MG TAB PO SCH (09:49)
[2019-06-11] MEDS: AMIODARONE 200 MG TAB PO SCH (09:50)
[2019-06-11] MEDS: LACTULOSE SYRUP 20 GM/30 ML UDC PO SCH (09:51)
[2019-06-11] MEDS: SERTRALINE HCL 50 MG TABLET PO SCH (09:51)
[2019-06-11] MEDS: MILRINONE LACTATE/D5W 20,000 MCG/100 ML BAG IV SCH (10:35)
--- NOTE | 2019-06-11 11:37 | Discharge Summary ---
Date of Service June 11, 2019 Admission HPI Per Admitting Provider This is a 58-year-old male who has significant past medical history of ischemic cardiomyopathy EF 20% AICD in place on continuous milrinone infusion, chronic systolic CHF, HTN, pulmonary HTN, CAD, cirrhosis, CKD stage III, diet-controlled T2DM, history of tobacco abuse, history of V. tach who presents to [facility] secondary to weight gain and lethargy. Of significance patient recently hospitalized at [facility] 05/09 to 05/12 secondary to acute on chronic systolic CHF and rhinovirus. He required Lasix drip for appropriate diuresis. On day of discharge he was 105 kg. He was recommended to continue admission but opted to be discharged to attend event. Today patient's weight is 111 kg. "I am full of fluid again." He admits to being noncompliant with medications. He denies any fever, chills, sweats, lightheadedness, dizziness, chest pain, shortness breath or palpitations, nausea, vomiting, abdominal pain, dysuria, increased urgency or frequency with urination, melena, hematochezia, diarrhea. His last bowel movement was prior to arrival. He admits to not following fluid restriction. He has significant protuberant abdomen which he feels is unchanged. He is unable to sleep lying down and does sleep in recliner. Denies any significant orthopnea. Feels appetite is decreased. In ED chest x-ray revealed pulmonary edema. Sodium 124, K2.8, chloride 98, BUN 21, creatinine 1.55. Initial troponin WNL, TSH elevated 9.02, but free T4 WNL. T bili elevated at 1.1, AST 18, ALT 7, alk phos 135, ammonia 34.0. EKG revealed sinus rhythm with first-degree AV block. He did receive IV potassium supplementation as well as 40 mg IV Lasix while in ED. Past medical records reviewed, discussed case with ED provider Dr. Martinez and Cardiology Dr. Deng Principal Diagnosis Cardiogenic shock/cardiorenal syndrome/acute or chronic combined systolic and diastolic CHF, NYHA class IV, acute on renal failure on CKD stage III, fluid overload, Ramirez cirrhosis, hepatic congestion Discharge Exam Constitutional well developed and + ill appearing (chronically) Eyes PERRL, conjunctivae normal, anicteric sclerae ENMT external ear and nose normal, oropharynx normal Respiratory normal respiratory effort; no labored breathing Auscultation: + diminished lung sounds (At the bases bilaterally) and + rales Cardiovascular Rate/Rhythm: regular rate and regular rhythm Heart Sounds: normal S1 and normal S2; no murmur Vessels: + JVD; no carotid bruit Extremities: + edema (right arm +4 pitting edema, left arm +2 pitting edema) Gastrointestinal (Abdomen) Inspection/Auscultation: + abdomen distended (but soft), normal bowel sounds and + visible herniation (Ventral/umbilical hernia); + abdomen abnormal to inspection (Large ventral hernia) Percussion/Palpation: abdomen soft and + ascites; abdomen nontender, no guarding and abdomen not rigid Skin + jaundice Neurologic PERRL, EOMI, accommodation nl, no face palsy, no dysarthria moves all extremities Psychiatric A+Ox3, euthymic affect Orientation: alert and oriented x 3 Insight: + limited insight Judgement: + limited judgement Discharge Data Allergies Allergy/AdvReac Type Severity Reaction Status Date / Time atorvastatin Allergy Severe itching Verified 04/06/19 22:14 nafcillin Allergy Intermediate Rash Verified 04/06/19 21:51 piperacillin [From Zosyn] Allergy Intermediate Rash Verified 04/06/19 21:51 tazobactam [From Zosyn] Allergy Intermediate Rash Verified 04/06/19 21:51 bee venom protein (honey bee) Allergy Unknown Verified 04/06/19 21:51 hydromorphone [From Dilaudid] Allergy Unknown Verified 04/06/19 21:51 levofloxacin [From Levaquin] Allergy Hives Verified 04/06/19 21:51 Consultations 05/22/19 15:30 ED Decision to Admit Stat 05/22/19 16:09 Consult Cardiology Routine 05/24/19 09:46 Consult Palliative Care Routine 05/25/19 09:34 Consult Recreation Activities Coordinator Routine Ordered Studies 05/25/19 10:22 US abdomen ltd ascites Urgent 05/25/19 14:14 US point of care ultrasound Urgent 05/26/19 14:18 US venous doppler UE RT Routine 05/30/19 17:03 US point of care ultrasound Routine 06/09/19 19:45 US abdomen ltd ascites Routine Hospital Course (1) Fluid overload: (1) Acute on chronic combined systolic and diastolic CHF, NYHA class 4: (2) Ischemic cardiomyopathy: (3) Hypotension: Secondary to advanced CHF, on IV milrinone drip chronically Patient's clinical status has been stable for last few days Patient is accepted at [facility] Care facility at [facility]-able to be transferred This is a 58-year-old male who has significant past medical history of ischemic cardiomyopathy EF 20% s/p AICD was on continuous home IV milrinone infusion since 07/2018 , chronic systolic CHF, HTN, pulmonary HTN, CAD, hx of MSSA endocarditis, cirrhosis, CKD stage III, diet-controlled T2DM, history of tobacco abuse, history of VT arrest s/p ICD in 06/2018 admitted to [facility] secondary to weight gain and lethargy. Required ICU transfer pressors: Dobutamine, (dopamine stopped 06/01) - initially on IV Lasix gtt by Cardiology, now on p.o. PO diuretics- metolazone 2.5 mg twice daily, torsemide 100 mg p.o. daily, Aldactone 85 mg daily Overall prognosis remains extremely poor - BP remains low but acceptable, on IV milrinone gtt -discontinued Overall prognosis is very poor Palliative care involved , appreciate input Pt and updated multiple times cardiology / palliative care /ICU team/ Hospitalist Patient and family both declined hospice care CODE status changed to DNR/DNI after D/w pt and Overall significant deconditioning, unable to return back home safely/ will not be able to provide care Referral made to LTACH-given IV milrinone infusion And is accepted at [facility] Patient is transferred to [facility] today Acute renal failure CKD (chronic kidney disease), stage III: possible cardiorenal symptom,persisted hypotension causing poor perfusion baseline Cr 1.5 Creatinine remains between 2.22.4 On diuretics as outlined above, Not a candidate for dialysis secondary to very poor perforation status, advance congestive heart failure on milrinone drip CAD (coronary artery disease): - extensive CAD with severe ischemic cardiomyopathy - EF 20% Developed volume overload, compensated CHF, treated with IV Lasix, changed to p.o. diuretics, Has been on IV milrinone drip for past 10 months she is continued on transfer to [facility] Long-term prognosis poor RAMIREZ cirrhosis: Developed worsening of ascites due to decompensated CHF and renal failure patient has biventricular heart failure, continues to have third spacing of fluids - s/p 2 Liter of paracentesis by ICU team on 05/25/19 -Repeat abdominal ultrasound: Small volume ascites noted within for all 4 quadrant of abdomen, similar to ultrasound on 05/25/2019 Patient does not need paracentesis - Stage 4 CHF with poor perfusion, pt will continue to have 3rd spacing of fluids Continued on p.o. diuretics: Aldactone, torsemide, metolazone - elevated Ammonia level -due to hepatic congestion -no confusion or hepatic encephalopathy noted LFT level normalized after diuresis Continue on p.o. lactulose - DVT prophylaxis: Heparin SQ - CODE STATUS: DNR/DNI Disposition: over all prognosis remains poor -with limited life expectancy Patient is stable to be transferred to [facility] in [place] Total Time Total Time Spent Total Time Spent (In Minutes): Approximately 35 minutes Total Time Includes: Examination of the Patient, Discharge Planning, Medication Reconciliation and Communication With Other Providers Discharge Plan Discharge Items Patient Disposition: Transfer Acute [facility] Reason For Visit: A/C SYSTOLIC CHF Discharge Diagnosis: Cardiogenic shock/cardiorenal syndrome/acute or chronic combined systolic and diastolic CHF, NYHA class IV, acute on renal failure on CKD stage III, fluid overload, Ramirez cirrhosis, hepatic congestion Activity: As commented below Activity Comment: As tolerated Non-emergency contact: Primary Care Provider Call non-emergency contact if: you have any medication questions Follow-up/Referrals: Charles Oakes DO [Primary Care Provider] - Diet: Heart Healthy Fluids: 1500ml (6 cups) Addtl Attending Provider Instructions: Continue on IV milrinone drip as tolerated, lactulose dose can be increased if evidence of hepatic encephalopathy Pending Studies at Discharge: No Stand-Alone Forms: My [facility] Skilled Items Patient informed of condition?: Yes DNR: Yes Discharge Level of Care: Other Communicable Disease: No Discharge Prognosis: Deteriorating Lines: US Guided Peripheral IV Urinary Catheter: Yes Medications and DC Order Prescriptions: New famotidine 20 mg Tablet 20 mg PO BID 30 Days Qty: 60 RF: 0 magnesium oxide 400 mg (241.3 mg magnesium) Tablet 400 mg PO BID 30 Days Qty: 60 RF: 0 lactulose 20 gram/30 mL Solution 30 ml PO TID 30 Days Qty: 2700 RF: 0 Continued omeprazole 40 mg capsule,delayed release(DR/EC) 40 mg PO DAILY RF: 0 epinephrine [EpiPen] 0.3 mg/0.3 mL Auto-Injector 0.3 mg IM UD PRN (Reason: severe allerggic reaction) RF: 0 albuterol sulfate 90 mcg/actuation Hfa Aerosol Inhaler 2 puff INHALATION Q6 PRN (Reason: sob/wheeze) RF: 0 sertraline [Zoloft] 50 mg tablet 50 mg PO DAILY RF: 0 albuterol sulfate 2.5 mg /3 mL (0.083 %) Solution For Nebulization 2.5 mg INHALATION Q4 PRN (Reason: Shortness Of Breath Or Wheezing) RF: 0 amiodarone [Pacerone] 200 mg tablet 200 mg PO DAILY RF: 0 aspirin [Aspir-81] 81 mg Tablet,Delayed Release (Dr/Ec) 81 mg PO DAILY RF: 0 magnesium oxide [MagOx] 400 mg (241.3 mg magnesium) tablet 400 mg PO BID RF: 0 docusate sodium 100 mg Capsule 100 mg PO BID PRN (Reason: Constipation) RF: 0 Milrinone Lactate In Dextrose 88 kg IV UD RF: 0 spironolactone [Aldactone] 25 mg Tablet 25 mg PO DAILY RF: 0 Changed torsemide 20 mg Tablet 100 mg PO DAILY Qty: 0 RF: 0 metolazone 5 mg tablet 2.5 mg PO BID 30 Days Qty: 60 RF: 0 potassium chloride [Klor-Con M20] 20 mEq tablet,ER particles/crystals 40 meq PO DAILY 30 Days Qty: 90 RF: 0 Discontinued acetaminophen [Tylenol Extra Strength] 500 mg Tablet 500 mg PO Q6H PRN (Reason: Pain) RF: 0 ursodiol [Actigall] 300 mg capsule 300 mg PO BID RF: 0 metoprolol succinate [Toprol XL] 25 mg tablet extended release 24 hr 25 mg PO DAILY RF: 0 lorazepam [Ativan] 1 mg tablet 1 mg PO HS PRN (Reason: Anxiety) RF: 0 Discharge Orders: Discharge Order (Routine); Ordered 06/11/19 Ordered By: Natalie Savage Admission Data Admit Date/Time: 05/22/19 16:09 Attending Provider: Natalie Savage Admit Provider: Geni Hughes Primary Care Provider: Charles Oakes Other Providers: Geni Hughes ; Ángel Deng ; Oleg Chávez ; Natalie Savage ; [facility] ; [facility], ; Aki Martinez at [place] ; [place] ; [facility] Other Interventions: Discharge Summary Assessment (RN) Last Done: 06/11/19 10:21
== END 2019-06-11 11:55 | DRG 291 ==
LOC: ED 12:34 → SUATTDRO 16:09 → 2S 16:09 → 1E 05-25 09:47 → 2E 05-30 17:54